=== PATIENT | female | born 1935 | race African-American/Black ===

== ENCOUNTER 2016-11-16 01:59 | Inpatient (IN) | payer OTHER, MEDICARE ==
[~2016-11-16] VITALS: Ht 157.5 cm; Wt 85.0 kg
[~2016-11-16 01:59] MED LIST: ACET500T98 PO; AMLO-147 PO; ASCO250T2 PO; CALC200T PO; CHOL100013 PO; CLOP75TA27 PO; CYAN1TAB43 PO; DOCU-144 PO; HYDR12.53 PO; POLY17PO6 PO
[2016-11-16] MEDS ORDERED: morphine 4 MG/ML VIAL IV STA (02:13)
[2016-11-16] MEDS ORDERED: SOD CHLORIDE 0.9% 1,000 ML IV STA (02:13)
[2016-11-16] MEDS ORDERED: ONDANSETRON 4 MG INJ IV STA (02:13)
[2016-11-16] MEDS ORDERED: HYDROmorphONE 1 MG/ML SYG IV STA ×2 (02:50→03:43)
[2016-11-16 02:54] LABS: ADD SCAN DIFF NO
[2016-11-16 02:59] LABS: BASOPHIL # 0.1 10^3/ul (0.0-0.1); BASOPHILS % 0.3 % (0.0-2.0); EOSINOPHILS # 0.1 10^3/ul (0.0-0.5); EOSINOPHILS % 0.4 % (0.0-7.0); HEMATOCRIT 42.2 % (37.0-47.0); HEMOGLOBIN 13.5 g/dl (12.0-16.0); LYMPHOCYTES # 2.5 10^3/ul (0.8-2.9); LYMPHOCYTES % 14.8 % (15.0-51.0); MEAN CORPUSCULAR VOLUME 87.6 fl (82.0-101.0); MEAN PLATELET VOLUME 10.7 fl (7.4-10.4); MONOCYTE # 0.6 10^3/ul (0.3-0.9); MONOCYTES % 3.7 % (0.0-11.0); NEUTROPHIL # 13.5 10^3/ul (1.6-7.5); PLATELET COUNT 322 10^3/UL (140-415); RED BLOOD COUNT 4.82 10^6/ul (4.20-5.40); RED CELL DISTRIBUTION WIDTH 14.6 % (11.5-14.5); WHITE BLOOD COUNT 16.9 10^3/ul (4.8-10.8)
[2016-11-16 02:59] LABS: ADD UMIC YES; URINE BILIRUBIN (Dip) NEGATIVE (NEGATIVE); URINE BLOOD (Dip) TRACE (NEGATIVE); URINE COLOR LT. YELLOW (YELLOW); URINE GLUCOSE (Dip) NEGATIVE (NEGATIVE); URINE KETONES (Dip) NEGATIVE (NEGATIVE); URINE LEUKOCYTE ESTERASE (Dip) 1+ (NEGATIVE); URINE NITRITE (Dip) NEGATIVE (NEGATIVE); URINE TOTAL PROTEIN (Dip) NEGATIVE (NEGATIVE); URINE UROBILINOGEN (Dip) 0.2 E.U./dL (0.1-1.0)
[2016-11-16 03:09] LABS: ALBUMIN 3.8 g/dl (3.3-4.9)
[2016-11-16 03:10] LABS: POTASSIUM 3.8 mmol/L (3.5-5.1)
[2016-11-16 03:12] LABS: ALBUMIN/GLOBULIN RATIO 0.92; BILIRUBIN,INDIRECT 0.3 mg/dl (0-1.1); BILIRUBIN,TOTAL 0.3 mg/dl (0.2-1.3); CREATININE 0.83 mg/dl (0.44-1.00); TOTAL PROTEIN 7.9 g/dl (6.1-8.1)
[2016-11-16 03:13] LABS: CALCIUM 10.2 mg/dl (8.4-10.2)
[2016-11-16 03:30] LABS: BACTERIA,URINE RARE; SQUAMOUS EPITHELIAL CELL,UR RARE; URINE RBCS 0-2 /HPF (0)
--- NOTE | 2016-11-16 04:26 | RADRPT ---
PROCEDURE: CT abdomen and pelvis without intravenous contrast. CLINICAL INDICATION: Pain. TECHNIQUE: CT of the abdomen/pelvis was performed utilizing axial images with reconstructions in s agittal and coronal planes. The administered radiation dose is CTDI 17 mGy, DLP 1013 mGy-cm. COMPARISON: No pertinent prior examinations were submitted for comparison. FINDINGS: Visualized Chest: There is moderate cardiomegaly. Coronary artery calcifications are noted. There is mild atelectasis within the right greater than left lung bases. A small hiatal hernia is noted. Abdomen: The liver, spleen, pancreas, gallbladder,and adrenal glands are unremarkable. There is moderate right hydronephrosis and hydroureter secondary to 7 x 10 mm calculus within the ri ght proximal ureter and a 7 x 12 mm calculus in the distal ureter. The left kidney is without hydro nephrosis. Small and punctate nonobstructive calculi are seen within both kidneys. The right kidne y is slightly atrophic with renal cortical thinning. No large cysts are noted at the lower pole of the right kidney and upper pole of the left kidney. There is no evidence of bowel obstruction. The appendix is normal. No intra-abdominal free air is seen. There is no evidence of intra-abdominal adenopathy or free fluid. Vascular calcifications are noted within the aorta and its branches. Pelvis: Prior hysterectomy is noted. The urinary bladder is unremarkable. There is no pelvic adenopathy of free fluid. Osseous structures: Unremarkable. IMPRESSION: Right-sided obstructive uropathy secondary to a 7 x 10 mm calculus of the proximal right ureter and a 7 x 12 ml calculus distal ureter. Bilateral nephrolithiasis and renal cysts. Right renal atrophy and cortical thinning. RPTAT: HIKT .Alber Castillo MD, Date Time Electronically viewed and signed by .Alber Castillo MD, on 11/16/2016 04:25 .T/
--- NOTE | 2016-11-16 05:36 | ERA ---
ER Documentation Chief Complaint Date/Time DATE: 11/16/16 TIME: 05:33 Chief Complaint right flank pain radiating to RUQabd after taking miralax, milk, ect. HPI This is an 81-year-old female comes with right flank pain radiating to right upper quadrant after taking MiraLAX. The pain is mild to moderate intensity. She cannot find comfort. Denies any other current complaints. Mild nausea. No vomiting. ROS All systems reviewed and are negative except as per history of present illness. Medications Home Meds Reported Medications Calcium Carbonate* (Tums*) 500 Mg Tab.chew, 500 MG PO BID 12/13/13 Acetaminophen (Tylenol) 500 Mg Tab, PO TID 11/01/13 Multivitamins (Folgard) 1 Tab Tab, PO DAILY 11/01/13 Polyethylene Glycol* (Miralax*) 17 Gm Powd.pack, PO DAILY 11/01/13 Cholecalciferol (Vitamin D3) 10,000 Unit Capsule, 69786 U PO Q WEEKLY ON SAT 11/01/13 Clopidogrel Bisulfate (Clopidogrel) 75 Mg Tablet, PO DAILY 11/01/13 Amlodipine Besylate* (Amlodipine Besylate*) 10 Mg Tablet, PO DAILY 11/01/13 Ascorbic Acid* (Vitamin C* Chew) 250 Mg Tab.chew, PO BID 11/01/13 Hydrochlorothiazide (Hydrochlorothiazide) 12.5 Mg Capsule, PO DAILY 11/01/13 Docusate Sodium* (Colace*) 100 Mg Capsule, PO BID 11/01/13 Allergies Allergies: Coded Allergies: Cyanocobalamin (Verified Allergy, Unknown, 12/13/13) Uncoded Allergies: SABRA INHIBITOR (Allergy, Unknown, 12/13/13) VITAMIN B12 (Allergy, Unknown, 12/13/13) PMhx/Soc History of Surgery: No Anesthesia Reaction: No Hx Neurological Disorder: Yes (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 Neck: Full range of motion..~ No meningismus. Resp: Clear to auscultation bilaterally Cardio: Regular rate and rhythm, no murmurs Abd: Soft, non tender, non distended. Normal bowel sounds Skin: No petechiae or rashes Back: No midline or flank tenderness Ext: No cyanosis, or edema Neur: Awake and alert Psych: Normal Mood and Affect Result Diagram: 11/16/1621911/16/16219 Results 24 hrs Laboratory Tests Test 11/16/16 02:20 11/16/16 02:28 Alanine Aminotransferase (ALT/SGPT) 19IU/L Albumin 3.8g/dl Albumin/Globulin Ratio 0.92 Alkaline Phosphatase 112IU/L Anion Gap 19 Aspartate Amino Transf (AST/SGOT) 17IU/L Basophils # 0.110^3/ul Basophils % 0.3% Blood Urea Nitrogen 17mg/dl Calcium Level 10.2mg/dl Carbon Dioxide Level 27mmol/L Chloride Level 105mmol/L Creatinine 0.83mg/dl Direct Bilirubin 0.00mg/dl Eosinophils # 0.110^3/ul Eosinophils % 0.4% Globulin 4.10g/dl Glucose Level 153mg/dl Hematocrit 42.2% Hemoglobin 13.5g/dl Indirect Bilirubin 0.3mg/dl Lipase 75U/L Lymphocytes # 2.510^3/ul Lymphocytes % 14.8% Mean Corpuscular Hemoglobin 28.0pg Mean Corpuscular Hemoglobin Concent 32.0g/dl Mean Corpuscular Volume 87.6fl Mean Platelet Volume 10.7fl Monocytes # 0.610^3/ul Monocytes % 3.7% Neutrophils # 13.510^3/ul Neutrophils % 80.0% Nucleated Red Blood Cells # 0.010^3/ul Nucleated Red Blood Cells % 0.0/100WBC Platelet Count 12596^3/UL Potassium Level 3.8mmol/L Red Blood Count 4.8210^6/ul Red Cell Distribution Width 14.6% Sodium Level 147mmol/L Total Bilirubin 0.3mg/dl Total Protein 7.9g/dl White Blood Count 16.910^3/ul Urine Bacteria RARE Urine Bilirubin NEGATIVE Urine Clarity CLEAR Urine Color LT. YELLOW Urine Glucose NEGATIVE% Urine Hemoglobin TRACE Urine Ketones NEGATIVE Urine Leukocyte Esterase 1+ Urine Microscopic RBC 0-2/HPF Urine Microscopic WBC 10-25/HPF Urine Nitrite NEGATIVE Urine Specific [place] 1.020 Urine Squamous Epithelial Cells RARE Urine Total Protein NEGATIVE Urine Urobilinogen 0.2 E.U./dL Urine pH 5.5 Current Medications Medications (Trade) Dose Ordered Sig/Maranda Route PRN Reason Start Time Stop Time Status Last Admin Dose Admin Sodium Chloride (NS) 1,000 ml @ 1,000 mls/hr Q1H STAT IV 11/16/16 02:13 11/16/16 03:12 DC 11/16/16 02:19 Morphine Sulfate (morphine) 4 mg ONCE STAT IV 11/16/16 02:13 11/16/16 02:16 DC 11/16/16 02:19 Ondansetron HCl (Zofran Inj) 4 mg ONCE STAT IV 11/16/16 02:13 11/16/16 02:16 DC 11/16/16 02:19 Hydromorphone HCl (Dilaudid) 1 mg ONCE STAT IV 11/16/16 02:50 11/16/16 02:51 DC 11/16/16 02:53 Hydromorphone HCl (Dilaudid) 1 mg ONCE STAT IV 11/16/16 03:43 11/16/16 03:44 DC 11/16/16 04:00 Procedures/MDM Medical decision: 7-year-old female with ureteral obstruction. At this point patient will need to be admitted with urology consult. Patient will be admitted to hospitalist. Pending urology consult call back. Departure Diagnosis: Primary Impression: Flank pain Condition: Stable PARVIN MIRELES Nov 16, 2016 05:36
[2016-11-16 06:08] VITALS: TEMP 97.6
[2016-11-16 06:35] VITALS: BP 153/70; RESP 22
[2016-11-16] MEDS ORDERED: ATOR40TA68 PO (07:30)
[2016-11-16] MEDS ORDERED: BENA10TA48 PO (07:30)
[2016-11-16] MEDS ORDERED: ONDANSETRON 4 MG INJ IV PRN ×2 (08:00→10:00)
[2016-11-16] MEDS ORDERED: TAMSULOSIN (SR) 0.4 MG CAP PO SCH (08:00)
[2016-11-16] MEDS ORDERED: NACL 0.9% 3 ML SYG IV SCH (08:00)
[2016-11-16 08:19] VITALS: BP 120/57; RESP 18
[2016-11-16 08:57] VITALS: Ht 157.5 cm; Wt 85.0 kg
[2016-11-16] MEDS: DEXTROSE 5%-0.45% NACL 1,000 ML IV SCH ×2 (09:26→19:01)
[2016-11-16] MEDS: TAMSULOSIN (SR) 0.4 MG CAP PO SCH (09:34)
--- NOTE | 2016-11-16 10:21 | HP ---
DATE OF ADMISSION: 11/16/2016 CHIEF COMPLAINT: Flank pain. REASON FOR ADMISSION: Acute obstructive uropathy with right proximal and distal ureteral strain cau sing intractable pain, and also causing obstructive uropathy with hematuria. HISTORY OF PRESENT ILLNESS: This is an 81-year-old female with a past medical history of constipati on, history of previous nephrolithiasis, who has been giving a history of kidney stone before, which had been spontaneously passed. She presented with a complaint of right flank pain, intractable exc ruciating pain, 06/27. She called the paramedics while she was driving in the car to The par amedics brought her to the [facility]. In the [facility] ER she had a CT abdomen and pelvis without contrast done which shows obstructive uropathy with a calculus about 10 mm in the right proximal ureter and 12 mm in the right distal ureter. She also has a bilateral neph rolithiasis with a renal cyst, so she has been complaining of hematuria, decreased urine output asso ciated with intractable pain. At the time of my evaluation, she denies any chest pain, palpitation, headache, dizziness, blurry vi parth, constipation, diarrhea, dysuria, increased urinary frequency. PAST MEDICAL HISTORY: Notable for hypertension, hyperlipidemia, history of previous coronary artery disease, has been stable on Plavix 75 mg daily. History of constipation intermittently. PAST SURGICAL HISTORY: No surgical history is available at this time, as per the patient. SOCIAL HISTORY: She lives with her daughters. Has been followed up by the [facility]. No alcohol or recreational drug use. FAMILY HISTORY: Noncontributory, but patient says that her mom might have a history of kidney stone s. PHYSICAL EXAMINATION: VITAL SIGNS: Temperature 97.5, heart rate 96, respiration 18, blood pressure 120/57, saturation 94% to 96% on room air. GENERAL: Awake, alert, in moderate distress due to the pain. HEENT: Normal. Oropharynx clear. NECK: Supple, no JVD, no lymphadenopathy. LUNGS: Clear to auscultation. No crackles, no wheezes. HEART: S1, S2, with regular rhythm, no murmur. ABDOMEN: Soft. Tender to palpation in the right upper quadrant and the right flank with minimal te nderness and guarding. Bowel sounds are present. EXTREMITIES: No clubbing, cyanosis, or edema. NEUROLOGICAL: Nonfocal, intact. PSYCHIATRIC: Appropriate affect and mood. LABORATORY DATA/DIAGNOSTIC IMAGIN. Sodium 147, potassium 3.8, chloride 105, bicarbonate 27, BUN 9, BUN 17, creatinine 0.8, glucose 153, calcium 10.2. LFTs are normal. Albumin is 3.8. 2. Urinalysis shows 1+ leukocyte esterase, trace hemoglobin, rare bacteria, rare squamous epithelia l cells, WBC 16.9, hemoglobin 13.5, platelet count is 322,000. A CT abdomen and pelvis shows bilateral nephrolithiasis with right obstructive uropathy and had a 10 mm stone in the right proximal ureter and 12 mm stone in the right distal ureter. IMPRESSION: This is an 81-year-old female with: 1. Acute urinary tract infection. 2. Acute obstructive uropathy causing blockage of her ureters. The patient had a 10 mm stone in th e right proximal ureter and a 12 mm stone in the right distal ureter causing intractable abdominal p ain. 3. Bilateral nephrolithiasis with a small renal cyst. 4. Right atrophic kidney with cortical thinning. 5. Intractable abdominal pain. 6. History of hypertension. 7. History of hyperlipidemia. 8. History of vitamin D deficiency. 9. History of previous coronary artery disease, has been on Plavix. PLAN: 1. Admission to the med/surg floor. IV fluids, D5 half NS to run at 125 mL per hour. 2. I will start the patient on IV ceftriaxone to cover her for urinary tract infection. 3. Flomax 0.4 mg p.o. daily. 4. Continue the other home medications. I will hold the patient's Plavix in anticipation of the ur ology procedures. The urologist, Dr. Pinedo, has been consulted to see patient. 5. The patient currently seen in the med/surg floor. Protonix for GI prophylaxis and SCDs for DVT prophylaxis. She will be followed up along with urology. Dictated By: LIZZ SALCEDO MD, KP/BOBBI Conf#: [id number] DID#: [id number]
--- NOTE | 2016-11-16 10:43 | HP ---
DATE OF ADMISSION: 11/16/2016 CHIEF COMPLAINT: Right flank pain. HISTORY OF PRESENT ILLNESS: The patient is a 81-year-old female with a history of CVA, with right- sided deficit and hypertension, who presented to the emergency department with the above stated do f complaint. Upon presentation to the ER, she was noted to have a white count of 17,000. CT abdome n and pelvis shows right-sided obstructing uropathy, 7 x 10 mm proximal right ureteral calculus, and a 7 x 12 in the distal. Also, the CAT scan shows bilateral nephrolithiasis and right renal atrophy and cortical thinning. The patient was provided pain medication and admitted for neurologic evalua tion. REVIEW OF SYSTEMS: Negative except as in HPI. PAST MEDICAL HISTORY: As per HPI. SOCIAL HISTORY: No reported history of drugs, alcohol, or illicit drug use. ALLERGIES: 1. SABRA INHIBITOR. 2. VITAMIN B12. HOME MEDICATIONS 1. Lipitor. 2. Benazepril. 3. Hydrochlorothiazide. 4. Norvasc. 5. Plavix. 6. Multivitamin. 7. Calcium. PHYSICAL EXAMINATION: GENERAL: The patient is lying in bed, looks somewhat uncomfortable due to pain. HEENT: No obvious head deformity. Pupils are reactive to light. CARDIOVASCULAR: Regular rate and rhythm. No extra sounds. LUNGS: Clear. ABDOMEN: Soft. There is tenderness in the lower abdominal region in the right flank area. EXTREMIT IES: No edema. NEUROLOGICAL: Showed decreased strength in the right upper and lower extremities. LABORATORY: WBC 17,000. Urinalysis consistent with UTI. CT abdomen and pelvis with results as mentioned in the HPI. IMPRESSION: 1. Right-sided obstructive uropathy. 2. Right flank pain, secondary to above. 3. Right-sided pyelonephritis. 4. History of cerebrovascular accident with right-sided deficit. 5. History of hypertension. 6. Sepsis secondary to right-sided pyelonephritis versus/urinary tract infection. PLAN: She will be kept n.p.o. She will be placed on IV fluids. We will provide pain medication as needed. She is currently awaiting urologic evaluation. We will hold her home medication while she is n.p.o. We will resume soon after is no longer n.p.o. We will start her on Flomax. Further workup and management will be per clinical course. Dictated By: PARVIN BLISS/BOBBI Conf#: [id number] DID#: [id number]
[2016-11-16] MEDS: POLYETHYLENE GLYCOL 17 GM PACKET PO SCH (11:00)
[2016-11-16] MEDS ORDERED: HYDROCHLOROTHIAZIDE 12.5 MG CAP PO SCH (11:00)
[2016-11-16] MEDS ORDERED: CLOPIDOGREL 75 MG TAB PO SCH (11:00)
[2016-11-16] MEDS: CALCIUM CARBONATE 500 MG CHEW TAB PO SCH ×2 (11:00→20:41)
[2016-11-16] MEDS: PANTOPRAZOLE 40 MG INJ IV SCH ×2 (11:38→18:00)
[2016-11-16] MEDS: AMLODIPINE 10 MG TAB PO SCH (11:43)
[2016-11-16] MEDS: BENAZEPRIL 10 MG TAB PO SCH (11:43)
--- NOTE | 2016-11-16 13:32 | CONS ---
DATE OF ADMISSION: 11/16/2016 DATE OF CONSULTATION: 11/16/2016 REQUESTING PHYSICIAN: Markel Cm MD and Kin Carmona MD. HISTORY OF PRESENT ILLNESS: This is an 81-year-old -[place] female who presented to [facility] because of right flank pain, 06/27, and underwent a CT scan of the abdomen and pelvis that showed 2 stones in the right ureter, 1 in the proximal ureter measuring about 10 mm and another stone in the distal ureter measuring 12 mm, and both of them are obstructing her. The CAT scan showed that there is some cortical atrophy of the right kidney and that indicated that these stones probably have been blocking her for quite a while. The patient stated that she has had kidney stones in the past and "that she has passed them," probably these are the stones that she did have. She does not have a stone in the kidney itself and therefore, that was probably they told her that she passed them because they did not see them in the ureter. 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 The patient does have multiple other problems that include a history of coronary artery disease and she has been on Plavix. She also has a history of constipation, hypertension and dyslipidemia. She is a 4 para1, one of HIV,one of infection..one miscarriage and one daughter alive PAST SURGICAL HISTORY: Hysterectomy, She stated that did look into her bladder once before and that they did not see any stone. SOCIAL HISTORY: She lives with her daughter here in [place]. She does not smoke, does not drink any alcohol, and there is no history of drug abuse. 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 She is 62 inches tall. Temperature is 97.5, pulse 96, respirations 18, blood pressure 120/57. ABDOMEN: Obese. scar of hysterectomy,There is some tenderness in the right flank area and the right upper quadrant. There is no abdominal mass palpable. LABORATORY DATA: Her CBC shows a white count of 16.9, hemoglobin 13.5, hematocrit is 42.2. BUN is 17, creatinine 0.83, sodium 147, potassium 3.8, chloride 105, CO2 of 27. Urinalysis showed 1+ leukocyte esterase, 10 to 25 WBCs. PT and PTT are not done, we will order one. IMAGING: The CT scan of the abdomen and pelvis is reported as right-sided obstructive uropathy secondary to 7 x 10 mm stone in the proximal right ureter and 7 x 12 mm stone in the distal right ureter. She does have bilateral kidney stones and renal cysts, and there is right renal atrophy and cortical thinning and this probably is secondary to obstructive uropathy. IMPRESSION: Right ureteral stones with obstruction. PLAN: To do a cystoscopy and insert a JJ stent.and possible ureteroscopy,laser lithotripsy. she needs a cardiology evaluation and see if we could stop the Plavix, so we could do ureteroscopy and laser lithotripsy on the stones. The patient will need at least 2 procedures, each one to remove 1 stone and put the JJ stent to try to drain the kidney. Also, will do a urine culture to make sure that she is not infected. I will follow her urological problem with you. I did schedule her tentatively for tomorrow at 5:30 p.m. for cystoscopy, insertion of right ureteral JJ stent. Since she is on Plavix, we probably have to wait until the effect of the Plavix has subsided and then we go back and try to break the stones and remove them, and we will have to do 1 stone at a time. Dictated By: DEVAUGHN ESCALANTE/BOBBI Conf#: [id number] DID#: [id number]
[2016-11-16 14:24] LABS: INR 0.96; PROTIME 12.8 Sec (12.2-14.2)
[2016-11-16 14:25] LABS: PARTIAL THROMBOPLASTIN TIME 25.9 Sec (25.0-35.0)
--- NOTE | 2016-11-16 14:52 | CONS ---
Date/Time of Note Date/Time of Note DATE: 11/16/16 TIME: 14:46 Assessment/Plan Assessment/Plan Additional Assessment/Plan Preoperative cardiac risk stratification Obstructive uropathy History of CVA, on Plavix Systolic murmur Preserved ejection fraction Hypertension Dyslipidemia -Patient has been on Plavix secondary to a CVA over 2 years ago. Could be held for patient's planned urologic procedure. She denies any history of any coronary intervention. She does have a systolic murmur on examination and echo showed hyperdynamic function and gradient. Would continue IV fluids to increase intravascular volume. D/C HCTZ. She is at an intermediate risk for any untoward cardiac events for her urologic procedure. The benefits likely outweigh the risks. Consultation Date/Type/Reason Admit Date/Time Nov 16, 2016 at 10:29 Type of Consultation: cv Reason for Consultation Preoperative cardiac risk stratification Hx of Present Illness This is an 81-year-old female with history of hypertension, dyslipidemia, CVA with right-sided hemiparesis who was found to have nephrolithiasis with obstruction. Patient plan to undergo cystoscopy and possible stent placement. Cardiology consultation was requested for preoperative risk stratification given patient on Plavix. In discussion with the patient and daughter, no history of heart disease, coronary intervention in the past. She did have a stroke a number of years ago and was put on Plavix because of that reason. She has been bedbound for the past 2 years. She denies any dizziness, lightheadedness. She does minimal activity but denies exertional chest pain, shortness of breath, palpitations or dizziness. 12 point review of systems was performed with all pertinent positives and negatives mentioned above and all else is negative Past Medical History CVA Medical History: high cholesterol, hypertension Past Surgical History Past Surgical Hx: other (Hysterectomy) Family History Significant Family History: no pertinent family hx Social History Alcohol Use: none Smoking Status: Never smoker Exam/Review of Systems Vital Signs Vitals Vital Signs Date Time Temp Pulse Resp B/P Pulse Ox O2 Delivery O2 Flow Rate FiO2 11/16/16 08:19 97.5 96 18 120/57 94 11/16/16 06:08 Room Air 2.0 Exam No apparent distress Constitutional: alert, obese, oriented Head: normocephalic Neck: supple Respiratory: other (Coarse breath sounds bilaterally, no wheezing) Cardiovascular: other (S1-S2 heard), regular rate and rhythm, systolic murmur Gastrointestinal: bowel sounds, non-tender, other (No guarding), soft Extremities: edema (Trace), other (No cyanosis) Results Result Diagram: 11/16/16 02211/16/16 0220 Results 24 hrs Laboratory Tests Test 11/16/16 02:20 11/16/16 02:28 11/16/16 14:00 Alanine Aminotransferase (ALT/SGPT) 19 Albumin 3.8 Albumin/Globulin Ratio 0.92 Alkaline Phosphatase 112 Anion Gap 19 H Aspartate Amino Transf (AST/SGOT) 17 Basophils # 0.1 Basophils % 0.3 Blood Urea Nitrogen 17 Calcium Level 10.2 Carbon Dioxide Level 27 Chloride Level 105 Creatinine 0.83 Direct Bilirubin 0.00 Eosinophils # 0.1 Eosinophils % 0.4 Globulin 4.10 H Glucose Level 153 Hematocrit 42.2 Hemoglobin 13.5 Indirect Bilirubin 0.3 Lipase 75 Lymphocytes # 2.5 Lymphocytes % 14.8 L Mean Corpuscular Hemoglobin 28.0 L Mean Corpuscular Hemoglobin Concent 32.0 Mean Corpuscular Volume 87.6 Mean Platelet Volume 10.7 H Monocytes # 0.6 Monocytes % 3.7 Neutrophils # 13.5 H Neutrophils % 80.0 H Nucleated Red Blood Cells # 0.0 Nucleated Red Blood Cells % 0.0 Platelet Count 322 Potassium Level 3.8 Red Blood Count 4.82 Red Cell Distribution Width 14.6 H Sodium Level 147 H Total Bilirubin 0.3 Total Protein 7.9 White Blood Count 16.9 H Urine Bacteria RARE Urine Bilirubin NEGATIVE Urine Clarity CLEAR Urine Color LT. YELLOW Urine Glucose NEGATIVE Urine Hemoglobin TRACE Urine Ketones NEGATIVE Urine Leukocyte Esterase 1+ H Urine Microscopic RBC 0-2 Urine Microscopic WBC 10-25 Urine Nitrite NEGATIVE Urine Specific [place] 1.020 Urine Squamous Epithelial Cells RARE Urine Total Protein NEGATIVE Urine Urobilinogen 0.2 E.U./dL Urine pH 5.5 Activated Partial Thromboplast Time 25.9 INR International Normalized Ratio 0.96 Prothrombin Time 12.8 Prothrombin Time Ratio 1.0 Medications Medications Current Medications Dextrose/Sodium Chloride (D5-1/2ns) 1,000 ml @ 75 mls/hr [id number] IV Last administered on 11/16/16t 09:26; Admin Dose 125 MLS/HR; Start 11/16/16 at 07:49 Morphine Sulfate (morphine) 4 mg Q4H PRN IV pain; Start 11/16/16 at 08:00 Tamsulosin HCl (Flomax) 0.4 mg DAILY PO Last administered on 11/16/16 09:34; Admin Dose 0.4 MG; Start 11/16/16 at 08:00 Pantoprazole (Protonix Iv) 40 mg BID@06,18 IV Last administered on 11/16/16 11: 38; Admin Dose 40 MG; Start 11/16/16 at 11:00 Ondansetron HCl (Zofran Inj) 4 mg Q4H PRN IV NAUSEA AND/OR VOMITING; Start 11/16 at 10:00 Amlodipine Besylate (Norvasc) 5 mg DAILY PO Last administered on 11/16/16 11:43 ; Admin Dose 5 MG; Start 11/16/16 at 11:00 Benazepril HCl (Lotensin) 10 mg DAILY PO Last administered on 11/16/16 11:43; Admin Dose 10 MG; Start 11/16/16 at 11:00 Calcium Carbonate (Tums) 500 mg BID PO ; Start 11/16/16 at 11:00 Clopidogrel Bisulfate (plaVIX) 75 mg DAILY PO Last administered on 11/16/16 11: 43; Admin Dose 75 MG; Start 11/16/16 at 11:00 Hydrochlorothiazide (Hydrochlorothiazide) 12.5 mg DAILY PO Last administered on 11/16/16 11:44; Admin Dose 12.5 MG; Start 11/16/16 at 11:00 Polyethylene Glycol (Miralax) 17 gm DAILY PO ; Start 11/16/16 at 11:00 Ascorbic Acid (Vitamin C) 500 mg BID PO ; Start 11/16/16 at 21:00 Atorvastatin Calcium (Lipitor) 20 mg DAILY@21 PO ; Start 11/16/16 at 21:00 Procedures Procedures ECG demonstrates sinus rhythm at 94 bpm, QRS 84 ms, nonspecific STT wave abnormalities Nishant Ruelas DO Nov 16, 2016 14:52
--- NOTE | 2016-11-16 15:12 | RADRPT ---
AMENDMENT: 11/16/2016 3:18:47 PM Elijah Rodriguez M.D Impression: Comparison was made to the recent CT scan of the abdomen pelvis performed on 11/16/2016 . Increased density in medial aspects of the right left lower lobe correspond to focal areas of con solidative infiltrate/atelectasis in these areas. PROCEDURE: XR Chest. CLINICAL INDICATION: Preop chest x-ray in a 81-year-old female with history of hypertension. TECHNIQUE: Single frontal view of the chest was obtained COMPARISON: Chest x-ray 12/13/2013. FINDINGS: The soft tissues are normal. There are degenerative osteophytes in the thoracic and upper lumbar sp ine. The left ventricle is mildly enlarged. The cardiomediastinal silhouette, pulmonary vasculatur e and hilar structures are normal. Vascular calcifications in the aortic arch with mild ectasia of t he thoracic aorta. There is slight thickening of the minor fissure which may be the result of a ple ural effusion not identified on the prior study of 12/13/2013. The right diaphragm is elevated. Th ere is compressive atelectasis in the bases of the lungs. No acute infiltrate or pleural effusion i s noted. IMPRESSION: 1. There is thickening in the minor fissure which could be the result of a small pleural effusion or pleural scarring. This is not identified on 12/13/2013. 2. 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 3. Spondylosis of the thoracic spine. 4. Suboptimal inspiration with elevation the right diaphragm and mild compressive atelectasis in th e bases of the lungs. 5. No convincing evidence of active cardiopulmonary disease. RPTAT:AAJJ Physician Kristian Date Time Electronically viewed and signed by Physician Kristian on 11/16/2016 15:18 JM/
--- NOTE | 2016-11-16 15:17 | RADRPT ---
PROCEDURE: XR Abdomen. CLINICAL INDICATION: 79 toe female with history of right ureteral stones. TECHNIQUE: AP abdomen x-ray. COMPARISON: CT scan abdomen pelvis 11/16/2016. FINDINGS: There is consolidative infiltrate or atelectasis in the medial aspect of the right lower lobe when c orrelated with the recent CT scan of 11/16/2016. There is peribronchial cuffing in the medial aspec ts of the right left lower lobes. The right diaphragm is elevated. There is slight thickening of t he major fissure. There are vascular calcifications in the descending thoracic aorta. There is a s everal millimeter ureterolith at the level of L4-5. There is a millimeters ureterolith at the level of the right sacral ala. IMPRESSION: 1. 7-8 mm ureterolith at the the level of L4-5. 8 mm ureterolith projecting over the right sacral a la. 2. Reflex ileus. 3. Osteoarthritis of the thoracic and lumbosacral spine. 4. Elevation of the right diaphragm with consolidative infiltrate and atelectasis the medial aspect s of the right left lower lobes. RPTAT:AAJJ Physician Kristian Date Time Electronically viewed and signed by Physician Kristian on 11/16/2016 15:17 /
--- NOTE | 2016-11-16 15:54 | RADRPT ---
Echocardiogram Report Patient Name: INES RESTREPO Gender: Female Date: 1935 Study Date: 16-Nov-2016 [place] [facility]: Patricia Bahena [facility] Location: 603 Ref. Physician: NISHANT RUELAS Quality: Technically Difficult Study Procedures: Transthoracic echocardiogram with complete 2D, M-Mode, and doppler examination. Indications: Murmur. 2D/M Mode Doppler Measurement Value Normal Ranges Measurement Value Normal Ranges LVIDd 2D 3.4 3.5 - 5.6 cm AV Mean Renny 2.9 m/sec LVIDs 2D 2.5 2.1 - 4.1 cm AV Mean PG 48.1 mmHg LVPWd 2D 0.8 0.6 - 1.1 cm AV Peak Renny 5.2 m/sec IVSd 2D 0.7 0.6 - 1.1 cm AV Peak PG 123.6 mmHg AoR Diam 2D 2.8 2.0 - 3.7 cm AV VTI 80.0 cm EDV 2D 47.8 cm3 MV E Peak Renny 0.6 m/sec ESV 2D 16.2 cm3 MV A Peak Renny 1.3 m/sec LA Dimen 2D 3.1 2.3 - 4.0 cm MV E/A 0.5 MV Decel Time 67 msec MV Decel Cecil 9 MV E/A 0.5 TR Peak Renny 2.9 m/sec TR Peak PG 34.4 mmHg RVSP 42.0 mmHg Findings Left Ventricle: Hyperdynamic left ventricular systolic function. Normal left ventricular cavity size. Normal left ventricular wall thickness. Ejection fraction is visually estimated at 70 %. Tissue Doppler/Mitral Doppler indices are consistent with impaired relaxation (Stage I diastolic dysfunction). Right Ventricle: Normal right ventricular size. Normal right ventricular systolic function. Left Atrium: The left atrium is normal in size. Right Atrium: The right atrium is normal in size. Mitral Valve: Mitral valve leaflets appear mildly thickened. Mild mitral annular calcification. Mild mitral valve regurgitation. Aortic Valve: No significant aortic stenosis or insufficiency. Aortic cusps appear mildly calcified. Tricuspid Valve: Normal appearance of the tricuspid valve. Estimated peak PA systolic pressure 42 mmHg. There is mild tricuspid regurgitation. Pulmonic Valve: Normal pulmonic valve appearance. Pericardium: Normal pericardium with no significant pericardial effusion. Aorta: Normal aortic root. IVC: Normal size and no respiratory collapse consistent with elevated right atrial pressure. Conclusions 1.Hyperdynamic left ventricular systolic function. Normal left ventricular cavity size. Normal left ventricular wall thickness. Ejection fraction is visually estimated at 70 %. Patient with left ventricular outflow gradient. Tissue Doppler/Mitral Doppler indices are consistent with impaired relaxation (Stage I diastolic dysfunction). 2.Normal right ventricular size. Normal right ventricular systolic function. 3.The left atrium is normal in size. 4.The right atrium is normal in size. 5.Mild mitral valve regurgitation. 6.No significant aortic stenosis or insufficiency. 7.Estimated peak PA systolic pressure 42 mmHg. There is mild tricuspid regurgitation. 8.Normal pericardium with no significant pericardial effusion. Electronically Signed By: Nishant Ruelas 16-Nov-2016 15:53:41 -0800 Patient Name: INES RESTREPO Study Date: 16-Nov-2016 [id number]
[2016-11-16] MEDS: ASCORBIC ACID 500 MG TAB PO SCH (20:42)
[2016-11-16] MEDS: ATORVASTATIN 20 MG TAB PO SCH (20:42)
[2016-11-16 20:50] VITALS: BP 129/66; RESP 16
[2016-11-16] MEDS ORDERED: ATORVASTATIN 40 MG TAB PO SCH (21:00)
[2016-11-16] MEDS ORDERED: ASCORBIC ACID 250 MG TAB PO SCH (21:00)
[2016-11-17] VITALS (8 sets, daily range): BP systolic 77–124; BP diastolic 41–59; PULSE 96–126; RESP 16–81
[2016-11-17] MEDS: PANTOPRAZOLE 40 MG INJ IV SCH (05:09)
[2016-11-17] MEDS: morphine 2 MG INJ IV PRN (05:10)
[2016-11-17 05:31] LABS: ADD SCAN DIFF NO
[2016-11-17 05:34] LABS: ABNORMAL IP MESSAGE 1; BASOPHIL # 0.1 10^3/ul (0.0-0.1); BASOPHILS % 0.2 % (0.0-2.0); HEMOGLOBIN 13.3 g/dl (12.0-16.0); LYMPHOCYTES % 3.7 % (15.0-51.0); MEAN CORPUSCULAR HEMOGLOBIN 28.9 pg (29.0-33.0); MEAN CORPUSCULAR HGB CONC 33.3 g/dl (32.0-37.0); MEAN PLATELET VOLUME 10.5 fl (7.4-10.4); MONOCYTE # 0.8 10^3/ul (0.3-0.9); NEUTROPHIL # 23.4 10^3/ul (1.6-7.5); NEUTROPHILS % 87.1 % (39.0-77.0); PLATELET COUNT 255 10^3/UL (140-415); RED CELL DISTRIBUTION WIDTH 14.6 % (11.5-14.5); WHITE BLOOD COUNT 26.9 10^3/ul (4.8-10.8)
[2016-11-17 05:49] LABS: ALBUMIN 3.3 g/dl (3.3-4.9)
[2016-11-17 05:50] LABS: POTASSIUM 3.5 mmol/L (3.5-5.1)
[2016-11-17 05:52] LABS: ALBUMIN/GLOBULIN RATIO 0.91; BILIRUBIN,INDIRECT 0.5 mg/dl (0-1.1); BILIRUBIN,TOTAL 0.5 mg/dl (0.2-1.3); CREATININE 0.91 mg/dl (0.44-1.00); TOTAL PROTEIN 6.9 g/dl (6.1-8.1)
[2016-11-17 05:53] LABS: CALCIUM 9.5 mg/dl (8.4-10.2)
[2016-11-17 06:02] LABS: INR 1.17; PT RATIO 1.2
[2016-11-17 06:03] LABS: PARTIAL THROMBOPLASTIN TIME 29.1 Sec (25.0-35.0)
[2016-11-17] MEDS: ASCORBIC ACID 500 MG TAB PO SCH ×2 (08:36→21:43)
[2016-11-17] MEDS: AMLODIPINE 10 MG TAB PO SCH (08:36)
[2016-11-17] MEDS: POLYETHYLENE GLYCOL 17 GM PACKET PO SCH (08:37)
[2016-11-17] MEDS: CALCIUM CARBONATE 500 MG CHEW TAB PO SCH ×2 (08:37→21:00)
[2016-11-17] MEDS: TAMSULOSIN (SR) 0.4 MG CAP PO SCH (08:37)
[2016-11-17] MEDS: BENAZEPRIL 10 MG TAB PO SCH (08:37)
[2016-11-17] MEDS: DEXTROSE 5%-0.45% NACL 1,000 ML IV SCH (08:45)
--- NOTE | 2016-11-17 12:21 | PN ---
Date/Time of Note Date/Time of Note DATE: 11/17/16 TIME: 12:13 Assessment/Plan VTE Prophylaxis VTE Prophylaxis Intervention: SCD's Lines/Catheters IV C[facility]ter Type (from [facility] Saline Lock Urinary Cath still in place: No Assessment/Plan Chief Complaint/Hosp Course IMPRESSION: 1. Right-sided obstructive uropathy. Urology has been consulted, plan for cystoscopy today Start Flomax when patient is able to tolerate oral intake 2. Right flank pain, secondary to above. 3. Right-sided pyelonephritis. Start patient on Rocephin and ciprofloxacin 4. History of cerebrovascular accident with right-sided deficit. 5. History of hypertension. Well-controlled on medical management 6. Sepsis secondary to right-sided pyelonephritis versus/urinary tract infection. We will continue monitor patient closely for recommendation management treatment as clinical course Problems: Subjective 24 Hr Interval Summary Free Text/Dictation Patient continues to complain of having flank pain and abdominal discomfort Complains of having nausea without any vomiting Denies any chest pain or shortness of breath Exam/Review of Systems Vital Signs Vitals Vital Signs Date Time Temp Pulse Resp B/P Pulse Ox O2 Delivery O2 Flow Rate FiO2 11/17/16 07:43 98.5 98 16 111/59 96 11/16/16 06:08 Room Air 2.0 Intake and Output 11/16/16 11/16/16 11/17/16 14:59 22:59 06:59 Intake Total 1480 ml 1125 ml Balance 1480 ml 1125 ml Exam General: The patient is moderately overweight, Not in acute distress. HEENT: Atraumatic, normocephalic. The pupils are equal and round . Neck: Supple with full range of motion. Chest: Normal expansion of the thorax during inspiration Lungs: Clear to auscultation bilaterally Heart: Normal S1-S2, Regular rhythm and rate. Abdomen: Soft , minimal right-sided tenderness and flank pain, nondistended , bowel sounds are present. Extremities: Normal to inspection, no edema no cyanosis Neurologic: Normal mental status,The patient is awake, alert and oriented . Results Result Diagram: 11/17/16 0500 11/17/16 0506 Results 24 hrs Laboratory Tests Test 11/16/16 14:00 11/17/16 05:00 11/17/16 05:06 Activated Partial Thromboplast Time 25.9 29.1 INR International Normalized Ratio 0.96 1.17 Prothrombin Time 12.8 15.0 H Prothrombin Time Ratio 1.0 1.2 Basophils # 0.1 Basophils % 0.2 Differential Comment AUTO w/SCAN Eosinophils # 0.0 Eosinophils % 0.0 Hematocrit 40.0 Hemoglobin 13.3 Lymphocytes # 1.0 Lymphocytes % 3.7 L Mean Corpuscular Hemoglobin 28.9 L Mean Corpuscular Hemoglobin Concent 33.3 Mean Corpuscular Volume 87.0 Mean Platelet Volume 10.5 H Monocytes # 0.8 Monocytes % 3.0 Neutrophils # 23.4 H Neutrophils % 87.1 H Nucleated Red Blood Cells # 0.0 Nucleated Red Blood Cells % 0.0 Platelet Count 255 # Red Blood Count 4.60 Red Cell Distribution Width 14.6 H White Blood Count 26.9 #H Alanine Aminotransferase (ALT/SGPT) 35 Albumin 3.3 Albumin/Globulin Ratio 0.91 Alkaline Phosphatase 96 Anion Gap 18 H Aspartate Amino Transf (AST/SGOT) 31 Blood Urea Nitrogen 20 Calcium Level 9.5 Carbon Dioxide Level 21 Chloride Level 104 Creatinine 0.91 Direct Bilirubin 0.00 Globulin 3.60 H Glucose Level 121 Indirect Bilirubin 0.5 Potassium Level 3.5 Sodium Level 139 Total Bilirubin 0.5 Total Protein 6.9 # Medications Medications Current Medications Dextrose/Sodium Chloride (D5-1/2ns) 1,000 ml @ 75 mls/hr [id number] IV Last administered on 11/17/16 08:45; Admin Dose 75 MLS/HR; Start 11/16/16 at 07:49 Morphine Sulfate (morphine) 4 mg Q4H PRN IV pain Last administered on 11/17/16 05:10; Admin Dose 4 MG; Start 11/16/16 at 08:00 Tamsulosin HCl (Flomax) 0.4 mg DAILY PO Last administered on 11/17/16 08:37; Admin Dose 0.4 MG; Start 11/16/16 at 08:00 Pantoprazole (Protonix Iv) 40 mg BID@06,18 IV Last administered on 11/17/16 05: 09; Admin Dose 40 MG; Start 11/16/16 at 11:00 Ondansetron HCl (Zofran Inj) 4 mg Q4H PRN IV NAUSEA AND/OR VOMITING; Start 11/16 at 10:00 Amlodipine Besylate (Norvasc) 5 mg DAILY PO Last administered on 11/17/16 08:36 ; Admin Dose 5 MG; Start 11/16/16 at 11:00 Benazepril HCl (Lotensin) 10 mg DAILY PO Last administered on 11/17/16 08:37; Admin Dose 10 MG; Start 11/16/16 at 11:00 Calcium Carbonate (Tums) 500 mg BID PO Last administered on 11/17/16 08:37; Admin Dose 500 MG; Start 11/16/16 at 11:00 Polyethylene Glycol (Miralax) 17 gm DAILY PO Last administered on 11/17/16 08: 37; Admin Dose 17 GM; Start 11/16/16 at 11:00 Ascorbic Acid (Vitamin C) 500 mg BID PO Last administered on 11/17/16 08:36; Admin Dose 500 MG; Start 11/16/16 at 21:00 Atorvastatin Calcium (Lipitor) 20 mg DAILY@21 PO Last administered on 11/16/16 20:42; Admin Dose 20 MG; Start 11/16/16 at 21:00 XUAN GREGG MD Nov 17, 2016 12:21
--- NOTE | 2016-11-17 13:10 | CONS ---
Date/Time of Note Date/Time of Note DATE: 11/17/16 TIME: 13:07 Assessment/Plan Assessment/Plan Additional Assessment/Plan 1. Acute urinary tract infection. 2. Acute obstructive uropathy causing blockage of her ureters. The patient had a 10 mm stone in the right proximal ureter and a 12 mm stone in the right distal ureter causing intractable abdominal pain. 3. Bilateral nephrolithiasis with a small renal cyst. 4. Right atrophic kidney with cortical thinning. 5. Intractable abdominal pain. 6. History of hypertension. 7. History of hyperlipidemia. 8. History of vitamin D deficiency. 9. History of previous coronary artery disease, has been on Plavix. PLAN: Plan for cystoscopy hematuria improving pt is cleared by cardiology Urology planning for cystoscopy and stone removal will continue to fllow up on patient Consultation Date/Type/Reason Admit Date/Time Nov 16, 2016 at 10:29 Initial Consult Date november Type of Consultation: NEPHROLOGY Reason for Consultation Obstructive Uropathy, hematuria, kidney stone Right pyelonephtisi, CKD Referring Provider: PARVIN KELLY MD 24 HR Interval Summary Free Text/Dictation Right sided Obstructive uropathy, with pyelonephritis, started on IV rocephin, urology following more confused after getting IV morphine today AM Exam/Review of Systems Vital Signs Vitals Vital Signs Date Time Temp Pulse Resp B/P Pulse Ox O2 Delivery O2 Flow Rate FiO2 11/17/16 07:43 98.5 98 16 111/59 96 11/16/16 06:08 Room Air 2.0 Intake and Output 11/16/16 11/16/16 11/17/16 15:00 23:00 07:00 Intake Total 1480 ml 1125 ml Balance 1480 ml 1125 ml Exam GENERAL: Awake, alert, in moderate distress due to the pain. HEENT: Normal. Oropharynx clear. NECK: Supple, no JVD, no lymphadenopathy. LUNGS: Clear to auscultation. No crackles, no wheezes. HEART: S1, S2, with regular rhythm, no murmur. ABDOMEN: Soft. Tender to palpation in the right upper quadrant and the right flank with minimal tenderness and guarding. Bowel sounds are present. EXTREMITIES: No clubbing, cyanosis, or edema. NEUROLOGICAL: Nonfocal, intact. PSYCHIATRIC: Appropriate affect and mood. Results Result Diagram: 11/17/16 0500 11/17/16 0506 Results 24 hrs Laboratory Tests Test 11/16/16 14:00 11/17/16 05:00 11/17/16 05:06 Activated Partial Thromboplast Time 25.9 29.1 INR International Normalized Ratio 0.96 1.17 Prothrombin Time 12.8 15.0 H Prothrombin Time Ratio 1.0 1.2 Basophils # 0.1 Basophils % 0.2 Differential Comment AUTO w/SCAN Eosinophils # 0.0 Eosinophils % 0.0 Hematocrit 40.0 Hemoglobin 13.3 Lymphocytes # 1.0 Lymphocytes % 3.7 L Mean Corpuscular Hemoglobin 28.9 L Mean Corpuscular Hemoglobin Concent 33.3 Mean Corpuscular Volume 87.0 Mean Platelet Volume 10.5 H Monocytes # 0.8 Monocytes % 3.0 Neutrophils # 23.4 H Neutrophils % 87.1 H Nucleated Red Blood Cells # 0.0 Nucleated Red Blood Cells % 0.0 Platelet Count 255 # Red Blood Count 4.60 Red Cell Distribution Width 14.6 H White Blood Count 26.9 #H Alanine Aminotransferase (ALT/SGPT) 35 Albumin 3.3 Albumin/Globulin Ratio 0.91 Alkaline Phosphatase 96 Anion Gap 18 H Aspartate Amino Transf (AST/SGOT) 31 Blood Urea Nitrogen 20 Calcium Level 9.5 Carbon Dioxide Level 21 Chloride Level 104 Creatinine 0.91 Direct Bilirubin 0.00 Globulin 3.60 H Glucose Level 121 Indirect Bilirubin 0.5 Potassium Level 3.5 Sodium Level 139 Total Bilirubin 0.5 Total Protein 6.9 # Medications Medications Current Medications Dextrose/Sodium Chloride (D5-1/2ns) 1,000 ml @ 75 mls/hr [id number] IV Last administered on 11/17/16 08:45; Admin Dose 75 MLS/HR; Start 11/16/16 at 07:49 Morphine Sulfate (morphine) 4 mg Q4H PRN IV pain Last administered on 11/17/16 05:10; Admin Dose 4 MG; Start 11/16/16 at 08:00 Tamsulosin HCl (Flomax) 0.4 mg DAILY PO Last administered on 11/17/16 08:37; Admin Dose 0.4 MG; Start 11/16/16 at 08:00 Pantoprazole (Protonix Iv) 40 mg BID@06,18 IV Last administered on 11/17/16 05: 09; Admin Dose 40 MG; Start 11/16/16 at 11:00 Ondansetron HCl (Zofran Inj) 4 mg Q4H PRN IV NAUSEA AND/OR VOMITING; Start 11/16 at 10:00 Amlodipine Besylate (Norvasc) 5 mg DAILY PO Last administered on 11/17/16 08:36 ; Admin Dose 5 MG; Start 11/16/16 at 11:00 Benazepril HCl (Lotensin) 10 mg DAILY PO Last administered on 11/17/16 08:37; Admin Dose 10 MG; Start 11/16/16 at 11:00 Calcium Carbonate (Tums) 500 mg BID PO Last administered on 11/17/16 08:37; Admin Dose 500 MG; Start 11/16/16 at 11:00 Polyethylene Glycol (Miralax) 17 gm DAILY PO Last administered on 11/17/16 08: 37; Admin Dose 17 GM; Start 11/16/16 at 11:00 Ascorbic Acid (Vitamin C) 500 mg BID PO Last administered on 11/17/16 08:36; Admin Dose 500 MG; Start 11/16/16 at 21:00 Atorvastatin Calcium 20 mg 20 mg DAILY@21 PO Last administered on 11/16/16 20: 42; Admin Dose 20 MG; Start 11/16/16 at 21:00 Ciprofloxacin/ Dextrose 200 ml @ 200 mls/hr Q12 IVPB ; Start 11/17/16 at 14:00 Ceftriaxone Sodium (Rocephin) 50 ml @ 100 mls/hr Q24H IVPB ; Start 11/17/16 at 12:30 LIZZ SALCEDO MD Nov 17, 2016 13:10
[2016-11-17] MEDS: CEFTRIAXONE 1 GM/50 ML (PMX) 50 ML IVPB SCH (13:11)
[2016-11-17] MEDS: KETOROLAC 15 MG INJ IV PRN (13:41)
[2016-11-17] MEDS: CIPROFLOXACIN 400MG/D5W 200 ML IVPB SCH ×2 (14:53→21:43)
--- NOTE | 2016-11-17 15:41 | CONS ---
Date/Time of Note Date/Time of Note DATE: 11/17/16 TIME: 15:37 Assessment/Plan Assessment/Plan Additional Assessment/Plan Preoperative cardiac risk stratification Obstructive uropathy History of CVA, on Plavix Systolic murmur Preserved ejection fraction Hypertension Dyslipidemia -Blood pressure trend overall stable, continue IV fluids. Holding parameters on antihypertensives. Consultation Date/Type/Reason Admit Date/Time Nov 16, 2016 at 10:29 Initial Consult Date Type of Consultation: cv Referring Provider: PARVIN KELLY MD 24 HR Interval Summary Free Text/Dictation Patient denies shortness of breath, or chest pain. Major complaint is back pain Exam/Review of Systems Vital Signs Vitals Vital Signs Date Time Temp Pulse Resp B/P Pulse Ox O2 Delivery O2 Flow Rate FiO2 11/17/16 07:43 98.5 98 16 111/59 96 11/16/16 06:08 Room Air 2.0 Intake and Output 11/16/16 11/16/16 11/17/16 15:00 23:00 07:00 Intake Total 1480 ml 1125 ml Balance 1480 ml 1125 ml Exam No apparent distress Constitutional: alert, obese, oriented Head: normocephalic Neck: supple Respiratory: other (Coarse breath sounds bilaterally, no wheezing) Cardiovascular: other (S1-S2 heard), regular rate and rhythm Gastrointestinal: bowel sounds, non-tender, soft Extremities: edema (Trace) Results Result Diagram: 11/17/16 0500 11/17/16 0506 Results 24 hrs Laboratory Tests Test 11/17/16 05:00 11/17/16 05:06 Basophils # 0.1 Basophils % 0.2 Differential Comment AUTO w/SCAN Eosinophils # 0.0 Eosinophils % 0.0 Hematocrit 40.0 Hemoglobin 13.3 Lymphocytes # 1.0 Lymphocytes % 3.7 L Mean Corpuscular Hemoglobin 28.9 L Mean Corpuscular Hemoglobin Concent 33.3 Mean Corpuscular Volume 87.0 Mean Platelet Volume 10.5 H Monocytes # 0.8 Monocytes % 3.0 Neutrophils # 23.4 H Neutrophils % 87.1 H Nucleated Red Blood Cells # 0.0 Nucleated Red Blood Cells % 0.0 Platelet Count 255 # Red Blood Count 4.60 Red Cell Distribution Width 14.6 H White Blood Count 26.9 #H Activated Partial Thromboplast Time 29.1 Alanine Aminotransferase (ALT/SGPT) 35 Albumin 3.3 Albumin/Globulin Ratio 0.91 Alkaline Phosphatase 96 Anion Gap 18 H Aspartate Amino Transf (AST/SGOT) 31 Blood Urea Nitrogen 20 Calcium Level 9.5 Carbon Dioxide Level 21 Chloride Level 104 Creatinine 0.91 Direct Bilirubin 0.00 Globulin 3.60 H Glucose Level 121 INR International Normalized Ratio 1.17 Indirect Bilirubin 0.5 Potassium Level 3.5 Prothrombin Time 15.0 H Prothrombin Time Ratio 1.2 Sodium Level 139 Total Bilirubin 0.5 Total Protein 6.9 # Medications Medications Current Medications Dextrose/Sodium Chloride (D5-1/2ns) 1,000 ml @ 75 mls/hr [id number] IV Last administered on 11/17/16 08:45; Admin Dose 75 MLS/HR; Start 11/16/16 at 07:49 Morphine Sulfate (morphine) 4 mg Q4H PRN IV pain Last administered on 11/17/16 05:10; Admin Dose 4 MG; Start 11/16/16 at 08:00 Tamsulosin HCl (Flomax) 0.4 mg DAILY PO Last administered on 11/17/16 08:37; Admin Dose 0.4 MG; Start 11/16/16 at 08:00 Ondansetron HCl (Zofran Inj) 4 mg Q4H PRN IV NAUSEA AND/OR VOMITING; Start 11/16 at 10:00 Amlodipine Besylate (Norvasc) 5 mg DAILY PO Last administered on 11/17/16 08:36 ; Admin Dose 5 MG; Start 11/16/16 at 11:00 Benazepril HCl (Lotensin) 10 mg DAILY PO Last administered on 11/17/16 08:37; Admin Dose 10 MG; Start 11/16/16 at 11:00 Calcium Carbonate (Tums) 500 mg BID PO Last administered on 11/17/16 08:37; Admin Dose 500 MG; Start 11/16/16 at 11:00 Polyethylene Glycol (Miralax) 17 gm DAILY PO Last administered on 11/17/16 08: 37; Admin Dose 17 GM; Start 11/16/16 at 11:00 Ascorbic Acid (Vitamin C) 500 mg BID PO Last administered on 11/17/16 08:36; Admin Dose 500 MG; Start 11/16/16 at 21:00 Atorvastatin Calcium 20 mg 20 mg DAILY@21 PO Last administered on 11/16/16 20: 42; Admin Dose 20 MG; Start 11/16/16 at 21:00 Ciprofloxacin/ Dextrose 200 ml @ 200 mls/hr Q12 IVPB Last administered on 14:53; Admin Dose 200 MLS/HR; Start 11/17/16 at 14:00 Ceftriaxone Sodium (Rocephin) 50 ml @ 100 mls/hr Q24H IVPB Last administered on 11/17/16 13:11; Admin Dose 100 MLS/HR; Start 11/17/16 at 12:30 Ketorolac Tromethamine (Toradol) 15 mg Q6H PRN IV PAIN Last administered on 11/17 13:41; Admin Dose 15 MG; Start 11/17/16 at 13:30; Stop 11/20/16 at 13:29 Pantoprazole (Protonix Tab) 40 mg BID@06,18 PO ; Start 11/17/16 at 18:00 Nishant Ruelas DO Nov 17, 2016 15:41
--- NOTE | 2016-11-17 17:34 | HPN ---
Date/Time of Note Date/Time of Note DATE: 11/17/16 TIME: 17:33 Interval H&P Admission Note Pt. seen H&P reviewed: No system changes DEVAUGHN MCNALLY MD Nov 17, 2016 17:33
[2016-11-17] MEDS ORDERED: MIDAZOLAM 1 MG/ML 2 ML INJ ONE (17:44)
[2016-11-17] MEDS ORDERED: NEOSTIGMINE 3 MG/3 ML SYRINGE ONE ×2 (17:48→19:50)
[2016-11-17] MEDS ORDERED: SUCCINYLCHOLINE CHLORIDE 100 MG/5 ML SYG IV ONE (17:48)
[2016-11-17] MEDS ORDERED: GLYCOPYRROLATE 0.4 MG INJ ONE ×2 (17:48→19:50)
[2016-11-17] MEDS ORDERED: LIDOCAINE 2% (SDV) 5 ML INJ ONE (17:48)
[2016-11-17] MEDS ORDERED: ROCURONIUM 50 MG INJ ONE (17:48)
[2016-11-17] MEDS ORDERED: PROPOFOL 20 ML ONE (17:48)
[2016-11-17] MEDS ORDERED: CEFAZOLIN 1 GM INJ ONE (17:55)
[2016-11-17] MEDS: PANTOPRAZOLE (EC) 40 MG TAB PO SCH (18:00)
[2016-11-17] MEDS ORDERED: LIDOCAINE 2% 20 ML UROJET SYRINGE ONE ×2 (18:30→18:32)
[2016-11-17] MEDS ORDERED: EPHEDrine SULFATE 50 MG/5 ML SYG ONE (19:12)
[2016-11-17] MEDS ORDERED: ONDANSETRON 4 MG INJ ONE (19:49)
[2016-11-17] MEDS ORDERED: METOCLOPRAMIDE 10 MG INJ ONE (19:49)
[2016-11-17] MEDS ORDERED: MEPERIDINE 25 MG INJ ONE (20:16)
[2016-11-17] MEDS ORDERED: MEPERIDINE 25 MG INJ IV PRN (20:30)
[2016-11-17] MEDS ORDERED: DIPHENHYDRAMINE 50 MG INJ IV PRN (20:30)
[2016-11-17] MEDS ORDERED: FENTAnyl 50 MCG/ML VIAL IV PRN ×2 (20:30)
[2016-11-17] MEDS ORDERED: ONDANSETRON 4 MG INJ IV PRN (20:30)
[2016-11-17] MEDS ORDERED: METOCLOPRAMIDE 10 MG INJ IV PRN (20:30)
[2016-11-17] MEDS ORDERED: morphine (1 MG/ML) 10ML SYRINGE IV PRN ×2 (20:30)
[2016-11-17] MEDS ORDERED: MIDAZOLAM 1 MG/ML 2 ML INJ IV PRN (20:30)
--- NOTE | 2016-11-17 20:47 | OPR ---
DATE OF OPERATION: 11/17/2016 PREOPERATIVE DIAGNOSIS: Distal right ureteral stone and proximal right ureteral stone with obstruct ion and hydronephrosis. POSTOPERATIVE DIAGNOSIS: Distal right ureteral stone and proximal right ureteral stone with obstruc tion and hydronephrosis. OPERATION PERFORMED: Cystoscopy, right ureteroscopy, laser lithotripsy to the distal right ureteral stone and then insertion of right ureteral JJ stent, 6-[place] x 24 cm long. TECHNIQUE IN DETAIL: The patient was brought to the operating room. General anesthesia was induced . Patient was positioned in the lithotomy position. A timeout was done. The patient was identifie d by her name, date, the procedure, the site of the procedure and the side of the procedure. She was given 2 g of Ancef IV at the start of the procedure. She has been Cipro and ceftriaxone. Then, the genital area was prepped and draped in the usual sterile manner. A #22 [place] cystoscope sheath was introduced into the bladder. Urine was collected for culture and sensitivity. Then the right ureteral orifice was identified and cannulated with a 5-[place] open ended and through the 5-Fr ench open-ended, I advanced a Glidewire and I tried to pass the Glidewire by the stone. It would no t go, the Glidewire kept on hitting the stone and bouncing coming back. In fact, I did ask for some lidocaine gel to lubricate that area and also anesthetize it, maybe it would help pass the Glidewir e. While they were getting it for me, I then tried and the wire did go up above the stone. Then as it reached the 2nd stone in the proximal upper ureter, the same thing happened, but then it was abl e to go by it and it did go up to the kidney. Therefore, once the wire it reached the kidney, the open-ended was advanced to the kidney and then I removed the Glidewire and put the sensor wire, which is a little stiffer and more secure. Therefor e, then I reintroduced the open-ended through the 2nd working channel, and again, there passed a Gli dewire. This time it did go a little easier; it did not take as much manipulation to get up to the kidney. Once in the kidney, the open-ended was removed and the cystoscope was removed. The sensor wire was used as a safety wire and the Glidewire was used to advance on it the rigid short ureterosc ope. That was advanced until the stone was visualized. At that moment the Glidewire was removed an d a 365 micron laser fiber was used and the stone was fragmented into multiple smaller pieces. Once the stone was fragmented, the basket was used to basket the stones out, and once we basketed the fr agments, there was additional fragments that needed to be broken into further smaller pieces. I use d the laser again multiple times to break the stone fragments into even smaller fragments. Once all the fragments were removed out of the ureter, I advanced the scope all the way up to the kidney. T he upper ureteral stone, when we were trying to push the Glidewire in early in the case, did move up to the kidney instead of staying in the ureter and one could see it next to the wire. Then, at th e end, there was only like sand debris in the ureter and that she should be able to pass on her own. I did collect urine from the right kidney at the start of the procedure once I passed the open-end ed to the kidney. At the end of the procedure, the ureteroscope was removed. I reintroduced the cystoscope and draine d all the stone fragments out of the bladder. Then I used the sensor safety wire and reintroduced t he cystoscope into the bladder. On the sensor wire, I advanced a 6-Rwandan x 24 cm long JJ stent, younger d its proximal end curling into the kidney and the distal end curling into the bladder. The patient tolerated the procedure well and was transferred to recovery room in stable and satisfactory condit ion. Dictated By: DEVAUGHN ESCALANTE/BOBBI Conf#: [id number] DID#: [id number]
[2016-11-17] MEDS: ATORVASTATIN 20 MG TAB PO SCH (21:43)
--- NOTE | 2016-11-17 22:23 | RADRPT ---
PROCEDURE: Fluoroscopic spot views of the abdomen and pelvis for surgical guidance CLINICAL INDICATION: Right flank pain TECHNIQUE: 15 fluoroscopic spot views of the abdomen and pelvis. Images were submitted to the radi ology department for interpretation. COMPARISON: None FINDINGS: A cystoscope is identified. A wire and right ureteral stent is identified. The images were reviewe d by the attending physician at the time of the procedure. Fluoroscopy time was 122.6 seconds. IMPRESSION: Intraoperative images were obtained of the abdomen and pelvis for a right ureteral stent placement f or surgical guidance. Please refer to the surgeon's operative notes for further details. RPTAT: HPNM Physician Mercedez Date Time Electronically viewed and signed by Physician Mercedez on 11/17/2016 22:22 /
[2016-11-18] MEDS: KETOROLAC 15 MG INJ IV PRN ×2 (04:31→09:57)
[2016-11-18 05:26] LABS: ADD SCAN DIFF NO
[2016-11-18 05:48] LABS: ABNORMAL IP MESSAGE 1; BASOPHILS % 0.2 % (0.0-2.0); HEMATOCRIT 35.7 % (37.0-47.0); HEMOGLOBIN 11.6 g/dl (12.0-16.0); LYMPHOCYTES # 0.4 10^3/ul (0.8-2.9); LYMPHOCYTES % 2.3 % (15.0-51.0); MEAN CORPUSCULAR HEMOGLOBIN 27.9 pg (29.0-33.0); MEAN CORPUSCULAR HGB CONC 32.5 g/dl (32.0-37.0); MEAN CORPUSCULAR VOLUME 85.8 fl (82.0-101.0); MONOCYTE # 0.4 10^3/ul (0.3-0.9); MONOCYTES % 2.2 % (0.0-11.0); NEUTROPHIL # 15.7 10^3/ul (1.6-7.5); NEUTROPHILS % 85.9 % (39.0-77.0); PLATELET COUNT 182 10^3/UL (140-415); RED BLOOD COUNT 4.16 10^6/ul (4.20-5.40); RED CELL DISTRIBUTION WIDTH 14.7 % (11.5-14.5); WHITE BLOOD COUNT 18.3 10^3/ul (4.8-10.8)
[2016-11-18] MEDS: DEXTROSE 5%-0.45% NACL 1,000 ML IV SCH ×3 (05:49→22:55)
[2016-11-18] MEDS: PANTOPRAZOLE (EC) 40 MG TAB PO SCH ×2 (05:49→17:49)
[2016-11-18 06:20] LABS: POTASSIUM 3.5 mmol/L (3.5-5.1)
[2016-11-18 06:22] LABS: CREATININE 1.33 mg/dl (0.44-1.00)
[2016-11-18 06:23] LABS: CALCIUM 8.9 mg/dl (8.4-10.2); MAGNESIUM 1.6 mg/dl (1.7-2.5)
[2016-11-18 07:52] VITALS: BP 102/48; RESP 22
[2016-11-18] MEDS: CIPROFLOXACIN 400MG/D5W 200 ML IVPB SCH (08:23)
[2016-11-18] MEDS: ASCORBIC ACID 500 MG TAB PO SCH ×2 (08:24→20:36)
[2016-11-18] MEDS: CALCIUM CARBONATE 500 MG CHEW TAB PO SCH ×2 (08:24→20:36)
[2016-11-18] MEDS: TAMSULOSIN (SR) 0.4 MG CAP PO SCH (08:25)
[2016-11-18] MEDS: POLYETHYLENE GLYCOL 17 GM PACKET PO SCH (09:00)
[2016-11-18] MEDS: BENAZEPRIL 10 MG TAB PO SCH (09:00)
[2016-11-18] MEDS: AMLODIPINE 5 MG TAB PO SCH (09:00)
[2016-11-18] MEDS ORDERED: HYDROCODONE/APAP (5/325) TAB PO PRN (10:30)
--- NOTE | 2016-11-18 10:35 | CONS ---
Date/Time of Note Date/Time of Note DATE: 11/18/16 TIME: 10:31 Assessment/Plan Assessment/Plan Additional Assessment/Plan 1. Acute kidney injury due to obstructive uropathy with Prerenal azotemia 2. Acute urinary tract infection. 2. Acute obstructive uropathy causing blockage of her ureters. The patient had a 10 mm stone in the right proximal ureter and a 12 mm stone in the right distal ureter causing intractable abdominal pain. 3. Bilateral nephrolithiasis with a small renal cyst. 4. Right atrophic kidney with cortical thinning. 5. Intractable abdominal pain. 6. History of hypertension. 7. History of hyperlipidemia. 8. History of vitamin D deficiency. 9. History of previous coronary artery disease, has been on Plavix. PLAN: s/p cystoscopy with laser lithotripsy and Stent placement Cr bumped to 1.3- continue current IVF Expecting creatinine to improve with Relieve of obstruction and improvement in retention will continue to fllow up on patient Consultation Date/Type/Reason Admit Date/Time Nov 16, 2016 at 10:29 Initial Consult Date november Type of Consultation: NEPHROLOGY Reason for Consultation Obstructive Uropathy, hematuria, Now CALI with bump in creatinine Referring Provider: PARVIN KELLY MD 24 HR Interval Summary Free Text/Dictation Cr worsened to 1.3,S/p cystoscopy with laser lithotripsy and JJ stent placement Exam/Review of Systems Vital Signs Vitals Vital Signs Date Time Temp Pulse Resp B/P Pulse Ox O2 Delivery O2 Flow Rate FiO2 11/18/16 07:52 98.3 115 22 102/48 97 11/17/16 20:37 Room Air 11/16/16 06:08 2.0 Intake and Output 11/17/16 11/17/16 11/18/16 15:00 23:00 07:00 Intake Total 175 ml 2240 ml 1000 ml Output Total 1 ml 340 ml Balance 175 ml 2239 ml 660 ml Exam No apparent distress Constitutional: alert, obese, oriented Head: normocephalic Neck: supple Respiratory: other (Coarse breath sounds bilaterally, no wheezing) Cardiovascular: other (S1-S2 heard), regular rate and rhythm Gastrointestinal: bowel sounds, non-tender, soft Extremities: edema (Trace) Results Result Diagram: 11/18/16 0508 11/18/16 0508 Results 24 hrs Laboratory Tests Test 11/18/16 05:08 Anion Gap 15 Basophils # 0.0 Basophils % 0.2 Blood Urea Nitrogen 24 H Calcium Level 8.9 Carbon Dioxide Level 20 L Chloride Level 102 Creatinine 1.33 H Eosinophils # 0.0 Eosinophils % 0.0 Glucose Level 128 Hematocrit 35.7 L Hemoglobin 11.6 L Lymphocytes # 0.4 L Lymphocytes % 2.3 L Magnesium Level 1.6 L Mean Corpuscular Hemoglobin 27.9 L Mean Corpuscular Hemoglobin Concent 32.5 Mean Corpuscular Volume 85.8 Mean Platelet Volume 11.0 H Monocytes # 0.4 Monocytes % 2.2 Neutrophils # 15.7 H Neutrophils % 85.9 H Nucleated Red Blood Cells # 0.0 Nucleated Red Blood Cells % 0.0 Platelet Count 182 # Potassium Level 3.5 Red Blood Count 4.16 L Red Cell Distribution Width 14.7 H Sodium Level 133 L White Blood Count 18.3 #H Medications Medications Current Medications Dextrose/Sodium Chloride (D5-1/2ns) 1,000 ml @ 75 mls/hr [id number] IV Last administered on 11/18/16 05:49; Admin Dose 75 MLS/HR; Start 11/16/16 at 07:49 Morphine Sulfate (morphine) 4 mg Q4H PRN IV pain Last administered on 11/17/16 05:10; Admin Dose 4 MG; Start 11/16/16 at 08:00 Tamsulosin HCl (Flomax) 0.4 mg DAILY PO Last administered on 11/18/16 08:25; Admin Dose 0.4 MG; Start 11/16/16 at 08:00 Ondansetron HCl (Zofran Inj) 4 mg Q4H PRN IV NAUSEA AND/OR VOMITING; Start 11/16 at 10:00 Benazepril HCl (Lotensin) 10 mg DAILY PO Last administered on 11/17/16 08:37; Admin Dose 10 MG; Start 11/16/16 at 11:00 Calcium Carbonate (Tums) 500 mg BID PO Last administered on 11/18/16 08:24; Admin Dose 500 MG; Start 11/16/16 at 11:00 Polyethylene Glycol (Miralax) 17 gm DAILY PO Last administered on 11/17/16 08: 37; Admin Dose 17 GM; Start 11/16/16 at 11:00 Ascorbic Acid (Vitamin C) 500 mg BID PO Last administered on 11/18/16 08:24; Admin Dose 500 MG; Start 11/16/16 at 21:00 Atorvastatin Calcium 20 mg 20 mg DAILY@21 PO Last administered on 11/17/16 21: 43; Admin Dose 20 MG; Start 11/16/16 at 21:00 Ciprofloxacin/ Dextrose 200 ml @ 200 mls/hr Q12 IVPB Last administered on 08:23; Admin Dose 200 MLS/HR; Start 11/17/16 at 14:00 Ceftriaxone Sodium (Rocephin) 50 ml @ 100 mls/hr Q24H IVPB Last administered on 11/17/16 13:11; Admin Dose 100 MLS/HR; Start 11/17/16 at 12:30 Ketorolac Tromethamine (Toradol) 15 mg Q6H PRN IV PAIN Last administered on 11/18 09:57; Admin Dose 15 MG; Start 11/17/16 at 13:30; Stop 11/20/16 at 13:29 Pantoprazole (Protonix Tab) 40 mg BID@06,18 PO Last administered on 11/18/16 05 :49; Admin Dose 40 MG; Start 11/17/16 at 18:00 Amlodipine Besylate (Norvasc) 5 mg DAILY PO ; Start 11/18/16 at 09:00 Acetaminophen/ Hydrocodone Bitart ([place] (5/325)) 1 tab Q4H PRN PO PAIN; Start 11/18/16 at 10:30 LIZZ SALCEDO MD Nov 18, 2016 10:35
--- NOTE | 2016-11-18 11:11 | CONS ---
Date/Time of Note Date/Time of Note DATE: 11/18/16 TIME: 11:08 Assessment/Plan Assessment/Plan Additional Assessment/Plan Preoperative cardiac risk stratification Obstructive uropathy status post surgery History of CVA, on Plavix Systolic murmur Preserved ejection fraction Hypertension Dyslipidemia -Patient status post surgery. Denies chest pain or shortness of breath. Creatinine increased, would DC SABRA inhibitor. Norvasc with holding parameters given low blood pressure. Continue IV fluids. Echocardiogram with hyperdynamic LV function with left ventricular outflow tract gradient. Maintain hydration to prevent worsening gradient. Consultation Date/Type/Reason Admit Date/Time Nov 16, 2016 at 10:29 Type of Consultation: cv Referring Provider: PARVIN KELLY MD 24 HR Interval Summary Free Text/Dictation Patient status post surgery yesterday. Denies chest pain or shortness of breath. Complains of intermittent sharp flank pain Exam/Review of Systems Vital Signs Vitals Vital Signs Date Time Temp Pulse Resp B/P Pulse Ox O2 Delivery O2 Flow Rate FiO2 11/18/16 07:52 98.3 115 22 102/48 97 11/17/16 20:37 Room Air 11/16/16 06:08 2.0 Intake and Output 11/17/16 11/17/16 11/18/16 15:00 23:00 07:00 Intake Total 175 ml 2240 ml 1000 ml Output Total 1 ml 340 ml Balance 175 ml 2239 ml 660 ml Exam No apparent distress Constitutional: alert, obese, oriented Head: normocephalic Neck: supple Respiratory: other (Coarse breath sounds bilaterally, no wheezing or rhonchi) Cardiovascular: other (S1s2 heard), regular rate and rhythm, systolic murmur Gastrointestinal: bowel sounds, non-tender, other (No guarding), soft Extremities: edema, other (No cyanosis) Results Result Diagram: 11/18/16 0508 11/18/16 0508 Results 24 hrs Laboratory Tests Test 11/18/16 05:08 Anion Gap 15 Basophils # 0.0 Basophils % 0.2 Blood Urea Nitrogen 24 H Calcium Level 8.9 Carbon Dioxide Level 20 L Chloride Level 102 Creatinine 1.33 H Eosinophils # 0.0 Eosinophils % 0.0 Glucose Level 128 Hematocrit 35.7 L Hemoglobin 11.6 L Lymphocytes # 0.4 L Lymphocytes % 2.3 L Magnesium Level 1.6 L Mean Corpuscular Hemoglobin 27.9 L Mean Corpuscular Hemoglobin Concent 32.5 Mean Corpuscular Volume 85.8 Mean Platelet Volume 11.0 H Monocytes # 0.4 Monocytes % 2.2 Neutrophils # 15.7 H Neutrophils % 85.9 H Nucleated Red Blood Cells # 0.0 Nucleated Red Blood Cells % 0.0 Platelet Count 182 # Potassium Level 3.5 Red Blood Count 4.16 L Red Cell Distribution Width 14.7 H Sodium Level 133 L White Blood Count 18.3 #H Medications Medications Current Medications Dextrose/Sodium Chloride (D5-1/2ns) 1,000 ml @ 75 mls/hr [id number] IV Last administered on 11/18/16 05:49; Admin Dose 75 MLS/HR; Start 11/16/16 at 07:49 Morphine Sulfate (morphine) 4 mg Q4H PRN IV pain Last administered on 11/17/16 05:10; Admin Dose 4 MG; Start 11/16/16 at 08:00 Tamsulosin HCl (Flomax) 0.4 mg DAILY PO Last administered on 11/18/16 08:25; Admin Dose 0.4 MG; Start 11/16/16 at 08:00 Ondansetron HCl (Zofran Inj) 4 mg Q4H PRN IV NAUSEA AND/OR VOMITING; Start 11/16 at 10:00 Benazepril HCl (Lotensin) 10 mg DAILY PO Last administered on 11/17/16 08:37; Admin Dose 10 MG; Start 11/16/16 at 11:00 Calcium Carbonate (Tums) 500 mg BID PO Last administered on 11/18/16 08:24; Admin Dose 500 MG; Start 11/16/16 at 11:00 Polyethylene Glycol (Miralax) 17 gm DAILY PO Last administered on 11/17/16 08: 37; Admin Dose 17 GM; Start 11/16/16 at 11:00 Ascorbic Acid (Vitamin C) 500 mg BID PO Last administered on 11/18/16 08:24; Admin Dose 500 MG; Start 11/16/16 at 21:00 Atorvastatin Calcium 20 mg 20 mg DAILY@21 PO Last administered on 11/17/16 21: 43; Admin Dose 20 MG; Start 11/16/16 at 21:00 Ciprofloxacin/ Dextrose 200 ml @ 200 mls/hr Q12 IVPB Last administered on 08:23; Admin Dose 200 MLS/HR; Start 11/17/16 at 14:00 Ceftriaxone Sodium (Rocephin) 50 ml @ 100 mls/hr Q24H IVPB Last administered on 11/17/16 13:11; Admin Dose 100 MLS/HR; Start 11/17/16 at 12:30 Ketorolac Tromethamine (Toradol) 15 mg Q6H PRN IV PAIN Last administered on 11/18 09:57; Admin Dose 15 MG; Start 11/17/16 at 13:30; Stop 11/20/16 at 13:29 Pantoprazole (Protonix Tab) 40 mg BID@06,18 PO Last administered on 11/18/16 05 :49; Admin Dose 40 MG; Start 11/17/16 at 18:00 Amlodipine Besylate (Norvasc) 5 mg DAILY PO ; Start 11/18/16 at 09:00 Acetaminophen/ Hydrocodone Bitart ([place] (5/325)) 1 tab Q4H PRN PO PAIN Last administered on 11/18/16 10:39; Admin Dose 1 TAB; Start 11/18/16 at 10:30 Nishant Ruelas DO Nov 18, 2016 11:11
[2016-11-18] MEDS: CEFTRIAXONE 1 GM/50 ML (PMX) 50 ML IVPB SCH (12:13)
--- NOTE | 2016-11-18 14:04 | PN ---
Date/Time of Note Date/Time of Note DATE: 11/18/16 TIME: 13:58 Assessment/Plan VTE Prophylaxis VTE Prophylaxis Intervention: SCD's Lines/Catheters IV [facility]ter [facility]from [facility]): Peripheral IV Urinary Cath still in place: No Assessment/Plan Chief Complaint/Hosp Course 1. Right-sided obstructive uropathy s/p Cystoscopy with laser lithotripsy to the distal right ureteral stone and then insertion of right ureteral JJ stent Start Flomax when patient is able to tolerate oral intake 2. Sepsis secondary to right-sided pyelonephritis cont Rocephin, DC Cipro 3. History of cerebrovascular accident with right-sided deficit 4. History of hypertension. Well-controlled on medical management Dispo-DC in 1-2 days when WBC trends down PPx- SCD's Problems: Subjective 24 Hr Interval Summary Gastrointestinal: pain Exam/Review of Systems Vital Signs Vitals Vital Signs Date Time Temp Pulse Resp B/P Pulse Ox O2 Delivery O2 Flow Rate FiO2 11/18/16 07:52 98.3 115 22 102/48 97 11/17/16 20:37 Room Air 11/16/16 06:08 2.0 Intake and Output 11/17/16 11/17/16 11/18/16 15:00 23:00 07:00 Intake Total 175 ml 2240 ml 1000 ml Output Total 1 ml 340 ml Balance 175 ml 2239 ml 660 ml Exam Constitutional: alert Respiratory: clear to auscultation Cardiovascular: regular rate and rhythm Gastrointestinal: soft, tender, No distended Musculoskeletal: nl extremities to inspection Results Result Diagram: 11/18/16 0508 11/18/16 0508 Results 24 hrs Laboratory Tests Test 11/18/16 05:08 Anion Gap 15 Basophils # 0.0 Basophils % 0.2 Blood Urea Nitrogen 24 H Calcium Level 8.9 Carbon Dioxide Level 20 L Chloride Level 102 Creatinine 1.33 H Eosinophils # 0.0 Eosinophils % 0.0 Glucose Level 128 Hematocrit 35.7 L Hemoglobin 11.6 L Lymphocytes # 0.4 L Lymphocytes % 2.3 L Magnesium Level 1.6 L Mean Corpuscular Hemoglobin 27.9 L Mean Corpuscular Hemoglobin Concent 32.5 Mean Corpuscular Volume 85.8 Mean Platelet Volume 11.0 H Monocytes # 0.4 Monocytes % 2.2 Neutrophils # 15.7 H Neutrophils % 85.9 H Nucleated Red Blood Cells # 0.0 Nucleated Red Blood Cells % 0.0 Platelet Count 182 # Potassium Level 3.5 Red Blood Count 4.16 L Red Cell Distribution Width 14.7 H Sodium Level 133 L White Blood Count 18.3 #H Medications Medications Current Medications Dextrose/Sodium Chloride (D5-1/2ns) 1,000 ml @ 75 mls/hr [id number] IV Last administered on 11/18/16 05:49; Admin Dose 75 MLS/HR; Start 11/16/16 at 07:49 Morphine Sulfate (morphine) 4 mg Q4H PRN IV pain Last administered on 11/17/16 05:10; Admin Dose 4 MG; Start 11/16/16 at 08:00 Tamsulosin HCl (Flomax) 0.4 mg DAILY PO Last administered on 11/18/16 08:25; Admin Dose 0.4 MG; Start 11/16/16 at 08:00 Ondansetron HCl (Zofran Inj) 4 mg Q4H PRN IV NAUSEA AND/OR VOMITING; Start 11/16 at 10:00 Calcium Carbonate (Tums) 500 mg BID PO Last administered on 11/18/16 08:24; Admin Dose 500 MG; Start 11/16/16 at 11:00 Polyethylene Glycol (Miralax) 17 gm DAILY PO Last administered on 11/17/16 08: 37; Admin Dose 17 GM; Start 11/16/16 at 11:00 Ascorbic Acid (Vitamin C) 500 mg BID PO Last administered on 11/18/16 08:24; Admin Dose 500 MG; Start 11/16/16 at 21:00 Atorvastatin Calcium 20 mg 20 mg DAILY@21 PO Last administered on 11/17/16 21: 43; Admin Dose 20 MG; Start 11/16/16 at 21:00 Ceftriaxone Sodium (Rocephin) 50 ml @ 100 mls/hr Q24H IVPB Last administered on 11/18/16 12:13; Admin Dose 100 MLS/HR; Start 11/17/16 at 12:30 Ketorolac Tromethamine (Toradol) 15 mg Q6H PRN IV PAIN Last administered on 11/18 09:57; Admin Dose 15 MG; Start 11/17/16 at 13:30; Stop 11/20/16 at 13:29 Pantoprazole (Protonix Tab) 40 mg BID@06,18 PO Last administered on 11/18/16 05 :49; Admin Dose 40 MG; Start 11/17/16 at 18:00 Amlodipine Besylate (Norvasc) 5 mg DAILY PO ; Start 11/18/16 at 09:00 Acetaminophen/ Hydrocodone Bitart ([place] (5/325)) 1 tab Q4H PRN PO PAIN Last administered on 11/18/16 10:39; Admin Dose 1 TAB; Start 11/18/16 at 10:30 LORY FLORES Nov 18, 2016 14:04
[2016-11-18] MEDS ORDERED: MAGNESIUM SULFATE 3 GM in SOD CHLORIDE 0.9% 100 ML IVPB ONE (15:30)
[2016-11-18 20:00] VITALS: BP 85/56; RESP 20
--- NOTE | 2016-11-18 20:18 | PN ---
DATE: 11/18/2016 SUBJECTIVE: The patient is complaining of dizziness and that is from the pain medication that she h as taken. Also, she has a sore throat and that is from the endotracheal tube that she had for her s urgical procedure yesterday. The patient is status post a cystoscopy, right ureteroscopy, laser lit hotripsy of a large distal right ureteral stone and then insertion of a right ureteral JJ stent. OBJECTIVE VITAL SIGNS: Her temperature is 98.3, pulse is 115, respiration 22, blood pressure 102/48. ABDOMEN: Soft and obese. GENITOURINARY: Was not able to urinate last night and she was straight catheterized for 350 mL. LABORATORY: Her CBC today shows a white count of 18.3, hemoglobin 11.6, hematocrit 35.7. Her white count was 26.9 yesterday. The BUN is 24; creatinine 1.33, that did go up yesterday, it was 0.91. MICROBIOLOGY: The urine culture from the kidney and the urine culture from the bladder that were co llected yesterday, at the time of the surgery, are no growth in 24 hours. IMPRESSION: Patient still has 1 stone in the kidney and she is status post removal of 1 larger ston e in the distal right ureter and then insertion of a JJ stent. She is doing well. Her dizziness, i s probably from the pain medications and the sore throat is from on the endotracheal tube. The luz marina ent is doing well. PLAN: To repeat her CBC, basic metabolic panel, get a KUB and continue her on antibiotic. Dictated By: DEVAUGHN ESCALANTE/BOBBI Conf#: [id number] DID#: [id number]
[2016-11-18] MEDS: ATORVASTATIN 20 MG TAB PO SCH (20:36)
[2016-11-18 20:58] VITALS: BP 106/50
[2016-11-19] MEDS: DEXTROSE 5%-0.45% NACL 1,000 ML IV SCH ×2 (00:55→13:44)
[2016-11-19] MEDS: PANTOPRAZOLE (EC) 40 MG TAB PO SCH ×2 (05:23→18:17)
[2016-11-19 05:33] LABS: ADD SCAN DIFF NO
[2016-11-19 05:50] LABS: ABNORMAL IP MESSAGE 1; HEMATOCRIT 34.3 % (37.0-47.0); HEMOGLOBIN 11.2 g/dl (12.0-16.0); MEAN CORPUSCULAR HEMOGLOBIN 28.1 pg (29.0-33.0); MEAN CORPUSCULAR HGB CONC 32.7 g/dl (32.0-37.0); MEAN CORPUSCULAR VOLUME 86.2 fl (82.0-101.0); MEAN PLATELET VOLUME 10.9 fl (7.4-10.4); PLATELET COUNT 133 10^3/UL (140-415); RED BLOOD COUNT 3.98 10^6/ul (4.20-5.40); RED CELL DISTRIBUTION WIDTH 14.7 % (11.5-14.5); WHITE BLOOD COUNT 9.4 10^3/ul (4.8-10.8)
[2016-11-19 07:23] VITALS: BP 119/55; RESP 18
[2016-11-19 08:11] LABS: POTASSIUM 3.8 mmol/L (3.5-5.1)
[2016-11-19 08:13] LABS: CREATININE 2.21 mg/dl (0.44-1.00)
[2016-11-19 08:14] LABS: CALCIUM 8.6 mg/dl (8.4-10.2); PHOSPHORUS 2.9 mg/dl (2.5-4.9)
[2016-11-19 08:15] LABS: MAGNESIUM 2.5 mg/dl (1.7-2.5)
[2016-11-19] MEDS: AMLODIPINE 5 MG TAB PO SCH (08:49)
[2016-11-19] MEDS: POLYETHYLENE GLYCOL 17 GM PACKET PO SCH (08:50)
[2016-11-19] MEDS: TAMSULOSIN (SR) 0.4 MG CAP PO SCH (08:50)
[2016-11-19] MEDS: CALCIUM CARBONATE 500 MG CHEW TAB PO SCH ×2 (08:50→20:54)
[2016-11-19] MEDS: ASCORBIC ACID 500 MG TAB PO SCH ×2 (08:50→20:54)
--- NOTE | 2016-11-19 09:32 | CONS ---
Date/Time of Note Date/Time of Note DATE: 11/19/16 TIME: 09:29 Assessment/Plan Assessment/Plan Chief Complaint/Hosp Course Obstructive uropathy status post surgery History of CVA, on Plavix Systolic murmur Preserved ejection fraction Hypertension Dyslipidemia Problems: Additional Assessment/Plan 1) monitor renal function and output 2) no change in cardiac regimen Consultation Date/Type/Reason Admit Date/Time Nov 16, 2016 at 10:29 Initial Consult Date Type of Consultation: cv Referring Provider: PARVIN KELLY MD 24 HR Interval Summary Free Text/Dictation recovering, no chest pain, no sob, fatigued Detailed Summary Respiratory: no complaints Cardiovascular: no complaints Gastrointestinal: no complaints Musculoskeletal: no complaints Neurologic: no complaints Exam/Review of Systems Vital Signs Vitals Vital Signs Date Time Temp Pulse Resp B/P Pulse Ox O2 Delivery O2 Flow Rate FiO2 11/19/16 07:23 98.2 106 18 119/55 97 11/17/16 20:37 Room Air 11/16/16 06:08 2.0 Intake and Output 11/18/16 11/18/16 11/19/16 15:00 23:00 07:00 Intake Total 250 ml 2221 ml 750 ml Balance 250 ml 2221 ml 750 ml Exam Constitutional: alert, oriented Head: atraumatic, normocephalic Neck: supple Respiratory: clear to auscultation Cardiovascular: regular rate and rhythm Gastrointestinal: soft Musculoskeletal: nl extremities to inspection Results Result Diagram: 11/19/16 0458 11/19/16 0458 Results 24 hrs Laboratory Tests Test 11/19/16 04:58 Anion Gap 16 Blood Urea Nitrogen 33 H Calcium Level 8.6 Carbon Dioxide Level 17 L Chloride Level 98 Creatinine 2.21 H Eosinophils # Eosinophils % Glucose Level 94 Hematocrit 34.3 L Hemoglobin 11.2 L Lymphocytes # Lymphocytes % Magnesium Level 2.5 Mean Corpuscular Hemoglobin 28.1 L Mean Corpuscular Hemoglobin Concent 32.7 Mean Corpuscular Volume 86.2 Mean Platelet Volume 10.9 H Monocytes # Monocytes % Neutrophils # Neutrophils % Phosphorus Level 2.9 Platelet Count 133 #L Potassium Level 3.8 Red Blood Count 3.98 L Red Cell Distribution Width 14.7 H Sodium Level 127 L White Blood Count 9.4 # Medications Medications Current Medications Dextrose/Sodium Chloride (D5-1/2ns) 1,000 ml @ 75 mls/hr [id number] IV Last administered on 11/18/16 22:55; Admin Dose 75 MLS/HR; Start 11/16/16 at 07:49 Morphine Sulfate (morphine) 4 mg Q4H PRN IV pain Last administered on 11/17/16 05:10; Admin Dose 4 MG; Start 11/16/16 at 08:00 Tamsulosin HCl (Flomax) 0.4 mg DAILY PO Last administered on 11/19/16 08:50; Admin Dose 0.4 MG; Start 11/16/16 at 08:00 Ondansetron HCl (Zofran Inj) 4 mg Q4H PRN IV NAUSEA AND/OR VOMITING; Start 11/16 at 10:00 Calcium Carbonate (Tums) 500 mg BID PO Last administered on 11/19/16 08:50; Admin Dose 500 MG; Start 11/16/16 at 11:00 Polyethylene Glycol (Miralax) 17 gm DAILY PO Last administered on 11/19/16 08: 50; Admin Dose 17 GM; Start 11/16/16 at 11:00 Ascorbic Acid (Vitamin C) 500 mg BID PO Last administered on 11/19/16 08:50; Admin Dose 500 MG; Start 11/16/16 at 21:00 Atorvastatin Calcium 20 mg 20 mg DAILY@21 PO Last administered on 11/18/16 20: 36; Admin Dose 20 MG; Start 11/16/16 at 21:00 Ceftriaxone Sodium (Rocephin) 50 ml @ 100 mls/hr Q24H IVPB Last administered on 11/18/16 12:13; Admin Dose 100 MLS/HR; Start 11/17/16 at 12:30 Ketorolac Tromethamine (Toradol) 15 mg Q6H PRN IV PAIN Last administered on 11/18 09:57; Admin Dose 15 MG; Start 11/17/16 at 13:30; Stop 11/20/16 at 13:29 Pantoprazole (Protonix Tab) 40 mg BID@06,18 PO Last administered on 11/19/16 05 :23; Admin Dose 40 MG; Start 11/17/16 at 18:00 Amlodipine Besylate (Norvasc) 5 mg DAILY PO ; Start 11/18/16 at 09:00 Acetaminophen/ Hydrocodone Bitart ([place] (5/325)) 1 tab Q4H PRN PO PAIN Last administered on 11/18/16t 10:39; Admin Dose 1 TAB; Start 11/18/16 at 10:30 JASPER FUENTES MD Nov 19, 2016 09:32
[2016-11-19 10:13] LABS: LYMPHOCYTES # 0.6 10^3/ul (0.8-2.9); MONOCYTE # 0.2 10^3/ul (0.3-0.9); NEUTROPHIL # 8.2 10^3/ul (1.6-7.5)
[2016-11-19] MEDS ORDERED: SOD CHLORIDE 0.9% 1,000 ML IV ONE (11:30)
[2016-11-19] MEDS: CEFTRIAXONE 1 GM/50 ML (PMX) 50 ML IVPB SCH (12:56)
[2016-11-19 13:47] VITALS: BP 124/58; PULSE 103
--- NOTE | 2016-11-19 14:51 | RADRPT ---
PROCEDURE: XR Abdomen. CLINICAL INDICATION: Abdomen pain. History of right renal calculus. TECHNIQUE: AP supine abdomen x-ray. COMPARISON: 11/16/2016. FINDINGS: There is a right ureteral stent in satisfactory position. The bowel gas pattern is normal with no evidence of obstruction. The calculus in the proximal right ureter is visualized measuring 0.8 cm. The calculus in the dista l right ureter seen previously is not visualized. There is a 0.5 cm calculus in the lower left kidn ey. There are degenerative changes of the spine. IMPRESSION: 1. Satisfactory position of right ureteral stent. 2. Previously noted calculus in the region of the proximal right ureter is once again noted. The c alculus in the region of the distal right ureter is not visualized. 3. Lower pole left renal calculi. 4. Degenerative changes of the spine. RPTAT: QQ .Rashad Dodge MD, Date Time Electronically viewed and signed by .Rashad Dodge MD, on 11/19/2016 14:51 .R/
--- NOTE | 2016-11-19 17:17 | PN ---
Date/Time of Note Date/Time of Note DATE: 11/19/16 TIME: 17:13 Assessment/Plan VTE Prophylaxis VTE Prophylaxis Intervention: SCD's Lines/Catheters IV C[facility]ter Type (from [facility] Peripheral IV Urinary Cath still in place: No Assessment/Plan Chief Complaint/Hosp Course 1. Right-sided obstructive uropathy s/p Cystoscopy with laser lithotripsy to the distal right ureteral stone and then insertion of right ureteral JJ stent Start Flomax when patient is able to tolerate oral intake, KUB shows R sided stone 2. Sepsis secondary to right-sided pyelonephritis-resolving cont Rocephin 3. Debility 2/2 Morbid Obesity and cerebrovascular accident with right-sided deficit pt has In home support 4. History of hypertension. Well-controlled on medical management Dispo-DC in 1-2 days when WBC trends down, CM to provide pt info regarding med transport for doctors visits PPx- SCD's Problems: Subjective 24 Hr Interval Summary Constitutional: no complaints Exam/Review of Systems Vital Signs Vitals Vital Signs Date Time Temp Pulse Resp B/P Pulse Ox O2 Delivery O2 Flow Rate FiO2 11/19/16 13:47 103 124/58 11/19/16 07:23 98.2 18 97 11/17/16 20:37 Room Air 11/16/16 06:08 2.0 Intake and Output 11/18/16 11/18/16 11/19/16 15:00 23:00 07:00 Intake Total 250 ml 2221 ml 750 ml Balance 250 ml 2221 ml 750 ml Exam Constitutional: alert, oriented Respiratory: clear to auscultation Cardiovascular: regular rate and rhythm Gastrointestinal: soft, No distended Musculoskeletal: nl extremities to inspection Results Result Diagram: 11/19/16 0458 11/19/16 0458 Results 24 hrs Laboratory Tests Test 11/19/16 04:58 Anion Gap 16 Band Neutrophils % 5.0 Blood Urea Nitrogen 33 H Calcium Level 8.6 Carbon Dioxide Level 17 L Chloride Level 98 Creatinine 2.21 H Eosinophils # Eosinophils % Glucose Level 94 Hematocrit 34.3 L Hemoglobin 11.2 L Lymphocytes # 0.6 L Lymphocytes % 6.0 L Magnesium Level 2.5 Mean Corpuscular Hemoglobin 28.1 L Mean Corpuscular Hemoglobin Concent 32.7 Mean Corpuscular Volume 86.2 Mean Platelet Volume 10.9 H Monocytes # 0.2 L Monocytes % 2.0 Neutrophils # 8.2 H Neutrophils % 87.0 H Phosphorus Level 2.9 Platelet Count 133 #L Potassium Level 3.8 Red Blood Count 3.98 L Red Cell Distribution Width 14.7 H Sodium Level 127 L White Blood Count 9.4 # Medications Medications Current Medications Dextrose/Sodium Chloride (D5-1/2ns) 1,000 ml @ 75 mls/hr [id number] IV Last administered on 11/19/16 13:44; Admin Dose 75 MLS/HR; Start 11/16/16 at 07:49 Morphine Sulfate (morphine) 4 mg Q4H PRN IV pain Last administered on 11/17/16 05:10; Admin Dose 4 MG; Start 11/16/16 at 08:00 Tamsulosin HCl (Flomax) 0.4 mg DAILY PO Last administered on 11/19/16 08:50; Admin Dose 0.4 MG; Start 11/16/16 at 08:00 Ondansetron HCl (Zofran Inj) 4 mg Q4H PRN IV NAUSEA AND/OR VOMITING; Start 11/16 at 10:00 Calcium Carbonate (Tums) 500 mg BID PO Last administered on 11/19/16 08:50; Admin Dose 500 MG; Start 11/16/16 at 11:00 Polyethylene Glycol (Miralax) 17 gm DAILY PO Last administered on 11/19/16 08: 50; Admin Dose 17 GM; Start 11/16/16 at 11:00 Ascorbic Acid (Vitamin C) 500 mg BID PO Last administered on 11/19/16 08:50; Admin Dose 500 MG; Start 11/16/16 at 21:00 Atorvastatin Calcium 20 mg 20 mg DAILY@21 PO Last administered on 11/18/16 20: 36; Admin Dose 20 MG; Start 11/16/16 at 21:00 Ceftriaxone Sodium (Rocephin) 50 ml @ 100 mls/hr Q24H IVPB Last administered on 11/19/16 12:56; Admin Dose 100 MLS/HR; Start 11/17/16 at 12:30 Ketorolac Tromethamine (Toradol) 15 mg Q6H PRN IV PAIN Last administered on 11/18 09:57; Admin Dose 15 MG; Start 11/17/16 at 13:30; Stop 11/20/16 at 13:29 Pantoprazole (Protonix Tab) 40 mg BID@06,18 PO Last administered on 11/19/16 05 :23; Admin Dose 40 MG; Start 11/17/16 at 18:00 Acetaminophen/ Hydrocodone Bitart ([place] (5/325)) 1 tab Q4H PRN PO PAIN Last administered on 11/18/16 10:39; Admin Dose 1 TAB; Start 11/18/16 at 10:30 LORY FLORES Nov 19, 2016 17:17
[2016-11-19 19:00] VITALS: BP 128/68; RESP 18
[2016-11-19] MEDS: ATORVASTATIN 20 MG TAB PO SCH (20:54)
--- NOTE | 2016-11-19 22:26 | CONS ---
Date/Time of Note Date/Time of Note DATE: 11/19/16 TIME: 22:24 Assessment/Plan Assessment/Plan Additional Assessment/Plan 1. Acute kidney injury due to obstructive uropathy with Prerenal azotemia 2. Acute urinary tract infection. 2. Acute obstructive uropathy causing blockage of her ureters. The patient had a 10 mm stone in the right proximal ureter and a 12 mm stone in the right distal ureter causing intractable abdominal pain. 3. Bilateral nephrolithiasis with a small renal cyst. 4. Right atrophic kidney with cortical thinning. 5. Intractable abdominal pain. 6. History of hypertension. 7. History of hyperlipidemia. 8. History of vitamin D deficiency. 9. History of previous coronary artery disease, has been on Plavix. PLAN: s/p cystoscopy with laser lithotripsy and Stent placement Cr bumped to 2.2- continue current IVF Expecting creatinine to improve with Relieve of obstruction and improvement in retention will continue to fllow up on patient Consultation Date/Type/Reason Admit Date/Time Nov 16, 2016 at 10:29 Initial Consult Date november Type of Consultation: NEPHROLOGY Reason for Consultation Acute kidney injury, hematuria, Obstructive Uropathy Referring Provider: PARVIN KELLY MD 24 HR Interval Summary Free Text/Dictation Cr bumped to 2.3, pt still having urinary retention Exam/Review of Systems Vital Signs Vitals Vital Signs Date Time Temp Pulse Resp B/P Pulse Ox O2 Delivery O2 Flow Rate FiO2 11/19/16 20:50 98.6 11/19/16 19:00 105 18 128/68 95 11/17/16 20:37 Room Air 11/16/16 06:08 2.0 Intake and Output 11/18/16 11/18/16 11/19/16 15:00 23:00 07:00 Intake Total 250 ml 2221 ml 750 ml Balance 250 ml 2221 ml 750 ml Results Result Diagram: 11/19/16 0458 11/19/16 0458 Results 24 hrs Laboratory Tests Test 11/19/16 04:58 11/19/16 17:39 Anion Gap 16 Band Neutrophils % 5.0 Blood Urea Nitrogen 33 H Calcium Level 8.6 Carbon Dioxide Level 17 L Chloride Level 98 Creatinine 2.21 H Eosinophils # Eosinophils % Glucose Level 94 Hematocrit 34.3 L Hemoglobin 11.2 L Lymphocytes # 0.6 L Lymphocytes % 6.0 L Magnesium Level 2.5 Mean Corpuscular Hemoglobin 28.1 L Mean Corpuscular Hemoglobin Concent 32.7 Mean Corpuscular Volume 86.2 Mean Platelet Volume 10.9 H Monocytes # 0.2 L Monocytes % 2.0 Neutrophils # 8.2 H Neutrophils % 87.0 H Phosphorus Level 2.9 Platelet Count 133 #L Potassium Level 3.8 Red Blood Count 3.98 L Red Cell Distribution Width 14.7 H Sodium Level 127 L White Blood Count 9.4 # Bedside Glucose 114 Medications Medications Current Medications Dextrose/Sodium Chloride (D5-1/2ns) 1,000 ml @ 75 mls/hr [id number] IV Last administered on 11/19/16 13:44; Admin Dose 75 MLS/HR; Start 11/16/16 at 07:49 Morphine Sulfate (morphine) 4 mg Q4H PRN IV pain Last administered on 11/17/16 05:10; Admin Dose 4 MG; Start 11/16/16 at 08:00 Tamsulosin HCl (Flomax) 0.4 mg DAILY PO Last administered on 11/19/16 08:50; Admin Dose 0.4 MG; Start 11/16/16 at 08:00 Ondansetron HCl (Zofran Inj) 4 mg Q4H PRN IV NAUSEA AND/OR VOMITING; Start 11/16 at 10:00 Calcium Carbonate (Tums) 500 mg BID PO Last administered on 11/19/16 20:54; Admin Dose 500 MG; Start 11/16/16 at 11:00 Polyethylene Glycol (Miralax) 17 gm DAILY PO Last administered on 11/19/16 08: 50; Admin Dose 17 GM; Start 11/16/16 at 11:00 Ascorbic Acid (Vitamin C) 500 mg BID PO Last administered on 11/19/16 20:54; Admin Dose 500 MG; Start 11/16/16 at 21:00 Atorvastatin Calcium 20 mg 20 mg DAILY@21 PO Last administered on 11/19/16 20: 54; Admin Dose 20 MG; Start 11/16/16 at 21:00 Ceftriaxone Sodium (Rocephin) 50 ml @ 100 mls/hr Q24H IVPB Last administered on 11/19/16 12:56; Admin Dose 100 MLS/HR; Start 11/17/16 at 12:30 Ketorolac Tromethamine (Toradol) 15 mg Q6H PRN IV PAIN Last administered on 11/18 09:57; Admin Dose 15 MG; Start 11/17/16 at 13:30; Stop 11/20/16 at 13:29 Pantoprazole (Protonix Tab) 40 mg BID@06,18 PO Last administered on 11/19/16 18 :17; Admin Dose 40 MG; Start 11/17/16 at 18:00 Acetaminophen/ Hydrocodone Bitart ([place] (5/325)) 1 tab Q4H PRN PO PAIN Last administered on 11/18/16 10:39; Admin Dose 1 TAB; Start 11/18/16 at 10:30 Acetaminophen (Tylenol Tab) 650 mg Q6H PRN PO PAIN AND OR ELEVATED TEMP; Start 11/19/16 at 21:00 LIZZ SALCEDO MD Nov 19, 2016 22:25
--- NOTE | 2016-11-20 02:07 | PN ---
DATE: 11/19/2016 SUBJECTIVE: The patient is status post right ureteroscopy, laser lithotripsy, removal of distal rig ht ureteral stone and patient still has 1 stone in the kidney and she has a JJ stent. She was havin g some difficulty urinating. She is urinating a small amount and when the nurse catheterized her, s he had about 100 to 200 mL. The patient has mild pressure on her right upper quadrant area, epigast ravi area. She denies any severe pain. OBJECTIVE FINDINGS: VITAL SIGNS: Her temperature is 98.2, pulse 106, respirations 18, blood pressure 119/55. LABORATORY DATA: Her CBC shows a white count 9.4, hemoglobin 11.2, hematocrit 34.3. BUN is 33, cre atinine has gone up to 2.21, sodium 127, potassium 3.8, chloride 98, CO2 is 17. The urine culture f rom the right kidney, no growth after 48 hours. However, the urine culture from the bladder did kiley w out less than 10,000 gram-negative rods. The patient is already on ceftriaxone. IMPRESSION: Patient is doing well as far as urology. She does have the JJ stent and her right kidn ey is not obstructed now; however, her creatinine has gone up and it could be that she has some acut e kidney injury and we shall monitor that and make sure that she is hydrated well and continue her a ntibiotic. As far as the other stone in the kidney, we will have to do a ureteroscopy and laser lit hotripsy to it. If she is still in the hospital and she is stable to do it, we will do it now or we will have to bring her back later on to do it. Dictated By: DEVAUGHN ESCALANTE/BOBBI Conf#: [id number] DID#: [id number]
[2016-11-20] MEDS: DEXTROSE 5%-0.45% NACL 1,000 ML IV SCH ×2 (03:23→18:41)
[2016-11-20 06:37] LABS: ADD SCAN DIFF NO
[2016-11-20] MEDS: PANTOPRAZOLE (EC) 40 MG TAB PO SCH ×2 (06:41→18:41)
[2016-11-20 06:56] LABS: ABNORMAL IP MESSAGE 1; HEMATOCRIT 32.3 % (37.0-47.0); HEMOGLOBIN 10.9 g/dl (12.0-16.0); MEAN CORPUSCULAR HEMOGLOBIN 28.2 pg (29.0-33.0); MEAN CORPUSCULAR HGB CONC 33.7 g/dl (32.0-37.0); MEAN CORPUSCULAR VOLUME 83.7 fl (82.0-101.0); MEAN PLATELET VOLUME 11.6 fl (7.4-10.4); PLATELET COUNT 123 10^3/UL (140-415); RED BLOOD COUNT 3.86 10^6/ul (4.20-5.40); RED CELL DISTRIBUTION WIDTH 14.6 % (11.5-14.5); WHITE BLOOD COUNT 7.9 10^3/ul (4.8-10.8)
[2016-11-20 07:18] VITALS: BP 129/60; RESP 20
[2016-11-20 07:58] LABS: POTASSIUM 3.5 mmol/L (3.5-5.1)
[2016-11-20 08:01] LABS: CREATININE 2.24 mg/dl (0.44-1.00)
[2016-11-20 08:02] LABS: CALCIUM 8.9 mg/dl (8.4-10.2)
[2016-11-20] MEDS: CALCIUM CARBONATE 500 MG CHEW TAB PO SCH ×2 (09:36→21:00)
[2016-11-20] MEDS: ASCORBIC ACID 500 MG TAB PO SCH ×2 (09:36→21:12)
[2016-11-20] MEDS: POLYETHYLENE GLYCOL 17 GM PACKET PO SCH (09:37)
[2016-11-20] MEDS: TAMSULOSIN (SR) 0.4 MG CAP PO SCH (09:37)
[2016-11-20 10:24] LABS: MONOCYTE # 0.1 10^3/ul (0.3-0.9); NEUTROPHIL # 6.6 10^3/ul (1.6-7.5)
--- NOTE | 2016-11-20 11:07 | CONS ---
Date/Time of Note Date/Time of Note DATE: 11/20/16 TIME: 11:05 Assessment/Plan Assessment/Plan Additional Assessment/Plan 1. Acute kidney injury due to obstructive uropathy with Prerenal azotemia 2. Acute urinary tract infection. 2. Acute obstructive uropathy causing blockage of her ureters. The patient had a 10 mm stone in the right proximal ureter and a 12 mm stone in the right distal ureter causing intractable abdominal pain. 3. Bilateral nephrolithiasis with a small renal cyst. 4. Right atrophic kidney with cortical thinning. 5. Intractable abdominal pain. 6. History of hypertension. 7. History of hyperlipidemia. 8. History of vitamin D deficiency. 9. History of previous coronary artery disease, has been on Plavix. PLAN: s/p cystoscopy with laser lithotripsy and Stent placement Cr bumped to 2.2- stable around 2.2 compared to yesterday but higher than baseline normal Cr, decreasd IVF to 50 cc/hr Expecting creatinine to improve with Relieve of obstruction and improvement in retention will continue to fllow up on patient Consultation Date/Type/Reason Admit Date/Time Nov 16, 2016 at 10:29 Initial Consult Date november Type of Consultation: NEPHROLOGY Reason for Consultation acute kidney injury,Hyponatremia, metabolic acidosis,obstructive uropathy due to nephrolithiasis Referring Provider: PARVIN KELLY MD 24 HR Interval Summary Free Text/Dictation Na improved to 130, Cr stable 2.24 compared to yesterday but higher than baseline, Exam/Review of Systems Vital Signs Vitals Vital Signs Date Time Temp Pulse Resp B/P Pulse Ox O2 Delivery O2 Flow Rate FiO2 11/20/16 07:18 98.3 103 20 129/60 98 11/17/16 20:37 Room Air Intake and Output 11/19/16 11/19/16 11/20/16 15:00 23:00 07:00 Intake Total 1600 ml 540 ml 1480 ml Output Total 0 ml Balance 1600 ml 540 ml 1480 ml Exam No apparent distress Constitutional: alert, obese, oriented Head: normocephalic Neck: supple Respiratory: other (Coarse breath sounds bilaterally, no wheezing) Cardiovascular: other (S1-S2 heard), regular rate and rhythm Gastrointestinal: bowel sounds, non-tender, soft Extremities: edema (Trace) Results Result Diagram: 11/20/1645411/20/16 0455 Results 24 hrs Laboratory Tests Test 11/19/16 17:39 11/20/16 04:55 Bedside Glucose 114 Anion Gap 14 Band Neutrophils % 3.0 Basophils # Basophils % Blood Urea Nitrogen 35 H Calcium Level 8.9 Carbon Dioxide Level 20 L Chloride Level 100 Creatinine 2.24 H Eosinophils # Eosinophils % Glucose Level 97 Hematocrit 32.3 L Hemoglobin 10.9 L Lymphocytes # 1.0 Lymphocytes % 13.0 L Mean Corpuscular Hemoglobin 28.2 L Mean Corpuscular Hemoglobin Concent 33.7 Mean Corpuscular Volume 83.7 Mean Platelet Volume 11.6 H Monocytes # 0.1 L Monocytes % 1.0 Neutrophils # 6.6 Neutrophils % 83.0 H Nucleated Red Blood Cells # Nucleated Red Blood Cells % Platelet Count 123 L Potassium Level 3.5 Red Blood Count 3.86 L Red Cell Distribution Width 14.6 H Sodium Level 130 L White Blood Count 7.9 Medications Medications Current Medications Dextrose/Sodium Chloride (D5-1/2ns) 1,000 ml @ 75 mls/hr [id number] IV Last administered on 11/20/16 03:23; Admin Dose 75 MLS/HR; Start 11/16/16 at 07:49 Morphine Sulfate (morphine) 4 mg Q4H PRN IV pain Last administered on 11/17/16 05:10; Admin Dose 4 MG; Start 11/16/16 at 08:00 Tamsulosin HCl (Flomax) 0.4 mg DAILY PO Last administered on 11/20/16 09:37; Admin Dose 0.4 MG; Start 11/16/16 at 08:00 Ondansetron HCl (Zofran Inj) 4 mg Q4H PRN IV NAUSEA AND/OR VOMITING; Start 11/16 at 10:00 Calcium Carbonate (Tums) 500 mg BID PO Last administered on 11/20/16 09:36; Admin Dose 500 MG; Start 11/16/16 at 11:00 Polyethylene Glycol (Miralax) 17 gm DAILY PO Last administered on 11/20/16 09: 37; Admin Dose 17 GM; Start 11/16/16 at 11:00 Ascorbic Acid (Vitamin C) 500 mg BID PO Last administered on 11/20/16 09:36; Admin Dose 500 MG; Start 11/16/16 at 21:00 Atorvastatin Calcium 20 mg 20 mg DAILY@21 PO Last administered on 11/19/16 20: 54; Admin Dose 20 MG; Start 11/16/16 at 21:00 Ceftriaxone Sodium (Rocephin) 50 ml @ 100 mls/hr Q24H IVPB Last administered on 11/19/16 12:56; Admin Dose 100 MLS/HR; Start 11/17/16 at 12:30 Ketorolac Tromethamine (Toradol) 15 mg Q6H PRN IV PAIN Last administered on 11/18 09:57; Admin Dose 15 MG; Start 11/17/16 at 13:30; Stop 11/20/16 at 13:29 Pantoprazole (Protonix Tab) 40 mg BID@06,18 PO Last administered on 11/20/16 06 :41; Admin Dose 40 MG; Start 11/17/16 at 18:00 Acetaminophen/ Hydrocodone Bitart ([place] (5/325)) 1 tab Q4H PRN PO PAIN Last administered on 11/18/16 10:39; Admin Dose 1 TAB; Start 11/18/16 at 10:30 Acetaminophen (Tylenol Tab) 650 mg Q6H PRN PO PAIN AND OR ELEVATED TEMP; Start 11/19/16 at 21:00 LIZZ SALCEDO MD Nov 20, 2016 11:07
[2016-11-20] MEDS: CEFTRIAXONE 1 GM/50 ML (PMX) 50 ML IVPB SCH (12:33)
--- NOTE | 2016-11-20 14:23 | PN ---
Date/Time of Note Date/Time of Note DATE: 11/20/16 TIME: 14:07 Assessment/Plan VTE Prophylaxis VTE Prophylaxis Intervention: SCD's Lines/Catheters IV [facility]ter Type (from [facility] Peripheral IV Urinary Cath still in place: No Assessment/Plan Chief Complaint/Hosp Course 1. Right-sided obstructive uropathy s/p Cystoscopy with laser lithotripsy to the distal right ureteral stone and then insertion of right ureteral JJ stent cont Flomax, KUB shows R sided stone, pt will need another Lithotripsy at some point, this may be done in house vs as an out-pt 2. Sepsis secondary to right-sided pyelonephritis-resolving cont Rocephin 3. Debility 2/2 Morbid Obesity and cerebrovascular accident with right-sided deficit pt has In home support, CM to provide pt info regarding med transport for doctors visits 4. History of hypertension. Well-controlled on medical management 5. CALI 2/2 Nephrolithiasis-Cr rising Renal following, Cr expected to improve with relief of obstruction and improvement in retention, cont IVF Dispo- DC when renal functional stabilizes and cleared by Urology PPx- SCD's Problems: Subjective 24 Hr Interval Summary Constitutional: no complaints Exam/Review of Systems Vital Signs Vitals Vital Signs Date Time Temp Pulse Resp B/P Pulse Ox O2 Delivery O2 Flow Rate FiO2 11/20/16 07:18 98.3 103 20 129/60 98 11/17/16 20:37 Room Air Intake and Output 11/19/16 11/19/16 11/20/16 15:00 23:00 07:00 Intake Total 1600 ml 540 ml 1480 ml Output Total 0 ml Balance 1600 ml 540 ml 1480 ml Exam Constitutional: alert Respiratory: clear to auscultation Cardiovascular: regular rate and rhythm Gastrointestinal: soft, No distended Musculoskeletal: nl extremities to inspection Results Result Diagram: 11/20/16 0455 11/20/16 0455 Results 24 hrs Laboratory Tests Test 11/19/16 17:39 11/20/16 04:55 Bedside Glucose 114 Anion Gap 14 Band Neutrophils % 3.0 Basophils # Basophils % Blood Urea Nitrogen 35 H Calcium Level 8.9 Carbon Dioxide Level 20 L Chloride Level 100 Creatinine 2.24 H Eosinophils # Eosinophils % Glucose Level 97 Hematocrit 32.3 L Hemoglobin 10.9 L Lymphocytes # 1.0 Lymphocytes % 13.0 L Mean Corpuscular Hemoglobin 28.2 L Mean Corpuscular Hemoglobin Concent 33.7 Mean Corpuscular Volume 83.7 Mean Platelet Volume 11.6 H Monocytes # 0.1 L Monocytes % 1.0 Neutrophils # 6.6 Neutrophils % 83.0 H Nucleated Red Blood Cells # Nucleated Red Blood Cells % Platelet Count 123 L Potassium Level 3.5 Red Blood Count 3.86 L Red Cell Distribution Width 14.6 H Sodium Level 130 L White Blood Count 7.9 Medications Medications Current Medications Dextrose/Sodium Chloride (D5-1/2ns) 1,000 ml @ 60 mls/hr [id number] IV Last administered on 11/20/16 03:23; Admin Dose 75 MLS/HR; Start 11/16/16 at 07:49 Morphine Sulfate (morphine) 4 mg Q4H PRN IV pain Last administered on 11/17/16 05:10; Admin Dose 4 MG; Start 11/16/16 at 08:00 Tamsulosin HCl (Flomax) 0.4 mg DAILY PO Last administered on 11/20/16 09:37; Admin Dose 0.4 MG; Start 11/16/16 at 08:00 Ondansetron HCl (Zofran Inj) 4 mg Q4H PRN IV NAUSEA AND/OR VOMITING; Start 11/16 at 10:00 Calcium Carbonate (Tums) 500 mg BID PO Last administered on 11/20/16 09:36; Admin Dose 500 MG; Start 11/16/16 at 11:00 Polyethylene Glycol (Miralax) 17 gm DAILY PO Last administered on 11/20/16 09: 37; Admin Dose 17 GM; Start 11/16/16 at 11:00 Ascorbic Acid (Vitamin C) 500 mg BID PO Last administered on 11/20/16 09:36; Admin Dose 500 MG; Start 11/16/16 at 21:00 Atorvastatin Calcium 20 mg 20 mg DAILY@21 PO Last administered on 11/19/16 20: 54; Admin Dose 20 MG; Start 11/16/16 at 21:00 Ceftriaxone Sodium (Rocephin) 50 ml @ 100 mls/hr Q24H IVPB Last administered on 11/20/16 12:33; Admin Dose 100 MLS/HR; Start 11/17/16 at 12:30 Pantoprazole (Protonix Tab) 40 mg BID@06,18 PO Last administered on 11/20/16 06 :41; Admin Dose 40 MG; Start 11/17/16 at 18:00 Acetaminophen/ Hydrocodone Bitart ([place] (5/325)) 1 tab Q4H PRN PO PAIN Last administered on 11/18/16 10:39; Admin Dose 1 TAB; Start 11/18/16 at 10:30 Acetaminophen (Tylenol Tab) 650 mg Q6H PRN PO PAIN AND OR ELEVATED TEMP; Start 11/19/16 at 21:00 LORY FLORES Nov 20, 2016 14:22
--- NOTE | 2016-11-20 16:08 | PN ---
DATE: 11/20/2016 SUBJECTIVE: Abdominal pain, right ureteral stones, status post cystoscopy, ureteroscopy, laser lith otripsy, and removal of the distal right ureteral stone. The patient states that she has no pain, a nd she is feeling better, and she is voiding frequently. OBJECTIVE: VITAL SIGNS: Temperature is 98.3, pulse is 103, respiration 20, blood pressure 129/60. ABDOMEN: Soft and obese. LABORATORY DATA: Her CBC shows a white count of 7.9, hemoglobin 10.9, hematocrit 32.3, platelet cou nt 123,000. The sodium 130, potassium 3.5, chloride 100, CO2 20, and the BUN is 35, creatinine 2.24 . The urine culture from the right kidney was negative, no growth after 48 hours. However, from the bladder showed E. coli, similar to the E. coli that she had by straight cath the day before. The patient is on ceftriaxone, and the E. coli is sensitive to it. As far as the remaining stone in the kidney, she will need to have that removed during second treatment with ureteroscopy and laser lithotripsy. Dictated By: DEVAUGHN ESCALANTE/BOBBI Conf#: [id number] DID#: [id number]
[2016-11-20 19:26] VITALS: BP 144/64; RESP 20
[2016-11-20] MEDS: ATORVASTATIN 20 MG TAB PO SCH (21:12)
[2016-11-21] MEDS: ALBUTEROL/IPRATROPIUM (NEB) 3 ML AMP HHN PRN (00:17)
[2016-11-21] MEDS: PANTOPRAZOLE (EC) 40 MG TAB PO SCH ×2 (05:30→17:32)
[2016-11-21 05:59] LABS: ADD SCAN DIFF NO
[2016-11-21 06:08] LABS: BASOPHILS % 0.4 % (0.0-2.0); EOSINOPHILS # 0.1 10^3/ul (0.0-0.5); EOSINOPHILS % 0.8 % (0.0-7.0); HEMATOCRIT 34.5 % (37.0-47.0); HEMOGLOBIN 11.7 g/dl (12.0-16.0); LYMPHOCYTES # 0.6 10^3/ul (0.8-2.9); MEAN CORPUSCULAR HEMOGLOBIN 28.1 pg (29.0-33.0); MEAN CORPUSCULAR HGB CONC 33.9 g/dl (32.0-37.0); MEAN CORPUSCULAR VOLUME 82.9 fl (82.0-101.0); MEAN PLATELET VOLUME 11.4 fl (7.4-10.4); MONOCYTE # 0.6 10^3/ul (0.3-0.9); MONOCYTES % 7.4 % (0.0-11.0); NEUTROPHIL # 6.5 10^3/ul (1.6-7.5); NEUTROPHILS % 81.4 % (39.0-77.0); PLATELET COUNT 123 10^3/UL (140-415); RED BLOOD COUNT 4.16 10^6/ul (4.20-5.40); RED CELL DISTRIBUTION WIDTH 14.9 % (11.5-14.5)
[2016-11-21 06:29] LABS: POTASSIUM 3.4 mmol/L (3.5-5.1)
[2016-11-21 06:32] LABS: CREATININE 1.76 mg/dl (0.44-1.00)
[2016-11-21 06:33] LABS: CALCIUM 9.1 mg/dl (8.4-10.2)
[2016-11-21 07:26] VITALS: BP 148/67; RESP 20
[2016-11-21] MEDS: CALCIUM CARBONATE 500 MG CHEW TAB PO SCH ×2 (08:42→20:55)
[2016-11-21] MEDS: ASCORBIC ACID 500 MG TAB PO SCH ×2 (08:42→20:55)
[2016-11-21] MEDS: POLYETHYLENE GLYCOL 17 GM PACKET PO SCH (08:42)
[2016-11-21] MEDS: TAMSULOSIN (SR) 0.4 MG CAP PO SCH (08:42)
--- NOTE | 2016-11-21 09:30 | CONS ---
Date/Time of Note Date/Time of Note DATE: 11/21/16 TIME: 09:28 Assessment/Plan Assessment/Plan Additional Assessment/Plan 1. Acute kidney injury due to obstructive uropathy with Prerenal azotemia 2. Acute urinary tract infection. 2. Acute obstructive uropathy causing blockage of her ureters. The patient had a 10 mm stone in the right proximal ureter and a 12 mm stone in the right distal ureter causing intractable abdominal pain. 3. Bilateral nephrolithiasis with a small renal cyst. 4. Right atrophic kidney with cortical thinning. 5. Intractable abdominal pain. 6. History of hypertension. 7. History of hyperlipidemia. 8. History of vitamin D deficiency. 9. History of previous coronary artery disease, has been on Plavix. PLAN: s/p cystoscopy with laser lithotripsy and Stent placement Cr bumped to 2.2- slightly improved, today, K still low, will add 20mEQ KCL to IVF and 20mEQ KCl Iv x 1 today Expecting creatinine to improve with Relieve of obstruction and improvement in retention will continue to fllow up on patient Consultation Date/Type/Reason Admit Date/Time Nov 16, 2016 at 10:29 Initial Consult Date november Type of Consultation: NEPHROLOGY Reason for Consultation acute kidney injury, Hypokalemia Referring Provider: PARVIN KELLY MD 24 HR Interval Summary Free Text/Dictation creatinine slighty improved, K still low, Exam/Review of Systems Vital Signs Vitals Vital Signs Date Time Temp Pulse Resp B/P Pulse Ox O2 Delivery O2 Flow Rate FiO2 11/21/16 07:26 98.9 104 20 148/67 100 11/21/16 00:18 2.0 11/21/16 00:18 Nasal Cannula Intake and Output 11/20/16 11/20/16 11/21/16 15:00 23:00 07:00 Intake Total 1540 ml 1140 ml Balance 1540 ml 1140 ml Exam No apparent distress Constitutional: alert, obese, oriented Head: normocephalic Neck: supple Respiratory: other (Coarse breath sounds bilaterally, no wheezing) Cardiovascular: other (S1-S2 heard), regular rate and rhythm Gastrointestinal: bowel sounds, non-tender, soft Extremities: edema (Trace) Results Result Diagram: 11/21/1618 11/21/1618 Results 24 hrs Laboratory Tests Test 11/21/16 05:18 Anion Gap 15 Basophils # 0.0 Basophils % 0.4 Blood Urea Nitrogen 30 H Calcium Level 9.1 Carbon Dioxide Level 17 L Chloride Level 103 Creatinine 1.76 H Eosinophils # 0.1 Eosinophils % 0.8 Glucose Level 102 Hematocrit 34.5 L Hemoglobin 11.7 L Lymphocytes # 0.6 L Lymphocytes % 8.0 L Mean Corpuscular Hemoglobin 28.1 L Mean Corpuscular Hemoglobin Concent 33.9 Mean Corpuscular Volume 82.9 Mean Platelet Volume 11.4 H Monocytes # 0.6 Monocytes % 7.4 Neutrophils # 6.5 Neutrophils % 81.4 H Nucleated Red Blood Cells # 0.0 Nucleated Red Blood Cells % 0.0 Platelet Count 123 L Potassium Level 3.4 L Red Blood Count 4.16 L Red Cell Distribution Width 14.9 H Sodium Level 132 L White Blood Count 8.0 Medications Medications Current Medications Dextrose/Sodium Chloride (D5-1/2ns) 1,000 ml @ 60 mls/hr [id number] IV Last administered on 11/20/16 18:41; Admin Dose 60 MLS/HR; Start 11/16/16 at 07:49 Morphine Sulfate (morphine) 4 mg Q4H PRN IV pain Last administered on 11/17/16 05:10; Admin Dose 4 MG; Start 11/16/16 at 08:00 Tamsulosin HCl (Flomax) 0.4 mg DAILY PO Last administered on 11/21/16 08:42; Admin Dose 0.4 MG; Start 11/16/16 at 08:00 Ondansetron HCl (Zofran Inj) 4 mg Q4H PRN IV NAUSEA AND/OR VOMITING; Start 11/16 at 10:00 Calcium Carbonate (Tums) 500 mg BID PO Last administered on 11/21/16 08:42; Admin Dose 500 MG; Start 11/16/16 at 11:00 Polyethylene Glycol (Miralax) 17 gm DAILY PO Last administered on 11/21/16 08: 42; Admin Dose 17 GM; Start 11/16/16 at 11:00 Ascorbic Acid (Vitamin C) 500 mg BID PO Last administered on 11/21/16 08:42; Admin Dose 500 MG; Start 11/16/16 at 21:00 Atorvastatin Calcium 20 mg 20 mg DAILY@21 PO Last administered on 11/20/16 21: 12; Admin Dose 20 MG; Start 11/16/16 at 21:00 Ceftriaxone Sodium (Rocephin) 50 ml @ 100 mls/hr Q24H IVPB Last administered on 11/20/16 12:33; Admin Dose 100 MLS/HR; Start 11/17/16 at 12:30 Pantoprazole (Protonix Tab) 40 mg BID@06,18 PO Last administered on 11/21/16 05 :30; Admin Dose 40 MG; Start 11/17/16 at 18:00 Acetaminophen/ Hydrocodone Bitart ([place] (5/325)) 1 tab Q4H PRN PO PAIN Last administered on 11/18/16 10:39; Admin Dose 1 TAB; Start 11/18/16 at 10:30 Acetaminophen (Tylenol Tab) 650 mg Q6H PRN PO PAIN AND OR ELEVATED TEMP; Start 11/19/16 at 21:00 LIZZ SALCEDO MD Nov 21, 2016 09:29
[2016-11-21] MEDS ORDERED: POTASSIUM CHLORIDE 20 MEQ in SOD CHLORIDE 0.9% 100 ML IVPB ONE (10:30)
[2016-11-21] MEDS: D5W-0.45 NACL + KCL 20 MEQ 1,000 ML IV SCH (11:05)
--- NOTE | 2016-11-21 12:08 | PN ---
Date/Time of Note Date/Time of Note DATE: 11/21/16 TIME: 12:06 Assessment/Plan VTE Prophylaxis VTE Prophylaxis Intervention: SCD's Lines/Catheters IV Catheter Type (from Nrs): Peripheral IV Urinary Cath still in place: No Assessment/Plan Assessment/Plan 1. Right-sided obstructive uropathy s/p Cystoscopy with laser lithotripsy to the distal right ureteral stone and then insertion of right ureteral JJ stent 11/17/16 cont Flomax, KUB shows R sided stone, pt will need another Lithotripsy at some point, this may be done in house vs as an out-pt 2. Sepsis secondary to right-sided pyelonephritis-resolving cont Rocephin 3. Debility 2/2 Morbid Obesity and cerebrovascular accident with right-sided deficit pt has In home support, CM to provide pt info regarding med transport for doctors visits 4. History of hypertension. Well-controlled on medical management 5. CALI 2/2 Nephrolithiasis-Cr rising Renal following, Cr expected to improve with relief of obstruction and improvement in retention, cont IVF Dispo- DC when renal functional stabilizes and cleared by Urology PPx- SCD's Subjective 24 Hr Interval Summary Constitutional: no complaints Exam/Review of Systems Vital Signs Vitals Vital Signs Date Time Temp Pulse Resp B/P Pulse Ox O2 Delivery O2 Flow Rate FiO2 11/21/16 07:26 98.9 104 20 148/67 100 11/21/16 00:18 2.0 11/21/16 00:18 Nasal Cannula Intake and Output 11/20/16 11/20/16 11/21/16 15:00 23:00 07:00 Intake Total 1540 ml 1140 ml Balance 1540 ml 1140 ml Exam Constitutional: alert Respiratory: clear to auscultation Cardiovascular: regular rate and rhythm Gastrointestinal: soft, No distended Musculoskeletal: nl extremities to inspection Results Result Diagram: 11/21/1618 11/21/1618 Results 24 hrs Laboratory Tests Test 11/21/16 05:18 Anion Gap 15 Basophils # 0.0 Basophils % 0.4 Blood Urea Nitrogen 30 H Calcium Level 9.1 Carbon Dioxide Level 17 L Chloride Level 103 Creatinine 1.76 H Eosinophils # 0.1 Eosinophils % 0.8 Glucose Level 102 Hematocrit 34.5 L Hemoglobin 11.7 L Lymphocytes # 0.6 L Lymphocytes % 8.0 L Mean Corpuscular Hemoglobin 28.1 L Mean Corpuscular Hemoglobin Concent 33.9 Mean Corpuscular Volume 82.9 Mean Platelet Volume 11.4 H Monocytes # 0.6 Monocytes % 7.4 Neutrophils # 6.5 Neutrophils % 81.4 H Nucleated Red Blood Cells # 0.0 Nucleated Red Blood Cells % 0.0 Platelet Count 123 L Potassium Level 3.4 L Red Blood Count 4.16 L Red Cell Distribution Width 14.9 H Sodium Level 132 L White Blood Count 8.0 Medications Medications Current Medications Morphine Sulfate (morphine) 4 mg Q4H PRN IV pain Last administered on 11/17/16 05:10; Admin Dose 4 MG; Start 11/16/16 at 08:00 Tamsulosin HCl (Flomax) 0.4 mg DAILY PO Last administered on 11/21/16 08:42; Admin Dose 0.4 MG; Start 11/16/16 at 08:00 Ondansetron HCl (Zofran Inj) 4 mg Q4H PRN IV NAUSEA AND/OR VOMITING; Start 11/16 at 10:00 Calcium Carbonate (Tums) 500 mg BID PO Last administered on 11/21/16 08:42; Admin Dose 500 MG; Start 11/16/16 at 11:00 Polyethylene Glycol (Miralax) 17 gm DAILY PO Last administered on 11/21/16 08: 42; Admin Dose 17 GM; Start 11/16/16 at 11:00 Ascorbic Acid (Vitamin C) 500 mg BID PO Last administered on 11/21/16 08:42; Admin Dose 500 MG; Start 11/16/16 at 21:00 Atorvastatin Calcium 20 mg 20 mg DAILY@21 PO Last administered on 11/20/16 21: 12; Admin Dose 20 MG; Start 11/16/16 at 21:00 Ceftriaxone Sodium (Rocephin) 50 ml @ 100 mls/hr Q24H IVPB Last administered on 11/20/16 12:33; Admin Dose 100 MLS/HR; Start 11/17/16 at 12:30 Pantoprazole (Protonix Tab) 40 mg BID@06,18 PO Last administered on 11/21/16 05 :30; Admin Dose 40 MG; Start 11/17/16 at 18:00 Acetaminophen/ Hydrocodone Bitart ([place] (5/325)) 1 tab Q4H PRN PO PAIN Last administered on 11/18/16 10:39; Admin Dose 1 TAB; Start 11/18/16 at 10:30 Acetaminophen 650 mg 650 mg Q6H PRN PO PAIN AND OR ELEVATED TEMP; Start at 21:00 Potassium Chloride 20 meq/ Sodium Chloride 110 ml @ 55 mls/hr ONCE ONCE IVPB Last administered on 11/21/16 11:34; Admin Dose 55 MLS/HR; Start 11/21/16 at 10: 30; Stop 11/21/16 at 12:29 Potassium Chloride/Dextrose/ Sod Cl (D5-1/2ns + KCl 20 Meq) 1,000 ml @ 60 mls/ hr [id number] IV Last administered on 11/21/16 11:05; Admin Dose 60 MLS/HR; Start 11/21/16 at 10:00 RONDA MOY Nov 21, 2016 12:08
[2016-11-21] MEDS: CEFTRIAXONE 1 GM/50 ML (PMX) 50 ML IVPB SCH (14:34)
[2016-11-21] MEDS: morphine 2 MG INJ IV PRN (15:01)
[2016-11-21 19:38] VITALS: RESP 20
[2016-11-21 20:47] VITALS: BP 185/74
[2016-11-21] MEDS: ATORVASTATIN 20 MG TAB PO SCH (20:55)
[2016-11-21 21:00] VITALS: BP 139/60; PULSE 100
[2016-11-21 21:30] VITALS: BP 149/84; PULSE 99
--- NOTE | 2016-11-21 23:04 | PN ---
DATE: 11/21/2016 SUBJECTIVE: Right renal stone. The patient is status post right ureteroscopy, laser lithotripsy, r emoval of distal right ureteral stone, and insertion of a JJ stent. The patient stated that she is feeling good. She has no pain; however, she states that she is urinating frequently, but there is n o dysuria and no hematuria. OBJECTIVE: VITAL SIGNS: The temperature is 98.9, pulse 104, respirations 20, blood pressure 148/67. ABDOMEN: Obese and no abdominal mass palpable and no tenderness. LABORATORY DATA: Her CBC shows a white count of 8.0, hemoglobin 11.7, hematocrit 34.5, platelet cou nt 123,000. The BUN is 30, creatinine 1.76 down from 2.24. The sodium 132, potassium 3.4, chloride 103, CO2 of 17. The urine culture from the right kidney is no growth after 48 hours. However, uri ne culture from the bladder was E. coli and the patient is on ceftriaxone. PLAN: To continue the same and recheck her BUN and creatinine tomorrow. I would have to bring her back in about a month to remove the stone from the right kidney. I did explain that to her and her family who were next to her bed at her bedside and they understood that. Dictated By: DEVAUGHN ESCALANTE/BOBBI Conf#: [id number] DID#: [id number] CC: PARVIN KELLY MD;*EndCC*
[2016-11-21 23:14] VITALS: BP 143/67; PULSE 99
[2016-11-22] MEDS: D5W-0.45 NACL + KCL 20 MEQ 1,000 ML IV SCH ×2 (02:40→07:30)
[2016-11-22] MEDS: hydrALAzine 20 MG INJ IV PRN (03:55)
[2016-11-22 04:30] VITALS: BP 139/57; PULSE 103
[2016-11-22] MEDS: ALBUTEROL/IPRATROPIUM (NEB) 3 ML AMP HHN PRN ×2 (04:48→21:19)
[2016-11-22] MEDS: PANTOPRAZOLE (EC) 40 MG TAB PO SCH ×2 (05:25→22:08)
[2016-11-22 06:06] LABS: INR 1.12; PARTIAL THROMBOPLASTIN TIME 33.2 Sec (25.0-35.0); PROTIME 14.4 Sec (12.2-14.2); PT RATIO 1.1
[2016-11-22 06:16] LABS: POTASSIUM 3.6 mmol/L (3.5-5.1)
[2016-11-22 06:19] LABS: CREATININE 1.3 mg/dl (0.44-1.00)
[2016-11-22 06:20] LABS: CALCIUM 9.3 mg/dl (8.4-10.2)
[2016-11-22 07:20] VITALS: BP 117/53; RESP 20
[2016-11-22] MEDS: ASCORBIC ACID 500 MG TAB PO SCH ×2 (08:56→22:08)
[2016-11-22] MEDS: CALCIUM CARBONATE 500 MG CHEW TAB PO SCH ×2 (08:56→22:08)
[2016-11-22] MEDS: TAMSULOSIN (SR) 0.4 MG CAP PO SCH (08:56)
[2016-11-22] MEDS ORDERED: ASPIRIN 81 MG TAB PO SCH (09:00)
[2016-11-22] MEDS: POLYETHYLENE GLYCOL 17 GM PACKET PO SCH (09:02)
--- NOTE | 2016-11-22 10:16 | RADRPT ---
PROCEDURE: XR Chest. CLINICAL INDICATION: 81 year-old female with shortness of breath. TECHNIQUE: Single frontal view of the chest was obtained COMPARISON: Chest x-ray 11/16/2016 02:08 p.m. FINDINGS: The soft tissues are generous. The left ventricle is enlarged. There are vascular calcifications i n the aortic arch. The pulmonary vasculature is increased. There are bilateral pleural effusions. There are perihilar infiltrates with silhouetting of the elevated right diaphragm. There is fluid in the minor fissure. IMPRESSION: 1. Cardiomegaly with mild CHF. 2. Subpulmonic right pleural effusion. Small left pleural effusion. 3. Obesity. 4. Spondylosis of the thoracic spine. RPTAT:AAJJ Physician Kristian Date Time Electronically viewed and signed by Too Kraus Physician on 11/22/2016 10:16 JM/
--- NOTE | 2016-11-22 11:29 | PN ---
Date/Time of Note Date/Time of Note DATE: 11/22/16 TIME: 11:00 Assessment/Plan VTE Prophylaxis VTE Prophylaxis Intervention: SCD's Lines/Catheters IV Catheter Type (from Nrs): Peripheral IV Urinary Cath still in place: No Assessment/Plan Assessment/Plan 1. Right-sided obstructive uropathy s/p Cystoscopy with laser lithotripsy to the distal right ureteral stone and then insertion of right ureteral JJ stent 11/17/16 cont Flomax, KUB shows R sided stone, pt will need another Lithotripsy at some point, planned for outpt in 1 month 2. Sepsis secondary to right-sided pyelonephritis-resolving cont Rocephin 3. Elevated trops: likely 2/2 HTN versus CHF trend values, 2D echo, tele transfer / cardio consult 4. Mild CHF acute / diastolic Commenced on gentle diuresis 2/2 poor renal function 5. Debility 2/2 Morbid Obesity and cerebrovascular accident with right-sided deficit pt has In home support, CM to provide pt info regarding med transport for doctors visits 6. Hypertension. Well-controlled on medical management 6. CALI 2/2 Nephrolithiasis- Improving now post lithotripsy, cont IVF PPx- SCD's Care time > 35mins Subjective 24 Hr Interval Summary Free Text/Dictation c/o SOB and difficulty breathing, improved after lasix but still present elevated trops noted denies CP Exam/Review of Systems Vital Signs Vitals Vital Signs Date Time Temp Pulse Resp B/P Pulse Ox O2 Delivery O2 Flow Rate FiO2 11/22/16 08:00 Nasal Cannula 2.0 11/22/16 07:20 98.4 99 20 117/53 99 Intake and Output 11/21/16 11/21/16 11/22/16 15:00 23:00 07:00 Intake Total 200 ml 1210 ml 1140 ml Balance 200 ml 1210 ml 1140 ml Exam Constitutional: alert, distress, frail, obese, oriented Psych: nl mood/affect Head: atraumatic, normocephalic Eyes: PERRL, No icteric Neck: No jvd Respiratory: crackles/rales, diminished breath sounds, No wheezing Cardiovascular: regular rate and rhythm, No murmurs/extra sounds Gastrointestinal: bowel sounds, non-tender, soft Extremities: No edema Neurological: nl mental status, nl speech, other (chronically bedbound for years) Results Result Diagram: 11/21/16 0518 11/22/16 0505 Results 24 hrs Laboratory Tests Test 11/22/16 05:05 11/22/16 05:25 Anion Gap 13 Blood Urea Nitrogen 21 H Calcium Level 9.3 Carbon Dioxide Level 22 Chloride Level 107 Creatinine 1.30 H Glucose Level 101 Potassium Level 3.6 Sodium Level 138 Activated Partial Thromboplast Time 33.2 INR International Normalized Ratio 1.12 Magnesium Level 2.3 Prothrombin Time 14.4 H Prothrombin Time Ratio 1.1 Troponin I 0.128 *H Medications Medications Current Medications Morphine Sulfate (morphine) 4 mg Q4H PRN IV pain Last administered on 11/21/16 15:01; Admin Dose 2 MG; Start 11/16/16 at 08:00 Tamsulosin HCl (Flomax) 0.4 mg DAILY PO Last administered on 11/22/16 08:56; Admin Dose 0.4 MG; Start 11/16/16 at 08:00 Ondansetron HCl (Zofran Inj) 4 mg Q4H PRN IV NAUSEA AND/OR VOMITING; Start 11/16 at 10:00 Calcium Carbonate (Tums) 500 mg BID PO Last administered on 11/22/16 08:56; Admin Dose 500 MG; Start 11/16/16 at 11:00 Polyethylene Glycol (Miralax) 17 gm DAILY PO Last administered on 11/22/16 09: 02; Admin Dose 17 GM; Start 11/16/16 at 11:00 Ascorbic Acid (Vitamin C) 500 mg BID PO Last administered on 11/22/16 08:56; Admin Dose 500 MG; Start 11/16/16 at 21:00 Atorvastatin Calcium 20 mg 20 mg DAILY@21 PO Last administered on 11/21/16 20: 55; Admin Dose 20 MG; Start 11/16/16 at 21:00 Ceftriaxone Sodium (Rocephin) 50 ml @ 100 mls/hr Q24H IVPB Last administered on 11/21/16 14:34; Admin Dose 100 MLS/HR; Start 11/17/16 at 12:30 Pantoprazole (Protonix Tab) 40 mg BID@06,18 PO Last administered on 11/22/16 05 :25; Admin Dose 40 MG; Start 11/17/16 at 18:00 Acetaminophen/ Hydrocodone Bitart ([place] (5/325)) 1 tab Q4H PRN PO PAIN Last administered on 11/18/16 10:39; Admin Dose 1 TAB; Start 11/18/16 at 10:30 Acetaminophen 650 mg 650 mg Q6H PRN PO PAIN AND OR ELEVATED TEMP; Start at 21:00 Potassium Chloride/Dextrose/ Sod Cl (D5-1/2ns + KCl 20 Meq) 1,000 ml @ 60 mls/ hr [id number] IV Last administered on 11/22/16 07:30; Admin Dose 60 MLS/HR; Start 11/21/16 at 10:00 Hydralazine HCl (Apresoline) 10 mg Q4H PRN IV ELEVATED BLOOD PRESSURE Last administered on 11/22/16 03:55; Admin Dose 10 MG; Start 11/21/16 at 21:00 Aspirin (Aspirin) 81 mg DAILY PO Last administered on 11/22/16 08:56; Admin Dose 81 MG; Start 11/22/16 at 09:00 Procedures Procedures PROCEDURE: XR Chest. CLINICAL INDICATION: 81 year-old female with shortness of breath. TECHNIQUE: Single frontal view of the chest was obtained COMPARISON: Chest x-ray 11/16/2016 02:08 p.m. FINDINGS: The soft tissues are generous. The left ventricle is enlarged. There are vascular calcifications in the aortic arch. The pulmonary vasculature is increased. There are bilateral pleural effusions. There are perihilar infiltrates with silhouetting of the elevated right diaphragm. There is fluid in the minor fissure. IMPRESSION: 1. Cardiomegaly with mild CHF. 2. Subpulmonic right pleural effusion. Small left pleural effusion. 3. Obesity. 4. Spondylosis of the thoracic spine. RPTAT:AAJJ Physician Kristian Date Time Electronically viewed and signed by Too Kraus Physician on 11/22/2016 10:16 RONDA MOY Nov 22, 2016 11:10
[2016-11-22] MEDS: CEFTRIAXONE 1 GM/50 ML (PMX) 50 ML IVPB SCH (12:39)
[2016-11-22 12:47] LABS: CREATINE KINASE < 20 IU/L (23-200)
[2016-11-22 12:49] LABS: CK-MB 0.42 ng/ml (0.0-2.4)
[2016-11-22 12:56] LABS: TROPONIN-I 0.133 ng/ml (0.00-0.12)
--- NOTE | 2016-11-22 14:02 | PN ---
DATE: 11/22/2016 SUBJECTIVE: Right renal stone and patient status post right ureteroscopy, laser lithotripsy and inse rtion of a JJ stent. PHYSICAL EXAMINATION: VITAL SIGNS: Her temperature today is 98.4, pulse 99, respirations 20, blood pressure 117/53. ABDOMEN: Soft but obese. The patient is voiding frequently, but she denies any dysuria or hematuri a. LABORATORY DATA: CBC shows a white count of 8.0, hemoglobin is 11.7. The BUN is 21, creatinine is 1.3, and continues to improve. Creatinine has come down from 2.24 to 1.3 and still a little higher than when she initially came in. The urine culture is E. coli from the urine from the bladder, but the urine from the right kidney was negative. The patient is on ceftriaxone. PLAN: To continue the ceftriaxone and I will need to do a cystoscopy, right ureteral pyeloscopy to remove the remaining stone in the kidney in about a month, and we will schedule that and we will bg e arrangements for her to undergo the procedure. Dictated By: DEVAUGHN ESCALANTE/BOBBI Conf#: [id number] DID#: [id number]
[2016-11-22] MEDS ORDERED: FUROSEMIDE 20 MG INJ IV ONE ×2 (14:33→22:00)
--- NOTE | 2016-11-22 14:36 | CONS ---
Date/Time of Note Date/Time of Note DATE: 11/22/16 TIME: 14:29 Assessment/Plan Assessment/Plan Additional Assessment/Plan Obstructive uropathy status post surgery History of CVA, on Plavix Acute decompensated diastolic congestive heart failure Preserved ejection fraction Hypertension Dyslipidemia Mildly elevated troponin Acute kidney injury, improving -Chest x-ray reviewed with evidence of pulmonary vascular congestion and patient with intermittent shortness of breath. Troponins are minimally elevated , ECG without any significant ischemic abnormalities. Blood pressure has been labile. Would restart antiplatelet therapy, gentle IV diuresis as blood pressure and renal function permits. Consultation Date/Type/Reason Admit Date/Time Nov 16, 2016 at 10:29 Type of Consultation: cv Referring Provider: PARVIN KELLY MD 24 HR Interval Summary Free Text/Dictation Patient with intermittent episodes of shortness of breath last night and this morning. Symptoms better with nebulizer. Denies chest pain, complains of fatigue and right flank pain Exam/Review of Systems Vital Signs Vitals Vital Signs Date Time Temp Pulse Resp B/P Pulse Ox O2 Delivery O2 Flow Rate FiO2 11/22/16 08:00 Nasal Cannula 2.0 11/22/16 07:20 98.4 99 20 117/53 99 Intake and Output 11/21/16 11/21/16 11/22/16 15:00 23:00 07:00 Intake Total 200 ml 1210 ml 1140 ml Balance 200 ml 1210 ml 1140 ml Exam Appears tired Constitutional: alert, obese, oriented Head: normocephalic Neck: supple Respiratory: other (Coarse breath sounds bilaterally, no wheezing) Cardiovascular: other (S1-S2 heard), regular rate and rhythm Gastrointestinal: bowel sounds, non-tender, other (No guarding), soft Extremities: edema Results Result Diagram: 11/21/16 0518 11/22/16 0505 Results 24 hrs Laboratory Tests Test 11/22/16 05:05 11/22/16 05:25 11/22/16 12:15 Anion Gap 13 Blood Urea Nitrogen 21 H Calcium Level 9.3 Carbon Dioxide Level 22 Chloride Level 107 Creatinine 1.30 H Glucose Level 101 Potassium Level 3.6 Sodium Level 138 Activated Partial Thromboplast Time 33.2 INR International Normalized Ratio 1.12 Magnesium Level 2.3 Prothrombin Time 14.4 H Prothrombin Time Ratio 1.1 Troponin I 0.128 *H 0.133 *H Creatine Kinase < 20 L Creatine Kinase Index Creatinine Kinase MB (Mass) 0.42 Medications Medications Current Medications Morphine Sulfate (morphine) 4 mg Q4H PRN IV pain Last administered on 11/21/16 15:01; Admin Dose 2 MG; Start 11/16/16 at 08:00 Tamsulosin HCl (Flomax) 0.4 mg DAILY PO Last administered on 11/22/16 08:56; Admin Dose 0.4 MG; Start 11/16/16 at 08:00 Ondansetron HCl (Zofran Inj) 4 mg Q4H PRN IV NAUSEA AND/OR VOMITING; Start 11/16 at 10:00 Calcium Carbonate (Tums) 500 mg BID PO Last administered on 11/22/16 08:56; Admin Dose 500 MG; Start 11/16/16 at 11:00 Polyethylene Glycol (Miralax) 17 gm DAILY PO Last administered on 11/22/16 09: 02; Admin Dose 17 GM; Start 11/16/16 at 11:00 Ascorbic Acid (Vitamin C) 500 mg BID PO Last administered on 11/22/16 08:56; Admin Dose 500 MG; Start 11/16/16 at 21:00 Atorvastatin Calcium 20 mg 20 mg DAILY@21 PO Last administered on 11/21/16 20: 55; Admin Dose 20 MG; Start 11/16/16 at 21:00 Ceftriaxone Sodium (Rocephin) 50 ml @ 100 mls/hr Q24H IVPB Last administered on 11/22/16 12:39; Admin Dose 100 MLS/HR; Start 11/17/16 at 12:30 Pantoprazole (Protonix Tab) 40 mg BID@06,18 PO Last administered on 11/22/16 05 :25; Admin Dose 40 MG; Start 11/17/16 at 18:00 Acetaminophen/ Hydrocodone Bitart ([place] (5/325)) 1 tab Q4H PRN PO PAIN Last administered on 11/18/16 10:39; Admin Dose 1 TAB; Start 11/18/16 at 10:30 Acetaminophen (Tylenol Tab) 650 mg Q6H PRN PO PAIN AND OR ELEVATED TEMP; Start 11/19/16 at 21:00 Hydralazine HCl (Apresoline) 10 mg Q4H PRN IV ELEVATED BLOOD PRESSURE Last administered on 11/22/16 03:55; Admin Dose 10 MG; Start 11/21/16 at 21:00 Aspirin (Aspirin) 81 mg DAILY PO Last administered on 11/22/16 08:56; Admin Dose 81 MG; Start 11/22/16 at 09:00 Nishant Ruelas DO Nov 22, 2016 14:36
[2016-11-22] MEDS ORDERED: POTASSIUM CHLORIDE 20 MEQ POWDER FOR ORAL SOLN PO ONE (15:00)
--- NOTE | 2016-11-22 15:23 | CONS ---
Date/Time of Note Date/Time of Note DATE: 11/22/16 TIME: 15:19 Assessment/Plan Assessment/Plan Additional Assessment/Plan 1. Acute kidney injury due to obstructive uropathy with Prerenal azotemia 2. Acute urinary tract infection. 2. Acute obstructive uropathy causing blockage of her ureters. The patient had a 10 mm stone in the right proximal ureter and a 12 mm stone in the right distal ureter causing intractable abdominal pain. 3. Bilateral nephrolithiasis with a small renal cyst. 4. Right atrophic kidney with cortical thinning. 5. Intractable abdominal pain. 6. History of hypertension. 7. History of hyperlipidemia. 8. History of vitamin D deficiency. 9. History of previous coronary artery disease, has been on Plavix. PLAN: s/p cystoscopy with laser lithotripsy and Stent placement Cr improved to 1.3, no hematuria, troponin positive, getting ECHO now, cardiology following Expecting creatinine to improve with Relieve of obstruction and improvement in retention will continue to fllow up on patient Consultation Date/Type/Reason Admit Date/Time Nov 16, 2016 at 10:29 Initial Consult Date november Type of Consultation: NEPHROLOGY Reason for Consultation Acute Kidney injury, Obstructive Uropathy, Hematuria Referring Provider: PARVIN KELLY MD 24 HR Interval Summary Free Text/Dictation Cr improving, c/o Chest with SOB yesterday, troponin positive Exam/Review of Systems Vital Signs Vitals Vital Signs Date Time Temp Pulse Resp B/P Pulse Ox O2 Delivery O2 Flow Rate FiO2 11/22/16 08:00 Nasal Cannula 2.0 11/22/16 07:20 98.4 99 20 117/53 99 Intake and Output 11/21/16 11/21/16 11/22/16 15:00 23:00 07:00 Intake Total 200 ml 1210 ml 1140 ml Balance 200 ml 1210 ml 1140 ml Exam No apparent distress Constitutional: alert, obese, oriented Head: normocephalic Neck: supple Respiratory: other (Coarse breath sounds bilaterally, no wheezing) Cardiovascular: other (S1-S2 heard), regular rate and rhythm Gastrointestinal: bowel sounds, non-tender, soft Extremities: edema (Trace) Results Result Diagram: 11/21/16 0518 11/22/16 0505 Results 24 hrs Laboratory Tests Test 11/22/16 05:05 11/22/16 05:25 11/22/16 12:15 Anion Gap 13 Blood Urea Nitrogen 21 H Calcium Level 9.3 Carbon Dioxide Level 22 Chloride Level 107 Creatinine 1.30 H Glucose Level 101 Potassium Level 3.6 Sodium Level 138 Activated Partial Thromboplast Time 33.2 INR International Normalized Ratio 1.12 Magnesium Level 2.3 Prothrombin Time 14.4 H Prothrombin Time Ratio 1.1 Troponin I 0.128 *H 0.133 *H Creatine Kinase < 20 L Creatine Kinase Index Creatinine Kinase MB (Mass) 0.42 Medications Medications Current Medications Morphine Sulfate (morphine) 4 mg Q4H PRN IV pain Last administered on 11/21/16 15:01; Admin Dose 2 MG; Start 11/16/16 at 08:00 Tamsulosin HCl (Flomax) 0.4 mg DAILY PO Last administered on 11/22/16 08:56; Admin Dose 0.4 MG; Start 11/16/16 at 08:00 Ondansetron HCl (Zofran Inj) 4 mg Q4H PRN IV NAUSEA AND/OR VOMITING; Start 11/16 at 10:00 Calcium Carbonate (Tums) 500 mg BID PO Last administered on 11/22/16 08:56; Admin Dose 500 MG; Start 11/16/16 at 11:00 Polyethylene Glycol (Miralax) 17 gm DAILY PO Last administered on 11/22/16 09: 02; Admin Dose 17 GM; Start 11/16/16 at 11:00 Ascorbic Acid (Vitamin C) 500 mg BID PO Last administered on 11/22/16 08:56; Admin Dose 500 MG; Start 11/16/16 at 21:00 Atorvastatin Calcium 20 mg 20 mg DAILY@21 PO Last administered on 11/21/16 20: 55; Admin Dose 20 MG; Start 11/16/16 at 21:00 Ceftriaxone Sodium (Rocephin) 50 ml @ 100 mls/hr Q24H IVPB Last administered on 11/22/16 12:39; Admin Dose 100 MLS/HR; Start 11/17/16 at 12:30 Pantoprazole (Protonix Tab) 40 mg BID@06,18 PO Last administered on 11/22/16 05 :25; Admin Dose 40 MG; Start 11/17/16 at 18:00 Acetaminophen/ Hydrocodone Bitart ([place] (5/325)) 1 tab Q4H PRN PO PAIN Last administered on 11/18/16 10:39; Admin Dose 1 TAB; Start 11/18/16 at 10:30 Acetaminophen (Tylenol Tab) 650 mg Q6H PRN PO PAIN AND OR ELEVATED TEMP; Start 11/19/16 at 21:00 Hydralazine HCl (Apresoline) 10 mg Q4H PRN IV ELEVATED BLOOD PRESSURE Last administered on 11/22/16 03:55; Admin Dose 10 MG; Start 11/21/16 at 21:00 Clopidogrel Bisulfate (plaVIX) 75 mg DAILY PO ; Start 11/23/16 at 09:00 Furosemide (Lasix) 20 mg ONCE ONCE IV ; Start 11/22/16 at 22:00; Stop 11/22/16 at 22:01 LIZZ SALCEDO MD Nov 22, 2016 15:23
--- NOTE | 2016-11-22 15:25 | RADRPT ---
Echocardiogram Report Patient Name: INES RESTREPO Gender: Female Date: 1935 Study Date: 22-Nov-2016 Lead Pressman: Patricia Bahena [facility] Location: 603 Ref. Physician: RONDA MOY Quality: Adequate Procedures: Transthoracic echocardiogram examination. Indications: elevated troponin. Findings Left Ventricle: Normal left ventricular cavity size, wall thickness and systolic function. The left ventricular ejection fraction is visually estimated at 65 %. Mitral Valve: Normal appearance of the mitral valve leaflets. Mild mitral annular calcification. Aortic Valve: Aortic cusps appear moderately calcified. IVC: Normal inferior vena cava appearance and without respiratory collapse. Conclusions 1.Normal left ventricular cavity size, wall thickness and systolic function. The left ventricular ejection fraction is visually estimated at 65 %. Electronically Signed By: Nishant Ruelas 22-Nov-2016 15:24:48 -0800 Patient Name: INES RESTREPO Study Date: 22-Nov-2016 [id number]
[2016-11-22] MEDS ORDERED: FUROSEMIDE 20 MG INJ IV SCH (18:00)
[2016-11-22 18:30] VITALS: BP 148/65; PULSE 101; RESP 18
[2016-11-22 18:34] VITALS: PULSE 99
[2016-11-22 19:35] LABS: CREATINE KINASE < 20 IU/L (23-200)
[2016-11-22 19:42] LABS: CK-MB 0.49 ng/ml (0.0-2.4)
[2016-11-22 19:45] LABS: TROPONIN-I 0.121 ng/ml (0.00-0.12)
[2016-11-22 20:18] VITALS: PULSE 98
--- NOTE | 2016-11-22 20:28 | RADRPT ---
Vent Rate: 102 bpm RR Interval: 0 msec VA Interval: 158 msec QRS Duration: 86 msec QT Interval: 286 msec QTC Interval: 372 msec P-R-T [place]: 38 - 8 - 70 degrees Sinus tachycardia Otherwise normal ECG Electronically Signed By: Rakesh Hodgson [id number]
[2016-11-22] MEDS: HEPARIN 5,000 UNIT/0.5 ML SYG SC SCH (22:07)
[2016-11-22] MEDS: ATORVASTATIN 20 MG TAB PO SCH (22:08)
[2016-11-23] VITALS (13 sets, daily range): BP systolic 125–177; BP diastolic 63–83; PULSE 84–109; RESP 18–19
[2016-11-23] MEDS: hydrALAzine 20 MG INJ IV PRN (00:41)
[2016-11-23] MEDS: FUROSEMIDE 20 MG INJ IV SCH ×2 (06:03→17:58)
[2016-11-23] MEDS: PANTOPRAZOLE (EC) 40 MG TAB PO SCH ×2 (06:03→17:58)
[2016-11-23] MEDS: HEPARIN 5,000 UNIT/0.5 ML SYG SC SCH ×3 (06:05→20:51)
[2016-11-23] MEDS: TAMSULOSIN (SR) 0.4 MG CAP PO SCH (08:49)
[2016-11-23] MEDS: ASCORBIC ACID 500 MG TAB PO SCH ×2 (08:49→20:50)
[2016-11-23] MEDS: CALCIUM CARBONATE 500 MG CHEW TAB PO SCH ×2 (08:49→20:50)
[2016-11-23] MEDS: POLYETHYLENE GLYCOL 17 GM PACKET PO SCH (08:49)
[2016-11-23] MEDS: CLOPIDOGREL 75 MG TAB PO SCH (08:49)
--- NOTE | 2016-11-23 10:52 | CONS ---
Date/Time of Note Date/Time of Note DATE: 11/23/16 TIME: 10:50 Assessment/Plan Assessment/Plan Additional Assessment/Plan 1. Acute kidney injury due to obstructive uropathy with Prerenal azotemia 2. Acute urinary tract infection. 2. Acute obstructive uropathy causing blockage of her ureters. The patient had a 10 mm stone in the right proximal ureter and a 12 mm stone in the right distal ureter causing intractable abdominal pain. 3. Bilateral nephrolithiasis with a small renal cyst. 4. Right atrophic kidney with cortical thinning. 5. Intractable abdominal pain. 6. History of hypertension. 7. History of hyperlipidemia. 8. History of vitamin D deficiency. 9. History of previous coronary artery disease, has been on Plavix. PLAN: s/p cystoscopy with laser lithotripsy and Stent placement Cr improved to 1.3, no hematuria, troponin positive, transferred to telemetry floor Expecting creatinine to improve with Relieve of obstruction and improvement in retention will continue to fllow up on patient Consultation Date/Type/Reason Admit Date/Time Nov 16, 2016 at 10:29 Initial Consult Date november Type of Consultation: NEPHROLOGY Reason for Consultation acute kidney injury, obstructive uropathy,Hyperkalemia Referring Provider: PARVIN KELLY MD 24 HR Interval Summary Free Text/Dictation Transferred to telemetry floor due to positive troponin, Cr 1.3, Exam/Review of Systems Vital Signs Vitals Vital Signs Date Time Temp Pulse Resp B/P Pulse Ox O2 Delivery O2 Flow Rate FiO2 11/23/16 08:16 86 11/23/16 08:00 Nasal Cannula 2.0 11/23/16 07:54 98.8 19 125/63 99 Intake and Output 11/22/16 11/22/16 11/23/16 15:00 23:00 07:00 Intake Total 70 ml 780 ml 450 ml Output Total 400 ml Balance 70 ml 780 ml 50 ml Exam No apparent distress Constitutional: alert, obese, oriented Head: normocephalic Neck: supple Respiratory: other (Coarse breath sounds bilaterally, no wheezing) Cardiovascular: other (S1-S2 heard), regular rate and rhythm Gastrointestinal: bowel sounds, non-tender, soft Extremities: edema (Trace) Results Result Diagram: 11/21/16 0518 11/22/16 0505 Results 24 hrs Laboratory Tests Test 11/22/16 12:15 11/22/16 18:45 Creatine Kinase < 20 L < 20 L Creatine Kinase Index Creatinine Kinase MB (Mass) 0.42 0.49 Troponin I 0.133 *H 0.121 *H Medications Medications Current Medications Morphine Sulfate (morphine) 4 mg Q4H PRN IV pain Last administered on 11/21/16 15:01; Admin Dose 2 MG; Start 11/16/16 at 08:00 Tamsulosin HCl (Flomax) 0.4 mg DAILY PO Last administered on 11/23/16 08:49; Admin Dose 0.4 MG; Start 11/16/16 at 08:00 Ondansetron HCl (Zofran Inj) 4 mg Q4H PRN IV NAUSEA AND/OR VOMITING; Start 11/16 at 10:00 Calcium Carbonate (Tums) 500 mg BID PO Last administered on 11/23/16 08:49; Admin Dose 500 MG; Start 11/16/16 at 11:00 Polyethylene Glycol (Miralax) 17 gm DAILY PO Last administered on 11/23/16 08: 49; Admin Dose 17 GM; Start 11/16/16 at 11:00 Ascorbic Acid (Vitamin C) 500 mg BID PO Last administered on 11/23/16 08:49; Admin Dose 500 MG; Start 11/16/16 at 21:00 Atorvastatin Calcium 20 mg 20 mg DAILY@21 PO Last administered on 11/22/16 22: 08; Admin Dose 20 MG; Start 11/16/16 at 21:00 Ceftriaxone Sodium (Rocephin) 50 ml @ 100 mls/hr Q24H IVPB Last administered on 11/22/16 12:39; Admin Dose 100 MLS/HR; Start 11/17/16 at 12:30 Pantoprazole (Protonix Tab) 40 mg BID@06,18 PO Last administered on 11/23/16 06 :03; Admin Dose 40 MG; Start 11/17/16 at 18:00 Acetaminophen/ Hydrocodone Bitart ([place] (5/325)) 1 tab Q4H PRN PO PAIN Last administered on 11/18/16 10:39; Admin Dose 1 TAB; Start 11/18/16 at 10:30 Acetaminophen (Tylenol Tab) 650 mg Q6H PRN PO PAIN AND OR ELEVATED TEMP; Start 11/19/16 at 21:00 Hydralazine HCl (Apresoline) 10 mg Q4H PRN IV ELEVATED BLOOD PRESSURE Last administered on 11/23/16 00:41; Admin Dose 10 MG; Start 11/21/16 at 21:00 Clopidogrel Bisulfate (plaVIX) 75 mg DAILY PO Last administered on 11/23/16 08: 49; Admin Dose 75 MG; Start 11/23/16 at 09:00 Heparin Sodium (Porcine) (Heparin (5000 Units/0.5 ml)) 5,000 unit Q8 SC Last administered on 11/23/16 06:05; Admin Dose 5,000 UNIT; Start 11/22/16 at 22:00 LIZZ SALCEDO MD Nov 23, 2016 10:52
--- NOTE | 2016-11-23 11:06 | PN ---
Date/Time of Note Date/Time of Note DATE: 11/23/16 TIME: 11:04 Assessment/Plan VTE Prophylaxis VTE Prophylaxis Intervention: SCD's Lines/Catheters IV Catheter Type (from Nrs): Peripheral IV Urinary Cath still in place: No Assessment/Plan Assessment/Plan 1. Right-sided obstructive uropathy s/p Cystoscopy with laser lithotripsy to the distal right ureteral stone and then insertion of right ureteral JJ stent 11/17/16 cont Flomax, KUB shows R sided stone, pt will need another Lithotripsy at some point, planned for outpt in 1 month 2. Sepsis secondary to right-sided pyelonephritis-resolving cont Rocephin 3. Elevated trops: likely 2/2 HTN versus CHF trend values, 2D echo, tele transfer / cardio consult 4. Mild CHF acute / diastolic Commenced on gentle diuresis 2/2 poor renal function 5. Debility 2/2 Morbid Obesity and cerebrovascular accident with right-sided deficit pt has In home support, CM to provide pt info regarding med transport for doctors visits 6. Hypertension. Well-controlled on medical management 6. CALI 2/2 Nephrolithiasis- Improving now post lithotripsy, cont IVF DISPO: continue gentle diuresis, renal function remains stable Continue supportive care Plan for d/c once cleared by Cardio. PPx- SCD's Subjective 24 Hr Interval Summary Free Text/Dictation feels slightly better Exam/Review of Systems Vital Signs Vitals Vital Signs Date Time Temp Pulse Resp B/P Pulse Ox O2 Delivery O2 Flow Rate FiO2 11/23/16 08:16 86 11/23/16 08:00 Nasal Cannula 2.0 11/23/16 07:54 98.8 19 125/63 99 Intake and Output 11/22/16 11/22/16 11/23/16 15:00 23:00 07:00 Intake Total 70 ml 780 ml 450 ml Output Total 400 ml Balance 70 ml 780 ml 50 ml Exam onstitutional: alert, no distress, frail, obese, oriented Psych: nl mood/affect Head: atraumatic, normocephalic Eyes: PERRL, No icteric Neck: No jvd Respiratory: crackles/rales, diminished breath sounds, No wheezing Cardiovascular: regular rate and rhythm, No murmurs/extra sounds Gastrointestinal: bowel sounds, non-tender, soft Extremities: No edema Neurological: nl mental status, nl speech, other (chronically bedbound for years) Results Result Diagram: 11/21/16 0518 11/22/16 0505 Results 24 hrs Laboratory Tests Test 11/22/16 12:15 11/22/16 18:45 Creatine Kinase < 20 L < 20 L Creatine Kinase Index Creatinine Kinase MB (Mass) 0.42 0.49 Troponin I 0.133 *H 0.121 *H Medications Medications Current Medications Morphine Sulfate (morphine) 4 mg Q4H PRN IV pain Last administered on 11/21/16 15:01; Admin Dose 2 MG; Start 11/16/16 at 08:00 Tamsulosin HCl (Flomax) 0.4 mg DAILY PO Last administered on 11/23/16 08:49; Admin Dose 0.4 MG; Start 11/16/16 at 08:00 Ondansetron HCl (Zofran Inj) 4 mg Q4H PRN IV NAUSEA AND/OR VOMITING; Start 11/16 at 10:00 Calcium Carbonate (Tums) 500 mg BID PO Last administered on 11/23/16 08:49; Admin Dose 500 MG; Start 11/16/16 at 11:00 Polyethylene Glycol (Miralax) 17 gm DAILY PO Last administered on 11/23/16 08: 49; Admin Dose 17 GM; Start 11/16/16 at 11:00 Ascorbic Acid (Vitamin C) 500 mg BID PO Last administered on 11/23/16 08:49; Admin Dose 500 MG; Start 11/16/16 at 21:00 Atorvastatin Calcium 20 mg 20 mg DAILY@21 PO Last administered on 11/22/16 22: 08; Admin Dose 20 MG; Start 11/16/16 at 21:00 Ceftriaxone Sodium (Rocephin) 50 ml @ 100 mls/hr Q24H IVPB Last administered on 11/22/16 12:39; Admin Dose 100 MLS/HR; Start 11/17/16 at 12:30 Pantoprazole (Protonix Tab) 40 mg BID@06,18 PO Last administered on 11/23/16 06 :03; Admin Dose 40 MG; Start 11/17/16 at 18:00 Acetaminophen/ Hydrocodone Bitart ([place] (5/325)) 1 tab Q4H PRN PO PAIN Last administered on 11/18/16 10:39; Admin Dose 1 TAB; Start 11/18/16 at 10:30 Acetaminophen (Tylenol Tab) 650 mg Q6H PRN PO PAIN AND OR ELEVATED TEMP; Start 11/19/16 at 21:00 Hydralazine HCl (Apresoline) 10 mg Q4H PRN IV ELEVATED BLOOD PRESSURE Last administered on 11/23/16 00:41; Admin Dose 10 MG; Start 11/21/16 at 21:00 Clopidogrel Bisulfate (plaVIX) 75 mg DAILY PO Last administered on 11/23/16 08: 49; Admin Dose 75 MG; Start 11/23/16 at 09:00 Heparin Sodium (Porcine) (Heparin (5000 Units/0.5 ml)) 5,000 unit Q8 SC Last administered on 11/23/16 06:05; Admin Dose 5,000 UNIT; Start 11/22/16 at 22:00 RONDA MOY Nov 23, 2016 11:06
--- NOTE | 2016-11-23 12:03 | CONS ---
Date/Time of Note Date/Time of Note DATE: 11/23/16 TIME: 12:01 Assessment/Plan Assessment/Plan Additional Assessment/Plan Obstructive uropathy status post surgery History of CVA, on Plavix Acute decompensated diastolic congestive heart failure Preserved ejection fraction Hypertension Dyslipidemia Mildly elevated troponin Acute kidney injury -Patient with improvement in shortness of breath with nebulizer treatments and initiation of Lasix. Chemistry panel still pending from today. Follow creatinine closely as well as maintain potassium above 4.0 and magnesium above 2.0. Troponins are trending down. Continue antiplatelet therapy and statin therapy. Chest x-ray in a.m. Consultation Date/Type/Reason Admit Date/Time Nov 16, 2016 at 10:29 Type of Consultation: cv Referring Provider: PARVIN KELLY MD 24 HR Interval Summary Free Text/Dictation Shortness of breath has improved since yesterday, symptoms are usually better after nebulizer treatments. Denies chest pain or palpitations Exam/Review of Systems Vital Signs Vitals Vital Signs Date Time Temp Pulse Resp B/P Pulse Ox O2 Delivery O2 Flow Rate FiO2 11/23/16 08:16 86 11/23/16 08:00 Nasal Cannula 2.0 11/23/16 07:54 98.8 19 125/63 99 Intake and Output 11/22/16 11/22/16 11/23/16 15:00 23:00 07:00 Intake Total 70 ml 780 ml 450 ml Output Total 400 ml Balance 70 ml 780 ml 50 ml Exam Family at bedside Constitutional: alert, obese, oriented Head: normocephalic Neck: supple Respiratory: other (Coarse breath sounds bilaterally, no wheezing) Cardiovascular: other (S1-S2 heard), regular rate and rhythm Gastrointestinal: bowel sounds, non-tender, other (No guarding), soft Extremities: edema, other (No cyanosis) Results Result Diagram: 11/21/16 0518 11/22/16 0505 Results 24 hrs Laboratory Tests Test 11/22/16 12:15 11/22/16 18:45 Creatine Kinase < 20 L < 20 L Creatine Kinase Index Creatinine Kinase MB (Mass) 0.42 0.49 Troponin I 0.133 *H 0.121 *H Medications Medications Current Medications Morphine Sulfate (morphine) 4 mg Q4H PRN IV pain Last administered on 11/21/16t 15:01; Admin Dose 2 MG; Start 11/16/16 at 08:00 Tamsulosin HCl (Flomax) 0.4 mg DAILY PO Last administered on 11/23/16 08:49; Admin Dose 0.4 MG; Start 11/16/16 at 08:00 Ondansetron HCl (Zofran Inj) 4 mg Q4H PRN IV NAUSEA AND/OR VOMITING; Start 11/16 at 10:00 Calcium Carbonate (Tums) 500 mg BID PO Last administered on 11/23/16 08:49; Admin Dose 500 MG; Start 11/16/16 at 11:00 Polyethylene Glycol (Miralax) 17 gm DAILY PO Last administered on 11/23/16 08: 49; Admin Dose 17 GM; Start 11/16/16 at 11:00 Ascorbic Acid (Vitamin C) 500 mg BID PO Last administered on 11/23/16 08:49; Admin Dose 500 MG; Start 11/16/16 at 21:00 Atorvastatin Calcium 20 mg 20 mg DAILY@21 PO Last administered on 11/22/16 22: 08; Admin Dose 20 MG; Start 11/16/16 at 21:00 Ceftriaxone Sodium (Rocephin) 50 ml @ 100 mls/hr Q24H IVPB Last administered on 11/22/16 12:39; Admin Dose 100 MLS/HR; Start 11/17/16 at 12:30 Pantoprazole (Protonix Tab) 40 mg BID@06,18 PO Last administered on 11/23/16 06 :03; Admin Dose 40 MG; Start 11/17/16 at 18:00 Acetaminophen/ Hydrocodone Bitart ([place] (5/325)) 1 tab Q4H PRN PO PAIN Last administered on 11/18/16 10:39; Admin Dose 1 TAB; Start 11/18/16 at 10:30 Acetaminophen (Tylenol Tab) 650 mg Q6H PRN PO PAIN AND OR ELEVATED TEMP; Start 11/19/16 at 21:00 Hydralazine HCl (Apresoline) 10 mg Q4H PRN IV ELEVATED BLOOD PRESSURE Last administered on 11/23/16 00:41; Admin Dose 10 MG; Start 11/21/16 at 21:00 Clopidogrel Bisulfate (plaVIX) 75 mg DAILY PO Last administered on 11/23/16 08: 49; Admin Dose 75 MG; Start 11/23/16 at 09:00 Heparin Sodium (Porcine) (Heparin (5000 Units/0.5 ml)) 5,000 unit Q8 SC Last administered on 11/23/16t 06:05; Admin Dose 5,000 UNIT; Start 11/22/16 at 22:00 Nishant Ruelas DO Nov 23, 2016 12:02
[2016-11-23] MEDS: CEFTRIAXONE 1 GM/50 ML (PMX) 50 ML IVPB SCH (12:54)
--- NOTE | 2016-11-23 19:10 | PN ---
DATE: 11/23/2016 SUBJECTIVE: Right renal stone and abdominal pain. The patient feeling much better. She has no vickie n. She had 1 stone in the right ureter that was removed. She still has another stone that will be removed later on. OBJECTIVE: VITAL SIGNS: Temperature is 98.5, pulse is 93, respiration 18, blood pressure 138/83. ABDOMEN: Very obese, but soft, and she is voiding. LABORATORY DATA: She did have elevated troponin. The impression that I saw on the progress note of the administrative fellow and the hospitalist indicated that probably because of hypertension. The patient' s creatinine was up and has come down and it is going to be repeated tomorrow morning. The last uri ne culture was no growth after 48 hours from the kidney; however, the urine from the bladder was E. coli and that is managed with ceftriaxone. ASSESSMENT AND PLAN: From a urological standpoint, at the present, she still has 1 stone up in the kidney. I did schedule her to undergo a cystoscopy on the right ureter, pyeloscopy, and laser litho tripsy, remove and replace the JJ stent that she has around 12/23/2016 at 12:30 at the [facility] here. If she is able to come in that morning 4 hours before, so we could do the preop lab work. If she is stable, then we could do it. If not, then we admit her and then, when she is basically is medically clear, then we will go to remove the second stone. Dictated By: DEVAUGHN MCNALLY MD BB/NTS Conf#: [id number] DID#: [id number] CC: PARVIN KELLY MD;*End*
[2016-11-23] MEDS: ATORVASTATIN 20 MG TAB PO SCH (20:50)
[2016-11-24] VITALS (12 sets, daily range): BP systolic 115–156; BP diastolic 56–67; PULSE 92–100; RESP 18
[2016-11-24] MEDS: PANTOPRAZOLE (EC) 40 MG TAB PO SCH ×2 (05:35→17:04)
[2016-11-24] MEDS: HEPARIN 5,000 UNIT/0.5 ML SYG SC SCH ×3 (05:41→21:50)
[2016-11-24] MEDS: hydrALAzine 20 MG INJ IV PRN (05:44)
[2016-11-24] MEDS: FUROSEMIDE 20 MG INJ IV SCH ×2 (05:45→17:04)
[2016-11-24 06:49] LABS: ADD SCAN DIFF NO
[2016-11-24 06:54] LABS: ABNORMAL IP MESSAGE 1; BASOPHIL # 0.1 10^3/ul (0.0-0.1); BASOPHILS % 0.5 % (0.0-2.0); EOSINOPHILS % 0.2 % (0.0-7.0); HEMATOCRIT 34.2 % (37.0-47.0); HEMOGLOBIN 11.4 g/dl (12.0-16.0); LYMPHOCYTES # 1.9 10^3/ul (0.8-2.9); LYMPHOCYTES % 8.4 % (15.0-51.0); MEAN CORPUSCULAR HEMOGLOBIN 27.9 pg (29.0-33.0); MEAN CORPUSCULAR HGB CONC 33.3 g/dl (32.0-37.0); MEAN CORPUSCULAR VOLUME 83.8 fl (82.0-101.0); MEAN PLATELET VOLUME 10.5 fl (7.4-10.4); MONOCYTE # 1.5 10^3/ul (0.3-0.9); MONOCYTES % 6.7 % (0.0-11.0); NEUTROPHIL # 18.4 10^3/ul (1.6-7.5); NEUTROPHILS % 80.1 % (39.0-77.0); PLATELET COUNT 275 10^3/UL (140-415); RED BLOOD COUNT 4.08 10^6/ul (4.20-5.40); RED CELL DISTRIBUTION WIDTH 15.3 % (11.5-14.5); WHITE BLOOD COUNT 22.9 10^3/ul (4.8-10.8)
[2016-11-24 07:06] LABS: POTASSIUM 3.6 mmol/L (3.5-5.1)
[2016-11-24 07:09] LABS: CREATININE 1.05 mg/dl (0.44-1.00)
[2016-11-24 07:10] LABS: CALCIUM 9.2 mg/dl (8.4-10.2)
[2016-11-24] MEDS: POLYETHYLENE GLYCOL 17 GM PACKET PO SCH (07:47)
[2016-11-24] MEDS: CLOPIDOGREL 75 MG TAB PO SCH (08:06)
[2016-11-24] MEDS: TAMSULOSIN (SR) 0.4 MG CAP PO SCH (08:06)
[2016-11-24] MEDS: ASCORBIC ACID 500 MG TAB PO SCH ×2 (08:06→20:16)
[2016-11-24] MEDS: CALCIUM CARBONATE 500 MG CHEW TAB PO SCH ×2 (08:06→20:15)
[2016-11-24] MEDS: ACETAMINOPHEN 325 MG TAB PO PRN ×3 (08:06→21:47)
--- NOTE | 2016-11-24 08:37 | RADRPT ---
PROCEDURE: XR Chest. CLINICAL INDICATION: Dyspnea TECHNIQUE: Single frontal chest x-ray. COMPARISON: 11/22/2016 FINDINGS: There is cardiomegaly with mild pulmonary vascular congestion. There are bilateral pleural effusion s with associated lower lobe atelectasis/edema. There is aortic atherosclerosis. There is no pneum othorax. The osseous structures are intact. IMPRESSION: 1. Cardiomegaly with mild pulmonary vascular congestion, not significantly changed. 2. Small bilateral pleural effusions with associated lower lobe atelectasis. RPTAT: BB .Ying Herring MD, Date Time Electronically viewed and signed by .Ying Herring MD, on 11/24/2016 08:36 .O/
--- NOTE | 2016-11-24 10:58 | PN ---
Date/Time of Note Date/Time of Note DATE: 11/24/16 TIME: 10:56 Assessment/Plan VTE Prophylaxis VTE Prophylaxis Intervention: heparin Lines/Catheters IV Catheter Type (from Nrs): Peripheral IV Urinary Cath still in place: No Assessment/Plan Assessment/Plan 1. Right-sided obstructive uropathy s/p Cystoscopy with laser lithotripsy to the distal right ureteral stone and then insertion of right ureteral JJ stent 11/17/16 cont Flomax, KUB shows R sided stone, pt will need another Lithotripsy at some point, planned for outpt in 1 month 2. Sepsis secondary to right-sided pyelonephritis-resolving cont Rocephin 3. Elevated trops: likely 2/2 HTN versus CHF trend values, 2D echo, tele transfer / cardio consult 4. Mild CHF acute / diastolic Commenced on gentle diuresis 2/2 poor renal function 5. Debility 2/2 Morbid Obesity and cerebrovascular accident with right-sided deficit pt has In home support, CM to provide pt info regarding med transport for doctors visits 6. Hypertension. Well-controlled on medical management 6. CALI 2/2 Nephrolithiasis- Improving now post lithotripsy, cont IVF DISPO: continue gentle diuresis, renal function remains stable Continue supportive care Plan for d/c once cleared by Cardio. PPx- SCD's Exam/Review of Systems Vital Signs Vitals Vital Signs Date Time Temp Pulse Resp B/P Pulse Ox O2 Delivery O2 Flow Rate FiO2 11/24/16 08:11 99 11/24/16 07:52 Nasal Cannula 3.0 11/24/16 07:17 97.7 18 115/56 93 Intake and Output 11/23/16 11/23/16 11/24/16 15:00 23:00 07:00 Intake Total 50 ml 450 ml 400 ml Balance 50 ml 450 ml 400 ml Exam Constitutional: alert, no distress, frail, obese, oriented Psych: nl mood/affect Head: atraumatic, normocephalic Eyes: PERRL, No icteric Neck: No jvd Respiratory: crackles/rales, diminished breath sounds, No wheezing Cardiovascular: regular rate and rhythm, No murmurs/extra sounds Gastrointestinal: bowel sounds, non-tender, soft Extremities: No edema Neurological: nl mental status, nl speech, other (chronically bedbound for years) Results Results Result Diagram: 11/24/16 0600 11/24/16 0600 Results 24 hrs Laboratory Tests Test 11/24/16 06:00 Anion Gap 13 Basophils # 0.1 Basophils % 0.5 Blood Urea Nitrogen 16 Calcium Level 9.2 Carbon Dioxide Level 29 Chloride Level 102 Creatinine 1.05 H Eosinophils # 0.0 Eosinophils % 0.2 Glucose Level 75 Hematocrit 34.2 L Hemoglobin 11.4 L Lymphocytes # 1.9 Lymphocytes % 8.4 L Magnesium Level 1.8 Mean Corpuscular Hemoglobin 27.9 L Mean Corpuscular Hemoglobin Concent 33.3 Mean Corpuscular Volume 83.8 Mean Platelet Volume 10.5 H Monocytes # 1.5 H Monocytes % 6.7 Neutrophils # 18.4 H Neutrophils % 80.1 H Nucleated Red Blood Cells # 0.0 Nucleated Red Blood Cells % 0.0 Platelet Count 275 # Potassium Level 3.6 Red Blood Count 4.08 L Red Cell Distribution Width 15.3 H Sodium Level 140 White Blood Count 22.9 #H Medications Medications Current Medications Morphine Sulfate (morphine) 4 mg Q4H PRN IV pain Last administered on 11/21/16 15:01; Admin Dose 2 MG; Start 11/16/16 at 08:00 Tamsulosin HCl (Flomax) 0.4 mg DAILY PO Last administered on 11/24/16 08:06; Admin Dose 0.4 MG; Start 11/16/16 at 08:00 Ondansetron HCl (Zofran Inj) 4 mg Q4H PRN IV NAUSEA AND/OR VOMITING; Start 11/16 at 10:00 Calcium Carbonate (Tums) 500 mg BID PO Last administered on 11/24/16 08:06; Admin Dose 500 MG; Start 11/16/16 at 11:00 Polyethylene Glycol (Miralax) 17 gm DAILY PO Last administered on 11/23/16 08: 49; Admin Dose 17 GM; Start 11/16/16 at 11:00 Ascorbic Acid (Vitamin C) 500 mg BID PO Last administered on 11/24/16 08:06; Admin Dose 500 MG; Start 11/16/16 at 21:00 Atorvastatin Calcium 20 mg 20 mg DAILY@21 PO Last administered on 11/23/16 20: 50; Admin Dose 20 MG; Start 11/16/16 at 21:00 Ceftriaxone Sodium (Rocephin) 50 ml @ 100 mls/hr Q24H IVPB Last administered on 11/23/16 12:54; Admin Dose 100 MLS/HR; Start 11/17/16 at 12:30 Pantoprazole (Protonix Tab) 40 mg BID@06,18 PO Last administered on 11/24/16 05 :35; Admin Dose 40 MG; Start 11/17/16 at 18:00 Acetaminophen/ Hydrocodone Bitart ([place] (5/325)) 1 tab Q4H PRN PO PAIN Last administered on 11/18/16 10:39; Admin Dose 1 TAB; Start 11/18/16 at 10:30 Acetaminophen (Tylenol Tab) 650 mg Q6H PRN PO PAIN AND OR ELEVATED TEMP Last administered on 11/24/16 08:06; Admin Dose 650 MG; Start 11/19/16 at 21:00 Hydralazine HCl (Apresoline) 10 mg Q4H PRN IV ELEVATED BLOOD PRESSURE Last administered on 11/24/16 05:44; Admin Dose 10 MG; Start 11/21/16 at 21:00 Clopidogrel Bisulfate (plaVIX) 75 mg DAILY PO Last administered on 11/24/16 08: 06; Admin Dose 75 MG; Start 11/23/16 at 09:00 Heparin Sodium (Porcine) (Heparin (5000 Units/0.5 ml)) 5,000 unit Q8 SC Last administered on 11/24/16 05:41; Admin Dose 5,000 UNIT; Start 11/22/16 at 22:00 Procedures Procedures PROCEDURE: XR Chest. CLINICAL INDICATION: Dyspnea TECHNIQUE: Single frontal chest x-ray. COMPARISON: 11/22/2016 FINDINGS: There is cardiomegaly with mild pulmonary vascular congestion. There are bilateral pleural effusions with associated lower lobe atelectasis/edema. There is aortic atherosclerosis. There is no pneumothorax. The osseous structures are intact. IMPRESSION: 1. Cardiomegaly with mild pulmonary vascular congestion, not significantly changed. 2. Small bilateral pleural effusions with associated lower lobe atelectasis. RPTAT: BB .Ying Herring MD, MD Date Time Electronically viewed and signed by .Ying Herring MD, MD on 11/24/2016 08:36 .O/ CC: Nishant Ruelas BOLATIT[place] M. Nov 24, 2016 10:58
[2016-11-24] MEDS ORDERED: MAGNESIUM SULFATE 1 GM/D5W 100 ML IVPB ONE (12:00)
[2016-11-24] MEDS: CEFTRIAXONE 1 GM/50 ML (PMX) 50 ML IVPB SCH (12:09)
[2016-11-24] MEDS ORDERED: POTASSIUM CHLORIDE (SR) 20 MEQ TAB PO STA (13:13)
--- NOTE | 2016-11-24 13:13 | CONS ---
Date/Time of Note Date/Time of Note DATE: 11/24/16 TIME: 13:11 Assessment/Plan Assessment/Plan Additional Assessment/Plan Obstructive uropathy status post surgery History of CVA, on Plavix Acute decompensated diastolic congestive heart failure Preserved ejection fraction Hypertension Dyslipidemia Mildly elevated troponin Acute kidney injury -Patient with improvement in shortness of breath with nebulizer treatments and initiation of Lasix. Chest x-ray minimally improved in regards to pulmonary vascular congestion. Renal function improving. Would continue diuretic regimen will plan of switching to p.o. in the next 1-2 days if continues to improve. Maintain potassium above 4.0 and magnesium above 2.0. Consultation Date/Type/Reason Admit Date/Time Nov 16, 2016 at 10:29 Type of Consultation: cv Referring Provider: PARVIN KELLY MD 24 HR Interval Summary Free Text/Dictation Shortness of breath continues to improve and less often. Denies chest pain or palpitations Exam/Review of Systems Vital Signs Vitals Vital Signs Date Time Temp Pulse Resp B/P Pulse Ox O2 Delivery O2 Flow Rate FiO2 11/24/16 12:08 95 11/24/16 11:02 95.0 18 137/64 100 11/24/16 07:52 Nasal Cannula 3.0 Intake and Output 11/23/16 11/23/16 11/24/16 15:00 23:00 07:00 Intake Total 50 ml 450 ml 400 ml Balance 50 ml 450 ml 400 ml Exam No apparent distress Constitutional: alert, obese, oriented Head: normocephalic Neck: supple Respiratory: other (Coarse breath sounds bilaterally, no wheezing) Cardiovascular: other (S1-S2 heard), regular rate and rhythm Gastrointestinal: bowel sounds, non-tender, other (No guarding), soft Extremities: edema, other (No cyanosis) Results Result Diagram: 11/24/16 0600 11/24/16 0600 Results 24 hrs Laboratory Tests Test 11/24/16 06:00 Anion Gap 13 Basophils # 0.1 Basophils % 0.5 Blood Urea Nitrogen 16 Calcium Level 9.2 Carbon Dioxide Level 29 Chloride Level 102 Creatinine 1.05 H Eosinophils # 0.0 Eosinophils % 0.2 Glucose Level 75 Hematocrit 34.2 L Hemoglobin 11.4 L Lymphocytes # 1.9 Lymphocytes % 8.4 L Magnesium Level 1.8 Mean Corpuscular Hemoglobin 27.9 L Mean Corpuscular Hemoglobin Concent 33.3 Mean Corpuscular Volume 83.8 Mean Platelet Volume 10.5 H Monocytes # 1.5 H Monocytes % 6.7 Neutrophils # 18.4 H Neutrophils % 80.1 H Nucleated Red Blood Cells # 0.0 Nucleated Red Blood Cells % 0.0 Platelet Count 275 # Potassium Level 3.6 Red Blood Count 4.08 L Red Cell Distribution Width 15.3 H Sodium Level 140 White Blood Count 22.9 #H Medications Medications Current Medications Morphine Sulfate (morphine) 4 mg Q4H PRN IV pain Last administered on 11/21/16 15:01; Admin Dose 2 MG; Start 11/16/16 at 08:00 Tamsulosin HCl (Flomax) 0.4 mg DAILY PO Last administered on 11/24/16 08:06; Admin Dose 0.4 MG; Start 11/16/16 at 08:00 Ondansetron HCl (Zofran Inj) 4 mg Q4H PRN IV NAUSEA AND/OR VOMITING; Start 11/16 at 10:00 Calcium Carbonate (Tums) 500 mg BID PO Last administered on 11/24/16 08:06; Admin Dose 500 MG; Start 11/16/16 at 11:00 Polyethylene Glycol (Miralax) 17 gm DAILY PO Last administered on 11/23/16 08: 49; Admin Dose 17 GM; Start 11/16/16 at 11:00 Ascorbic Acid (Vitamin C) 500 mg BID PO Last administered on 11/24/16 08:06; Admin Dose 500 MG; Start 11/16/16 at 21:00 Atorvastatin Calcium 20 mg 20 mg DAILY@21 PO Last administered on 11/23/16 20: 50; Admin Dose 20 MG; Start 11/16/16 at 21:00 Ceftriaxone Sodium (Rocephin) 50 ml @ 100 mls/hr Q24H IVPB Last administered on 11/24/16 12:09; Admin Dose 100 MLS/HR; Start 11/17/16 at 12:30 Pantoprazole (Protonix Tab) 40 mg BID@06,18 PO Last administered on 11/24/16 05 :35; Admin Dose 40 MG; Start 11/17/16 at 18:00 Acetaminophen/ Hydrocodone Bitart ([place] (5/325)) 1 tab Q4H PRN PO PAIN Last administered on 11/18/16 10:39; Admin Dose 1 TAB; Start 11/18/16 at 10:30 Acetaminophen (Tylenol Tab) 650 mg Q6H PRN PO PAIN AND OR ELEVATED TEMP Last administered on 11/24/16 08:06; Admin Dose 650 MG; Start 11/19/16 at 21:00 Hydralazine HCl (Apresoline) 10 mg Q4H PRN IV ELEVATED BLOOD PRESSURE Last administered on 11/24/16 05:44; Admin Dose 10 MG; Start 11/21/16 at 21:00 Clopidogrel Bisulfate (plaVIX) 75 mg DAILY PO Last administered on 11/24/16 08: 06; Admin Dose 75 MG; Start 11/23/16 at 09:00 Heparin Sodium (Porcine) (Heparin (5000 Units/0.5 ml)) 5,000 unit Q8 SC Last administered on 11/24/16 13:06; Admin Dose 5,000 UNIT; Start 11/22/16 at 22:00 Nishant Ruelas DO Nov 24, 2016 13:13
[2016-11-24] MEDS: ATORVASTATIN 20 MG TAB PO SCH (20:15)
--- NOTE | 2016-11-24 21:45 | CONS ---
Date/Time of Note Date/Time of Note DATE: 11/24/16 TIME: 21:44 Assessment/Plan Assessment/Plan Additional Assessment/Plan 1. Acute kidney injury due to obstructive uropathy with Prerenal azotemia 2. Acute urinary tract infection. 2. Acute obstructive uropathy causing blockage of her ureters. The patient had a 10 mm stone in the right proximal ureter and a 12 mm stone in the right distal ureter causing intractable abdominal pain. 3. Bilateral nephrolithiasis with a small renal cyst. 4. Right atrophic kidney with cortical thinning. 5. Intractable abdominal pain. 6. History of hypertension. 7. History of hyperlipidemia. 8. History of vitamin D deficiency. 9. History of previous coronary artery disease, has been on Plavix. PLAN: s/p cystoscopy with laser lithotripsy and Stent placement Cr improved to close to normal, Electrolyte stable Expecting creatinine to improve with Relieve of obstruction and improvement in retention will continue to fllow up on patient Consultation Date/Type/Reason Admit Date/Time Nov 16, 2016 at 10:29 Initial Consult Date november Type of Consultation: NEPHROLOGY Referring Provider: PARVIN KELLY MD 24 HR Interval Summary Free Text/Dictation Electrolytes stable, Na 140 Exam/Review of Systems Vital Signs Vitals Vital Signs Date Time Temp Pulse Resp B/P Pulse Ox O2 Delivery O2 Flow Rate FiO2 11/24/16 20:23 95 11/24/16 19:46 98.1 18 134/58 98 11/24/16 18:43 2.0 11/24/16 07:52 Nasal Cannula Intake and Output 11/23/16 11/23/16 11/24/16 15:00 23:00 07:00 Intake Total 50 ml 450 ml 400 ml Balance 50 ml 450 ml 400 ml Exam No apparent distress Constitutional: alert, obese, oriented Head: normocephalic Neck: supple Respiratory: other (Coarse breath sounds bilaterally, no wheezing) Cardiovascular: other (S1-S2 heard), regular rate and rhythm Gastrointestinal: bowel sounds, non-tender, soft Extremities: edema (Trace) Results Result Diagram: 11/24/16 0600 11/24/16 0600 Results 24 hrs Laboratory Tests Test 11/24/16 06:00 Anion Gap 13 Basophils # 0.1 Basophils % 0.5 Blood Urea Nitrogen 16 Calcium Level 9.2 Carbon Dioxide Level 29 Chloride Level 102 Creatinine 1.05 H Eosinophils # 0.0 Eosinophils % 0.2 Glucose Level 75 Hematocrit 34.2 L Hemoglobin 11.4 L Lymphocytes # 1.9 Lymphocytes % 8.4 L Magnesium Level 1.8 Mean Corpuscular Hemoglobin 27.9 L Mean Corpuscular Hemoglobin Concent 33.3 Mean Corpuscular Volume 83.8 Mean Platelet Volume 10.5 H Monocytes # 1.5 H Monocytes % 6.7 Neutrophils # 18.4 H Neutrophils % 80.1 H Nucleated Red Blood Cells # 0.0 Nucleated Red Blood Cells % 0.0 Platelet Count 275 # Potassium Level 3.6 Red Blood Count 4.08 L Red Cell Distribution Width 15.3 H Sodium Level 140 White Blood Count 22.9 #H Medications Medications Current Medications Morphine Sulfate (morphine) 4 mg Q4H PRN IV pain Last administered on 11/21/16 15:01; Admin Dose 2 MG; Start 11/16/16 at 08:00 Tamsulosin HCl (Flomax) 0.4 mg DAILY PO Last administered on 11/24/16 08:06; Admin Dose 0.4 MG; Start 11/16/16 at 08:00 Ondansetron HCl (Zofran Inj) 4 mg Q4H PRN IV NAUSEA AND/OR VOMITING; Start 11/16 at 10:00 Calcium Carbonate (Tums) 500 mg BID PO Last administered on 11/24/16 20:15; Admin Dose 500 MG; Start 11/16/16 at 11:00 Polyethylene Glycol (Miralax) 17 gm DAILY PO Last administered on 11/23/16 08: 49; Admin Dose 17 GM; Start 11/16/16 at 11:00 Ascorbic Acid (Vitamin C) 500 mg BID PO Last administered on 11/24/16 20:16; Admin Dose 500 MG; Start 11/16/16 at 21:00 Atorvastatin Calcium 20 mg 20 mg DAILY@21 PO Last administered on 11/24/16 20: 15; Admin Dose 20 MG; Start 11/16/16 at 21:00 Ceftriaxone Sodium (Rocephin) 50 ml @ 100 mls/hr Q24H IVPB Last administered on 11/24/16 12:09; Admin Dose 100 MLS/HR; Start 11/17/16 at 12:30 Pantoprazole (Protonix Tab) 40 mg BID@06,18 PO Last administered on 11/24/16 17 :04; Admin Dose 40 MG; Start 11/17/16 at 18:00 Acetaminophen/ Hydrocodone Bitart ([place] (5/325)) 1 tab Q4H PRN PO PAIN Last administered on 11/18/16 10:39; Admin Dose 1 TAB; Start 11/18/16 at 10:30 Acetaminophen (Tylenol Tab) 650 mg Q6H PRN PO PAIN AND OR ELEVATED TEMP Last administered on 11/24/16 14:18; Admin Dose 650 MG; Start 11/19/16 at 21:00 Hydralazine HCl (Apresoline) 10 mg Q4H PRN IV ELEVATED BLOOD PRESSURE Last administered on 11/24/16 05:44; Admin Dose 10 MG; Start 11/21/16 at 21:00 Clopidogrel Bisulfate (plaVIX) 75 mg DAILY PO Last administered on 11/24/16 08: 06; Admin Dose 75 MG; Start 11/23/16 at 09:00 Heparin Sodium (Porcine) (Heparin (5000 Units/0.5 ml)) 5,000 unit Q8 SC Last administered on 11/24/16 13:06; Admin Dose 5,000 UNIT; Start 11/22/16 at 22:00 LIZZ SALCEDO MD Nov 24, 2016 21:45
[2016-11-25] VITALS (12 sets, daily range): BP systolic 104–160; BP diastolic 51–68; PULSE 80–103; RESP 16–18
--- NOTE | 2016-11-25 04:42 | PN ---
DATE: 11/24/2016 SUBJECTIVE: The patient does have a history of a right distal ureteral stone that was removed and a nother proximal right ureteral stone and she had a JJ stent put in. She is feeling better. She den ies any abdominal pain at the present. She is voiding frequently and she has no hematuria. OBJECTIVE: VITAL SIGNS: Her temperature is 98.1, pulse 98, respiration 18, blood pressure 134/58. ABDOMEN: Obese and soft. No abdominal masses palpable. LABORATORY DATA: Her renal function continues to improve. Her creatinine has come down from 2.21 t o 1.05. Prior to her surgery, her creatinine was 0.83 and I am sure that will continue to improve. The CBC shows a white count of 22.9, hemoglobin 11.4, hematocrit is 34.2. Urine culture is no grow th after 48 hours. Chest x-ray showed small bilateral pleural effusions with associated lower lobe atelectasis. ASSESSMENT AND PLAN: From a urological standpoint, the patient is doing well. Her renal function i s improving and the stone that she has in the right upper ureter was pushed up into the kidney. For that, she will need to undergo another ureteropyeloscopy and laser lithotripsy. I already schedule d that for her and gave her instructions for it, but we shall wait until she is better and then she will be discharged and will bring her back for that other stone. Dictated By: DEVAUGHN MCNALLY MD BB/BOBBI Conf#: [id number] DID#: [id number] CC: PARVIN KELLY MD;*End*
[2016-11-25] MEDS: PANTOPRAZOLE (EC) 40 MG TAB PO SCH ×2 (05:28→17:36)
[2016-11-25] MEDS: FUROSEMIDE 20 MG INJ IV SCH (05:30)
[2016-11-25] MEDS: hydrALAzine 20 MG INJ IV PRN (05:30)
[2016-11-25] MEDS: HEPARIN 5,000 UNIT/0.5 ML SYG SC SCH ×3 (05:31→22:17)
[2016-11-25] MEDS: ALBUTEROL/IPRATROPIUM (NEB) 3 ML AMP HHN PRN (05:58)
[2016-11-25 06:04] LABS: ADD SCAN DIFF NO
[2016-11-25 06:27] LABS: POTASSIUM 3.7 mmol/L (3.5-5.1)
[2016-11-25 06:29] LABS: BASOPHIL # 0.1 10^3/ul (0.0-0.1); BASOPHILS % 0.3 % (0.0-2.0); EOSINOPHILS # 0.1 10^3/ul (0.0-0.5); EOSINOPHILS % 0.4 % (0.0-7.0); HEMATOCRIT 33.6 % (37.0-47.0); HEMOGLOBIN 11.2 g/dl (12.0-16.0); LYMPHOCYTES # 2.3 10^3/ul (0.8-2.9); LYMPHOCYTES % 11.9 % (15.0-51.0); MEAN CORPUSCULAR HEMOGLOBIN 28.4 pg (29.0-33.0); MEAN CORPUSCULAR HGB CONC 33.3 g/dl (32.0-37.0); MEAN CORPUSCULAR VOLUME 85.3 fl (82.0-101.0); MONOCYTE # 1.3 10^3/ul (0.3-0.9); MONOCYTES % 6.5 % (0.0-11.0); NEUTROPHIL # 14.8 10^3/ul (1.6-7.5); NEUTROPHILS % 76.2 % (39.0-77.0); PLATELET COUNT 346 10^3/UL (140-415); RED BLOOD COUNT 3.94 10^6/ul (4.20-5.40); RED CELL DISTRIBUTION WIDTH 15.1 % (11.5-14.5); WHITE BLOOD COUNT 19.5 10^3/ul (4.8-10.8)
[2016-11-25 06:29] LABS: CREATININE 1.12 mg/dl (0.44-1.00)
[2016-11-25 06:30] LABS: CALCIUM 9.3 mg/dl (8.4-10.2)
[2016-11-25] MEDS: POLYETHYLENE GLYCOL 17 GM PACKET PO SCH (09:00)
--- NOTE | 2016-11-25 09:13 | CONS ---
Date/Time of Note Date/Time of Note DATE: 11/25/16 TIME: 09:12 Consultation Date/Type/Reason Admit Date/Time Nov 16, 2016 at 10:29 Initial Consult Date november Type of Consultation: NEPHROLOGY Reason for Consultation acute kidney injury, obstructive uropathy, Cr slightly worse compared to yesterday 1.12 Referring Provider: PARVIN KELLY MD Exam/Review of Systems Vital Signs Vitals Vital Signs Date Time Temp Pulse Resp B/P Pulse Ox O2 Delivery O2 Flow Rate FiO2 11/25/16 09:05 Nasal Cannula 2.0 11/25/16 08:05 93 11/25/16 07:12 97.5 18 104/51 95 Intake and Output 11/24/16 11/24/16 11/25/16 15:00 23:00 07:00 Intake Total 800 ml 500 ml Balance 800 ml 500 ml Results Result Diagram: 11/25/16 0545 11/25/16 0510 Results 24 hrs Laboratory Tests Test 11/25/16 05:10 11/25/16 05:45 Anion Gap 12 Blood Urea Nitrogen 17 Calcium Level 9.3 Carbon Dioxide Level 30 Chloride Level 103 Creatinine 1.12 H Glucose Level 95 Potassium Level 3.7 Sodium Level 141 Basophils # 0.1 Basophils % 0.3 Eosinophils # 0.1 Eosinophils % 0.4 Hematocrit 33.6 L Hemoglobin 11.2 L Lymphocytes # 2.3 Lymphocytes % 11.9 L Magnesium Level 1.9 Mean Corpuscular Hemoglobin 28.4 L Mean Corpuscular Hemoglobin Concent 33.3 Mean Corpuscular Volume 85.3 Mean Platelet Volume 10.0 Monocytes # 1.3 H Monocytes % 6.5 Neutrophils # 14.8 H Neutrophils % 76.2 Nucleated Red Blood Cells # 0.0 Nucleated Red Blood Cells % 0.0 Platelet Count 346 # Red Blood Count 3.94 L Red Cell Distribution Width 15.1 H White Blood Count 19.5 H Medications Medications Current Medications Morphine Sulfate (morphine) 4 mg Q4H PRN IV pain Last administered on 11/21/16 15:01; Admin Dose 2 MG; Start 11/16/16 at 08:00 Tamsulosin HCl (Flomax) 0.4 mg DAILY PO Last administered on 11/24/16 08:06; Admin Dose 0.4 MG; Start 11/16/16 at 08:00 Ondansetron HCl (Zofran Inj) 4 mg Q4H PRN IV NAUSEA AND/OR VOMITING; Start 11/16 at 10:00 Calcium Carbonate (Tums) 500 mg BID PO Last administered on 11/24/16 20:15; Admin Dose 500 MG; Start 11/16/16 at 11:00 Polyethylene Glycol (Miralax) 17 gm DAILY PO Last administered on 11/23/16 08: 49; Admin Dose 17 GM; Start 11/16/16 at 11:00 Ascorbic Acid (Vitamin C) 500 mg BID PO Last administered on 11/24/16 20:16; Admin Dose 500 MG; Start 11/16/16 at 21:00 Atorvastatin Calcium 20 mg 20 mg DAILY@21 PO Last administered on 11/24/16 20: 15; Admin Dose 20 MG; Start 11/16/16 at 21:00 Ceftriaxone Sodium (Rocephin) 50 ml @ 100 mls/hr Q24H IVPB Last administered on 11/24/16 12:09; Admin Dose 100 MLS/HR; Start 11/17/16 at 12:30 Pantoprazole (Protonix Tab) 40 mg BID@06,18 PO Last administered on 11/25/16 05:28; Admin Dose 40 MG; Start 11/17/16 at 18:00 Acetaminophen/ Hydrocodone Bitart ([place] (5/325)) 1 tab Q4H PRN PO PAIN Last administered on 11/18/16 10:39; Admin Dose 1 TAB; Start 11/18/16 at 10:30 Acetaminophen (Tylenol Tab) 650 mg Q6H PRN PO PAIN AND OR ELEVATED TEMP Last administered on 11/24/16 21:47; Admin Dose 650 MG; Start 11/19/16 at 21:00 Hydralazine HCl (Apresoline) 10 mg Q4H PRN IV ELEVATED BLOOD PRESSURE Last administered on 11/25/16 05:30; Admin Dose 10 MG; Start 11/21/16 at 21:00 Clopidogrel Bisulfate (plaVIX) 75 mg DAILY PO Last administered on 11/24/16 08: 06; Admin Dose 75 MG; Start 11/23/16 at 09:00 Heparin Sodium (Porcine) (Heparin (5000 Units/0.5 ml)) 5,000 unit Q8 SC Last administered on 11/25/16 05:31; Admin Dose 5,000 UNIT; Start 11/22/16 at 22:00 LIZZ SALCEDO MD Nov 25, 2016 09:12
[2016-11-25] MEDS: TAMSULOSIN (SR) 0.4 MG CAP PO SCH (09:34)
[2016-11-25] MEDS: CALCIUM CARBONATE 500 MG CHEW TAB PO SCH ×2 (09:34→21:26)
[2016-11-25] MEDS: CLOPIDOGREL 75 MG TAB PO SCH (09:34)
[2016-11-25] MEDS: ASCORBIC ACID 500 MG TAB PO SCH ×2 (09:35→21:26)
--- NOTE | 2016-11-25 12:13 | CONS ---
Date/Time of Note Date/Time of Note DATE: 11/25/16 TIME: 12:12 Assessment/Plan Assessment/Plan Additional Assessment/Plan 1. Acute kidney injury due to obstructive uropathy with Prerenal azotemia 2. Acute urinary tract infection. 2. Acute obstructive uropathy causing blockage of her ureters. The patient had a 10 mm stone in the right proximal ureter and a 12 mm stone in the right distal ureter causing intractable abdominal pain. 3. Bilateral nephrolithiasis with a small renal cyst. 4. Right atrophic kidney with cortical thinning. 5. Intractable abdominal pain. 6. History of hypertension. 7. History of hyperlipidemia. 8. History of vitamin D deficiency. 9. History of previous coronary artery disease, has been on Plavix. PLAN: s/p cystoscopy with laser lithotripsy and Stent placement Cr improved to close to normal, Electrolyte stable Expecting creatinine to improve with Relieve of obstruction and improvement in retention will continue to fllow up on patient Consultation Date/Type/Reason Admit Date/Time Nov 16, 2016 at 10:29 Initial Consult Date november Type of Consultation: NEPHROLOGY Referring Provider: PARVIN KELLY MD 24 HR Interval Summary Free Text/Dictation Cr improved to 1.025, BP stable Exam/Review of Systems Vital Signs Vitals Vital Signs Date Time Temp Pulse Resp B/P Pulse Ox O2 Delivery O2 Flow Rate FiO2 11/25/16 11:18 97.7 86 18 105/56 99 11/25/16 09:05 Nasal Cannula 2.0 Intake and Output 11/24/16 11/24/16 11/25/16 15:00 23:00 07:00 Intake Total 800 ml 500 ml Balance 800 ml 500 ml Exam No apparent distress Constitutional: alert, obese, oriented Head: normocephalic Neck: supple Respiratory: other (Coarse breath sounds bilaterally, no wheezing) Cardiovascular: other (S1-S2 heard), regular rate and rhythm Gastrointestinal: bowel sounds, non-tender, soft Extremities: edema (Trace) Results Result Diagram: 11/25/16 0545 11/25/16 0510 Results 24 hrs Laboratory Tests Test 11/25/16 05:10 11/25/16 05:45 Anion Gap 12 Blood Urea Nitrogen 17 Calcium Level 9.3 Carbon Dioxide Level 30 Chloride Level 103 Creatinine 1.12 H Glucose Level 95 Potassium Level 3.7 Sodium Level 141 Basophils # 0.1 Basophils % 0.3 Eosinophils # 0.1 Eosinophils % 0.4 Hematocrit 33.6 L Hemoglobin 11.2 L Lymphocytes # 2.3 Lymphocytes % 11.9 L Magnesium Level 1.9 Mean Corpuscular Hemoglobin 28.4 L Mean Corpuscular Hemoglobin Concent 33.3 Mean Corpuscular Volume 85.3 Mean Platelet Volume 10.0 Monocytes # 1.3 H Monocytes % 6.5 Neutrophils # 14.8 H Neutrophils % 76.2 Nucleated Red Blood Cells # 0.0 Nucleated Red Blood Cells % 0.0 Platelet Count 346 # Red Blood Count 3.94 L Red Cell Distribution Width 15.1 H White Blood Count 19.5 H Medications Medications Current Medications Morphine Sulfate (morphine) 4 mg Q4H PRN IV pain Last administered on 11/21/16 15:01; Admin Dose 2 MG; Start 11/16/16 at 08:00 Tamsulosin HCl (Flomax) 0.4 mg DAILY PO Last administered on 11/25/16 09:34; Admin Dose 0.4 MG; Start 11/16/16 at 08:00 Ondansetron HCl (Zofran Inj) 4 mg Q4H PRN IV NAUSEA AND/OR VOMITING; Start 11/16 at 10:00 Calcium Carbonate (Tums) 500 mg BID PO Last administered on 11/25/16 09:34; Admin Dose 500 MG; Start 11/16/16 at 11:00 Polyethylene Glycol (Miralax) 17 gm DAILY PO Last administered on 11/23/16 08: 49; Admin Dose 17 GM; Start 11/16/16 at 11:00 Ascorbic Acid (Vitamin C) 500 mg BID PO Last administered on 11/25/16 09:35; Admin Dose 500 MG; Start 11/16/16 at 21:00 Atorvastatin Calcium 20 mg 20 mg DAILY@21 PO Last administered on 11/24/16 20: 15; Admin Dose 20 MG; Start 11/16/16 at 21:00 Ceftriaxone Sodium (Rocephin) 50 ml @ 100 mls/hr Q24H IVPB Last administered on 11/24/16 12:09; Admin Dose 100 MLS/HR; Start 11/17/16 at 12:30 Pantoprazole (Protonix Tab) 40 mg BID@06,18 PO Last administered on 11/25/16 05:28; Admin Dose 40 MG; Start 11/17/16 at 18:00 Acetaminophen/ Hydrocodone Bitart ([place] (5/325)) 1 tab Q4H PRN PO PAIN Last administered on 11/18/16 10:39; Admin Dose 1 TAB; Start 11/18/16 at 10:30 Acetaminophen (Tylenol Tab) 650 mg Q6H PRN PO PAIN AND OR ELEVATED TEMP Last administered on 11/24/16 21:47; Admin Dose 650 MG; Start 11/19/16 at 21:00 Hydralazine HCl (Apresoline) 10 mg Q4H PRN IV ELEVATED BLOOD PRESSURE Last administered on 11/25/16 05:30; Admin Dose 10 MG; Start 11/21/16 at 21:00 Clopidogrel Bisulfate (plaVIX) 75 mg DAILY PO Last administered on 11/25/16 09 :34; Admin Dose 75 MG; Start 11/23/16 at 09:00 Heparin Sodium (Porcine) (Heparin (5000 Units/0.5 ml)) 5,000 unit Q8 SC Last administered on 11/25/16 05:31; Admin Dose 5,000 UNIT; Start 11/22/16 at 22:00 LIZZ SALCEDO MD Nov 25, 2016 12:13
[2016-11-25] MEDS: CEFTRIAXONE 1 GM/50 ML (PMX) 50 ML IVPB SCH (12:32)
--- NOTE | 2016-11-25 13:09 | RADRPT ---
PROCEDURE: Chest Radiograph. CLINICAL INDICATION: CHF TECHNIQUE: Single frontal chest radiograph. COMPARISON: Chest radiograph 11/24/2016 FINDINGS: The heart is magnified. Atherosclerotic calcifications are present. There is stable central vascul ar congestion. There is mild improved aeration of the bilateral lung bases with persistent pleural effusions and adjacent atelectasis/infiltrate. There is no pneumothorax. The bones are intact. IMPRESSION: 1. Mild improved aeration of the lung bases. 2. Otherwise stable radiographic appearance of the chest compared to 11/24/2016. RPTAT: AA .Farshad Pearson MD, MD Date Time Electronically viewed and signed by .Farshad Pearson MD, on 11/25/2016 13:09 .B/
--- NOTE | 2016-11-25 13:50 | CONS ---
Date/Time of Note Date/Time of Note DATE: 11/25/16 TIME: 13:48 Assessment/Plan Assessment/Plan Additional Assessment/Plan Obstructive uropathy status post surgery History of CVA, on Plavix Acute decompensated diastolic congestive heart failure Preserved ejection fraction Hypertension Dyslipidemia Mildly elevated troponin Acute kidney injury -Patient with progressive improvement in symptoms, she states especially after nebulizer treatments. Chest x-ray with improved pulmonary vascular congestion. Would change Lasix to p.o. Maintain potassium above 4.0 and magnesium above 2.0. Consultation Date/Type/Reason Admit Date/Time Nov 16, 2016 at 10:29 Type of Consultation: cv Referring Provider: PARVIN KELLY MD 24 HR Interval Summary Free Text/Dictation Shortness of breath continues to improve. Symptoms usually better after nebulizer treatment. Denies chest pain Exam/Review of Systems Vital Signs Vitals Vital Signs Date Time Temp Pulse Resp B/P Pulse Ox O2 Delivery O2 Flow Rate FiO2 11/25/16 12:20 84 11/25/16 11:18 97.7 18 105/56 99 11/25/16 09:05 Nasal Cannula 2.0 Intake and Output 11/24/16 11/24/16 11/25/16 15:00 23:00 07:00 Intake Total 800 ml 500 ml Balance 800 ml 500 ml Exam No apparent distress Constitutional: alert, obese, oriented Head: normocephalic Neck: supple Respiratory: other (Coarse breath sounds bilaterally, no wheezing) Cardiovascular: other (S1-S2 heard), regular rate and rhythm Gastrointestinal: bowel sounds, non-tender, other (No guarding), soft Extremities: edema, other (No cyanosis) Results Result Diagram: 11/25/16 0545 11/25/16 0510 Results 24 hrs Laboratory Tests Test 11/25/16 05:10 11/25/16 05:45 Anion Gap 12 Blood Urea Nitrogen 17 Calcium Level 9.3 Carbon Dioxide Level 30 Chloride Level 103 Creatinine 1.12 H Glucose Level 95 Potassium Level 3.7 Sodium Level 141 Basophils # 0.1 Basophils % 0.3 Eosinophils # 0.1 Eosinophils % 0.4 Hematocrit 33.6 L Hemoglobin 11.2 L Lymphocytes # 2.3 Lymphocytes % 11.9 L Magnesium Level 1.9 Mean Corpuscular Hemoglobin 28.4 L Mean Corpuscular Hemoglobin Concent 33.3 Mean Corpuscular Volume 85.3 Mean Platelet Volume 10.0 Monocytes # 1.3 H Monocytes % 6.5 Neutrophils # 14.8 H Neutrophils % 76.2 Nucleated Red Blood Cells # 0.0 Nucleated Red Blood Cells % 0.0 Platelet Count 346 # Red Blood Count 3.94 L Red Cell Distribution Width 15.1 H White Blood Count 19.5 H Medications Medications Current Medications Morphine Sulfate (morphine) 4 mg Q4H PRN IV pain Last administered on 11/21/16 15:01; Admin Dose 2 MG; Start 11/16/16 at 08:00 Tamsulosin HCl (Flomax) 0.4 mg DAILY PO Last administered on 11/25/16 09:34; Admin Dose 0.4 MG; Start 11/16/16 at 08:00 Ondansetron HCl (Zofran Inj) 4 mg Q4H PRN IV NAUSEA AND/OR VOMITING; Start 11/16 at 10:00 Calcium Carbonate (Tums) 500 mg BID PO Last administered on 11/25/16 09:34; Admin Dose 500 MG; Start 11/16/16 at 11:00 Polyethylene Glycol (Miralax) 17 gm DAILY PO Last administered on 11/23/16 08: 49; Admin Dose 17 GM; Start 11/16/16 at 11:00 Ascorbic Acid (Vitamin C) 500 mg BID PO Last administered on 11/25/16 09:35; Admin Dose 500 MG; Start 11/16/16 at 21:00 Atorvastatin Calcium 20 mg 20 mg DAILY@21 PO Last administered on 11/24/16 20: 15; Admin Dose 20 MG; Start 11/16/16 at 21:00 Ceftriaxone Sodium (Rocephin) 50 ml @ 100 mls/hr Q24H IVPB Last administered on 11/25/16 12:32; Admin Dose 100 MLS/HR; Start 11/17/16 at 12:30 Pantoprazole (Protonix Tab) 40 mg BID@06,18 PO Last administered on 11/25/16 05:28; Admin Dose 40 MG; Start 11/17/16 at 18:00 Acetaminophen/ Hydrocodone Bitart ([place] (5/325)) 1 tab Q4H PRN PO PAIN Last administered on 11/18/16 10:39; Admin Dose 1 TAB; Start 11/18/16 at 10:30 Acetaminophen (Tylenol Tab) 650 mg Q6H PRN PO PAIN AND OR ELEVATED TEMP Last administered on 11/24/16 21:47; Admin Dose 650 MG; Start 11/19/16 at 21:00 Hydralazine HCl (Apresoline) 10 mg Q4H PRN IV ELEVATED BLOOD PRESSURE Last administered on 11/25/16 05:30; Admin Dose 10 MG; Start 11/21/16 at 21:00 Clopidogrel Bisulfate (plaVIX) 75 mg DAILY PO Last administered on 11/25/16 09 :34; Admin Dose 75 MG; Start 11/23/16 at 09:00 Heparin Sodium (Porcine) (Heparin (5000 Units/0.5 ml)) 5,000 unit Q8 SC Last administered on 11/25/16 13:46; Admin Dose 5,000 UNIT; Start 11/22/16 at 22:00 Nishant Ruelas DO Nov 25, 2016 13:50
[2016-11-25] MEDS ORDERED: MAGNESIUM SULFATE 2 GM/50 ML 50 ML IVPB ONE (14:00)
--- NOTE | 2016-11-25 14:42 | PN ---
Date/Time of Note Date/Time of Note DATE: 11/25/16 TIME: 14:32 Assessment/Plan VTE Prophylaxis VTE Prophylaxis Intervention: heparin Lines/Catheters IV [facility] [place] Urinary Cath still in place: No Assessment/Plan Assessment/Plan 1. Right-sided obstructive uropathy s/p Cystoscopy with laser lithotripsy to the distal right ureteral stone and then insertion of right ureteral JJ stent 11/17/16 cont Flomax, KUB shows R sided stone, pt will need another Lithotripsy at some point, planned for outpt in 1 month 2. Sepsis secondary to right-sided pyelonephritis-resolving cont Rocephin 3. Elevated trops: likely 2/2 HTN versus CHF 4. Mild CHF acute / diastolic Commenced on gentle diuresis 2/2 poor renal function 5. Debility 2/2 Morbid Obesity and cerebrovascular accident with right-sided deficit pt has In home support, CM to provide pt info regarding med transport for doctors visits 6. Hypertension. Well-controlled on medical management 6. CALI 2/2 Nephrolithiasis- Improving now post lithotripsy, cont IVF DISPO: continue gentle diuresis, renal function remains stable add scheduled bronchodilator therapy Continue supportive care Plan for d/c once cleared by Cardio. PPx- SCD's Exam/Review of Systems Vital Signs Vitals Vital Signs Date Time Temp Pulse Resp B/P Pulse Ox O2 Delivery O2 Flow Rate FiO2 11/25/16 12:20 84 11/25/16 11:18 97.7 18 105/56 99 11/25/16 09:05 Nasal Cannula 2.0 Intake and Output 11/24/16 11/24/16 11/25/16 15:00 23:00 07:00 Intake Total 800 ml 500 ml Balance 800 ml 500 ml Results Result Diagram: 11/25/16 0545 11/25/16 0510 Results 24 hrs Laboratory Tests Test 11/25/16 05:10 11/25/16 05:45 Anion Gap 12 Blood Urea Nitrogen 17 Calcium Level 9.3 Carbon Dioxide Level 30 Chloride Level 103 Creatinine 1.12 H Glucose Level 95 Potassium Level 3.7 Sodium Level 141 Basophils # 0.1 Basophils % 0.3 Eosinophils # 0.1 Eosinophils % 0.4 Hematocrit 33.6 L Hemoglobin 11.2 L Lymphocytes # 2.3 Lymphocytes % 11.9 L Magnesium Level 1.9 Mean Corpuscular Hemoglobin 28.4 L Mean Corpuscular Hemoglobin Concent 33.3 Mean Corpuscular Volume 85.3 Mean Platelet Volume 10.0 Monocytes # 1.3 H Monocytes % 6.5 Neutrophils # 14.8 H Neutrophils % 76.2 Nucleated Red Blood Cells # 0.0 Nucleated Red Blood Cells % 0.0 Platelet Count 346 # Red Blood Count 3.94 L Red Cell Distribution Width 15.1 H White Blood Count 19.5 H Medications Medications Current Medications Morphine Sulfate (morphine) 4 mg Q4H PRN IV pain Last administered on 11/21/16 15:01; Admin Dose 2 MG; Start 11/16/16 at 08:00 Tamsulosin HCl (Flomax) 0.4 mg DAILY PO Last administered on 11/25/16 09:34; Admin Dose 0.4 MG; Start 11/16/16 at 08:00 Ondansetron HCl (Zofran Inj) 4 mg Q4H PRN IV NAUSEA AND/OR VOMITING; Start 11/16 at 10:00 Calcium Carbonate (Tums) 500 mg BID PO Last administered on 11/25/16 09:34; Admin Dose 500 MG; Start 11/16/16 at 11:00 Polyethylene Glycol (Miralax) 17 gm DAILY PO Last administered on 11/23/16 08: 49; Admin Dose 17 GM; Start 11/16/16 at 11:00 Ascorbic Acid (Vitamin C) 500 mg BID PO Last administered on 11/25/16 09:35; Admin Dose 500 MG; Start 11/16/16 at 21:00 Atorvastatin Calcium 20 mg 20 mg DAILY@21 PO Last administered on 11/24/16 20: 15; Admin Dose 20 MG; Start 11/16/16 at 21:00 Ceftriaxone Sodium (Rocephin) 50 ml @ 100 mls/hr Q24H IVPB Last administered on 11/25/16 12:32; Admin Dose 100 MLS/HR; Start 11/17/16 at 12:30 Pantoprazole (Protonix Tab) 40 mg BID@06,18 PO Last administered on 11/25/16 05:28; Admin Dose 40 MG; Start 11/17/16 at 18:00 Acetaminophen/ Hydrocodone Bitart ([place] (5/325)) 1 tab Q4H PRN PO PAIN Last administered on 11/18/16 10:39; Admin Dose 1 TAB; Start 11/18/16 at 10:30 Acetaminophen (Tylenol Tab) 650 mg Q6H PRN PO PAIN AND OR ELEVATED TEMP Last administered on 11/24/16 21:47; Admin Dose 650 MG; Start 11/19/16 at 21:00 Hydralazine HCl (Apresoline) 10 mg Q4H PRN IV ELEVATED BLOOD PRESSURE Last administered on 11/25/16 05:30; Admin Dose 10 MG; Start 11/21/16 at 21:00 Clopidogrel Bisulfate (plaVIX) 75 mg DAILY PO Last administered on 11/25/16 09 :34; Admin Dose 75 MG; Start 11/23/16 at 09:00 Heparin Sodium (Porcine) 5000 unit 5,000 unit Q8 SC Last administered on 13:46; Admin Dose 5,000 UNIT; Start 11/22/16 at 22:00 Magnesium Sulfate 50 ml @ 25 mls/hr ONCE ONCE IVPB ; Start 11/25/16 at 14:00; Stop 11/25/16 at 15:59 Azithromycin (Zithromax 500mg/ NS (Pmx)) 250 ml @ 250 mls/hr Q24H IVPB ; Start 11/25/16 at 14:30; Status RONDA CONN Nov 25, 2016 14:42
[2016-11-25] MEDS: AZITHROMYCIN 500MG/NS (PMX) 250 ML IVPB SCH (15:54)
[2016-11-25] MEDS: ALBUTEROL 0.083% (NEB) 2.5 MG/3 ML AMP HHN SCH ×2 (16:55→21:34)
[2016-11-25] MEDS: FUROSEMIDE 20 MG TAB PO SCH (17:36)
[2016-11-25] MEDS: ATORVASTATIN 20 MG TAB PO SCH (21:26)
--- NOTE | 2016-11-25 21:30 | PN ---
DATE: 11/25/2016 SUBJECTIVE: This patient is status post ureteroscopy, laser lithotripsy and insertion of a JJ stent and removal of a distal right ureteral stone, and she still has one stone that is in the upper uret er in the kidney. REVIEW OF SYSTEMS: Patient is feeling uncomfortable. She denies any abdominal pain right now. OBJECTIVE: VITAL SIGNS: Her temperature is 98.1, the blood pressure 133/62, pulse 96, respiration 20. ABDOMEN: Very obese, but soft, and the patient is voiding well. LABORATORY DATA: Her CBC shows a white count of 19.5, hemoglobin is 11.2, hematocrit 33.6, BUN is 1 7, creatinine 1.12. IMPRESSION: Status post right ureteroscopy and laser lithotripsy. The patient still has some leuko cytosis and her renal function has not come back down to where it was. The patient has been on anti biotic and I would go ahead and have the straight catheterization on her to reculture her urine to m yuval sure that she does not have any recurrent infection and that she is emptying her bladder fairly good. Dictated By: DEVAUGHN ESCALANTE/BOBBI Conf#: [id number] DID#: [id number]
[2016-11-25] MEDS: ACETAMINOPHEN 325 MG TAB PO PRN (22:13)
[2016-11-26] VITALS (12 sets, daily range): BP systolic 126–169; BP diastolic 59–80; PULSE 88–112; RESP 15–18
[2016-11-26] MEDS: ALBUTEROL 0.083% (NEB) 2.5 MG/3 ML AMP HHN SCH ×4 (01:00→20:34)
[2016-11-26 06:10] LABS: ADD SCAN DIFF NO
[2016-11-26] MEDS: PANTOPRAZOLE (EC) 40 MG TAB PO SCH (06:13)
[2016-11-26] MEDS: FUROSEMIDE 20 MG TAB PO SCH ×2 (06:14→17:14)
[2016-11-26 06:15] LABS: BASOPHIL # 0.1 10^3/ul (0.0-0.1); BASOPHILS % 0.3 % (0.0-2.0); EOSINOPHILS # 0.1 10^3/ul (0.0-0.5); EOSINOPHILS % 0.2 % (0.0-7.0); HEMATOCRIT 31.2 % (37.0-47.0); HEMOGLOBIN 10.1 g/dl (12.0-16.0); LYMPHOCYTES # 2.3 10^3/ul (0.8-2.9); LYMPHOCYTES % 11.2 % (15.0-51.0); MEAN CORPUSCULAR HEMOGLOBIN 27.7 pg (29.0-33.0); MEAN CORPUSCULAR HGB CONC 32.4 g/dl (32.0-37.0); MEAN CORPUSCULAR VOLUME 85.7 fl (82.0-101.0); MEAN PLATELET VOLUME 9.7 fl (7.4-10.4); MONOCYTE # 1.2 10^3/ul (0.3-0.9); MONOCYTES % 5.8 % (0.0-11.0); NEUTROPHILS % 78.1 % (39.0-77.0); PLATELET COUNT 392 10^3/UL (140-415); RED BLOOD COUNT 3.64 10^6/ul (4.20-5.40); RED CELL DISTRIBUTION WIDTH 15.8 % (11.5-14.5); WHITE BLOOD COUNT 20.5 10^3/ul (4.8-10.8)
[2016-11-26] MEDS: HEPARIN 5,000 UNIT/0.5 ML SYG SC SCH ×3 (06:18→22:12)
[2016-11-26 06:57] LABS: ALBUMIN 2.7 g/dl (3.3-4.9); POTASSIUM 3.4 mmol/L (3.5-5.1)
[2016-11-26 06:59] LABS: CREATININE 1.14 mg/dl (0.44-1.00)
[2016-11-26 07:00] LABS: CALCIUM 8.9 mg/dl (8.4-10.2); PHOSPHORUS 2.7 mg/dl (2.5-4.9)
[2016-11-26] MEDS: POLYETHYLENE GLYCOL 17 GM PACKET PO SCH (09:00)
[2016-11-26] MEDS: CLOPIDOGREL 75 MG TAB PO SCH ×2 (09:16→14:22)
[2016-11-26] MEDS: ASCORBIC ACID 500 MG TAB PO SCH ×2 (09:16→21:08)
[2016-11-26] MEDS: CALCIUM CARBONATE 500 MG CHEW TAB PO SCH ×2 (09:16→21:09)
[2016-11-26] MEDS: TAMSULOSIN (SR) 0.4 MG CAP PO SCH (09:16)
[2016-11-26] MEDS ORDERED: POTASSIUM CHLORIDE 250 ML IVPB ONE (11:30)
[2016-11-26] MEDS: CEFTRIAXONE 1 GM/50 ML (PMX) 50 ML IVPB SCH (12:14)
--- NOTE | 2016-11-26 12:25 | CONS ---
Date/Time of Note Date/Time of Note DATE: 11/26/16 TIME: 12:24 Assessment/Plan Assessment/Plan Additional Assessment/Plan 1. Acute kidney injury due to obstructive uropathy with Prerenal azotemia 2. Acute urinary tract infection. 2. Acute obstructive uropathy causing blockage of her ureters. The patient had a 10 mm stone in the right proximal ureter and a 12 mm stone in the right distal ureter causing intractable abdominal pain. 3. Bilateral nephrolithiasis with a small renal cyst. 4. Right atrophic kidney with cortical thinning. 5. Intractable abdominal pain. 6. History of hypertension. 7. History of hyperlipidemia. 8. History of vitamin D deficiency. 9. History of previous coronary artery disease, has been on Plavix. PLAN: s/p cystoscopy with laser lithotripsy and Stent placement Cr 1.14- still has hematuria, Urology following Expecting creatinine to improve with Relieve of obstruction and improvement in retention will continue to fllow up on patient Consultation Date/Type/Reason Admit Date/Time Nov 16, 2016 at 10:29 Initial Consult Date november Type of Consultation: NEPHROLOGY Referring Provider: PARVIN KELLY MD 24 HR Interval Summary Free Text/Dictation pt still has hematuria, Cr 1.14 Exam/Review of Systems Vital Signs Vitals Vital Signs Date Time Temp Pulse Resp B/P Pulse Ox O2 Delivery O2 Flow Rate FiO2 11/26/16 11:19 98.4 96 18 166/69 94 11/26/16 09:01 Nasal Cannula 2.0 11/26/16 05:56 21 Intake and Output 11/25/16 11/25/16 11/26/16 15:00 23:00 07:00 Intake Total 950 ml 240 ml Output Total 100 ml Balance 950 ml 140 ml Exam No apparent distress Constitutional: alert, obese, oriented Head: normocephalic Neck: supple Respiratory: other (Coarse breath sounds bilaterally, no wheezing) Cardiovascular: other (S1-S2 heard), regular rate and rhythm Gastrointestinal: bowel sounds, non-tender, soft Extremities: edema (Trace) Results Result Diagram: 11/26/1631 11/26/1631 Results 24 hrs Laboratory Tests Test 11/26/16 05:31 Albumin 2.7 L Anion Gap 13 Basophils # 0.1 Basophils % 0.3 Blood Urea Nitrogen 15 Calcium Level 8.9 Carbon Dioxide Level 30 Chloride Level 103 Creatinine 1.14 H Eosinophils # 0.1 Eosinophils % 0.2 Glucose Level 78 Hematocrit 31.2 L Hemoglobin 10.1 L Lymphocytes # 2.3 Lymphocytes % 11.2 L Mean Corpuscular Hemoglobin 27.7 L Mean Corpuscular Hemoglobin Concent 32.4 Mean Corpuscular Volume 85.7 Mean Platelet Volume 9.7 Monocytes # 1.2 H Monocytes % 5.8 Neutrophils # 16.0 H Neutrophils % 78.1 H Nucleated Red Blood Cells # 0.0 Nucleated Red Blood Cells % 0.0 Phosphorus Level 2.7 Platelet Count 392 Potassium Level 3.4 L Red Blood Count 3.64 L Red Cell Distribution Width 15.8 H Sodium Level 143 White Blood Count 20.5 H Medications Medications Current Medications Morphine Sulfate (morphine) 4 mg Q4H PRN IV pain Last administered on 11/21/16 15:01; Admin Dose 2 MG; Start 11/16/16 at 08:00 Tamsulosin HCl (Flomax) 0.4 mg DAILY PO Last administered on 11/26/16 09:16; Admin Dose 0.4 MG; Start 11/16/16 at 08:00 Ondansetron HCl (Zofran Inj) 4 mg Q4H PRN IV NAUSEA AND/OR VOMITING; Start 11/16 at 10:00 Calcium Carbonate (Tums) 500 mg BID PO Last administered on 11/26/16 09:16; Admin Dose 500 MG; Start 11/16/16 at 11:00 Polyethylene Glycol (Miralax) 17 gm DAILY PO Last administered on 11/23/16 08: 49; Admin Dose 17 GM; Start 11/16/16 at 11:00 Ascorbic Acid (Vitamin C) 500 mg BID PO Last administered on 11/26/16 09:16; Admin Dose 500 MG; Start 11/16/16 at 21:00 Atorvastatin Calcium 20 mg 20 mg DAILY@21 PO Last administered on 11/25/16 21: 26; Admin Dose 20 MG; Start 11/16/16 at 21:00 Ceftriaxone Sodium (Rocephin) 50 ml @ 100 mls/hr Q24H IVPB Last administered on 11/26/16 12:14; Admin Dose 100 MLS/HR; Start 11/17/16 at 12:30 Acetaminophen/ Hydrocodone Bitart ([place] (5/325)) 1 tab Q4H PRN PO PAIN Last administered on 11/18/16 10:39; Admin Dose 1 TAB; Start 11/18/16 at 10:30 Acetaminophen (Tylenol Tab) 650 mg Q6H PRN PO PAIN AND OR ELEVATED TEMP Last administered on 11/25/16 22:13; Admin Dose 650 MG; Start 11/19/16 at 21:00 Hydralazine HCl (Apresoline) 10 mg Q4H PRN IV ELEVATED BLOOD PRESSURE Last administered on 11/25/16 05:30; Admin Dose 10 MG; Start 11/21/16 at 21:00 Clopidogrel Bisulfate (plaVIX) 75 mg DAILY PO Last administered on 11/26/16 09 :16; Admin Dose 75 MG; Start 11/23/16 at 09:00 Heparin Sodium (Porcine) 5000 unit 5,000 unit Q8 SC Last administered on 06:18; Admin Dose 5,000 UNIT; Start 11/22/16 at 22:00 Azithromycin (Zithromax 500mg/ NS (Pmx)) 250 ml @ 250 mls/hr Q24H IVPB Last administered on 11/25/16 15:54; Admin Dose 250 MLS/HR; Start 11/25/16 at 15:00 Pantoprazole 40 mg 40 mg DAILY PO ; Start 11/27/16 at 09:00 Potassium Chloride (KCl 40 MEQ/250 ML NS) 250 ml @ 62.5 mls/hr ONCE ONCE IVPB ; Start 11/26/16 at 11:30; Stop 11/26/16 at 15:29 LIZZ SALCEDO MD Nov 26, 2016 12:25
--- NOTE | 2016-11-26 14:07 | PN ---
DATE: 11/26/2016 SUBJECTIVE: Right renal stone. Patient status post right ureteroscopy and removal of distal right ureteral stone and insertion of right ureteral JJ stent. The patient herself states that she is fee ling better. She has no pain and she is urinating well. OBJECTIVE: VITAL SIGNS: Her temperature is 98.4, blood pressure 166/69. The pulse is 93 and respiration is 18 . HISTORY OF PRESENT ILLNESS: The patient was checked yesterday for a postvoid residual after she voi ded. The patient voided and straight catheterization was done by the nurse, 150 mL were drained and urine was sent for culture. The reason we did that because the patient still has leukocytosis, whi ch we do not have any explanation for it. Therefore, thought to make sure that she has no infection . LABORATORY DATA: In fact, today her CBC shows a white count that is even higher. It went up from 1 9.5 yesterday to 20.5 today. Her hemoglobin is 10.1, hematocrit 31.2. The BUN is 15, creatinine is 1.14, sodium 143, potassium 3.4, chloride 103, CO2 of 30. MEDICATIONS: 1. Pantoprazole. 2. Potassium chloride. 3. Lasix. 4. Albuterol. 5. Azithromycin. 6. Plavix. 7. Aspirin. 8. Subq heparin. I did discuss her leukocytosis with Dr. Hallman and the patient could still have a DVT and therefore we are going to order a lower extremity venous Doppler study to rule out any DVT. Dictated By: DEVAUGHN ESCALANTE/BOBBI Conf#: [id number] DID#: [id number]
[2016-11-26] MEDS: hydrALAzine 20 MG INJ IV PRN (17:14)
[2016-11-26] MEDS: ACETAMINOPHEN 325 MG TAB PO PRN (17:56)
[2016-11-26] MEDS: AZITHROMYCIN 500MG/NS (PMX) 250 ML IVPB SCH (17:56)
--- NOTE | 2016-11-26 17:57 | PN ---
Date/Time of Note Date/Time of Note DATE: 11/26/16 TIME: 17:47 Assessment/Plan VTE Prophylaxis VTE Prophylaxis Intervention: heparin Lines/Catheters IV [facility] Type [facility]from [facility] Saline Lock Urinary Cath still in place: No Assessment/Plan Assessment/Plan 1. Right-sided obstructive uropathy s/p Cystoscopy with laser lithotripsy to the distal right ureteral stone and then insertion of right ureteral JJ stent 11/17/16 cont Flomax, KUB shows R sided stone, pt will need another Lithotripsy at some point, planned for outpt in 1 month 2. Sepsis secondary to right-sided pyelonephritis- cont Rocephin 3. Elevated trops: likely 2/2 HTN versus CHF: resolved 4. Mild CHF acute / diastolic Commenced on gentle diuresis 2/2 poor renal function 5. Debility 2/2 Morbid Obesity and cerebrovascular accident with right-sided deficit pt has In home support, CM to provide pt info regarding med transport for doctors visits 6. Hypertension. Well-controlled on medical management 6. CALI 2/2 Nephrolithiasis- Improving now post lithotripsy, cont IVF DISPO: Elevated WBC count still concerning without obvious source / f/u repeat cultures / eval for occult DVT Abx coverage was broadened yesterday continue gentle diuresis, renal function remains stable Continue scheduled bronchodilator therapy Continue supportive care PPx- SCD's Subjective 24 Hr Interval Summary Free Text/Dictation Patient seen and examined. no new issues spoke with patient and daughter at bedside Spoke with urology Having some intermittent mild back pain Exam/Review of Systems Vital Signs Vitals Vital Signs Date Time Temp Pulse Resp B/P Pulse Ox O2 Delivery O2 Flow Rate FiO2 11/26/16 17:33 90 20 96 21 11/26/16 15:52 98.6 169/80 11/26/16 09:01 Nasal Cannula 2.0 Intake and Output 11/25/16 11/25/16 11/26/16 14:59 22:59 06:59 Intake Total 950 ml 240 ml Output Total 100 ml Balance 950 ml 140 ml Exam Constitutional: alert, no distress, frail, obese, oriented Psych: nl mood/affect Head: atraumatic, normocephalic Eyes: PERRL, No icteric Neck: No jvd Respiratory: crackles/rales, diminished breath sounds, No wheezing Cardiovascular: regular rate and rhythm, No murmurs/extra sounds Gastrointestinal: bowel sounds, non-tender, soft Extremities: No edema Neurological: nl mental status, nl speech, other (chronically bedbound for years) Results Result Diagram: 11/26/1631 11/26/16 0531 Results 24 hrs Laboratory Tests Test 11/26/16 05:31 Albumin 2.7 L Anion Gap 13 Basophils # 0.1 Basophils % 0.3 Blood Urea Nitrogen 15 Calcium Level 8.9 Carbon Dioxide Level 30 Chloride Level 103 Creatinine 1.14 H Eosinophils # 0.1 Eosinophils % 0.2 Glucose Level 78 Hematocrit 31.2 L Hemoglobin 10.1 L Lymphocytes # 2.3 Lymphocytes % 11.2 L Mean Corpuscular Hemoglobin 27.7 L Mean Corpuscular Hemoglobin Concent 32.4 Mean Corpuscular Volume 85.7 Mean Platelet Volume 9.7 Monocytes # 1.2 H Monocytes % 5.8 Neutrophils # 16.0 H Neutrophils % 78.1 H Nucleated Red Blood Cells # 0.0 Nucleated Red Blood Cells % 0.0 Phosphorus Level 2.7 Platelet Count 392 Potassium Level 3.4 L Red Blood Count 3.64 L Red Cell Distribution Width 15.8 H Sodium Level 143 White Blood Count 20.5 H Medications Medications Current Medications Morphine Sulfate (morphine) 4 mg Q4H PRN IV pain Last administered on 11/21/16 15:01; Admin Dose 2 MG; Start 11/16/16 at 08:00 Tamsulosin HCl (Flomax) 0.4 mg DAILY PO Last administered on 11/26/16 09:16; Admin Dose 0.4 MG; Start 11/16/16 at 08:00 Ondansetron HCl (Zofran Inj) 4 mg Q4H PRN IV NAUSEA AND/OR VOMITING; Start 11/16 at 10:00 Calcium Carbonate (Tums) 500 mg BID PO Last administered on 11/26/16 09:16; Admin Dose 500 MG; Start 11/16/16 at 11:00 Polyethylene Glycol (Miralax) 17 gm DAILY PO Last administered on 11/23/16 08: 49; Admin Dose 17 GM; Start 11/16/16 at 11:00 Ascorbic Acid (Vitamin C) 500 mg BID PO Last administered on 11/26/16 09:16; Admin Dose 500 MG; Start 11/16/16 at 21:00 Atorvastatin Calcium 20 mg 20 mg DAILY@21 PO Last administered on 11/25/16 21: 26; Admin Dose 20 MG; Start 11/16/16 at 21:00 Ceftriaxone Sodium (Rocephin) 50 ml @ 100 mls/hr Q24H IVPB Last administered on 11/26/16 12:14; Admin Dose 100 MLS/HR; Start 11/17/16 at 12:30 Acetaminophen/ Hydrocodone Bitart ([place] (5/325)) 1 tab Q4H PRN PO PAIN Last administered on 11/18/16 10:39; Admin Dose 1 TAB; Start 11/18/16 at 10:30 Acetaminophen (Tylenol Tab) 650 mg Q6H PRN PO PAIN AND OR ELEVATED TEMP Last administered on 11/25/16 22:13; Admin Dose 650 MG; Start 11/19/16 at 21:00 Hydralazine HCl (Apresoline) 10 mg Q4H PRN IV ELEVATED BLOOD PRESSURE Last administered on 11/26/16 17:14; Admin Dose 10 MG; Start 11/21/16 at 21:00 Clopidogrel Bisulfate (plaVIX) 75 mg DAILY PO Last administered on 11/26/16 14 :22; Admin Dose 75 MG; Start 11/23/16 at 09:00 Heparin Sodium (Porcine) 5000 unit 5,000 unit Q8 SC Last administered on 14:25; Admin Dose 5,000 UNIT; Start 11/22/16 at 22:00 Azithromycin (Zithromax 500mg/ NS (Pmx)) 250 ml @ 250 mls/hr Q24H IVPB Last administered on 11/25/16 15:54; Admin Dose 250 MLS/HR; Start 11/25/16 at 15:00 Pantoprazole (Protonix Tab) 40 mg DAILY PO ; Start 11/27/16 at 09:00 RONDA MOY Nov 26, 2016 17:57
[2016-11-26] MEDS: LEVOFLOXACIN 750MG/D5W (PMX) 150 ML IVPB SCH (18:44)
[2016-11-26] MEDS: ATORVASTATIN 20 MG TAB PO SCH (21:08)
[2016-11-27] VITALS (12 sets, daily range): BP systolic 135–144; BP diastolic 57–66; PULSE 94–103; RESP 17–20
[2016-11-27] MEDS: ALBUTEROL 0.083% (NEB) 2.5 MG/3 ML AMP HHN SCH ×6 (00:41→20:57)
[2016-11-27] MEDS: HEPARIN 5,000 UNIT/0.5 ML SYG SC SCH ×3 (05:54→21:45)
[2016-11-27] MEDS: FUROSEMIDE 20 MG TAB PO SCH ×2 (05:55→17:55)
[2016-11-27 05:58] LABS: ADD SCAN DIFF NO
[2016-11-27 06:11] LABS: BASOPHILS % 0.3 % (0.0-2.0); EOSINOPHILS % 0.1 % (0.0-7.0); HEMATOCRIT 31.6 % (37.0-47.0); HEMOGLOBIN 10.2 g/dl (12.0-16.0); LYMPHOCYTES # 2.2 10^3/ul (0.8-2.9); LYMPHOCYTES % 13.5 % (15.0-51.0); MEAN CORPUSCULAR HEMOGLOBIN 27.6 pg (29.0-33.0); MEAN CORPUSCULAR HGB CONC 32.3 g/dl (32.0-37.0); MEAN CORPUSCULAR VOLUME 85.6 fl (82.0-101.0); MEAN PLATELET VOLUME 9.7 fl (7.4-10.4); MONOCYTE # 0.9 10^3/ul (0.3-0.9); MONOCYTES % 5.6 % (0.0-11.0); NEUTROPHIL # 12.2 10^3/ul (1.6-7.5); NEUTROPHILS % 76.6 % (39.0-77.0); NUCLEATED RED BLOOD CELLS% 0.1 /100WBC (0.0-0.0); PLATELET COUNT 433 10^3/UL (140-415); RED BLOOD COUNT 3.69 10^6/ul (4.20-5.40); RED CELL DISTRIBUTION WIDTH 15.8 % (11.5-14.5)
[2016-11-27 06:50] LABS: ALBUMIN 2.7 g/dl (3.3-4.9); POTASSIUM 3.8 mmol/L (3.5-5.1)
[2016-11-27 06:52] LABS: CREATININE 1.04 mg/dl (0.44-1.00)
[2016-11-27 06:53] LABS: CALCIUM 8.8 mg/dl (8.4-10.2); PHOSPHORUS 2.4 mg/dl (2.5-4.9)
--- NOTE | 2016-11-27 09:39 | PN ---
Date/Time of Note Date/Time of Note DATE: 11/27/16 TIME: 09:38 Assessment/Plan VTE Prophylaxis VTE Prophylaxis Intervention: heparin Lines/Catheters IV Catheter Type (from Nrs): Saline Lock Urinary Cath still in place: No Assessment/Plan Assessment/Plan 81 yo F manaaged for 1. Right-sided obstructive uropathy s/p Cystoscopy with laser lithotripsy to the distal right ureteral stone and then insertion of right ureteral JJ stent 11/17/16 cont Flomax, KUB shows R sided stone, pt will need another Lithotripsy at some point, planned for outpt in 1 month 2. Sepsis secondary to right-sided pyelonephritis- improved cont Rocephin 3. Elevated trops: likely 2/2 HTN versus CHF: resolved 4. Mild CHF acute / diastolic Commenced on gentle diuresis 2/2 poor renal function 5. Debility 2/2 Morbid Obesity and cerebrovascular accident with right-sided deficit pt has In home support, CM to provide pt info regarding med transport for doctors visits 6. Hypertension. Well-controlled on medical management 6. CALI 2/2 Nephrolithiasis- Improving now post lithotripsy, cont IVF DISPO: WBC count is improving/ repeat cultures negative Continue current abx / patient is responding well continue gentle diuresis, renal function remains stable Continue scheduled bronchodilator therapy Continue supportive care Mobilization with PT PPx- SCD's / heparin Subjective 24 Hr Interval Summary Free Text/Dictation no new complaints Nursing reports no acute overnight events. remains stable Exam/Review of Systems Vital Signs Vitals Vital Signs Date Time Temp Pulse Resp B/P Pulse Ox O2 Delivery O2 Flow Rate FiO2 11/27/16 09:10 Nasal Cannula 2.0 11/27/16 08:22 88 20 11/27/16 08:22 21 11/27/16 07:47 98.0 140/64 98 Intake and Output 11/26/16 11/26/16 11/27/16 15:00 23:00 07:00 Intake Total 820 ml 200 ml Balance 820 ml 200 ml Exam Constitutional: alert, no distress, frail, obese, oriented Psych: nl mood/affect Head: atraumatic, normocephalic Eyes: PERRL, No icteric Neck: No jvd Respiratory: crackles/rales, diminished breath sounds, No wheezing Cardiovascular: regular rate and rhythm, No murmurs/extra sounds Gastrointestinal: bowel sounds, non-tender, soft Extremities: No edema Neurological: nl mental status, nl speech, other (chronically bedbound for years) Results Result Diagram: 11/27/1652411/27/1625 Results 24 hrs Laboratory Tests Test 11/27/16 05:25 Albumin 2.7 L Anion Gap 13 Basophils # 0.0 Basophils % 0.3 Blood Urea Nitrogen 14 Calcium Level 8.8 Carbon Dioxide Level 29 Chloride Level 103 Creatinine 1.04 H Eosinophils # 0.0 Eosinophils % 0.1 Glucose Level 71 Hematocrit 31.6 L Hemoglobin 10.2 L Lymphocytes # 2.2 Lymphocytes % 13.5 L Mean Corpuscular Hemoglobin 27.6 L Mean Corpuscular Hemoglobin Concent 32.3 Mean Corpuscular Volume 85.6 Mean Platelet Volume 9.7 Monocytes # 0.9 Monocytes % 5.6 Neutrophils # 12.2 H Neutrophils % 76.6 Nucleated Red Blood Cells # 0.0 Nucleated Red Blood Cells % 0.1 H Phosphorus Level 2.4 L Platelet Count 433 H Potassium Level 3.8 Red Blood Count 3.69 L Red Cell Distribution Width 15.8 H Sodium Level 141 White Blood Count 16.0 #H Medications Medications Current Medications Morphine Sulfate (morphine) 4 mg Q4H PRN IV pain Last administered on 11/21/16 15:01; Admin Dose 2 MG; Start 11/16/16 at 08:00 Tamsulosin HCl (Flomax) 0.4 mg DAILY PO Last administered on 11/26/16 09:16; Admin Dose 0.4 MG; Start 11/16/16 at 08:00 Ondansetron HCl (Zofran Inj) 4 mg Q4H PRN IV NAUSEA AND/OR VOMITING; Start 11/16 at 10:00 Calcium Carbonate (Tums) 500 mg BID PO Last administered on 11/26/16 21:09; Admin Dose 500 MG; Start 11/16/16 at 11:00 Polyethylene Glycol (Miralax) 17 gm DAILY PO Last administered on 11/23/16 08: 49; Admin Dose 17 GM; Start 11/16/16 at 11:00 Ascorbic Acid (Vitamin C) 500 mg BID PO Last administered on 11/26/16 21:08; Admin Dose 500 MG; Start 11/16/16 at 21:00 Atorvastatin Calcium (Lipitor) 20 mg DAILY@21 PO Last administered on 21:08; Admin Dose 20 MG; Start 11/16/16 at 21:00 Acetaminophen/ Hydrocodone Bitart ([place] (5/325)) 1 tab Q4H PRN PO PAIN Last administered on 11/18/16 10:39; Admin Dose 1 TAB; Start 11/18/16 at 10:30 Acetaminophen (Tylenol Tab) 650 mg Q6H PRN PO PAIN AND OR ELEVATED TEMP Last administered on 11/26/16 17:56; Admin Dose 650 MG; Start 11/19/16 at 21:00 Hydralazine HCl (Apresoline) 10 mg Q4H PRN IV ELEVATED BLOOD PRESSURE Last administered on 11/26/16 17:14; Admin Dose 10 MG; Start 11/21/16 at 21:00 Clopidogrel Bisulfate (plaVIX) 75 mg DAILY PO Last administered on 11/26/16 14 :22; Admin Dose 75 MG; Start 11/23/16 at 09:00 Heparin Sodium (Porcine) (Heparin (5000 Units/0.5 ml)) 5,000 unit Q8 SC Last administered on 11/27/16 05:54; Admin Dose 5,000 UNIT; Start 11/22/16 at 22:00 Pantoprazole 40 mg 40 mg DAILY PO ; Start 11/27/16 at 09:00 Levofloxacin/ Dextrose 150 ml @ 100 mls/hr Q24H IVPB Last administered on 11/26 18:44; Admin Dose 100 MLS/HR; Start 11/26/16 at 18:00 Potassium Phosphate/Sodium Chloride (K Phos (Mm)/NS) 255 ml @ 63.75 mls/ hr ONCE ONCE IVPB ; Start 11/27/16 at 10:30; Stop 11/27/16 at 14:29 Procedures Procedures No DVT in 4 extremities RONDA MOY Nov 27, 2016 09:39
[2016-11-27] MEDS: CLOPIDOGREL 75 MG TAB PO SCH (10:14)
[2016-11-27] MEDS: POLYETHYLENE GLYCOL 17 GM PACKET PO SCH (10:14)
[2016-11-27] MEDS: ASCORBIC ACID 500 MG TAB PO SCH ×2 (10:14→21:13)
[2016-11-27] MEDS: TAMSULOSIN (SR) 0.4 MG CAP PO SCH (10:14)
[2016-11-27] MEDS: PANTOPRAZOLE (EC) 40 MG TAB PO SCH (10:15)
[2016-11-27] MEDS: CALCIUM CARBONATE 500 MG CHEW TAB PO SCH ×2 (10:15→21:12)
[2016-11-27] MEDS ORDERED: POTASSIUM PHOSPHATE 15 MM in SOD CHLORIDE 0.9% 250 ML IVPB ONE (10:30)
--- NOTE | 2016-11-27 11:43 | RADRPT ---
PROCEDURE: US bilateral upper extremity veins. CLINICAL INDICATION: Bilateral upper extremity pain and swelling. TECHNIQUE: Multiple longitudinal and transverse images of the bilateral upper extremity venous dominga e was obtained with thrasher scale and color Doppler imaging. COMPARISON: None available FINDINGS: The internal jugular, subclavian, axillary, brachial, basilic, cephalic, radial, and ulnar veins are patent bilaterally. There is normal flow with augmentation and compressibility throughout. There i s no thrombus or occlusion. IMPRESSION: 1. Normal venous system of the upper extremities. No evidence of thrombus or occlusion. RPTAT: QQ .Rasahd Dodge MD, MD Date Time Electronically viewed and signed by .Rashad Dodge MD, MD on 11/27/2016 11:42 .R/
--- NOTE | 2016-11-27 11:57 | RADRPT ---
PROCEDURE: US Lower extremity Venous. CLINICAL INDICATION: Rule out DVT TECHNIQUE: Multiple sonographic images of the bilateral lower extremity deep venous system was obt ained utilizing grayscale, color-flow, compressive sonography and doppler imaging with augmentation. The images were reviewed on a PACS workstation. COMPARISON: None. FINDINGS: There is normal compressibility and flow within the bilateral common femoral, deep femoral, superfic ial femoral and popliteal veins. The deep veins the calf were incompletely visualized. IMPRESSION: No sonographic evidence for deep venous thrombosis in the bilateral lower extremities. Physician Mary Kay Date Time Electronically viewed and signed by Physician Mary Kay on 11/27/2016 11:57 ML/
[2016-11-27] MEDS: LEVOFLOXACIN 750MG/D5W (PMX) 150 ML IVPB SCH (17:55)
[2016-11-27] MEDS: ATORVASTATIN 20 MG TAB PO SCH (21:13)
[2016-11-27] MEDS: ACETAMINOPHEN 325 MG TAB PO PRN (21:41)
--- NOTE | 2016-11-27 21:41 | PN ---
DATE: 11/27/2016 SUBJECTIVE: The patient has no complaint of pain and no symptoms that she complains of, but she sta mercy that she does not move her bowels unless she takes bowel softener. She denies having any diarrh ea, but she says that she has to have loose bowel movement to be able to move them. OBJECTIVE: VITAL SIGNS: Temperature is 97.9, pulse 98, respirations 20, blood pressure 142/62. ABDOMEN: Obese. There is no abdominal mass palpable. The patient is voiding on her own. The postvoid residual has been checked before and was about 150 mL. LABORATORY DATA AND IMAGING: The urine culture, no growth after 48 hours. She did have venous stud ies of both upper and lower extremities to check for any DVT and the studies were negative. The sanjay son for her studies is that her white count is high at 16,000 and the hemoglobin is 10.2, hematocrit 31.6. BUN is 14, creatinine 1.04. IMPRESSION: Status post removal of distal right ureteral stone and the patient still has 1 right up per/renal stone. She does have the JJ stent in. The patient did have a urinary tract infection and pyelonephritis. PLAN: To continue the IV antibiotics. The plan is to remove her other kidney stone in early December. She will be readmitted for that later on. Dictated By: DEVAUGHN MCNALLY MD BB/BOBBI Conf#: [id number] DID#: [id number] CC: PARVIN KELLY MD;*EndCC*
--- NOTE | 2016-11-27 22:27 | CONS ---
Date/Time of Note Date/Time of Note DATE: 11/27/16 TIME: 22:26 Assessment/Plan Assessment/Plan Additional Assessment/Plan 1. Acute kidney injury due to obstructive uropathy with Prerenal azotemia 2. Acute urinary tract infection. 2. Acute obstructive uropathy causing blockage of her ureters. The patient had a 10 mm stone in the right proximal ureter and a 12 mm stone in the right distal ureter causing intractable abdominal pain. 3. Bilateral nephrolithiasis with a small renal cyst. 4. Right atrophic kidney with cortical thinning. 5. Intractable abdominal pain. 6. History of hypertension. 7. History of hyperlipidemia. 8. History of vitamin D deficiency. 9. History of previous coronary artery disease, has been on Plavix. PLAN: s/p cystoscopy with laser lithotripsy and Stent placement Cr 1.04- still has hematuria, Urology following Expecting creatinine to improve with Relieve of obstruction and improvement in retention will continue to fllow up on patient Consultation Date/Type/Reason Admit Date/Time Nov 16, 2016 at 10:29 Initial Consult Date november Type of Consultation: NEPHROLOGY Referring Provider: PARVIN KELLY MD 24 HR Interval Summary Free Text/Dictation Cr 1.04, albumin low Exam/Review of Systems Vital Signs Vitals Vital Signs Date Time Temp Pulse Resp B/P Pulse Ox O2 Delivery O2 Flow Rate FiO2 11/27/16 20:09 98 11/27/16 20:01 97.9 20 143/62 99 11/27/16 20:00 Nasal Cannula 2.0 11/27/16 17:52 21 Intake and Output 11/26/16 11/26/16 11/27/16 15:00 23:00 07:00 Intake Total 820 ml 200 ml Balance 820 ml 200 ml Results Result Diagram: 11/27/16 0525 11/27/16 0525 Results 24 hrs Laboratory Tests Test 11/27/16 05:25 Albumin 2.7 L Anion Gap 13 Basophils # 0.0 Basophils % 0.3 Blood Urea Nitrogen 14 Calcium Level 8.8 Carbon Dioxide Level 29 Chloride Level 103 Creatinine 1.04 H Eosinophils # 0.0 Eosinophils % 0.1 Glucose Level 71 Hematocrit 31.6 L Hemoglobin 10.2 L Lymphocytes # 2.2 Lymphocytes % 13.5 L Mean Corpuscular Hemoglobin 27.6 L Mean Corpuscular Hemoglobin Concent 32.3 Mean Corpuscular Volume 85.6 Mean Platelet Volume 9.7 Monocytes # 0.9 Monocytes % 5.6 Neutrophils # 12.2 H Neutrophils % 76.6 Nucleated Red Blood Cells # 0.0 Nucleated Red Blood Cells % 0.1 H Phosphorus Level 2.4 L Platelet Count 433 H Potassium Level 3.8 Red Blood Count 3.69 L Red Cell Distribution Width 15.8 H Sodium Level 141 White Blood Count 16.0 #H Medications Medications Current Medications Morphine Sulfate (morphine) 4 mg Q4H PRN IV pain Last administered on 11/21/16 15:01; Admin Dose 2 MG; Start 11/16/16 at 08:00 Tamsulosin HCl (Flomax) 0.4 mg DAILY PO Last administered on 11/27/16 10:14; Admin Dose 0.4 MG; Start 11/16/16 at 08:00 Ondansetron HCl (Zofran Inj) 4 mg Q4H PRN IV NAUSEA AND/OR VOMITING Last administered on 11/27/16 21:35; Admin Dose 4 MG; Start 11/16/16 at 10:00 Calcium Carbonate (Tums) 500 mg BID PO Last administered on 11/27/16 21:12; Admin Dose 500 MG; Start 11/16/16 at 11:00 Polyethylene Glycol (Miralax) 17 gm DAILY PO Last administered on 11/27/16 10: 14; Admin Dose 17 GM; Start 11/16/16 at 11:00 Ascorbic Acid (Vitamin C) 500 mg BID PO Last administered on 11/27/16 21:13; Admin Dose 500 MG; Start 11/16/16 at 21:00 Atorvastatin Calcium (Lipitor) 20 mg DAILY@21 PO Last administered on 21:13; Admin Dose 20 MG; Start 11/16/16 at 21:00 Acetaminophen/ Hydrocodone Bitart ([place] (5/325)) 1 tab Q4H PRN PO PAIN Last administered on 11/18/16 10:39; Admin Dose 1 TAB; Start 11/18/16 at 10:30 Acetaminophen (Tylenol Tab) 650 mg Q6H PRN PO PAIN AND OR ELEVATED TEMP Last administered on 11/27/16 21:41; Admin Dose 650 MG; Start 11/19/16 at 21:00 Hydralazine HCl (Apresoline) 10 mg Q4H PRN IV ELEVATED BLOOD PRESSURE Last administered on 11/26/16 17:14; Admin Dose 10 MG; Start 11/21/16 at 21:00 Clopidogrel Bisulfate (plaVIX) 75 mg DAILY PO Last administered on 11/27/16 10 :14; Admin Dose 75 MG; Start 11/23/16 at 09:00 Heparin Sodium (Porcine) (Heparin (5000 Units/0.5 ml)) 5,000 unit Q8 SC Last administered on 11/27/16 21:45; Admin Dose 5,000 UNIT; Start 11/22/16 at 22:00 Pantoprazole 40 mg 40 mg DAILY PO Last administered on 11/27/16 10:15; Admin Dose 40 MG; Start 11/27/16 at 09:00 Levofloxacin/ Dextrose (Levaquin 750 Mg/ D5W 150 ml (Pmx)) 150 ml @ 100 mls/hr Q24H IVPB Last administered on 11/27/16 17:55; Admin Dose 100 MLS/HR; Start at 18:00 LIZZ SALCEDO MD Nov 27, 2016 22:27
[2016-11-28] VITALS (13 sets, daily range): BP systolic 110–180; BP diastolic 48–81; PULSE 93–99; RESP 18–20
[2016-11-28] MEDS: ALBUTEROL 0.083% (NEB) 2.5 MG/3 ML AMP HHN SCH ×6 (01:00→20:17)
[2016-11-28] MEDS: ALBUTEROL/IPRATROPIUM (NEB) 3 ML AMP HHN PRN (04:53)
[2016-11-28] MEDS: FUROSEMIDE 20 MG TAB PO SCH (05:54)
[2016-11-28] MEDS: HEPARIN 5,000 UNIT/0.5 ML SYG SC SCH ×3 (06:00→21:11)
[2016-11-28 07:06] LABS: ADD SCAN DIFF NO
[2016-11-28 07:18] LABS: BASOPHIL # 0.1 10^3/ul (0.0-0.1); BASOPHILS % 0.3 % (0.0-2.0); EOSINOPHILS % 0.3 % (0.0-7.0); HEMATOCRIT 31.3 % (37.0-47.0); LYMPHOCYTES # 3.4 10^3/ul (0.8-2.9); LYMPHOCYTES % 23.2 % (15.0-51.0); MEAN CORPUSCULAR HEMOGLOBIN 27.2 pg (29.0-33.0); MEAN CORPUSCULAR HGB CONC 31.9 g/dl (32.0-37.0); MEAN CORPUSCULAR VOLUME 85.3 fl (82.0-101.0); MEAN PLATELET VOLUME 9.7 fl (7.4-10.4); MONOCYTES % 6.9 % (0.0-11.0); NEUTROPHIL # 9.8 10^3/ul (1.6-7.5); PLATELET COUNT 490 10^3/UL (140-415); RED BLOOD COUNT 3.67 10^6/ul (4.20-5.40); RED CELL DISTRIBUTION WIDTH 15.6 % (11.5-14.5); WHITE BLOOD COUNT 14.8 10^3/ul (4.8-10.8)
[2016-11-28 07:38] LABS: ALBUMIN 2.8 g/dl (3.3-4.9)
[2016-11-28 07:39] LABS: POTASSIUM 3.5 mmol/L (3.5-5.1)
[2016-11-28 07:41] LABS: CREATININE 1.1 mg/dl (0.44-1.00)
[2016-11-28 07:42] LABS: CALCIUM 9.1 mg/dl (8.4-10.2); PHOSPHORUS 2.6 mg/dl (2.5-4.9)
[2016-11-28] MEDS: CALCIUM CARBONATE 500 MG CHEW TAB PO SCH ×3 (08:17→20:59)
[2016-11-28] MEDS: ASCORBIC ACID 500 MG TAB PO SCH ×2 (08:17→20:59)
[2016-11-28] MEDS: PANTOPRAZOLE (EC) 40 MG TAB PO SCH (08:17)
[2016-11-28] MEDS: TAMSULOSIN (SR) 0.4 MG CAP PO SCH (08:17)
[2016-11-28] MEDS: CLOPIDOGREL 75 MG TAB PO SCH (08:17)
[2016-11-28] MEDS: hydrALAzine 20 MG INJ IV PRN (08:18)
[2016-11-28] MEDS: POLYETHYLENE GLYCOL 17 GM PACKET PO SCH (09:00)
--- NOTE | 2016-11-28 15:17 | CONS ---
Date/Time of Note Date/Time of Note DATE: 11/28/16 TIME: 15:13 Assessment/Plan Assessment/Plan Additional Assessment/Plan Obstructive uropathy status post surgery History of CVA, on Plavix Acute decompensated diastolic congestive heart failure Preserved ejection fraction Hypertension Dyslipidemia Mildly elevated troponin Acute kidney injury -Patient with symptoms of chest discomfort today while swallowing and eating breakfast and medications. Symptoms have since resolved. Would repeat ECG. Symptoms atypical for cardiac etiology but given risk factors, will check cardiac enzymes. Would start beta-jesus. Continue statin and antiplatelet therapy. Decrease Lasix to daily. Consultation Date/Type/Reason Admit Date/Time Nov 16, 2016 at 10:29 Type of Consultation: cv Referring Provider: PARVIN KELLY MD 24 HR Interval Summary Free Text/Dictation Patient with episode of chest discomfort today. This occurred after swallowing and eating her breakfast as well as medications. Possible associated palpitations. Symptoms resolved after a few minutes. Her shortness of breath is improving. Shortness of breath usually improves after nebulizer treatment. She currently denies any shortness of breath, chest pain. Exam/Review of Systems Vital Signs Vitals Vital Signs Date Time Temp Pulse Resp B/P Pulse Ox O2 Delivery O2 Flow Rate FiO2 11/28/16 12:31 99 11/28/16 11:59 98.4 18 134/48 96 11/28/16 09:01 21 11/28/16 08:00 Nasal Cannula 11/27/16 20:00 2.0 Intake and Output 11/27/16 11/27/16 11/28/16 15:00 23:00 07:00 Intake Total 600 ml 300 ml Balance 600 ml 300 ml Exam No apparent distress Constitutional: alert, obese, oriented Head: normocephalic Neck: supple Respiratory: other (Coarse breath sounds bilaterally, no wheezing) Cardiovascular: other (S1-S2 heard), regular rate and rhythm, systolic murmur Gastrointestinal: bowel sounds, non-tender, other (No guarding), soft Extremities: edema (Trace), other (No cyanosis) Results Result Diagram: 11/28/16 0533 11/28/16 0533 Results 24 hrs Laboratory Tests Test 11/28/16 05:33 Albumin 2.8 L Anion Gap 14 Basophils # 0.1 Basophils % 0.3 Blood Urea Nitrogen 12 Calcium Level 9.1 Carbon Dioxide Level 30 Chloride Level 101 Creatinine 1.10 H Eosinophils # 0.0 Eosinophils % 0.3 Glucose Level 74 Hematocrit 31.3 L Hemoglobin 10.0 L Lymphocytes # 3.4 H Lymphocytes % 23.2 Mean Corpuscular Hemoglobin 27.2 L Mean Corpuscular Hemoglobin Concent 31.9 L Mean Corpuscular Volume 85.3 Mean Platelet Volume 9.7 Monocytes # 1.0 H Monocytes % 6.9 Neutrophils # 9.8 H Neutrophils % 66.0 Nucleated Red Blood Cells # 0.0 Nucleated Red Blood Cells % 0.0 Phosphorus Level 2.6 Platelet Count 490 H Potassium Level 3.5 Red Blood Count 3.67 L Red Cell Distribution Width 15.6 H Sodium Level 141 White Blood Count 14.8 H Medications Medications Current Medications Morphine Sulfate (morphine) 4 mg Q4H PRN IV pain Last administered on 11/21/16 15:01; Admin Dose 2 MG; Start 11/16/16 at 08:00 Tamsulosin HCl (Flomax) 0.4 mg DAILY PO Last administered on 11/28/16 08:17; Admin Dose 0.4 MG; Start 11/16/16 at 08:00 Ondansetron HCl (Zofran Inj) 4 mg Q4H PRN IV NAUSEA AND/OR VOMITING Last administered on 11/27/16 21:35; Admin Dose 4 MG; Start 11/16/16 at 10:00 Calcium Carbonate (Tums) 500 mg BID PO Last administered on 11/27/16 21:12; Admin Dose 500 MG; Start 11/16/16 at 11:00 Polyethylene Glycol (Miralax) 17 gm DAILY PO Last administered on 11/28/16 09: 00; Admin Dose 17 GM; Start 11/16/16 at 11:00 Ascorbic Acid (Vitamin C) 500 mg BID PO Last administered on 11/28/16 08:17; Admin Dose 500 MG; Start 11/16/16 at 21:00 Atorvastatin Calcium (Lipitor) 20 mg DAILY@21 PO Last administered on 21:13; Admin Dose 20 MG; Start 11/16/16 at 21:00 Acetaminophen/ Hydrocodone Bitart ([place] (5/325)) 1 tab Q4H PRN PO PAIN Last administered on 11/18/16 10:39; Admin Dose 1 TAB; Start 11/18/16 at 10:30 Acetaminophen (Tylenol Tab) 650 mg Q6H PRN PO PAIN AND OR ELEVATED TEMP Last administered on 11/27/16 21:41; Admin Dose 650 MG; Start 11/19/16 at 21:00 Hydralazine HCl (Apresoline) 10 mg Q4H PRN IV ELEVATED BLOOD PRESSURE Last administered on 11/28/16 08:18; Admin Dose 10 MG; Start 11/21/16 at 21:00 Clopidogrel Bisulfate (plaVIX) 75 mg DAILY PO Last administered on 11/28/16 08 :17; Admin Dose 75 MG; Start 11/23/16 at 09:00 Heparin Sodium (Porcine) (Heparin (5000 Units/0.5 ml)) 5,000 unit Q8 SC Last administered on 11/28/16 14:07; Admin Dose 5,000 UNIT; Start 11/22/16 at 22:00 Pantoprazole 40 mg 40 mg DAILY PO Last administered on 11/28/16 08:17; Admin Dose 40 MG; Start 11/27/16 at 09:00 Levofloxacin/ Dextrose (Levaquin 750 Mg/ D5W 150 ml (Pmx)) 150 ml @ 100 mls/hr Q24H IVPB Last administered on 11/27/16 17:55; Admin Dose 100 MLS/HR; Start at 18:00 Nishant Ruelas DO Nov 28, 2016 15:17
[2016-11-28 15:36] LABS: CREATINE KINASE 20 IU/L (23-200)
[2016-11-28 15:49] LABS: TROPONIN-I 0.031 ng/ml (0.00-0.12)
[2016-11-28 15:50] LABS: CK-MB < 0.22 ng/ml (0.0-2.4)
[2016-11-28 16:34] LABS: CK-MB 0.3 ng/ml (0.0-2.4)
[2016-11-28 16:37] LABS: TROPONIN-I 0.062 ng/ml (0.00-0.12)
--- NOTE | 2016-11-28 16:55 | CONS ---
Date/Time of Note Date/Time of Note DATE: 11/28/16 TIME: 16:53 Assessment/Plan Assessment/Plan Additional Assessment/Plan 1. Acute kidney injury due to obstructive uropathy with Prerenal azotemia 2. Acute urinary tract infection. 2. Acute obstructive uropathy causing blockage of her ureters. The patient had a 10 mm stone in the right proximal ureter and a 12 mm stone in the right distal ureter causing intractable abdominal pain. 3. Bilateral nephrolithiasis with a small renal cyst. 4. Right atrophic kidney with cortical thinning. 5. Intractable abdominal pain. 6. History of hypertension. 7. History of hyperlipidemia. 8. History of vitamin D deficiency. 9. History of previous coronary artery disease, has been on Plavix. PLAN: s/p cystoscopy with laser lithotripsy and Stent placement Cr 1.1- still has hematuria, Urology following Expecting creatinine to improve with Relieve of obstruction and improvement in retention will continue to fllow up on patient Consultation Date/Type/Reason Admit Date/Time Nov 16, 2016 at 10:29 Initial Consult Date november Type of Consultation: NEPHROLOGY Referring Provider: PARVIN KELLY MD 24 HR Interval Summary Free Text/Dictation Cr 1.1, pt still SOB Exam/Review of Systems Vital Signs Vitals Vital Signs Date Time Temp Pulse Resp B/P Pulse Ox O2 Delivery O2 Flow Rate FiO2 11/28/16 16:40 95 18 95 21 11/28/16 15:48 98.6 135/51 11/28/16 08:00 Nasal Cannula 11/27/16 20:00 2.0 Intake and Output 11/27/16 11/27/16 11/28/16 15:00 23:00 07:00 Intake Total 600 ml 300 ml Balance 600 ml 300 ml Exam Constitutional: alert Head: normocephalic Neck: supple Respiratory: clear to auscultation Cardiovascular: regular rate and rhythm Gastrointestinal: non-tender, soft Musculoskeletal: nl extremities to inspection Results Result Diagram: 11/28/16 0533 11/28/16 0533 Results 24 hrs Laboratory Tests Test 11/28/16 05:33 11/28/16 15:45 Albumin 2.8 L Anion Gap 14 Basophils # 0.1 Basophils % 0.3 Blood Urea Nitrogen 12 Calcium Level 9.1 Carbon Dioxide Level 30 Chloride Level 101 Creatine Kinase 20 L 27 Creatine Kinase Index 1.1 1.1 Creatinine 1.10 H Creatinine Kinase MB (Mass) < 0.22 0.30 Eosinophils # 0.0 Eosinophils % 0.3 Glucose Level 74 Hematocrit 31.3 L Hemoglobin 10.0 L Lymphocytes # 3.4 H Lymphocytes % 23.2 Mean Corpuscular Hemoglobin 27.2 L Mean Corpuscular Hemoglobin Concent 31.9 L Mean Corpuscular Volume 85.3 Mean Platelet Volume 9.7 Monocytes # 1.0 H Monocytes % 6.9 Neutrophils # 9.8 H Neutrophils % 66.0 Nucleated Red Blood Cells # 0.0 Nucleated Red Blood Cells % 0.0 Phosphorus Level 2.6 Platelet Count 490 H Potassium Level 3.5 Red Blood Count 3.67 L Red Cell Distribution Width 15.6 H Sodium Level 141 Troponin I 0.031 0.062 White Blood Count 14.8 H Medications Medications Current Medications Morphine Sulfate (morphine) 4 mg Q4H PRN IV pain Last administered on 11/21/16 15:01; Admin Dose 2 MG; Start 11/16/16 at 08:00 Tamsulosin HCl (Flomax) 0.4 mg DAILY PO Last administered on 11/28/16 08:17; Admin Dose 0.4 MG; Start 11/16/16 at 08:00 Ondansetron HCl (Zofran Inj) 4 mg Q4H PRN IV NAUSEA AND/OR VOMITING Last administered on 11/27/16 21:35; Admin Dose 4 MG; Start 11/16/16 at 10:00 Calcium Carbonate (Tums) 500 mg BID PO Last administered on 11/27/16 21:12; Admin Dose 500 MG; Start 11/16/16 at 11:00 Polyethylene Glycol (Miralax) 17 gm DAILY PO Last administered on 11/28/16 09: 00; Admin Dose 17 GM; Start 11/16/16 at 11:00 Ascorbic Acid (Vitamin C) 500 mg BID PO Last administered on 11/28/16 08:17; Admin Dose 500 MG; Start 11/16/16 at 21:00 Atorvastatin Calcium (Lipitor) 20 mg DAILY@21 PO Last administered on 21:13; Admin Dose 20 MG; Start 11/16/16 at 21:00 Acetaminophen/ Hydrocodone Bitart ([place] (5/325)) 1 tab Q4H PRN PO PAIN Last administered on 11/18/16 10:39; Admin Dose 1 TAB; Start 11/18/16 at 10:30 Acetaminophen (Tylenol Tab) 650 mg Q6H PRN PO PAIN AND OR ELEVATED TEMP Last administered on 11/27/16 21:41; Admin Dose 650 MG; Start 11/19/16 at 21:00 Hydralazine HCl (Apresoline) 10 mg Q4H PRN IV ELEVATED BLOOD PRESSURE Last administered on 11/28/16 08:18; Admin Dose 10 MG; Start 11/21/16 at 21:00 Clopidogrel Bisulfate (plaVIX) 75 mg DAILY PO Last administered on 11/28/16 08 :17; Admin Dose 75 MG; Start 11/23/16 at 09:00 Heparin Sodium (Porcine) (Heparin (5000 Units/0.5 ml)) 5,000 unit Q8 SC Last administered on 11/28/16 14:07; Admin Dose 5,000 UNIT; Start 11/22/16 at 22:00 Pantoprazole 40 mg 40 mg DAILY PO Last administered on 11/28/16 08:17; Admin Dose 40 MG; Start 11/27/16 at 09:00 Levofloxacin/ Dextrose (Levaquin 750 Mg/ D5W 150 ml (Pmx)) 150 ml @ 100 mls/hr Q24H IVPB Last administered on 11/27/16 17:55; Admin Dose 100 MLS/HR; Start at 18:00 Metoprolol Tartrate (Lopressor) 12.5 mg BID PO ; Start 11/28/16 at 21:00 Furosemide (Lasix) 20 mg DAILY PO ; Start 11/29/16 at 09:00 LIZZ SALCEDO MD Nov 28, 2016 16:55
[2016-11-28] MEDS: LEVOFLOXACIN 750MG/D5W (PMX) 150 ML IVPB SCH (17:10)
--- NOTE | 2016-11-28 18:40 | PN ---
DATE: 11/28/2016 SUBJECTIVE: Right upper ureteral stone. The patient status removal of distal right ureteral stone and insertion of JJ stent. The patient did have leukocytosis, and that is improving. The patient h erself does not complain of any pain. She is comfortable and her abdominal pain is gone. OBJECTIVE: VITAL SIGNS: Her temperature is 98.6, pulse 95, respiration 18, blood pressure 135/51. ABDOMEN: Very obese. No abdominal mass palpable. LABORATORY DATA: CBC shows a white count of 14.8, hemoglobin 10.0, hematocrit is 31.3. The BUN is 12, creatinine 1.10, sodium 141, potassium 3.5, chloride 101, CO2 30. Urine culture from 11/25/2016 : No growth after 48 hours. IMPRESSION: Right renal stone and status post ureteroscopy and insertion of right ureteral JJ stent . PLAN: Continue her antibiotic and then she is already scheduled to come back around 12/23 to remove the right renal stone. Dictated By: DEVAUGHN ESCALANTE/BOBBI Conf#: [id number] DID#: [id number]
[2016-11-28] MEDS: ACETAMINOPHEN 325 MG TAB PO PRN (18:43)
--- NOTE | 2016-11-28 19:02 | PN ---
Date/Time of Note Date/Time of Note DATE: 11/28/16 TIME: 18:57 Assessment/Plan VTE Prophylaxis VTE Prophylaxis Intervention: heparin Lines/Catheters IV Catheter Type (from [facility], [place]): [facility] Urinary Cath still in place: No Assessment/Plan Chief Complaint/Hosp Course 1. Right-sided obstructive uropathy s/p Cystoscopy with laser lithotripsy to the distal right ureteral stone and then insertion of right ureteral JJ stent 11/17/16 cont Flomax, KUB shows R sided stone, pt will need another Lithotripsy at some point, planned for outpt in 1 month 2. Sepsis secondary to right-sided pyelonephritis- improved, white count is trending down, repeat cultures are negative cont Levaquin 3. Elevated trops: likely 2/2 HTN versus CHF: resolved 4. Mild CHF acute / diastolic Commenced on gentle diuresis 2/2 poor renal function 5. Debility 2/2 Morbid Obesity and cerebrovascular accident with right-sided deficit pt has In home support, CM to provide pt info regarding med transport for doctors visits, Mobilization with PT 6. Hypertension. Well-controlled on medical management 6. CALI 2/2 Nephrolithiasis continue gentle diuresis, renal function remains stable PPx- heparin Problems: Subjective 24 Hr Interval Summary Constitutional: no complaints Exam/Review of Systems Vital Signs Vitals Vital Signs Date Time Temp Pulse Resp B/P Pulse Ox O2 Delivery O2 Flow Rate FiO2 11/28/16 16:40 95 18 95 21 11/28/16 15:48 98.6 135/51 11/28/16 08:00 Nasal Cannula 11/27/16 20:00 2.0 Intake and Output 11/27/16 11/27/16 11/28/16 15:00 23:00 07:00 Intake Total 600 ml 300 ml Balance 600 ml 300 ml Exam Constitutional: alert Respiratory: clear to auscultation Cardiovascular: regular rate and rhythm Gastrointestinal: soft, No distended Musculoskeletal: nl extremities to inspection Results Result Diagram: 11/28/16 0533 11/28/16 0533 Results 24 hrs Laboratory Tests Test 11/28/16 05:33 11/28/16 15:45 Albumin 2.8 L Anion Gap 14 Basophils # 0.1 Basophils % 0.3 Blood Urea Nitrogen 12 Calcium Level 9.1 Carbon Dioxide Level 30 Chloride Level 101 Creatine Kinase 20 L 27 Creatine Kinase Index 1.1 1.1 Creatinine 1.10 H Creatinine Kinase MB (Mass) < 0.22 0.30 Eosinophils # 0.0 Eosinophils % 0.3 Glucose Level 74 Hematocrit 31.3 L Hemoglobin 10.0 L Lymphocytes # 3.4 H Lymphocytes % 23.2 Mean Corpuscular Hemoglobin 27.2 L Mean Corpuscular Hemoglobin Concent 31.9 L Mean Corpuscular Volume 85.3 Mean Platelet Volume 9.7 Monocytes # 1.0 H Monocytes % 6.9 Neutrophils # 9.8 H Neutrophils % 66.0 Nucleated Red Blood Cells # 0.0 Nucleated Red Blood Cells % 0.0 Phosphorus Level 2.6 Platelet Count 490 H Potassium Level 3.5 Red Blood Count 3.67 L Red Cell Distribution Width 15.6 H Sodium Level 141 Troponin I 0.031 0.062 White Blood Count 14.8 H Medications Medications Current Medications Morphine Sulfate (morphine) 4 mg Q4H PRN IV pain Last administered on 11/21/16 15:01; Admin Dose 2 MG; Start 11/16/16 at 08:00 Tamsulosin HCl (Flomax) 0.4 mg DAILY PO Last administered on 11/28/16 08:17; Admin Dose 0.4 MG; Start 11/16/16 at 08:00 Ondansetron HCl (Zofran Inj) 4 mg Q4H PRN IV NAUSEA AND/OR VOMITING Last administered on 11/27/16 21:35; Admin Dose 4 MG; Start 11/16/16 at 10:00 Calcium Carbonate (Tums) 500 mg BID PO Last administered on 11/27/16 21:12; Admin Dose 500 MG; Start 11/16/16 at 11:00 Polyethylene Glycol (Miralax) 17 gm DAILY PO Last administered on 11/28/16 09: 00; Admin Dose 17 GM; Start 11/16/16 at 11:00 Ascorbic Acid (Vitamin C) 500 mg BID PO Last administered on 11/28/16 08:17; Admin Dose 500 MG; Start 11/16/16 at 21:00 Atorvastatin Calcium (Lipitor) 20 mg DAILY@21 PO Last administered on 21:13; Admin Dose 20 MG; Start 11/16/16 at 21:00 Acetaminophen/ Hydrocodone Bitart ([place] (5/325)) 1 tab Q4H PRN PO PAIN Last administered on 11/18/16 10:39; Admin Dose 1 TAB; Start 11/18/16 at 10:30 Acetaminophen (Tylenol Tab) 650 mg Q6H PRN PO PAIN AND OR ELEVATED TEMP Last administered on 11/28/16 18:43; Admin Dose 650 MG; Start 11/19/16 at 21:00 Hydralazine HCl (Apresoline) 10 mg Q4H PRN IV ELEVATED BLOOD PRESSURE Last administered on 11/28/16 08:18; Admin Dose 10 MG; Start 11/21/16 at 21:00 Clopidogrel Bisulfate (plaVIX) 75 mg DAILY PO Last administered on 11/28/16 08 :17; Admin Dose 75 MG; Start 11/23/16 at 09:00 Heparin Sodium (Porcine) (Heparin (5000 Units/0.5 ml)) 5,000 unit Q8 SC Last administered on 11/28/16 14:07; Admin Dose 5,000 UNIT; Start 11/22/16 at 22:00 Pantoprazole 40 mg 40 mg DAILY PO Last administered on 11/28/16 08:17; Admin Dose 40 MG; Start 11/27/16 at 09:00 Levofloxacin/ Dextrose (Levaquin 750 Mg/ D5W 150 ml (Pmx)) 150 ml @ 100 mls/hr Q24H IVPB Last administered on 11/28/16 17:10; Admin Dose 100 MLS/HR; Start at 18:00 Metoprolol Tartrate (Lopressor) 12.5 mg BID PO ; Start 11/28/16 at 21:00 Furosemide (Lasix) 20 mg DAILY PO ; Start 11/29/16 at 09:00 LORY FLORES Nov 28, 2016 19:02
[2016-11-28] MEDS: ATORVASTATIN 20 MG TAB PO SCH (20:59)
[2016-11-28] MEDS: METOPROLOL 25 MG TAB PO SCH (20:59)
[2016-11-29] VITALS (14 sets, daily range): BP systolic 133–188; BP diastolic 60–81; PULSE 78–90; RESP 16–19
[2016-11-29] MEDS: ALBUTEROL 0.083% (NEB) 2.5 MG/3 ML AMP HHN SCH ×6 (02:04→21:00)
[2016-11-29] MEDS: HEPARIN 5,000 UNIT/0.5 ML SYG SC SCH ×3 (06:01→21:35)
[2016-11-29 06:56] LABS: ADD SCAN DIFF NO
[2016-11-29 07:05] LABS: BASOPHIL # 0.1 10^3/ul (0.0-0.1); BASOPHILS % 0.5 % (0.0-2.0); EOSINOPHILS # 0.1 10^3/ul (0.0-0.5); EOSINOPHILS % 0.5 % (0.0-7.0); HEMATOCRIT 29.7 % (37.0-47.0); HEMOGLOBIN 9.8 g/dl (12.0-16.0); LYMPHOCYTES # 2.7 10^3/ul (0.8-2.9); LYMPHOCYTES % 20.7 % (15.0-51.0); MEAN CORPUSCULAR HEMOGLOBIN 28.5 pg (29.0-33.0); MEAN CORPUSCULAR VOLUME 86.3 fl (82.0-101.0); MEAN PLATELET VOLUME 9.6 fl (7.4-10.4); MONOCYTE # 0.9 10^3/ul (0.3-0.9); MONOCYTES % 6.7 % (0.0-11.0); NEUTROPHIL # 8.8 10^3/ul (1.6-7.5); NEUTROPHILS % 67.8 % (39.0-77.0); PLATELET COUNT 516 10^3/UL (140-415); RED BLOOD COUNT 3.44 10^6/ul (4.20-5.40); RED CELL DISTRIBUTION WIDTH 15.6 % (11.5-14.5)
[2016-11-29 07:19] LABS: POTASSIUM 3.5 mmol/L (3.5-5.1)
[2016-11-29 07:21] LABS: CREATININE 1.13 mg/dl (0.44-1.00)
[2016-11-29 07:22] LABS: CALCIUM 8.9 mg/dl (8.4-10.2)
[2016-11-29] MEDS: CALCIUM CARBONATE 500 MG CHEW TAB PO SCH ×2 (09:00→21:00)
[2016-11-29] MEDS: ASCORBIC ACID 500 MG TAB PO SCH ×2 (09:48→21:25)
[2016-11-29] MEDS: PANTOPRAZOLE (EC) 40 MG TAB PO SCH (09:48)
[2016-11-29] MEDS: TAMSULOSIN (SR) 0.4 MG CAP PO SCH (09:49)
[2016-11-29] MEDS: METOPROLOL 25 MG TAB PO SCH ×2 (09:53→21:26)
[2016-11-29] MEDS: FUROSEMIDE 20 MG TAB PO SCH (09:54)
[2016-11-29] MEDS: CLOPIDOGREL 75 MG TAB PO SCH (09:54)
[2016-11-29] MEDS: POLYETHYLENE GLYCOL 17 GM PACKET PO SCH (10:09)
--- NOTE | 2016-11-29 14:29 | CONS ---
Date/Time of Note Date/Time of Note DATE: 11/29/16 TIME: 14:27 Assessment/Plan Assessment/Plan Additional Assessment/Plan Obstructive uropathy status post surgery History of CVA, on Plavix Acute decompensated diastolic congestive heart failure Preserved ejection fraction Hypertension Dyslipidemia Mildly elevated troponin Acute kidney injury -Cardiac enzymes yesterday were unremarkable. ECG without any significant ischemic abnormalities. Blood pressure trend overall remained stable. No new cardiac orders at the current time Consultation Date/Type/Reason Admit Date/Time Nov 16, 2016 at 10:29 Type of Consultation: cv Referring Provider: PARVIN KELLY MD 24 HR Interval Summary Free Text/Dictation Patient complaining of intermittent episodes of fatigue and shortness of breath. Denies chest pain or palpitations Exam/Review of Systems Vital Signs Vitals Vital Signs Date Time Temp Pulse Resp B/P Pulse Ox O2 Delivery O2 Flow Rate FiO2 11/29/16 12:00 80 11/29/16 11:30 97.6 19 133/67 98 11/29/16 05:33 2.0 11/29/16 05:25 21 11/29/16 04:00 Room Air Intake and Output 11/28/16 11/28/16 11/29/16 15:00 23:00 07:00 Intake Total 1050 ml 400 ml Balance 1050 ml 400 ml Exam No apparent distress Constitutional: alert, obese, oriented Head: normocephalic Neck: supple Respiratory: other (Coarse breath sounds bilaterally, no wheezing) Cardiovascular: other (S1-S2 heard), regular rate and rhythm, systolic murmur Gastrointestinal: bowel sounds, non-tender, other (No guarding), soft Extremities: edema, other (No cyanosis) Results Result Diagram: 11/29/16 0614 11/29/16 0614 Results 24 hrs Laboratory Tests Test 11/28/16 15:45 11/29/16 06:14 Creatine Kinase 27 Creatine Kinase Index 1.1 Creatinine Kinase MB (Mass) 0.30 Troponin I 0.062 Anion Gap 13 Basophils # 0.1 Basophils % 0.5 Blood Urea Nitrogen 13 Calcium Level 8.9 Carbon Dioxide Level 32 H Chloride Level 99 Creatinine 1.13 H Eosinophils # 0.1 Eosinophils % 0.5 Glucose Level 75 Hematocrit 29.7 L Hemoglobin 9.8 L Lymphocytes # 2.7 Lymphocytes % 20.7 Mean Corpuscular Hemoglobin 28.5 L Mean Corpuscular Hemoglobin Concent 33.0 Mean Corpuscular Volume 86.3 Mean Platelet Volume 9.6 Monocytes # 0.9 Monocytes % 6.7 Neutrophils # 8.8 H Neutrophils % 67.8 Nucleated Red Blood Cells # 0.0 Nucleated Red Blood Cells % 0.0 Platelet Count 516 H Potassium Level 3.5 Red Blood Count 3.44 L Red Cell Distribution Width 15.6 H Sodium Level 140 White Blood Count 13.0 H Medications Medications Current Medications Morphine Sulfate (morphine) 4 mg Q4H PRN IV pain Last administered on 11/21/16 15:01; Admin Dose 2 MG; Start 11/16/16 at 08:00 Tamsulosin HCl (Flomax) 0.4 mg DAILY PO Last administered on 11/29/16 09:49; Admin Dose 0.4 MG; Start 11/16/16 at 08:00 Ondansetron HCl (Zofran Inj) 4 mg Q4H PRN IV NAUSEA AND/OR VOMITING Last administered on 11/27/16 21:35; Admin Dose 4 MG; Start 11/16/16 at 10:00 Calcium Carbonate (Tums) 500 mg BID PO Last administered on 11/27/16 21:12; Admin Dose 500 MG; Start 11/16/16 at 11:00 Polyethylene Glycol (Miralax) 17 gm DAILY PO Last administered on 11/29/16 10: 09; Admin Dose 17 GM; Start 11/16/16 at 11:00 Ascorbic Acid (Vitamin C) 500 mg BID PO Last administered on 11/29/16 09:48; Admin Dose 500 MG; Start 11/16/16 at 21:00 Atorvastatin Calcium (Lipitor) 20 mg DAILY@21 PO Last administered on 20:59; Admin Dose 20 MG; Start 11/16/16 at 21:00 Acetaminophen/ Hydrocodone Bitart ([place] (5/325)) 1 tab Q4H PRN PO PAIN Last administered on 11/18/16 10:39; Admin Dose 1 TAB; Start 11/18/16 at 10:30 Acetaminophen (Tylenol Tab) 650 mg Q6H PRN PO PAIN AND OR ELEVATED TEMP Last administered on 11/28/16 18:43; Admin Dose 650 MG; Start 11/19/16 at 21:00 Hydralazine HCl (Apresoline) 10 mg Q4H PRN IV ELEVATED BLOOD PRESSURE Last administered on 11/28/16 08:18; Admin Dose 10 MG; Start 11/21/16 at 21:00 Clopidogrel Bisulfate (plaVIX) 75 mg DAILY PO Last administered on 11/29/16 09 :54; Admin Dose 75 MG; Start 11/23/16 at 09:00 Heparin Sodium (Porcine) (Heparin (5000 Units/0.5 ml)) 5,000 unit Q8 SC Last administered on 11/29/16 06:01; Admin Dose 5,000 UNIT; Start 11/22/16 at 22:00 Pantoprazole 40 mg 40 mg DAILY PO Last administered on 11/29/16 09:48; Admin Dose 40 MG; Start 11/27/16 at 09:00 Levofloxacin/ Dextrose (Levaquin 750 Mg/ D5W 150 ml (Pmx)) 150 ml @ 100 mls/hr Q24H IVPB Last administered on 11/28/16 17:10; Admin Dose 100 MLS/HR; Start at 18:00 Metoprolol Tartrate (Lopressor) 12.5 mg BID PO Last administered on 11/29/16 09:53; Admin Dose 12.5 MG; Start 11/28/16 at 21:00 Furosemide (Lasix) 20 mg DAILY PO Last administered on 11/29/16 09:54; Admin Dose 20 MG; Start 11/29/16 at 09:00 Nishant Ruelas DO Nov 29, 2016 14:29
--- NOTE | 2016-11-29 15:44 | CONS ---
Date/Time of Note Date/Time of Note DATE: 11/29/16 TIME: 15:43 Assessment/Plan Assessment/Plan Additional Assessment/Plan 1. Acute kidney injury due to obstructive uropathy with Prerenal azotemia 2. Acute urinary tract infection. 2. Acute obstructive uropathy causing blockage of her ureters. The patient had a 10 mm stone in the right proximal ureter and a 12 mm stone in the right distal ureter causing intractable abdominal pain. 3. Bilateral nephrolithiasis with a small renal cyst. 4. Right atrophic kidney with cortical thinning. 5. Intractable abdominal pain. 6. History of hypertension. 7. History of hyperlipidemia. 8. History of vitamin D deficiency. 9. History of previous coronary artery disease, has been on Plavix. PLAN: s/p cystoscopy with laser lithotripsy and Stent placement Cr 1.1- still has hematuria, Urology following Expecting creatinine to improve with Relieve of obstruction and improvement in retention will continue to fllow up on patient Consultation Date/Type/Reason Admit Date/Time Nov 16, 2016 at 10:29 Initial Consult Date november Type of Consultation: NEPHROLOGY Referring Provider: PARVIN KELLY MD 24 HR Interval Summary Free Text/Dictation Cr 1.13, BP stable Exam/Review of Systems Vital Signs Vitals Vital Signs Date Time Temp Pulse Resp B/P Pulse Ox O2 Delivery O2 Flow Rate FiO2 11/29/16 12:00 80 11/29/16 11:30 97.6 19 133/67 98 11/29/16 05:33 2.0 11/29/16 05:25 21 11/29/16 04:00 Room Air Intake and Output 11/28/16 11/28/16 11/29/16 15:00 23:00 07:00 Intake Total 1050 ml 400 ml Balance 1050 ml 400 ml Exam Constitutional: alert Head: normocephalic Neck: supple Respiratory: clear to auscultation Cardiovascular: regular rate and rhythm Gastrointestinal: non-tender, soft Musculoskeletal: nl extremities to inspection Results Result Diagram: 11/29/1614 11/29/1614 Results 24 hrs Laboratory Tests Test 11/28/16 15:45 11/29/16 06:14 Creatine Kinase 27 Creatine Kinase Index 1.1 Creatinine Kinase MB (Mass) 0.30 Troponin I 0.062 Anion Gap 13 Basophils # 0.1 Basophils % 0.5 Blood Urea Nitrogen 13 Calcium Level 8.9 Carbon Dioxide Level 32 H Chloride Level 99 Creatinine 1.13 H Eosinophils # 0.1 Eosinophils % 0.5 Glucose Level 75 Hematocrit 29.7 L Hemoglobin 9.8 L Lymphocytes # 2.7 Lymphocytes % 20.7 Mean Corpuscular Hemoglobin 28.5 L Mean Corpuscular Hemoglobin Concent 33.0 Mean Corpuscular Volume 86.3 Mean Platelet Volume 9.6 Monocytes # 0.9 Monocytes % 6.7 Neutrophils # 8.8 H Neutrophils % 67.8 Nucleated Red Blood Cells # 0.0 Nucleated Red Blood Cells % 0.0 Platelet Count 516 H Potassium Level 3.5 Red Blood Count 3.44 L Red Cell Distribution Width 15.6 H Sodium Level 140 White Blood Count 13.0 H Medications Medications Current Medications Morphine Sulfate (morphine) 4 mg Q4H PRN IV pain Last administered on 11/21/16 15:01; Admin Dose 2 MG; Start 11/16/16 at 08:00 Tamsulosin HCl (Flomax) 0.4 mg DAILY PO Last administered on 11/29/16 09:49; Admin Dose 0.4 MG; Start 11/16/16 at 08:00 Ondansetron HCl (Zofran Inj) 4 mg Q4H PRN IV NAUSEA AND/OR VOMITING Last administered on 11/27/16 21:35; Admin Dose 4 MG; Start 11/16/16 at 10:00 Calcium Carbonate (Tums) 500 mg BID PO Last administered on 11/27/16 21:12; Admin Dose 500 MG; Start 11/16/16 at 11:00 Polyethylene Glycol (Miralax) 17 gm DAILY PO Last administered on 11/29/16 10: 09; Admin Dose 17 GM; Start 11/16/16 at 11:00 Ascorbic Acid (Vitamin C) 500 mg BID PO Last administered on 11/29/16 09:48; Admin Dose 500 MG; Start 11/16/16 at 21:00 Atorvastatin Calcium (Lipitor) 20 mg DAILY@21 PO Last administered on 20:59; Admin Dose 20 MG; Start 11/16/16 at 21:00 Acetaminophen/ Hydrocodone Bitart ([place] (5/325)) 1 tab Q4H PRN PO PAIN Last administered on 11/18/16 10:39; Admin Dose 1 TAB; Start 11/18/16 at 10:30 Acetaminophen (Tylenol Tab) 650 mg Q6H PRN PO PAIN AND OR ELEVATED TEMP Last administered on 11/28/16 18:43; Admin Dose 650 MG; Start 11/19/16 at 21:00 Hydralazine HCl (Apresoline) 10 mg Q4H PRN IV ELEVATED BLOOD PRESSURE Last administered on 11/28/16 08:18; Admin Dose 10 MG; Start 11/21/16 at 21:00 Clopidogrel Bisulfate (plaVIX) 75 mg DAILY PO Last administered on 11/29/16 09 :54; Admin Dose 75 MG; Start 11/23/16 at 09:00 Heparin Sodium (Porcine) (Heparin (5000 Units/0.5 ml)) 5,000 unit Q8 SC Last administered on 11/29/16 06:01; Admin Dose 5,000 UNIT; Start 11/22/16 at 22:00 Pantoprazole 40 mg 40 mg DAILY PO Last administered on 11/29/16 09:48; Admin Dose 40 MG; Start 11/27/16 at 09:00 Levofloxacin/ Dextrose (Levaquin 750 Mg/ D5W 150 ml (Pmx)) 150 ml @ 100 mls/hr Q24H IVPB Last administered on 11/28/16 17:10; Admin Dose 100 MLS/HR; Start at 18:00 Metoprolol Tartrate (Lopressor) 12.5 mg BID PO Last administered on 11/29/16 09:53; Admin Dose 12.5 MG; Start 11/28/16 at 21:00 Furosemide (Lasix) 20 mg DAILY PO Last administered on 11/29/16 09:54; Admin Dose 20 MG; Start 11/29/16 at 09:00 LIZZ SALCEDO MD Nov 29, 2016 15:44
--- NOTE | 2016-11-29 17:09 | PN ---
Date/Time of Note Date/Time of Note DATE: 11/29/16 TIME: 17:08 Assessment/Plan VTE Prophylaxis VTE Prophylaxis Intervention: heparin Lines/Catheters IV Catheter Type (from [facility]): [place] Urinary Cath still in place: No Assessment/Plan Chief Complaint/Hosp Course 1. Right-sided obstructive uropathy s/p Cystoscopy with laser lithotripsy to the distal right ureteral stone and then insertion of right ureteral JJ stent 11/17/16 cont Flomax, KUB shows R sided stone, pt will need another Lithotripsy at some point, planned for outpt in 1 month 2. Sepsis secondary to right-sided pyelonephritis- improved, white count is trending down, repeat cultures are negative cont Levaquin 3. Elevated trops: likely 2/2 HTN versus CHF: resolved 4. Mild CHF acute / diastolic Commenced on gentle diuresis 2/2 poor renal function 5. Debility 2/2 Morbid Obesity and cerebrovascular accident with right-sided deficit pt has In home support, CM to provide pt info regarding med transport for doctors visits, Mobilization with PT 6. Hypertension. Well-controlled on medical management 7. CALI 2/2 Nephrolithiasis continue gentle diuresis, renal function remains stable PPx- heparin Problems: Subjective 24 Hr Interval Summary Neurologic: other (Tremors ) Exam/Review of Systems Vital Signs Vitals Vital Signs Date Time Temp Pulse Resp B/P Pulse Ox O2 Delivery O2 Flow Rate FiO2 11/29/16 16:03 98.2 81 19 178/78 98 11/29/16 05:33 2.0 11/29/16 05:25 21 11/29/16 04:00 Room Air Intake and Output 11/28/16 11/28/16 11/29/16 15:00 23:00 07:00 Intake Total 1050 ml 400 ml Balance 1050 ml 400 ml Exam Constitutional: alert Respiratory: clear to auscultation Cardiovascular: regular rate and rhythm Gastrointestinal: soft, No distended Musculoskeletal: nl extremities to inspection Results Result Diagram: 11/29/1614 11/29/1614 Results 24 hrs Laboratory Tests Test 11/29/16 06:14 Anion Gap 13 Basophils # 0.1 Basophils % 0.5 Blood Urea Nitrogen 13 Calcium Level 8.9 Carbon Dioxide Level 32 H Chloride Level 99 Creatinine 1.13 H Eosinophils # 0.1 Eosinophils % 0.5 Glucose Level 75 Hematocrit 29.7 L Hemoglobin 9.8 L Lymphocytes # 2.7 Lymphocytes % 20.7 Mean Corpuscular Hemoglobin 28.5 L Mean Corpuscular Hemoglobin Concent 33.0 Mean Corpuscular Volume 86.3 Mean Platelet Volume 9.6 Monocytes # 0.9 Monocytes % 6.7 Neutrophils # 8.8 H Neutrophils % 67.8 Nucleated Red Blood Cells # 0.0 Nucleated Red Blood Cells % 0.0 Platelet Count 516 H Potassium Level 3.5 Red Blood Count 3.44 L Red Cell Distribution Width 15.6 H Sodium Level 140 White Blood Count 13.0 H Medications Medications Current Medications Morphine Sulfate (morphine) 4 mg Q4H PRN IV pain Last administered on 11/21/16 15:01; Admin Dose 2 MG; Start 11/16/16 at 08:00 Tamsulosin HCl (Flomax) 0.4 mg DAILY PO Last administered on 11/29/16 09:49; Admin Dose 0.4 MG; Start 11/16/16 at 08:00 Ondansetron HCl (Zofran Inj) 4 mg Q4H PRN IV NAUSEA AND/OR VOMITING Last administered on 11/27/16 21:35; Admin Dose 4 MG; Start 11/16/16 at 10:00 Calcium Carbonate (Tums) 500 mg BID PO Last administered on 11/27/16 21:12; Admin Dose 500 MG; Start 11/16/16 at 11:00 Polyethylene Glycol (Miralax) 17 gm DAILY PO Last administered on 11/29/16 10: 09; Admin Dose 17 GM; Start 11/16/16 at 11:00 Ascorbic Acid (Vitamin C) 500 mg BID PO Last administered on 11/29/16 09:48; Admin Dose 500 MG; Start 11/16/16 at 21:00 Atorvastatin Calcium (Lipitor) 20 mg DAILY@21 PO Last administered on 20:59; Admin Dose 20 MG; Start 11/16/16 at 21:00 Acetaminophen/ Hydrocodone Bitart ([place] (5/325)) 1 tab Q4H PRN PO PAIN Last administered on 11/18/16 10:39; Admin Dose 1 TAB; Start 11/18/16 at 10:30 Acetaminophen (Tylenol Tab) 650 mg Q6H PRN PO PAIN AND OR ELEVATED TEMP Last administered on 11/28/16 18:43; Admin Dose 650 MG; Start 11/19/16 at 21:00 Hydralazine HCl (Apresoline) 10 mg Q4H PRN IV ELEVATED BLOOD PRESSURE Last administered on 11/28/16 08:18; Admin Dose 10 MG; Start 11/21/16 at 21:00 Clopidogrel Bisulfate (plaVIX) 75 mg DAILY PO Last administered on 11/29/16 09 :54; Admin Dose 75 MG; Start 11/23/16 at 09:00 Heparin Sodium (Porcine) (Heparin (5000 Units/0.5 ml)) 5,000 unit Q8 SC Last administered on 11/29/16 06:01; Admin Dose 5,000 UNIT; Start 11/22/16 at 22:00 Pantoprazole 40 mg 40 mg DAILY PO Last administered on 11/29/16 09:48; Admin Dose 40 MG; Start 11/27/16 at 09:00 Levofloxacin/ Dextrose (Levaquin 750 Mg/ D5W 150 ml (Pmx)) 150 ml @ 100 mls/hr Q24H IVPB Last administered on 11/28/16 17:10; Admin Dose 100 MLS/HR; Start at 18:00 Metoprolol Tartrate (Lopressor) 12.5 mg BID PO Last administered on 11/29/16 09:53; Admin Dose 12.5 MG; Start 11/28/16 at 21:00 Furosemide (Lasix) 20 mg DAILY PO Last administered on 11/29/16 09:54; Admin Dose 20 MG; Start 11/29/16 at 09:00 LORY FLORES Nov 29, 2016 17:09
[2016-11-29] MEDS: LEVOFLOXACIN 750MG/D5W (PMX) 150 ML IVPB SCH (17:44)
[2016-11-29] MEDS: ATORVASTATIN 20 MG TAB PO SCH (21:25)
[2016-11-30] VITALS (11 sets, daily range): BP systolic 132–190; BP diastolic 62–83; PULSE 75–86; RESP 16–20
[2016-11-30] MEDS: ALBUTEROL 0.083% (NEB) 2.5 MG/3 ML AMP HHN SCH ×5 (01:00→17:00)
[2016-11-30] MEDS: HEPARIN 5,000 UNIT/0.5 ML SYG SC SCH ×2 (06:00→14:00)
--- NOTE | 2016-11-30 06:41 | PN ---
DATE: 11/29/2016 SUBJECTIVE: The patient had tremors last night and she was not able to talk, and then later on she returned back to her normal condition. The patient denies having any abdominal pain, and she is fee ling comfortable at the present. OBJECTIVE: VITAL SIGNS: Her temperature is 98.2, pulse is 81, respirations 19, blood pressure 178/78. ABDOMEN: Very obese. There is no mass palpable. LABORATORY DATA: Her CBC shows a white count of 13.0, is slowly coming down. The hemoglobin is 9.8 , hematocrit 29.7. Her creatinine, however, is holding around 1.13, and the BUN is 13. Sodium 140, potassium 3.5, chloride 99, CO2 32. The patient is still on Levaquin, and she is improving slowly. PLAN: Continue the same. She still has the JJ stent in the right ureter and the stone in the upper ureter or renal pelvis area. That is scheduled to be removed in about 3 weeks from now. Dictated By: DEVAUGHN ESCALANTE/BOBBI Conf#: [id number] DID#: [id number]
[2016-11-30] MEDS: POLYETHYLENE GLYCOL 17 GM PACKET PO SCH (08:33)
[2016-11-30] MEDS: hydrALAzine 20 MG INJ IV PRN (08:33)
[2016-11-30] MEDS: PANTOPRAZOLE (EC) 40 MG TAB PO SCH (08:33)
[2016-11-30] MEDS: FUROSEMIDE 20 MG TAB PO SCH (08:34)
[2016-11-30] MEDS: TAMSULOSIN (SR) 0.4 MG CAP PO SCH (08:35)
[2016-11-30] MEDS: CALCIUM CARBONATE 500 MG CHEW TAB PO SCH (08:35)
[2016-11-30] MEDS: METOPROLOL 25 MG TAB PO SCH (08:35)
[2016-11-30] MEDS: ASCORBIC ACID 500 MG TAB PO SCH (08:35)
[2016-11-30] MEDS: CLOPIDOGREL 75 MG TAB PO SCH (08:35)
[2016-11-30 09:52] LABS: ADD SCAN DIFF NO
[2016-11-30 09:59] LABS: BASOPHIL # 0.1 10^3/ul (0.0-0.1); BASOPHILS % 0.5 % (0.0-2.0); EOSINOPHILS # 0.1 10^3/ul (0.0-0.5); EOSINOPHILS % 0.7 % (0.0-7.0); HEMATOCRIT 31.2 % (37.0-47.0); HEMOGLOBIN 10.2 g/dl (12.0-16.0); LYMPHOCYTES % 15.4 % (15.0-51.0); MEAN CORPUSCULAR HEMOGLOBIN 28.2 pg (29.0-33.0); MEAN CORPUSCULAR HGB CONC 32.7 g/dl (32.0-37.0); MEAN CORPUSCULAR VOLUME 86.2 fl (82.0-101.0); MEAN PLATELET VOLUME 9.3 fl (7.4-10.4); MONOCYTE # 0.7 10^3/ul (0.3-0.9); MONOCYTES % 5.1 % (0.0-11.0); NEUTROPHILS % 75.7 % (39.0-77.0); PLATELET COUNT 532 10^3/UL (140-415); RED BLOOD COUNT 3.62 10^6/ul (4.20-5.40); RED CELL DISTRIBUTION WIDTH 15.4 % (11.5-14.5); WHITE BLOOD COUNT 13.2 10^3/ul (4.8-10.8)
[2016-11-30 10:09] LABS: POTASSIUM 3.3 mmol/L (3.5-5.1)
[2016-11-30 10:11] LABS: CREATININE 0.98 mg/dl (0.44-1.00)
[2016-11-30 10:12] LABS: CALCIUM 9.2 mg/dl (8.4-10.2)
[2016-11-30] MEDS ORDERED: POTASSIUM CHLORIDE (SR) 20 MEQ TAB PO STA (10:40)
--- NOTE | 2016-11-30 11:13 | CONS ---
Date/Time of Note Date/Time of Note DATE: 11/30/16 TIME: 11:11 Assessment/Plan Assessment/Plan Additional Assessment/Plan Obstructive uropathy status post surgery History of CVA, on Plavix Acute decompensated diastolic congestive heart failure Preserved ejection fraction Hypertension Dyslipidemia Mildly elevated troponin Acute kidney injury -Blood pressure elevated this morning, responded to hydralazine. Would restart Norvasc at lower dose. Consultation Date/Type/Reason Admit Date/Time Nov 16, 2016 at 10:29 Type of Consultation: cv Referring Provider: PARVIN KELLY MD 24 HR Interval Summary Free Text/Dictation Patient denies shortness of breath today, chest pain or palpitations or headache Exam/Review of Systems Vital Signs Vitals Vital Signs Date Time Temp Pulse Resp B/P Pulse Ox O2 Delivery O2 Flow Rate FiO2 11/30/16 09:07 90 22 94 21 11/30/16 07:32 98.2 190/83 11/29/16 18:01 2.0 11/29/16 04:00 Room Air Intake and Output 11/29/16 11/29/16 11/30/16 15:00 23:00 07:00 Intake Total 500 ml 400 ml Balance 500 ml 400 ml Exam No apparent distress Constitutional: alert, obese, oriented Head: normocephalic Neck: supple Respiratory: other (Coarse breath sounds bilaterally, no wheezing) Cardiovascular: other (S1-S2 heard), regular rate and rhythm, systolic murmur Gastrointestinal: bowel sounds, non-tender, other (No guarding), soft Extremities: edema (Trace), other (No cyanosis) Results Result Diagram: 11/30/16 0939 11/30/16 0937 Results 24 hrs Laboratory Tests Test 11/30/16 09:37 11/30/16 09:39 Anion Gap 10 Blood Urea Nitrogen 11 Calcium Level 9.2 Carbon Dioxide Level 32 H Chloride Level 100 Creatinine 0.98 Glucose Level 98 Potassium Level 3.3 L Sodium Level 139 Basophils # 0.1 Basophils % 0.5 Eosinophils # 0.1 Eosinophils % 0.7 Hematocrit 31.2 L Hemoglobin 10.2 L Lymphocytes # 2.0 Lymphocytes % 15.4 Mean Corpuscular Hemoglobin 28.2 L Mean Corpuscular Hemoglobin Concent 32.7 Mean Corpuscular Volume 86.2 Mean Platelet Volume 9.3 Monocytes # 0.7 Monocytes % 5.1 Neutrophils # 10.0 H Neutrophils % 75.7 Nucleated Red Blood Cells # 0.0 Nucleated Red Blood Cells % 0.0 Platelet Count 532 H Red Blood Count 3.62 L Red Cell Distribution Width 15.4 H White Blood Count 13.2 H Medications Medications Current Medications Morphine Sulfate (morphine) 4 mg Q4H PRN IV pain Last administered on 11/21/16 15:01; Admin Dose 2 MG; Start 11/16/16 at 08:00 Tamsulosin HCl (Flomax) 0.4 mg DAILY PO Last administered on 11/30/16 08:35; Admin Dose 0.4 MG; Start 11/16/16 at 08:00 Ondansetron HCl (Zofran Inj) 4 mg Q4H PRN IV NAUSEA AND/OR VOMITING Last administered on 11/27/16 21:35; Admin Dose 4 MG; Start 11/16/16 at 10:00 Calcium Carbonate (Tums) 500 mg BID PO Last administered on 11/27/16 21:12; Admin Dose 500 MG; Start 11/16/16 at 11:00 Polyethylene Glycol (Miralax) 17 gm DAILY PO Last administered on 11/30/16 08: 33; Admin Dose 17 GM; Start 11/16/16 at 11:00 Ascorbic Acid (Vitamin C) 500 mg BID PO Last administered on 11/30/16 08:35; Admin Dose 500 MG; Start 11/16/16 at 21:00 Atorvastatin Calcium (Lipitor) 20 mg DAILY@21 PO Last administered on 21:25; Admin Dose 20 MG; Start 11/16/16 at 21:00 Acetaminophen/ Hydrocodone Bitart ([place] (5/325)) 1 tab Q4H PRN PO PAIN Last administered on 11/18/16 10:39; Admin Dose 1 TAB; Start 11/18/16 at 10:30 Acetaminophen (Tylenol Tab) 650 mg Q6H PRN PO PAIN AND OR ELEVATED TEMP Last administered on 11/28/16 18:43; Admin Dose 650 MG; Start 11/19/16 at 21:00 Hydralazine HCl (Apresoline) 10 mg Q4H PRN IV ELEVATED BLOOD PRESSURE Last administered on 11/30/16 08:33; Admin Dose 10 MG; Start 11/21/16 at 21:00 Clopidogrel Bisulfate (plaVIX) 75 mg DAILY PO Last administered on 11/30/16 08 :35; Admin Dose 75 MG; Start 11/23/16 at 09:00 Heparin Sodium (Porcine) (Heparin (5000 Units/0.5 ml)) 5,000 unit Q8 SC Last administered on 11/29/16 21:35; Admin Dose 5,000 UNIT; Start 11/22/16 at 22:00 Pantoprazole 40 mg 40 mg DAILY PO Last administered on 11/30/16 08:33; Admin Dose 40 MG; Start 11/27/16 at 09:00 Levofloxacin/ Dextrose (Levaquin 750 Mg/ D5W 150 ml (Pmx)) 150 ml @ 100 mls/hr Q24H IVPB Last administered on 11/29/16 17:44; Admin Dose 100 MLS/HR; Start at 18:00 Metoprolol Tartrate (Lopressor) 12.5 mg BID PO Last administered on 11/30/16 08:35; Admin Dose 12.5 MG; Start 11/28/16 at 21:00 Furosemide (Lasix) 20 mg DAILY PO Last administered on 11/30/16 08:34; Admin Dose 20 MG; Start 11/29/16 at 09:00 Nishant Ruelas DO Nov 30, 2016 11:12
[2016-11-30] MEDS ORDERED: AMLODIPINE 2.5 MG TAB PO SCH (11:16)
--- NOTE | 2016-11-30 11:34 | CONS ---
Date/Time of Note Date/Time of Note DATE: 11/30/16 TIME: 11:33 Assessment/Plan Assessment/Plan Additional Assessment/Plan 1. Acute kidney injury due to obstructive uropathy with Prerenal azotemia 2. Acute urinary tract infection. 2. Acute obstructive uropathy causing blockage of her ureters. The patient had a 10 mm stone in the right proximal ureter and a 12 mm stone in the right distal ureter causing intractable abdominal pain. 3. Bilateral nephrolithiasis with a small renal cyst. 4. Right atrophic kidney with cortical thinning. 5. Intractable abdominal pain. 6. History of hypertension. 7. History of hyperlipidemia. 8. History of vitamin D deficiency. 9. History of previous coronary artery disease, has been on Plavix. PLAN: s/p cystoscopy with laser lithotripsy and Stent placement Cr improving Expecting creatinine to improve with Relieve of obstruction and improvement in retention will give lactulose and Fleet enema for constipation will continue to fllow up on patient Consultation Date/Type/Reason Admit Date/Time Nov 16, 2016 at 10:29 Initial Consult Date november Type of Consultation: NEPHROLOGY Referring Provider: PARVIN KELLY MD 24 HR Interval Summary Free Text/Dictation K 3.3, Cr normal, c/o constipation Exam/Review of Systems Vital Signs Vitals Vital Signs Date Time Temp Pulse Resp B/P Pulse Ox O2 Delivery O2 Flow Rate FiO2 11/30/16 09:07 90 22 94 21 11/30/16 07:32 98.2 190/83 11/29/16 18:01 2.0 11/29/16 04:00 Room Air Intake and Output 11/29/16 11/29/16 11/30/16 15:00 23:00 07:00 Intake Total 500 ml 400 ml Balance 500 ml 400 ml Results Result Diagram: 11/30/16 0939 11/30/16 0937 Results 24 hrs Laboratory Tests Test 11/30/16 09:37 11/30/16 09:39 Anion Gap 10 Blood Urea Nitrogen 11 Calcium Level 9.2 Carbon Dioxide Level 32 H Chloride Level 100 Creatinine 0.98 Glucose Level 98 Potassium Level 3.3 L Sodium Level 139 Basophils # 0.1 Basophils % 0.5 Eosinophils # 0.1 Eosinophils % 0.7 Hematocrit 31.2 L Hemoglobin 10.2 L Lymphocytes # 2.0 Lymphocytes % 15.4 Mean Corpuscular Hemoglobin 28.2 L Mean Corpuscular Hemoglobin Concent 32.7 Mean Corpuscular Volume 86.2 Mean Platelet Volume 9.3 Monocytes # 0.7 Monocytes % 5.1 Neutrophils # 10.0 H Neutrophils % 75.7 Nucleated Red Blood Cells # 0.0 Nucleated Red Blood Cells % 0.0 Platelet Count 532 H Red Blood Count 3.62 L Red Cell Distribution Width 15.4 H White Blood Count 13.2 H Medications Medications Current Medications Morphine Sulfate (morphine) 4 mg Q4H PRN IV pain Last administered on 11/21/16 15:01; Admin Dose 2 MG; Start 11/16/16 at 08:00 Tamsulosin HCl (Flomax) 0.4 mg DAILY PO Last administered on 11/30/16 08:35; Admin Dose 0.4 MG; Start 11/16/16 at 08:00 Ondansetron HCl (Zofran Inj) 4 mg Q4H PRN IV NAUSEA AND/OR VOMITING Last administered on 11/27/16 21:35; Admin Dose 4 MG; Start 11/16/16 at 10:00 Calcium Carbonate (Tums) 500 mg BID PO Last administered on 11/27/16 21:12; Admin Dose 500 MG; Start 11/16/16 at 11:00 Polyethylene Glycol (Miralax) 17 gm DAILY PO Last administered on 11/30/16 08: 33; Admin Dose 17 GM; Start 11/16/16 at 11:00 Ascorbic Acid (Vitamin C) 500 mg BID PO Last administered on 11/30/16 08:35; Admin Dose 500 MG; Start 11/16/16 at 21:00 Atorvastatin Calcium (Lipitor) 20 mg DAILY@21 PO Last administered on 21:25; Admin Dose 20 MG; Start 11/16/16 at 21:00 Acetaminophen/ Hydrocodone Bitart ([place] (5/325)) 1 tab Q4H PRN PO PAIN Last administered on 11/18/16 10:39; Admin Dose 1 TAB; Start 11/18/16 at 10:30 Acetaminophen (Tylenol Tab) 650 mg Q6H PRN PO PAIN AND OR ELEVATED TEMP Last administered on 11/28/16 18:43; Admin Dose 650 MG; Start 11/19/16 at 21:00 Hydralazine HCl (Apresoline) 10 mg Q4H PRN IV ELEVATED BLOOD PRESSURE Last administered on 11/30/16 08:33; Admin Dose 10 MG; Start 11/21/16 at 21:00 Clopidogrel Bisulfate (plaVIX) 75 mg DAILY PO Last administered on 11/30/16 08 :35; Admin Dose 75 MG; Start 11/23/16 at 09:00 Heparin Sodium (Porcine) (Heparin (5000 Units/0.5 ml)) 5,000 unit Q8 SC Last administered on 11/29/16 21:35; Admin Dose 5,000 UNIT; Start 11/22/16 at 22:00 Pantoprazole 40 mg 40 mg DAILY PO Last administered on 11/30/16 08:33; Admin Dose 40 MG; Start 11/27/16 at 09:00 Levofloxacin/ Dextrose (Levaquin 750 Mg/ D5W 150 ml (Pmx)) 150 ml @ 100 mls/hr Q24H IVPB Last administered on 11/29/16 17:44; Admin Dose 100 MLS/HR; Start at 18:00 Metoprolol Tartrate (Lopressor) 12.5 mg BID PO Last administered on 11/30/16 08:35; Admin Dose 12.5 MG; Start 11/28/16 at 21:00 Furosemide (Lasix) 20 mg DAILY PO Last administered on 11/30/16 08:34; Admin Dose 20 MG; Start 11/29/16 at 09:00 Amlodipine Besylate (Norvasc) 2.5 mg BID PO ; Start 11/30/16 at 11:16 LIZZ SALCEDO MD Nov 30, 2016 11:34
[2016-11-30] MEDS ORDERED: LACTULOSE 30ML CUP PO ONE (12:00)
[2016-11-30] MEDS ORDERED: NA PHOSPHATE/BIPHOS 133 ML ENEMA PR ONE (12:00)
[2016-11-30] MEDS ORDERED: LACTULOSE 30ML CUP PO PRN (12:00)
[2016-11-30] MEDS ORDERED: TAMS-14 PO (15:54)
[2016-11-30] MEDS ORDERED: LEVO500T72 PO (15:54)
--- NOTE | 2016-11-30 15:57 | PDOCDIS ---
Discharge Instructions CONDITION Patient Condition: Good HOME CARE INSTRUCTIONS: Diet Instructions: Reduced Calorie ACTIVITY: Activity Restrictions: No Restrictions FOLLOW UP/APPOINTMENTS Appointments F/U WITH YOUR PCP IN 1-[address] MCNALLY IN 3 WEEKS INSTRUCTED LORY FLORES Nov 30, 2016 15:57
[2016-11-30] MEDS: LEVOFLOXACIN 750MG/D5W (PMX) 150 ML IVPB SCH (18:19)
--- NOTE | 2016-11-30 19:14 | RADRPT ---
Vent Rate: 93 bpm RR Interval: 0 msec [place] Interval: 180 msec QRS Duration: 74 msec QT Interval: 354 msec QTC Interval: 440 msec P-R-T [place]: 53 - 25 - 59 degrees Normal sinus rhythm Normal ECG Electronically Signed By: Johnathan Diaz [id number]
--- NOTE | 2016-11-30 19:31 | PN ---
DATE: 11/30/2016 SUBJECTIVE: History of 2 stones in the right ureter, one in the distal ureter and one in the proxim al ureter and the stone in the distal ureter was removed and the patient had a JJ stent put in. Sin ce then, her white count did go up initially, but then it came down as well as her creatinine. The patient was treated with antibiotic and her abdominal pain has subsided and she is comfortable. OBJECTIVE: VITAL SIGNS: Her temperature is 98.3, pulse 74, respiration 20, blood pressure 177/75. ABDOMEN: Obese and there is no abdominal mass palpable or tenderness. LABORATORY DATA: Her last CBC shows a white count of 13.2, hemoglobin 10.2, hematocrit 31.2. The B UN is 11, creatinine 0.98, sodium 139, potassium 3.3, chloride 100, CO2 32. The patient is basically doing well and she could go home, and she is already scheduled for December to come back to where we go do ureteroscopy and remove the stone from the right kidney. The patient a nd her daughter, they do have the instructions, and that I told the patient not to forget and she sa id, are you kidding, I will not forget it, I will do it, and I informed her that having the JJ stent could also get calcified if you do not remove it and replace it and itself could become a problem. She understood all of that and she promised that she will follow up. Dictated By: DEVAUGHN ESCALANTE/BOBBI Conf#: [id number] DID#: [id number]
--- NOTE | 2016-11-30 20:35 | DS ---
DATE OF ADMISSION: 11/16/2016 DATE OF DISCHARGE: 11/30/2016 DISCHARGE DIAGNOSES: 1. Right obstructive uropathy status post cystoscopy with laser lithotripsy to the distal right ure teral stone, with insertion of stent, discharged with Flomax and antibiotics. The patient has a per sistent right-sided stone and will follow up with Dr. Pinedo of Urology in 3 weeks for removal of t he stone. 2. Sepsis secondary to pyelonephritis from underlying nephrolithiasis, now stable, discharged with Levaquin for 10 more days. 3. Demand ischemia, troponins are stabilized. 4. Mild diastolic congestive heart failure exacerbation, now stable. 5. Debility secondary to morbid obesity and cerebrovascular accident with right-sided deficit. Con tinue in-home support. 6. Hypertension, stable. Continue home meds. 7. Acute kidney injury secondary to nephrolithiasis, improved status post removal of stone. HOSPITAL COURSE: The patient is an 81-year-old female with a history of CVA with right-sided defici t, with hypertension. The patient presented with right flank pain. She was found to have right-filomena ed obstructive uropathy, with right-sided pyelonephritis and sepsis secondary to pyelonephritis. Th e patient was started on IV antibiotics. She was seen by Dr. Pinedo of Urology. The patient ended up undergoing a cystoscopy with laser lithotripsy to the distal right ureteral stone with insertion of a stent. The patient's microbiology did show E. coli in the urine. The patient was seen by Dr. Cm of Nephrology, as she did have elevation of creatinine. It did improve with removal the kidn ey stone. The patient did have elevation of troponin at one point and was seen by a principal programmer, theresa gutierrez felt that this was demand ischemia. Troponins did resolve. She did have acute decompensated gisella stolic heart failure, which did stabilize. The patient's BP did become elevated one point, but impr susana with resumption of BP medications. Her medications were being held initially secondary to her sepsis. Her BP was on the lower side, but her blood pressure did stabilize on her home BP meds; hen ce, were resumed. The patient was felt to be stable for discharge. She did have persistent leukocy tosis, but the white count did improve. It was felt that patient was stable for discharge, with beth ns to follow up with Dr. Pinedo in 3 weeks, as she still has a JJ stent in the right ureter and a s tone in the upper ureter and renal pelvis area. This is scheduled to be removed in approximately 3 weeks. The patient is felt to be stable for discharge. On the day of discharge, her vitals, labs, physical exam were stable, and she had no further acute complaints. Questions were answered. CONDITION ON DISCHARGE: Stable. DISPOSITION: To home. MEDICATIONS: The patient was given prescriptions for: 1. Levaquin 500 daily for 10 days. 2. Flomax 0.4 mg daily. 3. The patient is to continue her other home medications. FOLLOWUP: The patient is to follow up with his PCP in 1-2 weeks and is to follow with Dr. Khris shannon approximately 3 weeks. Greater than 30 minutes was spent coordinating discharge of this patient. Dictated By: LORY GUEVARA/BOBBI Conf#: [id number] DID#: [id number]
== END 2016-11-30 21:15 | disposition home or self-care (01) | DRG 853 ==
LOC: E/R 01:59 → MS2 05:46 → OBSVTOIN 10:29 → MS4 11-22 18:10 → UNDODISIN 11-22 19:57 → MS4 11-22 20:53 → TEL 11-23 21:00
PROVIDERS: ADMIT Internal Medicine; ATTEND Internal Medicine
PROC: 0T768DZ Dilation of Right Ureter with Intraluminal Device, Via Natural or Artificial Opening Endoscopic (ICD-10-PCS; 2016-11-17)
PROC: 0TC68ZZ Extirpation of Matter from Right Ureter, Via Natural or Artificial Opening Endoscopic (ICD-10-PCS; principal; 2016-11-17 17:30)
DX: A41.9 Sepsis, unspecified organism (principal); I50.31 Acute diastolic (congestive) heart failure; N17.9 Acute kidney failure, unspecified; I50.33 Acute on chronic diastolic (congestive) heart failure; N13.2 Hydronephrosis with renal and ureteral calculous obstruction; I69.951 Hemiplegia and hemiparesis following unspecified cerebrovascular disease affecting right dominant side; N39.0 Urinary tract infection, site not specified; I10 Essential (primary) hypertension; R31.9 Hematuria, unspecified; Z79.02 Long term (current) use of antithrombotics/antiplatelets; Z74.01 Bed confinement status; B96.20 Unspecified Escherichia coli [E. coli] as the cause of diseases classified elsewhere; N26.1 Atrophy of kidney (terminal); N20.0 Calculus of kidney; I25.10 Atherosclerotic heart disease of native coronary artery without angina pectoris; E66.9 Obesity, unspecified; Z68.34 Body mass index [BMI] 34.0-34.9, adult; I11.0 Hypertensive heart disease with heart failure
CPT/HCPCS: 36415; 71010; 74000; 74176; 74430; 80048; 80053; 80069; 81001; 81003; 82550; 82553; 82962; 83690; 83735; 84100; 84484; 85025; 85610; 85730; 87040; 87086; 93005; 93306; 93308; 93970; 94640; 94664; 96374; 96375; 96376; 97110; 97162; 97530; J1940; A4310; C2617; C9113; G0378; J0330; J0360; J0456; J0690; J0696; J0744; J1170; J1885; J1956; J2175; J2250; J2270; J2405; J2710; J2765; J3475; J3480; J7030; J7042; J7050

== ENCOUNTER 2016-12-23 08:37 | Inpatient (IN) | payer MEDICARE, OTHER ==
[2016-12-23] VITALS (25 sets, daily range): BP systolic 128–171; BP diastolic 63–90; PULSE 72–89; RESP 17–26; Ht 157.5 cm; Wt 97.7 kg
[~2016-12-23] VITALS: Ht 157.5 cm; Wt 97.7 kg
[~2016-12-23 08:37] MED LIST changes: +ATOR40TA68 PO; +BENA10TA48 PO; +LEVO500T72 PO; +TAMS-14 PO
[2016-12-23 11:06] LABS: ADD SCAN DIFF NO
[2016-12-23 11:14] LABS: BASOPHIL # 0.1 10^3/ul (0.0-0.1); BASOPHILS % 0.4 % (0.0-2.0); EOSINOPHILS # 0.2 10^3/ul (0.0-0.5); EOSINOPHILS % 1.8 % (0.0-7.0); HEMATOCRIT 38.2 % (37.0-47.0); HEMOGLOBIN 12.2 g/dl (12.0-16.0); LYMPHOCYTES # 2.6 10^3/ul (0.8-2.9); LYMPHOCYTES % 21.1 % (15.0-51.0); MEAN CORPUSCULAR HGB CONC 31.9 g/dl (32.0-37.0); MEAN CORPUSCULAR VOLUME 87.6 fl (82.0-101.0); MEAN PLATELET VOLUME 10.4 fl (7.4-10.4); MONOCYTE # 1.1 10^3/ul (0.3-0.9); MONOCYTES % 8.5 % (0.0-11.0); NEUTROPHIL # 8.4 10^3/ul (1.6-7.5); NEUTROPHILS % 67.7 % (39.0-77.0); PLATELET COUNT 336 10^3/UL (140-415); RED BLOOD COUNT 4.36 10^6/ul (4.20-5.40); RED CELL DISTRIBUTION WIDTH 15.2 % (11.5-14.5); WHITE BLOOD COUNT 12.3 10^3/ul (4.8-10.8)
[2016-12-23 11:33] LABS: ALBUMIN 3.5 g/dl (3.3-4.9)
[2016-12-23 11:35] LABS: INR 0.98
[2016-12-23 11:36] LABS: BILIRUBIN,INDIRECT 0.7 mg/dl (0-1.1); BILIRUBIN,TOTAL 0.7 mg/dl (0.2-1.3)
[2016-12-23 11:37] LABS: ALBUMIN/GLOBULIN RATIO 1.02; TOTAL PROTEIN 6.9 g/dl (6.1-8.1)
[2016-12-23 11:38] LABS: CALCIUM 9.7 mg/dl (8.4-10.2); CREATININE 0.56 mg/dl (0.44-1.00); POTASSIUM 3.6 mmol/L (3.5-5.1)
[2016-12-23 11:41] LABS: PARTIAL THROMBOPLASTIN TIME 25.8 Sec (25.0-35.0)
--- NOTE | 2016-12-23 12:20 | HPN ---
Date/Time of Note Date/Time of Note DATE: 12/23/16 TIME: 12:20 Interval H&P Admission Note Pt. seen H&P reviewed: No system changes DEVAUGHN MCNALLY MD Dec 23, 2016 12:20
[2016-12-23] MEDS ORDERED: LEVOFLOXACIN 500MG/D5W (PMX) 100 ML IVPB ONE (12:30)
[2016-12-23] MEDS ORDERED: ROCURONIUM 50 MG INJ ONE (12:33)
[2016-12-23] MEDS ORDERED: SUCCINYLCHOLINE CHLORIDE 100 MG/5 ML SYG IV ONE (12:33)
[2016-12-23] MEDS ORDERED: FENTAnyl 50 MCG/ML VIAL ONE (12:33)
[2016-12-23] MEDS ORDERED: NEOSTIGMINE 3 MG/3 ML SYRINGE ONE (12:33)
[2016-12-23] MEDS ORDERED: GLYCOPYRROLATE 0.4 MG INJ ONE (12:33)
[2016-12-23] MEDS ORDERED: LIDOCAINE 2% (SDV) 5 ML INJ ONE (12:33)
[2016-12-23] MEDS ORDERED: PROPOFOL 200 MG INJ ONE (12:33)
[2016-12-23] MEDS ORDERED: PHENYLephrine (100 MCG/ML) 5ML SYG ONE (12:49)
[2016-12-23] MEDS ORDERED: MEPERIDINE 25 MG INJ IV PRN (14:30)
[2016-12-23] MEDS ORDERED: FENTAnyl 50 MCG/ML VIAL IV PRN (14:30)
[2016-12-23] MEDS ORDERED: ONDANSETRON 4 MG INJ IV PRN (14:30)
[2016-12-23] MEDS ORDERED: LABETALOL HCL 20MG INJ IV PRN (14:30)
[2016-12-23] MEDS ORDERED: DIPHENHYDRAMINE 50 MG INJ IV PRN (14:30)
[2016-12-23] MEDS ORDERED: HYDROmorphONE (0.2 MG/ML) 10ML SYG IV PRN ×2 (14:30)
[2016-12-23] MEDS ORDERED: hydrALAzine 20 MG INJ IV PRN (14:30)
[2016-12-23] MEDS ORDERED: METOCLOPRAMIDE 10 MG INJ IV PRN (14:30)
[2016-12-23] MEDS ORDERED: POLYETHYLENE GLYCOL 17 GM PACKET PO PRN (15:00)
[2016-12-23] MEDS ORDERED: ACETAMINOPHEN 325 MG TAB PO PRN (15:00)
[2016-12-23] MEDS ORDERED: HYDROCODONE/APAP (5/325) TAB PO PRN (15:00)
[2016-12-23] MEDS ORDERED: LEVOFLOXACIN 500MG/D5W (PMX) 100 ML IVPB SCH (15:30)
--- NOTE | 2016-12-23 15:42 | RADRPT ---
Vent Rate: 82 bpm RR Interval: 0 msec [place] Interval: 160 msec QRS Duration: 90 msec QT Interval: 374 msec QTC Interval: 436 msec P-R-T [place]: 55 - 15 - 61 degrees Normal sinus rhythm Nonspecific T wave abnormality Abnormal ECG Electronically Signed By: Man Cross [id number]
--- NOTE | 2016-12-23 15:43 | OPR ---
DATE OF OPERATION: 12/23/2016 PREOPERATIVE DIAGNOSIS: Right upper ureteral and renal stone. POSTOPERATIVE DIAGNOSIS: Right upper ureteral and renal stone. OPERATION PERFORMED: Cystoscopy, removal of old JJ stent, right ureteral pyeloscopy, laser lithotri psy to the stone and insertion of a new JJ stent, 6-[place] x 26 cm long. TECHNIQUE: The patient was brought to the operating room. Time out was done. The patient was iden tified by her name, date, and the procedure. The site of the procedure the patient was given 500 mg of Levaquin IV. The patient was then positioned in the lithotomy position. The genital area was prepped and draped in the usual sterile manner. A #21 [place] cystoscope sheath was introduced into the bladder. Urine was collected for culture and sensitivity. Then, the distal end of the old JJ stent that she had was identified and grasped with a grasper and pulled out through the urethral meatus. The distal curl was cut off and then a 0.035 Glidewire was passed through the lumen all th e way up to the kidney under fluoroscopy. One could see the stone in the kidney itself. Last time when she had the procedure for the lower distal ureteral stone at that time, we pushed the stone timothy k up, the proximal ureteral stone was pushed up into the kidney, and it appears that it stays in the kidney. So, the patient then once I passed the Glidewire up, I removed the old JJ stent. Then, I used a dual lumen and passed it all the way up to the level of the stone and passed a second Glidewi re. Then, the dual lumen was removed and one of the Glidewire was used as a safety wire and either wire was used to insert the access sheath. The access sheath was 13 x 15 mm in diameter and 28 cm l joel. That did go up and as there was no problem. Then, using the digital ureteroscope the ureteros copy and pyeloscopy was done. The stone was visualized and then using the 200 micron holmium laser fiber, the stone was broken into multiple pieces. Then, these pieces were all basketed out one at a time and once we cleared the kidney from the stone fragments then the kidney was inspected and ther e were no additional stones. If there is anything they are very tiny sand-like pieces and little bl ood clots that the patient will be able to pass on her own. At that moment, the ureteroscope was re moved. The access sheath was removed and then reintroduced the cystoscope on the safety wire. Once we had that the bladder then, on the safety wire, I advanced a 6-[place] x 26 cm long JJ stent and t he distal end of it is attached to a string and I brought the string out of the urethra. I then ins erted, 16-[place] Echevarria catheter, and the string of the stent was taped onto the Echevarria catheter so la ter on we will take the Echevar[place] catheter and the stent both at the same time. The patient tolerated t he procedure well and was transferred to recovery room in stable and satisfactory condition. Dictated By: DEVAUGHN ESCALANTE/BOBBI Conf#: [id number] DID#: [id number]
--- NOTE | 2016-12-23 15:49 | CONS ---
DATE OF ADMISSION: 12/23/2016 DATE OF CONSULTATION: 12/23/2016 REQUESTING [employer] T[employer]ER [employer]: Dr. Joseph Pinedo. REASON FOR CONSULTATION: Medical management: Status post cystoscopy. Right ureteroscopy and laser lithotripsy. HISTORY OF PRESENT ILLNESS: This is an 81-year-old female with past medical history of right obstru ctive uropathy status post cystoscopy and laser lithotripsy and distal right ureteral stone with ins ertion of stent on 11/30/2016. Anemia, diastolic congestive heart failure, debility, hypertension, renal insufficiency, dyslipidemia and coronary artery disease who as stated above had an cystoscopy, right ureteroscopy and laser lithotripsy to the distal right ureteral stone and insertion of the [facility] ureteral JJ stent on 11/17/2016. [facility]/2016 wi th antibiotics. Today, the patient was brought back by Dr. Pinedo, urology for cystoscopy and righ t ureteroscopy, laser lithotripsy and replacement of right ureteral JJ stent. At this time, the pat ient is postop status post her cystoscopy. She denies any fever, chills, weight gain, weight loss, anorexia. No chest pain, palpitations, edema, orthopnea. No change in visual acuity, diplopia, eula tophobia. She has a Echevarria in place which has serosanguineous output. Denies having any abdominal p ain at this time. The patient's vitals are stable with pulse 78, blood pressure 158/69, oxygen 98% in room air. During the surgery, the patient was treated with Levaquin. She denies having any othe r discomfort at this time as stated above. PAST MEDICAL AND SURGICAL HISTORY: As above per HPI. MEDICATIONS: 1. Tylenol. 2. Amlodipine. 3. Lipitor. 4. Benazepril. 5. Plavix. 6. Colace. 7. MiraLax. 8. Flomax. ALLERGIES: VITAMIN B12. SOCIAL HISTORY: Negative x3 with smoking, alcohol, illicit drug. At this time, she resides at [facility]. REVIEW OF SYSTEMS: As above per HPI, otherwise 12 review of systems be negative. PHYSICAL EXAMINATION: VITAL SIGNS: Temperature 97.8, pulse 76, respiration 20, blood pressure 140/81, oxygen 98% in room air. GENERAL APPEARANCE: Patient is lying in bed comfortably without any distress. She is awake, alert, oriented. She is able to answer my questions properly. EYES AND ENT: Conjunctivae and lids are normal. Pupils are normal. Extraocular normal. Hearing g rossly normal. Lips, teeth and gums are normal. Oral mucosa is dry. NECK: Supple. Trachea is midline. No lymphadenopathy. RESPIRATORY: Effort is normal. Clear to auscultate bilaterally. CARDIOVASCULAR: Normal S1, S2. Regular rhythm and rate. No murmur, no bruits, no edema. Peripher al pulses, radial pulses palpable. Cap refill is normal. CHEST: Normal expansion of thorax during inspiration. GASTROINTESTINAL: Abdomen is soft, nontender, not distended. Bowel sounds present. No guarding, n o rebound. GENITOURINARY: Deferred. MUSCULOSKELETAL: Upper and lower extremities within normal limits. PSYCHIATRIC: She is awake, alert, and oriented. LABORATORY WORK AND IMAGING: Sodium 144, potassium 3.6, chloride 106, bicarbonate 26, BUN 11, creat inine 0.56, glucose 89. LFTs all within normal limits. WBC 12.3, hemoglobin 12.2, hematocrit 38.2, platelets 336. ASSESSMENT AND PLAN: 1. History of nephrolithiasis with ureteral JJ stent. The patient is status post cystoscopy and r ight ureteral pyeloscopy, laser lithotripsy and removal and replacement of right ureteral JJ stent. Continue post-surgical care by urologist. The patient has been placed on prophylactic Rocephin and Levaquin. At this time, we will hold Plavix. We will follow up his recommendation to restart Plav ix. 2. Essential hypertension, better controlled on medical management. Continue home medication of am lodipine and lisinopril. 3. Dyslipidemia. Continue statin. 4. Constipation. Continue Colace and MiraLax. 5. We will continue to monitor patient closely. Further recommendations, management and treatment as per clinical course. For deep venous thrombosis prophylaxis, we will place patient on sequential compression devices. Dictated By: XUAN GREGG MD PN/NTS Conf#: [id number] DID#: [id number]
[2016-12-23] MEDS: CEFTRIAXONE 1 GM/50 ML (PMX) 50 ML IVPB SCH (16:29)
--- NOTE | 2016-12-23 17:16 | RADRPT ---
PROCEDURE: Intraoperative imaging of the abdomen and pelvis with fluoroscopy. CLINICAL INDICATION: Abdominal pain. Intraoperative. TECHNIQUE: 40 images of the abdomen and pelvis were obtained in the operating room with an image i ntensifier. No radiologist was in attendance. 2.2 minutes of fluoroscopy time was used. COMPARISON: 11/17/2016. FINDINGS: Images demonstrate instrumentation of the right ureter for removal of the proximal right ureteral ca lculus. Final images demonstrate a right ureteral double pigtail stent in satisfactory position. IMPRESSION: 1. Satisfactory intraoperative imaging of the abdomen and pelvis. RPTAT: QQ .Rashad Dodge MD, MD Date Time Electronically viewed and signed by .Rashad Dodge MD, on 12/23/2016 17:16 .R/
--- NOTE | 2016-12-23 17:17 | RADRPT ---
PROCEDURE: XR Chest. CLINICAL INDICATION: Shortness of breath. Renal calculi. Preoperative. TECHNIQUE: Single frontal view. COMPARISON: 11/25/2016. FINDINGS: There is elevation of the right hemidiaphragm. The lungs are clear. The heart size is normal. There is calcification in the aorta consistent with atherosclerosis. There is no pleural effusion. There is no pneumothorax. IMPRESSION: 1. Elevation of the right hemidiaphragm. 2. Clear lungs. 3. Atherosclerosis. RPTAT: QQ .Rashad Dodge MD, MD Date Time Electronically viewed and signed by .Rashad Dodge MD, MD on 12/23/2016 17:17 .R/
[2016-12-23] MEDS: DEXTROSE 5%-0.45% NACL 1,000 ML IV SCH (18:48)
[2016-12-23] MEDS: ATORVASTATIN 20 MG TAB PO SCH (20:53)
[2016-12-24] VITALS: BP 139/60; RESP 18
[2016-12-24 05:29] LABS: ADD SCAN DIFF NO; BASOPHILS % 0.2 % (0.0-2.0); EOSINOPHILS # 0.1 10^3/ul (0.0-0.5); EOSINOPHILS % 0.7 % (0.0-7.0); HEMATOCRIT 35.3 % (37.0-47.0); LYMPHOCYTES # 1.8 10^3/ul (0.8-2.9); LYMPHOCYTES % 14.8 % (15.0-51.0); MEAN CORPUSCULAR HEMOGLOBIN 27.4 pg (29.0-33.0); MEAN CORPUSCULAR HGB CONC 31.2 g/dl (32.0-37.0); MEAN PLATELET VOLUME 10.5 fl (7.4-10.4); MONOCYTE # 1.2 10^3/ul (0.3-0.9); MONOCYTES % 9.4 % (0.0-11.0); NEUTROPHIL # 9.2 10^3/ul (1.6-7.5); NEUTROPHILS % 74.5 % (39.0-77.0); PLATELET COUNT 275 10^3/UL (140-415); RED BLOOD COUNT 4.01 10^6/ul (4.20-5.40); RED CELL DISTRIBUTION WIDTH 15.3 % (11.5-14.5); WHITE BLOOD COUNT 12.4 10^3/ul (4.8-10.8)
[2016-12-24 05:59] LABS: CALCIUM 9.1 mg/dl (8.4-10.2); CREATININE 0.59 mg/dl (0.44-1.00); POTASSIUM 3.3 mmol/L (3.5-5.1)
[2016-12-24] MEDS: LEVOFLOXACIN 250 MG TAB PO SCH (06:29)
[2016-12-24 06:30] VITALS: BP 159/81; PULSE 88; RESP 18
[2016-12-24 07:39] VITALS: BP 148/73; RESP 15
[2016-12-24] MEDS: DOCUSATE SODIUM 100 MG CAP PO SCH (08:50)
[2016-12-24] MEDS: TAMSULOSIN (SR) 0.4 MG CAP PO SCH (08:51)
[2016-12-24] MEDS: BENAZEPRIL 10 MG TAB PO SCH (08:52)
[2016-12-24] MEDS: AMLODIPINE 5 MG TAB PO SCH (08:52)
[2016-12-24] MEDS: DEXTROSE 5%-0.45% NACL 1,000 ML IV SCH (13:06)
--- NOTE | 2016-12-24 13:27 | PN ---
Date/Time of Note Date/Time of Note DATE: 12/24/16 TIME: 13:26 Assessment/Plan VTE Prophylaxis VTE Prophylaxis Intervention: SCD's Lines/Catheters IV [facility]ter Type (from [facility]): Peripheral IV Urinary Cath still in place: Yes Reason Cath still needed: other (indicate) Assessment/Plan Chief Complaint/Hosp Course ASSESSMENT AND PLAN: 1. History of nephrolithiasis with ureteral JJ stent. The patient is status post cystoscopy and right ureteral pyeloscopy, laser lithotripsy and removal and replacement of right ureteral JJ stent. Continue post-surgical care by urologist. The patient has been placed on prophylactic Rocephin and Levaquin. At this time, we will hold Plavix. We will follow up urology recommendation to restart Plavix. 2. Essential hypertension, better controlled on medical management. Continue home medication of amlodipine and lisinopril. 3. Dyslipidemia. Continue statin. 4. Constipation. Continue Colace and MiraLax. We will continue to monitor patient closely. Further recommendations, management and treatment as per clinical course. For deep venous thrombosis prophylaxis, we will place patient on sequential compression devices. Disposition back to [facility] facility as per urologist Problems: Subjective 24 Hr Interval Summary Free Text/Dictation Patient denies of any chest pain or shortness of breath Tolerating oral intake No abdominal discomfort Exam/Review of Systems Vital Signs Vitals Vital Signs Date Time Temp Pulse Resp B/P Pulse Ox O2 Delivery O2 Flow Rate FiO2 12/24/16 07:39 98.0 89 15 148/73 96 12/23/16 18:30 Nasal Cannula 12/23/16 14:31 8.0 Intake and Output 12/23/16 12/23/16 12/24/16 15:00 23:00 07:00 Intake Total 1200 ml 925 ml Output Total 170 ml 750 ml Balance 1030 ml 175 ml Exam General: The patient is well-developed, Not in acute distress. HEENT: Atraumatic, normocephalic. The pupils are equal and round . Neck: Supple with full range of motion. Chest: Normal expansion of the thorax during inspiration Lungs: Clear to auscultation bilaterally Heart: Normal S1-S2, Regular rhythm and rate. Abdomen: Soft , nontender, nondistended , bowel sounds are present. Extremities: Bilateral lower extremity weakness, no edema no cyanosis Neurologic: Normal mental status,The patient is awake, alert and oriented . Genitourinary: Echevarria in place with serosanguineous fluid Results Result Diagram: 12/24/16 0423 12/24/16 0423 Results 24 hrs Laboratory Tests Test 12/24/16 04:23 White Blood Count 12.4 H Red Blood Count 4.01 L Hemoglobin 11.0 L Hematocrit 35.3 L Mean Corpuscular Volume 88.0 Mean Corpuscular Hemoglobin 27.4 L Mean Corpuscular Hemoglobin Concent 31.2 L Red Cell Distribution Width 15.3 H Platelet Count 275 Mean Platelet Volume 10.5 H Neutrophils % 74.5 Lymphocytes % 14.8 L Monocytes % 9.4 Eosinophils % 0.7 Basophils % 0.2 Nucleated Red Blood Cells % 0.0 Neutrophils # 9.2 H Lymphocytes # 1.8 Monocytes # 1.2 H Eosinophils # 0.1 Basophils # 0.0 Nucleated Red Blood Cells # 0.0 Sodium Level 139 Potassium Level 3.3 L Chloride Level 108 Carbon Dioxide Level 26 Anion Gap 8 # Blood Urea Nitrogen 7 Creatinine 0.59 Glucose Level 99 Calcium Level 9.1 Medications Medications Current Medications Acetaminophen/ Hydrocodone Bitart 1 tab 1 tab Q4H PRN PO PAIN; Start 12/23/16 at 15:00 Dextrose/Sodium Chloride (D5-1/2ns) 1,000 ml @ 50 mls/hr Q20H IV Last administered on 12/24/16 13:06; Admin Dose 50 MLS/HR; Start 12/23/16 at 15:00 Levofloxacin (Levaquin) 250 mg DAILY@06 PO Last administered on 12/24/16 06:29 ; Admin Dose 250 MG; Start 12/24/16 at 06:00 Acetaminophen (Tylenol Tab) 650 mg TID PRN PO FEVER; Start 12/23/16 at 15:00 Amlodipine Besylate (Norvasc) 5 mg DAILY PO Last administered on 12/24/16 08:52 ; Admin Dose 5 MG; Start 12/24/16 at 09:00 Atorvastatin Calcium (Lipitor) 20 mg QHS PO Last administered on 12/23/16 20:53 ; Admin Dose 20 MG; Start 12/23/16 at 21:00 Benazepril HCl (Lotensin) 10 mg DAILY PO Last administered on 12/24/16 08:52; Admin Dose 10 MG; Start 12/24/16 at 09:00 Docusate Sodium (Colace) 100 mg DAILY PO Last administered on 12/24/16 08:50; Admin Dose 100 MG; Start 12/24/16 at 09:00 Polyethylene Glycol (Miralax) 17 gm DAILY PRN PO CONSTIPATION; Start 12/23/16 at 15:00 Tamsulosin HCl 0.4 mg 0.4 mg DAILY PO Last administered on 12/24/16 08:51; Admin Dose 0.4 MG; Start 12/24/16 at 09:00 Ceftriaxone Sodium (Rocephin) 50 ml @ 100 mls/hr Q24H IVPB Last administered on 12/23/16 16:29; Admin Dose 100 MLS/HR; Start 12/23/16 at 16:30 XUAN GREGG MD Dec 24, 2016 13:27
--- NOTE | 2016-12-24 15:57 | PN ---
DATE: 12/24/2016 SUBJECTIVE: The patient had a kidney stone. She is status post right ureteral pyeloscopy, laser li thotripsy and insertion of a JJ stent. GENERAL: The patient is much more comfortable now. She denies any abdominal pain. OBJECTIVE: PHYSICAL EXAMINATION: VITAL SIGNS: Temperature 98.0, blood pressure 148/73, pulse is 89, respirations 15. ABDOMEN: Very obese. There is no abdominal mass that could be palpated. The patient does have an indwelling Echevarria catheter that is draining blood-tinged urine and also the stent is attached to a st ring that was taped to the Echevarria catheter. LABORATORY DATA: Her CBC today shows a white count of 12.4, hemoglobin 11.0, hematocrit 35.3. The BUN is 7, creatinine 0.59. The electrolytes, sodium 139, potassium 3.3, chloride 108, CO2 26. Urin e culture collected yesterday at the time of surgery showed no growth after 24 hours. The patient h ad a KUB which showed the JJ stent to be in good position. IMPRESSION: Status post right ureteroscopy, pyeloscopy, laser lithotripsy to right renal stone and removal of the stone fragments, insertion of a JJ stent and the patient is bedridden. She has had a history of stroke in the past and she cannot walk. She has morbid obesity and she does have a uret eral stent and Echevarria, so she needs to stay in the hospital. So maybe in a couple of days, I will be able to take out the stent for her and then if she is stable, then she could go home. Dictated By: DEVAUGHN ESCALANTE/BOBBI Conf#: [id number] DID#: [id number]
[2016-12-24] MEDS: CEFTRIAXONE 1 GM/50 ML (PMX) 50 ML IVPB SCH (17:41)
[2016-12-24 20:22] VITALS: BP 133/89; RESP 20
[2016-12-24] MEDS: ATORVASTATIN 20 MG TAB PO SCH (20:46)
[2016-12-25 05:23] LABS: ADD SCAN DIFF NO
[2016-12-25 05:27] LABS: BASOPHILS % 0.3 % (0.0-2.0); EOSINOPHILS # 0.2 10^3/ul (0.0-0.5); EOSINOPHILS % 2.1 % (0.0-7.0); HEMATOCRIT 36.3 % (37.0-47.0); HEMOGLOBIN 11.3 g/dl (12.0-16.0); LYMPHOCYTES # 1.9 10^3/ul (0.8-2.9); LYMPHOCYTES % 20.4 % (15.0-51.0); MEAN CORPUSCULAR HEMOGLOBIN 27.7 pg (29.0-33.0); MEAN CORPUSCULAR HGB CONC 31.1 g/dl (32.0-37.0); MEAN PLATELET VOLUME 11.1 fl (7.4-10.4); MONOCYTES % 10.1 % (0.0-11.0); NEUTROPHIL # 6.2 10^3/ul (1.6-7.5); NEUTROPHILS % 66.7 % (39.0-77.0); RED BLOOD COUNT 4.08 10^6/ul (4.20-5.40); RED CELL DISTRIBUTION WIDTH 15.2 % (11.5-14.5); WHITE BLOOD COUNT 9.4 10^3/ul (4.8-10.8)
[2016-12-25] MEDS: LEVOFLOXACIN 250 MG TAB PO SCH (05:35)
[2016-12-25 05:53] LABS: CREATININE 0.62 mg/dl (0.44-1.00)
[2016-12-25 05:54] LABS: CALCIUM 9.3 mg/dl (8.4-10.2); PLATELET COUNT 198 10^3/UL (140-415)
[2016-12-25] MEDS: DEXTROSE 5%-0.45% NACL 1,000 ML IV SCH (07:00)
[2016-12-25 08:12] VITALS: BP 144/64; RESP 20
[2016-12-25] MEDS: TAMSULOSIN (SR) 0.4 MG CAP PO SCH (08:40)
[2016-12-25] MEDS: DOCUSATE SODIUM 100 MG CAP PO SCH (08:40)
[2016-12-25] MEDS: BENAZEPRIL 10 MG TAB PO SCH (08:41)
[2016-12-25] MEDS: AMLODIPINE 5 MG TAB PO SCH (08:41)
--- NOTE | 2016-12-25 13:54 | PN ---
Date/Time of Note Date/Time of Note DATE: 12/25/16 TIME: 13:51 Assessment/Plan VTE Prophylaxis VTE Prophylaxis Intervention: other Lines/Catheters [facility] Type ([facility]): Peripheral IV Urinary Cath still in place: Yes Reason Cath still needed: other (indicate) Assessment/Plan Chief Complaint/Hosp Course ASSESSMENT AND PLAN: 1. History of nephrolithiasis with ureteral JJ stent. The patient is status post cystoscopy and right ureteral pyeloscopy, laser lithotripsy and removal and replacement of right ureteral JJ stent. Continue post-surgical care by urologist. The patient has been placed on prophylactic Rocephin and Levaquin. At this time, we will hold Plavix. We will follow up urology recommendation to restart Plavix. 2. Essential hypertension, better controlled on medical management. Continue home medication of amlodipine and lisinopril. 3. Dyslipidemia. Continue statin. 4. Constipation. Continue Colace and MiraLax. We will continue to monitor patient closely. Further recommendations, management and treatment as per clinical course. For deep venous thrombosis prophylaxis, we will place patient on sequential compression devices. Disposition back to nursing home facility as per urologist Plan to removal of JJ stent tomorrow 12/26/2016 Problems: Subjective 24 Hr Interval Summary Free Text/Dictation Patient denies any chest pain or shortness of breath Tolerating oral intake Urine output has been clearing up with no evidence of hematuria Exam/Review of Systems Vital Signs Vitals Vital Signs Date Time Temp Pulse Resp B/P Pulse Ox O2 Delivery O2 Flow Rate FiO2 12/25/16 08:12 97.9 91 20 144/64 98 12/23/16 18:30 Nasal Cannula 12/23/16 14:31 8.0 Intake and Output 12/24/16 12/24/16 12/25/16 14:59 22:59 06:59 Intake Total 1050 ml 1100 ml Output Total 750 ml Balance 1050 ml 350 ml Exam General: The patient is well-developed, Not in acute distress. HEENT: Atraumatic, normocephalic. The pupils are equal and round . Neck: Supple with full range of motion. Chest: Normal expansion of the thorax during inspiration Lungs: Clear to auscultation bilaterally Heart: Normal S1-S2, Regular rhythm and rate. Abdomen: Soft , nontender, nondistended , bowel sounds are present. Extremities: Bilateral lower extremity weakness, no edema no cyanosis Neurologic: Normal mental status,The patient is awake, alert and oriented . Results Result Diagram: 12/25/16 0450 12/25/16 0450 Results 24 hrs Laboratory Tests Test 12/25/16 04:50 White Blood Count 9.4 # Red Blood Count 4.08 L Hemoglobin 11.3 L Hematocrit 36.3 L Mean Corpuscular Volume 89.0 Mean Corpuscular Hemoglobin 27.7 L Mean Corpuscular Hemoglobin Concent 31.1 L Red Cell Distribution Width 15.2 H Platelet Count 198 # Mean Platelet Volume 11.1 H Neutrophils % 66.7 Lymphocytes % 20.4 Monocytes % 10.1 Eosinophils % 2.1 Basophils % 0.3 Nucleated Red Blood Cells % 0.0 Neutrophils # 6.2 Lymphocytes # 1.9 Monocytes # 1.0 H Eosinophils # 0.2 Basophils # 0.0 Nucleated Red Blood Cells # 0.0 Sodium Level 140 Potassium Level 3.0 L Chloride Level 107 Carbon Dioxide Level 23 Anion Gap 13 Blood Urea Nitrogen 6 L Creatinine 0.62 Glucose Level 114 Calcium Level 9.3 Medications Medications Current Medications Acetaminophen/ Hydrocodone Bitart 1 tab 1 tab Q4H PRN PO PAIN; Start 12/23/16 at 15:00 Dextrose/Sodium Chloride (D5-1/2ns) 1,000 ml @ 50 mls/hr Q20H IV Last administered on 12/24/16 13:06; Admin Dose 50 MLS/HR; Start 12/23/16 at 15:00 Levofloxacin (Levaquin) 250 mg DAILY@06 PO Last administered on 12/25/16 05:35 ; Admin Dose 250 MG; Start 12/24/16 at 06:00 Acetaminophen (Tylenol Tab) 650 mg TID PRN PO FEVER; Start 12/23/16 at 15:00 Amlodipine Besylate (Norvasc) 5 mg DAILY PO Last administered on 12/25/16 08:41 ; Admin Dose 5 MG; Start 12/24/16 at 09:00 Atorvastatin Calcium (Lipitor) 20 mg QHS PO Last administered on 12/24/16 20:46 ; Admin Dose 20 MG; Start 12/23/16 at 21:00 Benazepril HCl (Lotensin) 10 mg DAILY PO Last administered on 12/25/16 08:41; Admin Dose 10 MG; Start 12/24/16 at 09:00 Docusate Sodium (Colace) 100 mg DAILY PO Last administered on 12/25/16 08:40; Admin Dose 100 MG; Start 12/24/16 at 09:00 Polyethylene Glycol (Miralax) 17 gm DAILY PRN PO CONSTIPATION Last administered on 12/24/16 22:44; Admin Dose 17 GM; Start 12/23/16 at 15:00 Tamsulosin HCl 0.4 mg 0.4 mg DAILY PO Last administered on 12/25/16 08:40; Admin Dose 0.4 MG; Start 12/24/16 at 09:00 Ceftriaxone Sodium (Rocephin) 50 ml @ 100 mls/hr Q24H IVPB Last administered on 12/24/16 17:41; Admin Dose 100 MLS/HR; Start 12/23/16 at 16:30 Potassium Chloride (Klor-Con 20) 40 meq Q4H PO ; Start 12/25/16 at 14:00; Stop at 18:01 XUAN GREGG MD Dec 25, 2016 13:54
[2016-12-25] MEDS: POTASSIUM CHLORIDE (SR) 20 MEQ TAB PO SCH ×2 (14:30→17:52)
[2016-12-25] MEDS: CEFTRIAXONE 1 GM/50 ML (PMX) 50 ML IVPB SCH (17:52)
[2016-12-25 19:10] VITALS: BP 131/87; RESP 18
[2016-12-25] MEDS: ATORVASTATIN 20 MG TAB PO SCH (20:44)
[2016-12-26] MEDS: DEXTROSE 5%-0.45% NACL 1,000 ML IV SCH ×2 (02:25→04:30)
[2016-12-26 04:54] LABS: ADD SCAN DIFF NO
[2016-12-26 04:58] LABS: BASOPHILS % 0.3 % (0.0-2.0); EOSINOPHILS # 0.3 10^3/ul (0.0-0.5); EOSINOPHILS % 3.3 % (0.0-7.0); HEMATOCRIT 33.6 % (37.0-47.0); HEMOGLOBIN 10.6 g/dl (12.0-16.0); LYMPHOCYTES # 2.1 10^3/ul (0.8-2.9); LYMPHOCYTES % 22.6 % (15.0-51.0); MEAN CORPUSCULAR HGB CONC 31.5 g/dl (32.0-37.0); MEAN CORPUSCULAR VOLUME 88.7 fl (82.0-101.0); MEAN PLATELET VOLUME 10.2 fl (7.4-10.4); MONOCYTE # 0.8 10^3/ul (0.3-0.9); MONOCYTES % 9.2 % (0.0-11.0); NEUTROPHIL # 5.9 10^3/ul (1.6-7.5); NEUTROPHILS % 63.9 % (39.0-77.0); PLATELET COUNT 271 10^3/UL (140-415); RED BLOOD COUNT 3.79 10^6/ul (4.20-5.40); RED CELL DISTRIBUTION WIDTH 15.1 % (11.5-14.5); WHITE BLOOD COUNT 9.2 10^3/ul (4.8-10.8)
[2016-12-26 05:13] LABS: POTASSIUM 3.7 mmol/L (3.5-5.1)
[2016-12-26 05:15] LABS: CREATININE 0.59 mg/dl (0.44-1.00)
[2016-12-26 05:16] LABS: CALCIUM 9.2 mg/dl (8.4-10.2); MAGNESIUM 1.7 mg/dl (1.7-2.5)
[2016-12-26] MEDS: LEVOFLOXACIN 250 MG TAB PO SCH (05:40)
[2016-12-26 08:15] VITALS: BP 169/94; RESP 18
[2016-12-26] MEDS: AMLODIPINE 5 MG TAB PO SCH (08:32)
[2016-12-26] MEDS: BENAZEPRIL 10 MG TAB PO SCH (08:32)
[2016-12-26] MEDS: TAMSULOSIN (SR) 0.4 MG CAP PO SCH (08:33)
[2016-12-26] MEDS: DOCUSATE SODIUM 100 MG CAP PO SCH (08:33)
--- NOTE | 2016-12-26 09:03 | PN ---
DATE: 12/26/2016 SUBJECTIVE: The patient is status post right ureteroscopy, pyeloscopy, removal laser lithotripsy to her right renal stone and insertion of right ureteral JJ stent. Patient is feeling quite good. She denies any pain. There is no nausea or vomiting and she is comfortable. OBJECTIVE: GENERAL: She is afebrile. VITAL SIGNS: Temperature is 98.1, the pulse 92, respiration 18, blood pressure 131/87. ABDOMEN: Abdomen is soft. The Echevarria catheter is draining clear urine. LABORATORY DATA: Her CBC shows a white count of 9.2, hemoglobin 10.6, hematocrit 33.6, BUN is 3, cr eatinine 0.59. Electrolytes are normal. The urine culture that was done at the time of the admissi on and surgery showed no growth after 48 hours. IMPRESSION: Good progress postop cystoureteral pyeloscopy and laser lithotripsy and insertion of a JJ stent. The patient is doing very well, therefore I went ahead and removed the Echevarria catheter and the JJ stent. The patient should be able to go home today. Dictated By: DEVAUGHN ESCALANTE/BOBBI Conf#: [id number] DID#: [id number]
--- NOTE | 2016-12-26 14:06 | PDOCDIS ---
Discharge Instructions CONDITION Patient Condition: Stable HOME CARE INSTRUCTIONS: Diet Instructions: RegularSpecial Diet: Drink plenty of liquids ACTIVITY: Activity Restrictions: Slowly Increase Activity Rest between Activity Avoid heavy lifting Bathing Restrictions: Shower FOLLOW UP/APPOINTMENTS Appointments Take your medications, and see your doctor in the clinic in 1 week. CHIDI CERDA Dec 26, 2016 14:05
[2016-12-26] MEDS ORDERED: HYDR-3498 PO (14:07)
[2016-12-26] MEDS ORDERED: LEVO250T35 PO (14:07)
--- NOTE | 2016-12-26 14:38 | DS ---
DATE OF ADMISSION: 12/24/2016 DATE OF DISCHARGE: 12/26/2016 An 81-year-old female originally admitted on 12/23/2016 and being discharged home on 12/26/2016. HOSPITAL COURSE: The patient came in with a history of nephrolithiasis and with a ureteral JJ stent that was placed by urology team. She had a cystoscopy and right ureteral pyeloscopy performed with laser lithotripsy and removal and placement of the right ureteral JJ stent. She was followed by ur ology team and treated for pain management. Over the course of her hospital stay, again ureteral JJ stent was replaced. The Plavix was held as well. She was back at her baseline status on the day of discharge, her blood pressure was stable. Her high cholesterol was managed as well with statins an d after getting clearance from the urology team, she will be discharged home with home health today in improved condition. DISCHARGE MEDICATIONS: She will be sent with the following medications: 1. [place] 5/325 p.o. q.4h. p.r.n. pain. 2. Levaquin 250 mg p.o. daily for 7 days. 3. Tylenol 500 mg t.i.d. 4. Amlodipine 10 mg daily. 5. Atorvastatin 20 mg at bedtime. 6. Benazepril 10 mg daily. 7. Colace 100 mg b.i.d. 8. MiraLax 17 grams daily. 9. Flomax 0.4 mg daily. She will need to resume Plavix in the next 5 to 7 days. She will be off of it until then. FINAL DIAGNOSES: 1. History of nephrolithiasis with ureteral JJ stent, status post removal and replacement of the [facility] ureteral JJ stent after undergoing cystoscopy and right ureteral pyeloscopy, laser lithotripsy a s well. 2. High cholesterol. 3. Essential hypertension. 4. Constipation. 5. History of prior stroke on Plavix for the last 2 years. 6. Coronary artery disease. 7. Diastolic congestive heart failure. 8. History of kidney stones. Time spent discharging patient 45 minutes. Dictated By: CHIDI CRUZ/BOBBI Conf#: [id number] DID#: [id number]
[2016-12-26] MEDS: CEFTRIAXONE 1 GM/50 ML (PMX) 50 ML IVPB SCH (15:42)
== END 2016-12-26 18:25 | disposition home or self-care (01) | DRG 661 ==
LOC: SDS 08:37 → REC 14:41 → SDS 14:41 → MS1 17:10 → OBSVTOIN 12-24 13:33
PROVIDERS: ADMIT Family Medicine; ATTEND Family Medicine
PROC: 0TC08ZZ Extirpation of Matter from Right Kidney, Via Natural or Artificial Opening Endoscopic (ICD-10-PCS; 2016-12-23)
PROC: 0TP98DZ Removal of Intraluminal Device from Ureter, Via Natural or Artificial Opening Endoscopic (ICD-10-PCS; 2016-12-23)
PROC: 0T768DZ Dilation of Right Ureter with Intraluminal Device, Via Natural or Artificial Opening Endoscopic (ICD-10-PCS; principal; 2016-12-23 12:30)
DX: N20.2 Calculus of kidney with calculus of ureter (principal); E66.9 Obesity, unspecified; I10 Essential (primary) hypertension; Z68.39 Body mass index [BMI] 39.0-39.9, adult; E78.5 Hyperlipidemia, unspecified; K59.00 Constipation, unspecified; Z86.73 Personal history of transient ischemic attack (TIA), and cerebral infarction without residual deficits; Z74.01 Bed confinement status; Z79.02 Long term (current) use of antithrombotics/antiplatelets
CPT/HCPCS: 71010; 74430; 80048; 80053; 83735; 85025; 85610; 85730; 87086; 88300; 93005; C2617; G0378; J0330; J0696; J1956; J2370; J2710; J3010; J7042

== ENCOUNTER 2018-06-03 13:37 | Observation (INO) | END 2018-06-05 16:36 | disposition home or self-care (01) ==

== ENCOUNTER 2018-10-08 10:49 | Inpatient (IN) | payer MEDICARE, OTHER ==
[~2018-10-08] VITALS: Ht 170.2 cm; Wt 73.8 kg
[~2018-10-08 10:49] MED LIST changes: -ACET500T98 PO; -ASCO250T2 PO; +BENA10TA4 PO; -BENA10TA48 PO; -CALC200T PO; -CHOL100013 PO; -CYAN1TAB43 PO; +HYDR-3601 PO; -HYDR12.53 PO; +LACT10SO5 PO; -LEVO500T72 PO
--- NOTE | 2018-10-08 10:59 | ERD ---
ER Documentation Chief Complaint Chief Complaint Lower back pain started yesterday HPI 83-year-old female history of hypertension, hyperlipidemia, CVA, nephrolithiasis and cholelithiasis presents the ED complaining of 2-day history worsening, severe, sharp, right flank pain which radiates to the right upper quadrant. Denies nausea, vomiting, or diarrhea but does have intermittent constipation. No hematochezia or melena. Patient reports the pain originates from one spot on her upper back. Denies dysuria, polyuria hematuria. Denies fall or injury. No chest pain, palpitations, shortness of breath or cough. No relieving or exacerbating factors. No fevers or chills. ROS All systems reviewed and are negative except as per history of present illness. Medications Home Meds Reported Medications Polyethylene Glycol* (Miralax*) 17 Gm Powd.pack, 17 GM PO DAILY, #30 PACKET 10/08/18 Docusate Sodium* (Colace*) 100 Mg Capsule, 100 MG PO BID, #60 CAP 10/08/18 Clopidogrel Bisulfate (Clopidogrel) 75 Mg Tablet, 75 MG PO DAILY, #30 TAB 10/08/18 Benazepril Hcl* (Benazepril Hcl*) 10 Mg Tablet, 10 MG PO DAILY, #30 TAB 10/08/18 Atorvastatin Calcium* (Atorvastatin Calcium*) 20 Mg Tablet, 20 MG PO QHS, #30 TAB 10/08/18 Amlodipine Besylate* (Amlodipine Besylate*) 10 Mg Tablet, 10 MG PO DAILY, #30 TAB 10/08/18 Discontinued Reported Medications Clopidogrel Bisulfate (Clopidogrel) 75 Mg Tablet, 75 MG PO DAILY, #30 TAB 06/03/18 Benazepril Hcl* (Benazepril Hcl*) 10 Mg Tablet, 10 MG PO DAILY, #30 TAB 11/16/16 Atorvastatin* (Atorvastatin*) 40 Mg Tablet, 20 MG PO QHS, #30 TAB 11/16/16 Polyethylene Glycol* (Miralax*) 17 Gm Powd.pack, PO DAILY 11/01/13 Amlodipine Besylate* (Amlodipine Besylate*) 10 Mg Tablet, PO DAILY 11/01/13 Docusate Sodium* (Colace*) 100 Mg Capsule, PO BID 11/01/13 Discontinued Scripts Lactulose* (Lactulose*) 10 Gm/15 Ml Solution, 10 GM PO Q8 PRN for constipation, #300 ML Prov:LIZZ CM MD 06/05/18 Hydrocodone Bit-Acetaminophen (Hydrocodone Bit-APAP) 5-325MG Tablet, 1 TAB PO Q4H PRN for PAIN for 10 Days, TAB Prov:CHIDI CERDA 12/26/16 Tamsulosin Hcl* (Flomax*) 0.4 Mg Cap.er.24h, 0.4 MG PO DAILY, #60 CAP Prov:LORY FLORES 11/30/16 Allergies Allergies: Coded Allergies: Cyanocobalamin (Verified Allergy, Unknown, 10/08/18) levofloxacin (Verified Allergy, Unknown, 10/13/18) PMhx/Soc Reviewed in chart. As per HPI. 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 Pulse: 97. Respirations: 18. Blood pressure 168/91. O2 saturation 98% on room air. Physical Exam Const: Moderate distress. Head: Atraumatic Eyes: Normal Conjunctiva ENT: Normal External Ears, Nose and Mouth. Neck: Full range of motion. No meningismus. Resp: Breath sounds decreased at the bases right greater than left. No rales or wheezes. Clear to auscultation bilaterally Chest wall: Right posterior lower chest wall: 6 cm in diameter area of tenderness and bruising but no ecchymosis, fluctuance, crepitus, induration or deformity. Cardio: Regular rate and rhythm, no murmurs Abd: Soft, obese, nondistended. Mild right upper quadrant tenderness but no rebound or guarding. Negative Seo sign. Skin: No petechiae or rashes Back: Right CVA tenderness. Ext: No cyanosis, or edema. Neur: Awake and alert. Cranial nerves are grossly intact. Bilateral lower extremity weakness. Patient is nonambulatory. Psych: Normal Mood and Affect Result Diagram: 10/15/18 5982 10/15/18 0507 Results 24 hrs Laboratory Tests Test 10/08/18 11:44 10/08/18 12:41 10/08/18 13:55 10/08/18 13:58 White Blood Count 13.2 10^3/ul Red Blood Count 4.88 10^6/ul Hemoglobin 13.5 g/dl Hematocrit 41.2 % Mean Corpuscular 84.4 fl Volume Mean Corpuscular 27.7 pg Hemoglobin Mean Corpuscular 32.8 g/dl Hemoglobin Concen t Red Cell 15.4 % Distribution Width Platelet Count 362 10^3/UL Mean Platelet 10.1 fl Volume Immature 0.500 % Granulocytes % Neutrophils % 79.1 % Lymphocytes % 15.4 % Monocytes % 4.1 % Eosinophils % 0.4 % Basophils % 0.5 % Nucleated Red 0.0 /100WBC Blood Cells % Immature 0.060 10^3/ul Granulocytes # Neutrophils # 10.5 10^3/ul Lymphocytes # 2.0 10^3/ul Monocytes # 0.5 10^3/ul Eosinophils # 0.1 10^3/ul Basophils # 0.1 10^3/ul Nucleated Red 0.0 10^3/ul Blood Cells # Sodium Level 142 mmol/L Potassium Level 3.5 mmol/L Chloride Level 104 mmol/L Carbon Dioxide 30 mmol/L Level Anion Gap 8 Blood Urea 15 mg/dl Nitrogen Creatinine 0.84 mg/dl Est Glomerular mL/min Filtrat Rate mL/min Glucose Level 123 mg/dl Calcium Level 10.5 mg/dl Total Bilirubin 0.1 mg/dl Direct Bilirubin 0.00 mg/dl Indirect 0.1 mg/dl Bilirubin Aspartate Amino 17 IU/L Transf (AST/SGOT) Alanine 7 IU/L Aminotransferase (ALT/SGPT) Alkaline 113 IU/L Phosphatase Total Protein 7.0 g/dl Albumin 3.8 g/dl Globulin 3.20 g/dl Albumin/Globulin 1.18 Ratio Lipase 52 U/L Urine Color YELLOW Urine Clarity TURBID Urine pH 6.0 Urine Specific 1.012 [place] Urine Ketones NEGATIVE mg/dL Urine Nitrite POSITIVE mg/dL Urine Bilirubin NEGATIVE mg/dL Urine NEGATIVE mg/dL Urobilinogen Urine Leukocyte 3+ Master/ul Esterase Urine Microscopic 14 /HPF RBC Urine Microscopic > 182 /HPF WBC Urine Squamous FEW /HPF Epithelial Cells Urine Bacteria FEW /HPF Urine Mucus FEW /HPF Urine Hemoglobin 2+ mg/dL Urine Glucose NEGATIVE mg/dL Urine Total 1+ mg/dl Protein Bedside Urine pH 6.0 (LAB) Bedside Urine Trace Protein (LAB) Bedside Urine Negative Glucose (UA) Bedside Urine Negative Ketones (LAB) Bedside Urine 2+ Blood Bedside Urine Positive Nitrite (LAB) Bedside Urine 2+ Leukocyte Esteras e (L Test 10/08/18 14:35 POC Venous 1.0 mmol/L Lactate Current Medications Medications Dose Sig/Maranda Start Time Status Last (Trade) Ordered Route PRN Stop Time Admin Dose Reason Admin Ketorolac 10 mg ONCE STAT 10/08/18 DC 10/08/18 Tromethamine IV 11:12 11:43 (Toradol) 10/08/18 11:17 Cefepime HCl 50 ml @ ONCE STAT 10/08/18 DC 10/08/18 100 mls/hr IVPB 14:18 14:44 10/08/18 14:47 Sodium 2,400 ml BOLUS OVER 2 10/08/18 DC 10/08/18 Chloride HOURS STAT 14:21 14:44 (NS) IV* 10/08/18 14:22 Procedures/MDM DOCUMENTS REVIEWED: ED nurse, prior ED, prior records IMAGING: PROCEDURE: CT ABDOMEN AND PELVIS WITHOUT CONTRAST. CLINICAL INDICATION: Lower back and abdominal pain TECHNIQUE: CT scan of the abdomen and pelvis without contrast was performed on a multidetector high-resolution CT scanner. The patient was scanned without intravenous contrast. Coronal and sagittal reformatted images were obtained from the axial source images. Images were reviewed on a high-resolution PACS workstation. The total exam CTDI equals 17.2 mGy and the total exam DLP equals 1027.6 mGy-cm. One or more of the following dose reduction techniques were used: Automated exposure control. Adjustment of the mA and/or kV according to patient size. Use of iterative reconstruction technique. DICOM images are available COMPARISON: None FINDINGS: CT abdomen: Hepatic morphology is within normal limits. No gross contour deforming masses. Gallbladder is identified with gallstones. No gross evidence of intrahepatic or extrahepatic dilatation. Minimal adjacent fatty stranding is noted. The spleen is identified with calcification. The pancreas appears to be within normal limits. Both adrenal glands are within normal limits. Both kidneys are in anatomic position. Bilateral renal cysts are noted. There is a nonobstructing 5 mm stone within the mid pole right kidney. There is left- sided hydro ureter nephrosis secondary to a 9.2 mm stone within the left distal ureter, located approximately 4-5 cm from the left UVJ. There also appears to be an additional 2.8 mm stone just above the larger stone. The visualized GI tract demonstrate normal caliber loops of small large bowel. There is a small hiatal hernia. No obstruction. Stool filled loops of large bowel suggestive of constipation. Atherosclerotic calcification aorta is identified. There is no same retroperitoneal lymphadenopathy. CT pelvis: The bladder is within normal limits. The uterus is not visualized. The rectosigmoid colon demonstrates stool. No significant free fluid. No pelvic lymphadenopathy. The visualized osseous structures demonstrate multilevel degenerative disease of the spine. Grade 1 anterolisthesis of L4-L5. Grade 1 anterolisthesis of L2-L3. Generalized osteopenia. IMPRESSION: 1. MODERATE LEFT-SIDED HYDROURETERONEPHROSIS SECONDARY TO A 9.2 MM STONE WITHIN THE LEFT DISTAL URETER, LOCATED APPROXIMATELY 4-5 CM FROM THE LEFT UVJ. THERE ALSO APPEARS TO BE A 2.8 MM URETERIC STONE JUST ABOVE THE LARGER STONE. 2. Multiple bilateral renal cysts and right-sided nonobstructing nephrolithiasis. No evidence of right-side obstructive uropathy. 3. No evidence of obstruction. Small hiatal hernia. Stool filled loops of large bowel suggestive of constipation. 4. No evidence of free fluid or free air. No gross focal fluid collections. 5. Status post hysterectomy. RPTAT: AAPP Physician Cm Date Time Electronically viewed and signed by Physician Cm on 10/08/2018 13:09 JL/ MEDICAL DECISION MAKIN-year-old female history of hypertension, hyperlipidemia, CVA, nephrolithiasis and cholelithiasis presents the ED complaining of 2-day history worsening, severe, sharp, right flank pain which radiates to the right upper quadrant. CBC to evaluate for leukocytosis anemia and thrombocytopenia reveals mild leukocytosis of 13.2. Chemistry to evaluate for electrolyte abnormalities and renal insufficiency is unremarkable. Lactate is 1.0 and repeat is 1.7 mmol/L. Urinalysis to evaluate for urinary tract infection reveals pyuria with positive nitrite and esterase. CT of the chest to evaluate the right posterior chest lesion for neoplasm, infection and trauma is unremarkable. CT of the abdomen pelvis to evaluate for intra-abdominal pathology including but not limited to cholecystitis, diverticulitis, appendicitis, obstructive uropathy, bowel obstruction, neoplasm and mesenteric ischemia reveals cholelithiasis without evidence of cholecystitis and obstructing left distal ureteral calculus with moderate hydronephrosis. Patient presents with right flank pain likely secondary to biliary colic although there is also right CVA tenderness and pyuria consistent with pyelonephritis. Criteria for systemic inflammatory response syndrome include tachycardia and leukocytosis. No criteria for sepsis, severe sepsis or septic shock. Broad- spectrum antibiotics initiated after cultures. Abdominal exam is benign without significant tenderness, rebound, guarding, Seo sign or signs of cholec ystitis. Liver function tests are normal. Lipase to evaluate for pancreatitis is negative. Incidentally identified is left distal ureteral calculus with moderate hydronephrosis and patient does not have pain on the left. Admit to [facility] [place] for pain management, intravenous antibiotics, urology consult, for further evaluation and management. CALLS/CONSULTS: Time: 1426, Dr. Venecia Cm. Request patient admission to Dr. Hull PATIENT CARE TRANSITIONED: Time: 14:53, Dr. Hull. Counseled patient and family regarding diagnosis, diagnostic results and plan for admission. Departure Diagnosis: Primary Impression: Acute right flank pain Additional Impressions: Pyelonephritis Cholelithiasis Cholelithiasis location: gallbladder Cholecystitis presence: without cholecystitis Biliary obstruction: without biliary obstruction Qualified Codes: K80.20 - Calculus of gallbladder without cholecystitis without obstruction Nephrolithiasis Hydronephrosis concurrent with and due to calculi of kidney and ureter History of CVA with residual deficit Condition: Serious GIORGIO TAYLOR MD Oct 08, 2018 10:59
[2018-10-08] MEDS ORDERED: KETOROLAC 15 MG INJ IV STA (11:12)
[2018-10-08] MEDS ORDERED: AMLO-147 PO (12:29)
[2018-10-08] MEDS ORDERED: ATOR20TA38 PO (12:30)
[2018-10-08] MEDS ORDERED: CLOP75TA27 PO (12:31)
[2018-10-08] MEDS ORDERED: DOCU-144 PO (12:31)
[2018-10-08] MEDS ORDERED: BENA10TA4 PO (12:31)
[2018-10-08] MEDS ORDERED: POLY17PO6 PO (12:32)
[2018-10-08] MEDS ORDERED: CEFEPIME 2GM/50 ML (PMX) 50 ML IVPB STA (14:18)
[2018-10-08] MEDS ORDERED: SODIUM CHLORIDE 0.9% 1L BAG IV* STA (14:21)
[2018-10-08] MEDS ORDERED: ACETAMINOPHEN 325 MG TAB PO PRN ×2 (15:30→18:00)
[2018-10-08] MEDS ORDERED: ONDANSETRON 4 MG INJ IV PRN ×2 (15:30→18:00)
--- NOTE | 2018-10-08 15:46 | CONS ---
Date/Time of Note Date/Time of Note DATE: 10/08/18 TIME: 15:45 Assessment/Plan Assessment/Plan Assessment/Plan 1. Hypercalcemia, mild 2. Left sided Hydronephrosis due to left ureteral stone 3. right sided pyelonephritis, acute 4. H/o HTN 5. H/o HL Plan: IVF NS at 70 cc/hr for IVF hydration until 8 am tomorrow S/P Urology consult by Continue amlodipine and benazepril for HTN ID has been consulted on the case too Thanks for consultation, I will continue to follow up Result Diagram: 10/08/18 1144 10/08/18 1241 Results 24hrs Laboratory Tests Test 10/08/18 11:44 10/08/18 12:41 10/08/18 13:55 10/08/18 13:58 White Blood Count 13.2 H Red Blood Count 4.88 Hemoglobin 13.5 Hematocrit 41.2 Mean Corpuscular 84.4 Volume Mean Corpuscular 27.7 L Hemoglobin Mean Corpuscular 32.8 Hemoglobin Concent Red Cell 15.4 H Distribution Width Platelet Count 362 Mean Platelet Volume 10.1 Immature 0.500 H Granulocytes % Neutrophils % 79.1 H Lymphocytes % 15.4 Monocytes % 4.1 Eosinophils % 0.4 Basophils % 0.5 Nucleated Red Blood 0.0 Cells % Immature 0.060 H Granulocytes # Neutrophils # 10.5 H Lymphocytes # 2.0 Monocytes # 0.5 Eosinophils # 0.1 Basophils # 0.1 Nucleated Red Blood 0.0 Cells # Sodium Level 142 Potassium Level 3.5 Chloride Level 104 Carbon Dioxide Level 30 Anion Gap 8 Blood Urea Nitrogen 15 Creatinine 0.84 Est Glomerular Filtrat Rate mL/min Glucose Level 123 Calcium Level 10.5 H Total Bilirubin 0.1 L Direct Bilirubin 0.00 Indirect Bilirubin 0.1 Aspartate Amino 17 Transf (AST/SGOT) Alanine 7 L Aminotransferase (AL T/SGPT) Alkaline Phosphatase 113 Total Protein 7.0 Albumin 3.8 Globulin 3.20 Albumin/Globulin 1.18 Ratio Lipase 52 Urine Color YELLOW Urine Clarity TURBID A Urine pH 6.0 Urine Specific 1.012 [place] Urine Ketones NEGATIVE Urine Nitrite POSITIVE A Urine Bilirubin NEGATIVE Urine Urobilinogen NEGATIVE Urine Leukocyte 3+ H Esterase Urine Microscopic 14 H RBC Urine Microscopic > 182 H WBC Urine Squamous FEW Epithelial Cells Urine Bacteria FEW A Urine Mucus FEW A Urine Hemoglobin 2+ H Urine Glucose NEGATIVE Urine Total Protein 1+ H Bedside Urine pH 6.0 (LAB) Bedside Urine Trace H Protein (LAB) Bedside Urine Negative Glucose (UA) Bedside Urine Negative Ketones (LAB) Bedside Urine Blood 2+ H Bedside Urine Positive H Nitrite (LAB) Bedside Urine 2+ H Leukocyte Esterase (L Consultation Date/Type/Reason Admit Date/Time 10/08/2018 Date of Consultation: Oct 08, 2018 Type of Consult NEPHROLOGY Reason for Consultation Hypercalcemia, Left kidney stone with left hydronephrosis Requesting Provider: GIORGIO TAYLOR MD Hx of Present Illness 83-year-old -[place] female with history of hypertension, hyperlipidemia history of stroke with bilateral lower extremities weakness patient is bed bound, patient with history of nephrolithiasis presented to the emergency room with complaints of 2 days worsening severe sharp right flank pain with radiation to the right upper quadrant. Patient denies any nausea vomiting diarrhea. Patient complains of constipation patient denies any hematochezia denies melena. Patient denies any shortness of breath denies any chest pain denies fever and chills. Patient was noted to have leukocytosis and a urinalysis was positive for urinary tract infection. Patient underwent CT of the abdomen and pelvis which revealed moderate left-sided hydroureteronephrosis secondary to a 9 mm stone within the left distal ureter. Patient was started on broad-spectrum antibiotic and was giving Toradol for pain with some relief. she is getting admitted to med/surge floor , urolgoy and Id consult has been done. pt is noted to have hypecalcemia with Ca 12.6-Renal has been consulted for hypercalcemia and obstructive uropathy Constitutional: no complaints Eyes: no complaints ENT: no complaints Respiratory: no complaints Cardiovascular: no complaints Gastrointestinal: no complaints Genitourinary: flank pain Musculoskeletal: no complaints Skin: no complaints Neurologic: no complaints Endocrine: no complaints Lymphatic: no complaints Psychological: no complaints, nl mood/affect Immunologic: no complaints Past Medical History Medical History: high cholesterol, hypertension Medications Current Medications Ondansetron HCl (Zofran Inj) 4 mg BRIDGE ORDER PRN IV NAUSEA AND/OR VOMITING; Start 10/08/18 at 15:30; Stop 10/09/18 at 15:29 Acetaminophen (Tylenol Tab) 650 mg ER BRIDGE PRN PO MILD PAIN(1-3)OR ELEVATED TEMP; Start 10/08/18 at 15:30; Stop 10/09/18 at 15:29 Allergies: Coded Allergies: Cyanocobalamin (Verified Allergy, Unknown, 10/08/18) Past Surgical History Past Surgical Hx: other (hysterectomy, h/o lithotripsy for kidney stone ) Family History Significant Family History: no pertinent family hx Social History Alcohol Use: none Smoking Status: Never smoker Drug Use: none Exam/Review of Systems Vital Signs Vitals Vital Signs Date Temp Pulse Resp B/P (MAP) Pulse Ox O2 O2 Flow FiO2 Time Delivery Rate 10/08/18 98.1 76 20 113/53 99 Room Air 14:50 (73) Exam Constitutional: alert Psych: no complaints Head: normocephalic Eyes: nl conjunctiva ENMT: nl external ears & nose Neck: supple, non-tender Respiratory: clear to auscultation, normal air movement, diminished breath sounds Cardiovascular: regular rate and rhythm Gastrointestinal: soft, non-tender Genitourinary - Female: CVA tenderness (Right side, left back pain ) Musculoskeletal: nl extremities to inspection Extremities: normal pulses Neurological: ELECTRICIAN MANAGER II-XII intact, nl mental status, nl speech, nl strength Skin: nl turgor Lymph: nl lymph nodes Medications Medications Current Medications Ondansetron HCl (Zofran Inj) 4 mg BRIDGE ORDER PRN IV NAUSEA AND/OR VOMITING; Start 10/08/18 at 15:30; Stop 10/09/18 at 15:29 Acetaminophen (Tylenol Tab) 650 mg ER BRIDGE PRN PO MILD PAIN(1-3)OR ELEVATED TEMP; Start 10/08/18 at 15:30; Stop 10/09/18 at 15:29 LIZZ SALCEDO MD Oct 08, 2018 15:46
--- NOTE | 2018-10-08 16:40 | NUR ---
NURSE NOTES: patient alert and oriented x 4, able to answer admission questions with niece at the bedside, Taylor. Safety precautions initiated. Instructed pt and family on how to use call light, telephone and informed of the hourly rounding. Patient was seen and examined by quyen William NP. Per quyen soliman will be doing her admission orders. Skin was assessed with another RN, picture taken, filed in the chart. Will continue to monitor
--- NOTE | 2018-10-08 16:46 | HP ---
Date/Time of Note Date/Time of Note DATE: 10/08/18 TIME: 16:46 Assessment/Plan VTE Prophylaxis SCD applied (from Nsg): Yes Pharmacological prophylaxis: LMWH Lines/Catheters IV Catheter Type (from Nrsg): Saline Lock Assessment/Plan Assessment/Plan -Acute right flank pain secondary to pyelonephritis, continue pain management. -Left hydronephrosis concurrent with and due to calculi of kidney and ureter. Dr. Pinedo is asked to see patient in urology consultation. -Obstructive uropathy secondary to left ureteral stone -Pyelonephritis, will obtain urine culture, continue Zosyn. Dr. Whatley is asked to see patient in infection disease consultation. -Systemic inflammatory response syndrome secondary to pyelonephritis -Nephrolithiasis -Constipation, will start patient on bowel regimen -History of stroke with bilateral lower extremities paralysis -Hypertension, continue benazepril and Norvasc -Hyperlipidemia, continue statin Further recommendations based on clinical course. Plan of care discussed with Dr. Hull. Result Diagram: 10/08/18 1144 10/08/18 1241 Results 24hrs Laboratory Tests Test 10/08/18 11:44 10/08/18 12:41 10/08/18 13:55 10/08/18 13:58 White Blood Count 13.2 H Red Blood Count 4.88 Hemoglobin 13.5 Hematocrit 41.2 Mean Corpuscular 84.4 Volume Mean Corpuscular 27.7 L Hemoglobin Mean Corpuscular 32.8 Hemoglobin Concent Red Cell 15.4 H Distribution Width Platelet Count 362 Mean Platelet Volume 10.1 Immature 0.500 H Granulocytes % Neutrophils % 79.1 H Lymphocytes % 15.4 Monocytes % 4.1 Eosinophils % 0.4 Basophils % 0.5 Nucleated Red Blood 0.0 Cells % Immature 0.060 H Granulocytes # Neutrophils # 10.5 H Lymphocytes # 2.0 Monocytes # 0.5 Eosinophils # 0.1 Basophils # 0.1 Nucleated Red Blood 0.0 Cells # Sodium Level 142 Potassium Level 3.5 Chloride Level 104 Carbon Dioxide Level 30 Anion Gap 8 Blood Urea Nitrogen 15 Creatinine 0.84 Est Glomerular Filtrat Rate mL/min Glucose Level 123 Calcium Level 10.5 H Total Bilirubin 0.1 L Direct Bilirubin 0.00 Indirect Bilirubin 0.1 Aspartate Amino 17 Transf (AST/SGOT) Alanine 7 L Aminotransferase (AL T/SGPT) Alkaline Phosphatase 113 Total Protein 7.0 Albumin 3.8 Globulin 3.20 Albumin/Globulin 1.18 Ratio Lipase 52 Urine Color YELLOW Urine Clarity TURBID A Urine pH 6.0 Urine Specific 1.012 [place] Urine Ketones NEGATIVE Urine Nitrite POSITIVE A Urine Bilirubin NEGATIVE Urine Urobilinogen NEGATIVE Urine Leukocyte 3+ H Esterase Urine Microscopic 14 H RBC Urine Microscopic > 182 H WBC Urine Squamous FEW Epithelial Cells Urine Bacteria FEW A Urine Mucus FEW A Urine Hemoglobin 2+ H Urine Glucose NEGATIVE Urine Total Protein 1+ H Bedside Urine pH 6.0 (LAB) Bedside Urine Trace H Protein (LAB) Bedside Urine Negative Glucose (UA) Bedside Urine Negative Ketones (LAB) Bedside Urine Blood 2+ H Bedside Urine Positive H Nitrite (LAB) Bedside Urine 2+ H Leukocyte Esterase (L HPI/ROS Admit Date/Time Admit Date/Time 10/08/2018 Hx of Present Illness The patient is a 83-year-old -[place] female with history of hypertension, hyperlipidemia history of stroke with bilateral lower extremities weakness patient is bed bound, patient with history of nephrolithiasis presented to the emergency room with complaints of 2 days worsening severe sharp right flank pain with radiation to the right upper quadrant. Patient denies any nausea vomiting diarrhea. Patient complains of constipation patient denies any hematochezia denies melena. Patient denies any shortness of breath denies any chest pain denies fever and chills. Patient was noted to have leukocytosis and a urinalysis was positive for urinary tract infection. Patient underwent CT of the abdomen and pelvis which revealed moderate left-sided hydroureteronephrosis secondary to a 9 mm stone within the left distal ureter. Patient was started on broad-spectrum antibiotic and was giving Toradol for pain with some relief. Patient is admitted for further evaluation and management to medical surgical floor. ROS 12 point review of system is negative except for what mentioned in HPI PMH/Family/Social Past Medical History Medical History: high cholesterol, hypertension, other (CVA in 1991, history of kidney stone was JJ stent placement and subsequent removal) Medications Current Medications Ondansetron HCl (Zofran Inj) 4 mg BRIDGE ORDER PRN IV NAUSEA AND/OR VOMITING; Start 10/08/18 at 15:30; Stop 10/09/18 at 15:29 Acetaminophen (Tylenol Tab) 650 mg ER BRIDGE PRN PO MILD PAIN(1-3)OR ELEVATED TEMP; Start 10/08/18 at 15:30; Stop 10/09/18 at 15:29 Coded Allergies: Cyanocobalamin (Verified Allergy, Unknown, 10/08/18) Past Surgical History Past Surgical Hx: other (Hysterectomy (1968), Lithotripsy (2017)) Family History Significant Family History: no pertinent family hx Social History Alcohol Use: none Smoking Status: Never smoker Drug Use: none Exam/Review of Systems Vital Signs Vitals Vital Signs Date Temp Pulse Resp B/P (MAP) Pulse Ox O2 O2 Flow FiO2 Time Delivery Rate 10/08/18 83 20 132/65 99 Room Air 15:46 (87) 10/08/18 98.1 14:50 Exam Constitutional: alert, oriented Head: normocephalic Neck: supple Respiratory: clear to auscultation Cardiovascular: nl pulses Gastrointestinal: soft, non-tender Genitourinary - Female: CVA tenderness Extremities: normal pulses Neurological: nl mental status, other (Bilateral lower extremity paralysis) Skin: nl ERIN Kohli Oct 08, 2018 16:46
[2018-10-08 16:47] VITALS: Ht 170.2 cm; Wt 73.8 kg
[2018-10-08 17:00] VITALS: BP 132/61; PULSE 80; RESP 18
--- NOTE | 2018-10-08 17:57 | NUR ---
NURSE NOTES; patient alert and oriented x 4, no changes in LOC or mentation. No SOB Addendum: 10/08/18 at 1800 by LIBRADO NGUYEN RN NURSE NOTES; patient alert and oriented x 4, no changes in LOC or mentation. No SOB or distress. Safety precautions observed, hourly rounding done, bed alarm and bed brakes on for safety. will continue to monitor. Will endorse accordingly to next shift for continuity of care
[2018-10-08] MEDS ORDERED: BISACODYL (EC) 5 MG TAB PO PRN (18:00)
[2018-10-08] MEDS ORDERED: morphine 4 MG/ML VIAL IV PRN (18:00)
[2018-10-08] MEDS ORDERED: DOCUSATE SODIUM 100 MG CAP PO PRN (18:00)
[2018-10-08] MEDS: ENOXAPARIN 30 MG/0.3 ML SYG SC SCH (18:12)
--- NOTE | 2018-10-08 18:51 | CONS ---
Date/Time of Note Date/Time of Note DATE: 10/08/18 TIME: 18:31 Assessment/Plan Assessment/Plan Hospital Course 83-year-old -[place] female presented to the hospital with a 2-day history of worsening, severe, sharp, right flank pain which radiates to the right upper quadrant. There is no associated nausea or vomiting and no dysuria or hematuria. The patient underwent a CT scan of the abdomen and pelvis and that showed: 1. MODERATE LEFT-SIDED HYDROURETERONEPHROSIS SECONDARY TO A 9.2 MM STONE WITHIN THE LEFT DISTAL URETER, LOCATED APPROXIMATELY 4-5 CM FROM THE LEFT UVJ. THERE ALSO APPEARS TO BE A 2.8 MM URETERIC STONE JUST ABOVE THE LARGER STONE. 2. Multiple bilateral renal cysts and right-sided nonobstructing nephrolithiasis. No evidence of right-side obstructive uropathy. 3. No evidence of obstruction. Small hiatal hernia. Stool filled loops of large bowel suggestive of constipation. 4. No evidence of free fluid or free air. No gross focal fluid collections. 5. Status post hysterectomy. Therefore a urological consultation was requested. The patient is known to me from before and previously she did have right ureteral stones for which she underwent cystoscopy placement of a JJ stent and ureteroscopy and laser lithotripsy and removal of the JJ stent. That was back in 2017. The patient is bedridden because of a history of a stroke and weakness in both lower extremities. There is a CT scan showing large stone that she is unlikely to pass on her own. She will need to have ureteroscopy and laser lithotripsy and insertion of a JJ stent. She will need medical and cardiology clearance prior to the surgery. We will strain her urine for stones put her on tamsulosin and get a KUB. Also do a urine culture and sensitivity. CT of the chest did not show any rib fractures. Result Diagram: 10/08/18 1144 10/08/18 1241 Results 24hrs Laboratory Tests Test 10/08/18 11:44 10/08/18 12:41 10/08/18 13:55 10/08/18 13:58 White Blood Count 13.2 H Red Blood Count 4.88 Hemoglobin 13.5 Hematocrit 41.2 Mean Corpuscular 84.4 Volume Mean Corpuscular 27.7 L Hemoglobin Mean Corpuscular 32.8 Hemoglobin Concent Red Cell 15.4 H Distribution Width Platelet Count 362 Mean Platelet Volume 10.1 Immature 0.500 H Granulocytes % Neutrophils % 79.1 H Lymphocytes % 15.4 Monocytes % 4.1 Eosinophils % 0.4 Basophils % 0.5 Nucleated Red Blood 0.0 Cells % Immature 0.060 H Granulocytes # Neutrophils # 10.5 H Lymphocytes # 2.0 Monocytes # 0.5 Eosinophils # 0.1 Basophils # 0.1 Nucleated Red Blood 0.0 Cells # Sodium Level 142 Potassium Level 3.5 Chloride Level 104 Carbon Dioxide Level 30 Anion Gap 8 Blood Urea Nitrogen 15 Creatinine 0.84 Est Glomerular Filtrat Rate mL/min Glucose Level 123 Calcium Level 10.5 H Total Bilirubin 0.1 L Direct Bilirubin 0.00 Indirect Bilirubin 0.1 Aspartate Amino 17 Transf (AST/SGOT) Alanine 7 L Aminotransferase (AL T/SGPT) Alkaline Phosphatase 113 Total Protein 7.0 Albumin 3.8 Globulin 3.20 Albumin/Globulin 1.18 Ratio Lipase 52 Urine Color YELLOW Urine Clarity TURBID A Urine pH 6.0 Urine Specific 1.012 [place] Urine Ketones NEGATIVE Urine Nitrite POSITIVE A Urine Bilirubin NEGATIVE Urine Urobilinogen NEGATIVE Urine Leukocyte 3+ H Esterase Urine Microscopic 14 H RBC Urine Microscopic > 182 H WBC Urine Squamous FEW Epithelial Cells Urine Bacteria FEW A Urine Mucus FEW A Urine Hemoglobin 2+ H Urine Glucose NEGATIVE Urine Total Protein 1+ H Bedside Urine pH 6.0 (LAB) Bedside Urine Trace H Protein (LAB) Bedside Urine Negative Glucose (UA) Bedside Urine Negative Ketones (LAB) Bedside Urine Blood 2+ H Bedside Urine Positive H Nitrite (LAB) Bedside Urine 2+ H Leukocyte Esterase (L Test 10/08/18 14:35 POC Venous Lactate 1.0 Consultation Date/Type/Reason Admit Date/Time 10/08/2018 Date of Consultation: Oct 08, 2018 Type of Consult Urology Reason for Consultation Hydronephrosis and left ureteral stone Requesting Provider: OBED TADEO MD Hx of Present Illness 83-year-old -[place] female presented to the hospital with a 2-day history of worsening, severe, sharp, right flank pain which radiates to the right upper quadrant. There is no associated nausea or vomiting and no dysuria or hematuria. The patient underwent a CT scan of the abdomen and pelvis and that showed: 1. MODERATE LEFT-SIDED HYDROURETERONEPHROSIS SECONDARY TO A 9.2 MM STONE WITHIN THE LEFT DISTAL URETER, LOCATED APPROXIMATELY 4-5 CM FROM THE LEFT UVJ. THERE ALSO APPEARS TO BE A 2.8 MM URETERIC STONE JUST ABOVE THE LARGER STONE. 2. Multiple bilateral renal cysts and right-sided nonobstructing nephrolithiasis. No evidence of right-side obstructive uropathy. 3. No evidence of obstruction. Small hiatal hernia. Stool filled loops of large bowel suggestive of constipation. 4. No evidence of free fluid or free air. No gross focal fluid collections. 5. Status post hysterectomy. Therefore a urological consultation was requested. The patient is known to me from before and previously she did have right ureteral stones for which she underwent cystoscopy placement of a JJ stent and ureteroscopy and laser lithotripsy and removal of the JJ stent. That was back in 2017. The patient is bedridden because of a history of a stroke and weakness in both lower extrem ities. Constitutional: no complaints Eyes: no complaints ENT: no complaints Respiratory: No shortness of breath Cardiovascular: No chest pain Gastrointestinal: pain (Right upper quadrant and toward the back) Genitourinary: No dysuria, No hematuria Musculoskeletal: back pain Skin: No rash Neurologic: no complaints Endocrine: no complaints Lymphatic: no complaints Psychological: no complaints Immunologic: no complaints Past Medical History Medical History: coronary artery disease, high cholesterol, hypertension, renal disease, other (History of stroke) Medications Current Medications Amlodipine Besylate (Norvasc) 10 mg DAILY PO ; Start 10/09/18 at 09:00 Atorvastatin Calcium (Lipitor) 20 mg QHS PO ; Start 10/08/18 at 21:00 Benazepril HCl (Lotensin) 10 mg DAILY PO ; Start 10/09/18 at 09:00 Docusate Sodium (Colace) 100 mg BID PO ; Start 10/08/18 at 21:00 Polyethylene Glycol (Miralax) 17 gm DAILY PO ; Start 10/09/18 at 09:00 Ondansetron HCl (Zofran Inj) 4 mg Q6H PRN IV NAUSEA AND/OR VOMITING; Start 10/08/18 at 18:00 Acetaminophen (Tylenol Tab) 650 mg Q6H PRN PO PAIN LEVEL 1-3 OR FEVER; Start 10/08/18 at 18:00 Morphine Sulfate (morphine) 2 mg Q4H PRN IV SEVERE PAIN LEVEL 7-10; Start 10/08/18 at 18:00 Docusate Sodium (Colace) 100 mg Q12H PRN PO CONSTIPATION; Start 10/08/18 at 18:00 Bisacodyl (Dulcolax) 5 mg DAILY PRN PO CONSTIPATION; Start 10/08/18 at 18:00 Famotidine (Pepcid) 20 mg Q12 PO ; Start 10/08/18 at 21:00 Enoxaparin Sodium (Lovenox) 30 mg DAILY SC Last administered on 10/08/18at 18:1 2; Admin Dose 30 MG; Start 10/08/18 at 18:00 Allergies: Coded Allergies: Cyanocobalamin (Verified Allergy, Unknown, 10/08/18) Past Surgical History Past Surgical Hx: other (Hysterectomy, right ureteroscopy and laser lithotripsy.) Social History Alcohol Use: none Smoking Status: Never smoker Drug Use: none Other Social History She is a 4 para 1 1 miscarriage 1 of infection and one of HIV and 1 normal delivery Exam/Review of Systems Vital Signs Vitals Vital Signs Date Temp Pulse Resp B/P (MAP) Pulse Ox O2 O2 Flow FiO2 Time Delivery Rate 10/08/18 98.4 80 18 132/61 97 Room Air 17:00 (84) Exam Constitutional: alert Psych: no complaints Head: normocephalic Eyes: nl conjunctiva ENMT: nl external ears & nose Neck: supple Respiratory: normal air movement; No wheezing Cardiovascular: No jugular venous distention (JVD) Gastrointestinal: soft, other (Very obese) Genitourinary - Female: CVA tenderness (Left flank and left side of abdomen) Musculoskeletal: muscle weakness (Of both lower extremities) Extremities: other (Unable to move her lower extremities well); No calf tenderness Neurological: focal weakness (Lower extremities) Medications Medications Current Medications Amlodipine Besylate (Norvasc) 10 mg DAILY PO ; Start 10/09/18 at 09:00 Atorvastatin Calcium (Lipitor) 20 mg QHS PO ; Start 10/08/18 at 21:00 Benazepril HCl (Lotensin) 10 mg DAILY PO ; Start 10/09/18 at 09:00 Docusate Sodium (Colace) 100 mg BID PO ; Start 10/08/18 at 21:00 Polyethylene Glycol (Miralax) 17 gm DAILY PO ; Start 10/09/18 at 09:00 Ondansetron HCl (Zofran Inj) 4 mg Q6H PRN IV NAUSEA AND/OR VOMITING; Start 10/08/18 at 18:00 Acetaminophen (Tylenol Tab) 650 mg Q6H PRN PO PAIN LEVEL 1-3 OR FEVER; Start 10/08/18 at 18:00 Morphine Sulfate (morphine) 2 mg Q4H PRN IV SEVERE PAIN LEVEL 7-10; Start 10/08/18 at 18:00 Docusate Sodium (Colace) 100 mg Q12H PRN PO CONSTIPATION; Start 10/08/18 at 18 :00 Bisacodyl (Dulcolax) 5 mg DAILY PRN PO CONSTIPATION; Start 10/08/18 at 18:00 Famotidine (Pepcid) 20 mg Q12 PO ; Start 10/08/18 at 21:00 Enoxaparin Sodium (Lovenox) 30 mg DAILY SC Last administered on 10/08/18at 18:12; Admin Dose 30 MG; Start 10/08/18 at 18:[address] scan of the abdomen and pelvis: 1. MODERATE LEFT-SIDED HYDROURETERONEPHROSIS SECONDARY TO A 9.2 MM STONE WITHIN THE LEFT DISTAL URETER, LOCATED APPROXIMATELY 4-5 CM FROM THE LEFT UVJ. THERE ALSO APPEARS TO BE A 2.8 MM URETERIC STONE JUST ABOVE THE LARGER STONE. 2. Multiple bilateral renal cysts and right-sided nonobstructing nephrolithiasis. No evidence of right-side obstructive uropathy. 3. No evidence of obstruction. Small hiatal hernia. Stool filled loops of large bowel suggestive of constipation. 4. No evidence of free fluid or free air. No gross focal fluid collections. 5. Status post hysterectomy. DEVAUGHN MCNALLY MD Oct 08, 2018 18:42
--- NOTE | 2018-10-08 19:41 | NUR ---
spoke w/ Dr Pinedo informed him there is already urine culture pending result in lab. per MD ok not collect another one for urine culture
[2018-10-08 20:00] VITALS: BP 126/76; PULSE 79; RESP 18
[2018-10-08] MEDS: DOCUSATE SODIUM 100 MG CAP PO SCH (20:28)
[2018-10-08] MEDS: ATORVASTATIN 20 MG TAB PO SCH (20:28)
[2018-10-08] MEDS: FAMOTIDINE 20 MG TAB PO SCH (20:33)
--- NOTE | 2018-10-08 22:00 | NUR ---
pt alert,oriented x4, no sob, denies pain. repositioning done. pt refused offloading of heels w/ pillows despite health teaching regarding purpose of it to prevent pressure injury. pt still refused stating she never had wound in the heels before. charge nurse made aware
[2018-10-08] MEDS: PIPER-TAZO 3.375 GM IV (PMX) 100 ML IVPB SCH (23:49)
[2018-10-08] MEDS: SOD CHLORIDE 0.9% 1,000 ML IV SCH (23:49)
[2018-10-09 02:00] VITALS: BP 137/62; PULSE 86; RESP 19
--- NOTE | 2018-10-09 02:00 | NUR ---
KERVIN mattress brought by transport. asked pt if ok to change the bed at this time. per pt to do it in the morning after breakfast she wants to have a bed bath then they can change the bed. charge nurse made aware. will endorse to dayshift nurse. pt is incontinent , unable to strain urine
[2018-10-09] MEDS: PIPER-TAZO 3.375 GM IV (PMX) 100 ML IVPB SCH ×4 (05:52→23:31)
--- NOTE | 2018-10-09 06:32 | NUR ---
pt alert,oriented x4, no sob, denies abdominal pain or back pain. no nausea and vomiting noted. pt is incontinent, unable to strain urine. repositioning done every 2 hours. unable to do offloading of heels w/ pillows as pt refused despite health teaching. Pt to use KERVIN mattress. will endorse as pt wants it done after breakfast and bed bath.
[2018-10-09 08:47] VITALS: BP 138/71; PULSE 78; RESP 18
[2018-10-09] MEDS: POLYETHYLENE GLYCOL 17 GM PACKET PO SCH (08:59)
[2018-10-09] MEDS: ENOXAPARIN 30 MG/0.3 ML SYG SC SCH (08:59)
[2018-10-09] MEDS: BENAZEPRIL 10 MG TAB PO SCH (09:00)
[2018-10-09] MEDS: DOCUSATE SODIUM 100 MG CAP PO SCH ×2 (09:00→20:55)
[2018-10-09] MEDS: AMLODIPINE 10 MG TAB PO SCH (09:00)
[2018-10-09] MEDS: FAMOTIDINE 20 MG TAB PO SCH ×2 (09:00→20:55)
[2018-10-09] MEDS ORDERED: POTASSIUM CHLORIDE 20 MEQ POWDER FOR ORAL SOLN PO ONE (12:00)
--- NOTE | 2018-10-09 12:15 | CONS ---
Assessment/Plan Assessment/Plan Assessment/Plan 1. Hypercalcemia, mild 2. Left sided Hydronephrosis due to left ureteral stone 3. right sided pyelonephritis, acute 4. H/o HTN 5. H/o HL 6. Hypokalemia Plan: IVF NS at 70 cc/hr, KCl 40mEQ PO x 1 dose now , Ca normal today S/P Urology consult by Continue amlodipine and benazepril for HTN IV abx zosyn, Renally dose all abx and monitor electrolytes, ID following will follow up Result Diagram: 10/09/1861910/09/18619 Results 24hrs Laboratory Tests Test 10/08/18 12:41 10/08/18 13:55 10/08/18 13:58 10/08/18 14:35 Sodium Level 142 Potassium Level 3.5 Chloride Level 104 Carbon Dioxide Level 30 Anion Gap 8 Blood Urea Nitrogen 15 Creatinine 0.84 Est Glomerular Filtrat Rate mL/min Glucose Level 123 Calcium Level 10.5 H Total Bilirubin 0.1 L Direct Bilirubin 0.00 Indirect Bilirubin 0.1 Aspartate Amino 17 Transf (AST/SGOT) Alanine 7 L Aminotransferase (AL T/SGPT) Alkaline Phosphatase 113 Total Protein 7.0 Albumin 3.8 Globulin 3.20 Albumin/Globulin 1.18 Ratio Lipase 52 Urine Color YELLOW Urine Clarity TURBID A Urine pH 6.0 Urine Specific 1.012 [place] Urine Ketones NEGATIVE Urine Nitrite POSITIVE A Urine Bilirubin NEGATIVE Urine Urobilinogen NEGATIVE Urine Leukocyte 3+ H Esterase Urine Microscopic 14 H RBC Urine Microscopic > 182 H WBC Urine Squamous FEW Epithelial Cells Urine Bacteria FEW A Urine Mucus FEW A Urine Hemoglobin 2+ H Urine Glucose NEGATIVE Urine Total Protein 1+ H Bedside Urine pH 6.0 (LAB) Bedside Urine Trace H Protein (LAB) Bedside Urine Negative Glucose (UA) Bedside Urine Negative Ketones (LAB) Bedside Urine Blood 2+ H Bedside Urine Positive H Nitrite (LAB) Bedside Urine 2+ H Leukocyte Esterase (L POC Venous Lactate 1.0 Test 10/08/18 18:18 10/09/18 06:20 Lactic Acid Level 1.7 White Blood Count 15.3 H Red Blood Count 4.39 Hemoglobin 11.9 L Hematocrit 37.5 Mean Corpuscular 85.4 Volume Mean Corpuscular 27.1 L Hemoglobin Mean Corpuscular 31.7 L Hemoglobin Concent Red Cell 15.0 H Distribution Width Platelet Count 337 Mean Platelet Volume 10.3 Immature 0.600 H Granulocytes % Neutrophils % 81.3 H Lymphocytes % 9.0 L Monocytes % 8.1 Eosinophils % 0.7 Basophils % 0.3 Nucleated Red Blood 0.0 Cells % Immature 0.090 H Granulocytes # Neutrophils # 12.4 H Lymphocytes # 1.4 Monocytes # 1.2 H Eosinophils # 0.1 Basophils # 0.0 Nucleated Red Blood 0.0 Cells # Sodium Level 142 Potassium Level 3.1 L Chloride Level 107 Carbon Dioxide Level 28 Anion Gap 7 Blood Urea Nitrogen 12 Creatinine 0.72 Est Glomerular Filtrat Rate mL/min Glucose Level 109 Calcium Level 9.9 Total Bilirubin 0.4 Direct Bilirubin 0.00 Indirect Bilirubin 0.4 Aspartate Amino 20 Transf (AST/SGOT) Alanine 8 L Aminotransferase (AL T/SGPT) Alkaline Phosphatase 105 Total Protein 6.3 Albumin 3.3 Globulin 3.00 Albumin/Globulin 1.10 Ratio Consultation Date/Type/Reason Admit Date/Time Oct 08, 2018 at 15:26 Initial Consult Date 10/08/18 Type of Consult NEPHROLOGY Requesting Provider: OBED TADEO MD Exam/Review of Systems Vital Signs Vitals Vital Signs Date Temp Pulse Resp B/P (MAP) Pulse Ox O2 O2 Flow FiO2 Time Delivery Rate 10/09/18 98.6 78 18 138/71 96 08:47 (93) 10/08/18 Room Air 17:00 Intake and Output 10/08/18 10/08/18 10/09/18 1515:00 23:00 07:00 IntakeIntake Total 550 ml BalanceBalance 550 ml Exam Constitutional: alert Respiratory: clear to auscultation, normal air movement, diminished breath sounds Cardiovascular: regular rate and rhythm Gastrointestinal: soft, non-tender Genitourinary - Female: CVA tenderness (Right side, left back pain ) Musculoskeletal: nl extremities to inspection Extremities: normal pulses Neurological: INSTALLMENT AGENT II-XII intact, nl mental status, nl speech, nl strength Medications Medications Current Medications Amlodipine Besylate (Norvasc) 10 mg DAILY PO Last administered on 10/09/18at 09:00; Admin Dose 10 MG; Start 10/09/18 at 09:00 Atorvastatin Calcium (Lipitor) 20 mg QHS PO Last administered on 10/08/18at 20:28; Admin Dose 20 MG; Start 10/08/18 at 21:00 Benazepril HCl (Lotensin) 10 mg DAILY PO Last administered on 10/09/18at 09:00; Admin Dose 10 MG; Start 10/09/18 at 09:00 Docusate Sodium (Colace) 100 mg BID PO Last administered on 10/08/18at 20:28; Admin Dose 100 MG; Start 10/08/18 at 21:00 Polyethylene Glycol (Miralax) 17 gm DAILY PO ; Start 10/09/18 at 09:00 Ondansetron HCl (Zofran Inj) 4 mg Q6H PRN IV NAUSEA AND/OR VOMITING; Start 10/08/18 at 18:00 Acetaminophen (Tylenol Tab) 650 mg Q6H PRN PO PAIN LEVEL 1-3 OR FEVER; Start 10/08/18 at 18:00 Morphine Sulfate (morphine) 2 mg Q4H PRN IV SEVERE PAIN LEVEL 7-10; Start 10/08/18 at 18:00 Docusate Sodium (Colace) 100 mg Q12H PRN PO CONSTIPATION; Start 10/08/18 at 18:00 Bisacodyl (Dulcolax) 5 mg DAILY PRN PO CONSTIPATION; Start 10/08/18 at 18:00 Famotidine (Pepcid) 20 mg Q12 PO Last administered on 10/08/18at 20:33; Admin Dose 20 MG; Start 10/08/18 at 21:00 Enoxaparin Sodium (Lovenox) 30 mg DAILY SC Last administered on 10/09/18at 08:59; Admin Dose 30 MG; Start 10/08/18 at 18:00 Piperacillin Sod/ Tazobactam Sod 100 ml @ 200 mls/hr Q6 IVPB Last administered on 10/09/18at 11:50; Admin Dose 200 MLS/HR; Start 10/09/18 at 00:00 Sodium Chloride 1,000 ml @ 70 mls/hr [id number] IV Last administered on 10/08/18at 23:49; Admin Dose 70 MLS/HR; Start 10/08/18 at 22:30 Date/Time of Note Date/Time of Note DATE: 10/09/18 TIME: 12:14 LIZZ SALCEDO MD Oct 09, 2018 12:14
[2018-10-09] MEDS: SOD CHLORIDE 0.9% 1,000 ML IV SCH ×2 (12:48→16:21)
--- NOTE | 2018-10-09 13:37 | NUR ---
WOUND CARE CONSULTATION: This is a wound care consult for Ms. Gonzalez, 83-year-old female who presents to the hospital for nephrolithiasis with associated obstructive uropathy. Patient w/ PMHx of CVA, HLD, HTN, constipation and bedbound as well as wheelchair bound state. Patient currently is incontinent of bladder on exam, requires mod to maximum amount of assistance for turning and repositioning, currently on room air with low air loss mattress. H&H 13.5/41.2, White count 13.2 ASSESSMENT: 1. Sacrococcyx extending to left buttock Stage 2 Pressure Injury with surrounding Healed Stage 3 Pressure Injury in the periwound. Condition present on admission and likely a manifestation of moisture-associated skin damage. Patient complains of tenderness to the site. Approx 1.2x1.8x0.05cm with surrounding hyperkeratotic intact tissue. RECOMMENDATION: -Recommend to cleanse skin gently with mild soap and water and pat dry carefully not to further damage detached skin edges. Apply Venelex cream twice daily and cover with foam border dressing for protection. -Turning and repositioning Q2 Hours and PRN per nursing protocol -Apply Skin barrier cream after every incontinent episode after cleansing -Float heels on pillows while in bed at all times -Keep HOB >30 degrees, unless medically contraindicated -Continue low air loss surface mattress Patient was seen and examined and recommendations were discussed with primary RN Caleb. RN to obtain recommended treatments from Primary MD/Hospitalist. Thank you Magalis Mensah, MSN, RN, CCRN, WCC
--- NOTE | 2018-10-09 13:54 | CONS ---
Date/Time of Note Date/Time of Note DATE: 10/09/18 TIME: 13:49 Consult Date/Type/Reason Admit Date/Time Oct 08, 2018 at 15:26 Initial Consult Date 10/08/18 Type of Consultation: Urology Reason for Consultation Distal left ureteral stone with left hydronephrosis Requesting Provider: OBED TADEO MD Subjective Patient complains of pain in her left flank today and she blames that on keeping moving her. The pain is most likely because of the stone obstructing her ureter Objective Vital Signs Date Temp Pulse Resp B/P (MAP) Pulse Ox O2 O2 Flow FiO2 Time Delivery Rate 10/09/18 98.6 78 18 138/71 96 08:47 (93) 10/08/18 Room Air 17:00 Intake and Output 10/08/18 10/08/18 10/09/18 1515:00 23:00 07:00 IntakeIntake Total 550 ml BalanceBalance 550 ml Exam Very obese abdomen. There is some tenderness in the left lower quadrant. Results/Medications Result Diagram: 10/09/18 0620 10/09/18 0620 Results 24 hrs Laboratory Tests Test 10/08/18 13:55 10/08/18 13:58 10/08/18 14:35 10/08/18 18:18 Urine Color YELLOW Urine Clarity TURBID A Urine pH 6.0 Urine Specific 1.012 [place] Urine Ketones NEGATIVE Urine Nitrite POSITIVE A Urine Bilirubin NEGATIVE Urine Urobilinogen NEGATIVE Urine Leukocyte 3+ H Esterase Urine Microscopic 14 H RBC Urine Microscopic > 182 H WBC Urine Squamous FEW Epithelial Cells Urine Bacteria FEW A Urine Mucus FEW A Urine Hemoglobin 2+ H Urine Glucose NEGATIVE Urine Total Protein 1+ H Bedside Urine pH 6.0 (LAB) Bedside Urine Trace H Protein (LAB) Bedside Urine Negative Glucose (UA) Bedside Urine Negative Ketones (LAB) Bedside Urine Blood 2+ H Bedside Urine Positive H Nitrite (LAB) Bedside Urine 2+ H Leukocyte Esterase (L POC Venous Lactate 1.0 Lactic Acid Level 1.7 Test 10/09/18 06:20 White Blood Count 15.3 H Red Blood Count 4.39 Hemoglobin 11.9 L Hematocrit 37.5 Mean Corpuscular 85.4 Volume Mean Corpuscular 27.1 L Hemoglobin Mean Corpuscular 31.7 L Hemoglobin Concent Red Cell 15.0 H Distribution Width Platelet Count 337 Mean Platelet Volume 10.3 Immature 0.600 H Granulocytes % Neutrophils % 81.3 H Lymphocytes % 9.0 L Monocytes % 8.1 Eosinophils % 0.7 Basophils % 0.3 Nucleated Red Blood 0.0 Cells % Immature 0.090 H Granulocytes # Neutrophils # 12.4 H Lymphocytes # 1.4 Monocytes # 1.2 H Eosinophils # 0.1 Basophils # 0.0 Nucleated Red Blood 0.0 Cells # Sodium Level 142 Potassium Level 3.1 L Chloride Level 107 Carbon Dioxide Level 28 Anion Gap 7 Blood Urea Nitrogen 12 Creatinine 0.72 Est Glomerular Filtrat Rate mL/min Glucose Level 109 Calcium Level 9.9 Total Bilirubin 0.4 Direct Bilirubin 0.00 Indirect Bilirubin 0.4 Aspartate Amino 20 Transf (AST/SGOT) Alanine 8 L Aminotransferase (AL T/SGPT) Alkaline Phosphatase 105 Total Protein 6.3 Albumin 3.3 Globulin 3.00 Albumin/Globulin 1.10 Ratio Medications Current Medications Amlodipine Besylate (Norvasc) 10 mg DAILY PO Last administered on 10/09/18at 09:00; Admin Dose 10 MG; Start 10/09/18 at 09:00 Atorvastatin Calcium (Lipitor) 20 mg QHS PO Last administered on 10/08/18at 20:28; Admin Dose 20 MG; Start 10/08/18 at 21:00 Benazepril HCl (Lotensin) 10 mg DAILY PO Last administered on 10/09/18at 09:00; Admin Dose 10 MG; Start 10/09/18 at 09:00 Docusate Sodium (Colace) 100 mg BID PO Last administered on 10/08/18at 20:28; Admin Dose 100 MG; Start 10/08/18 at 21:00 Polyethylene Glycol (Miralax) 17 gm DAILY PO ; Start 10/09/18 at 09:00 Ondansetron HCl (Zofran Inj) 4 mg Q6H PRN IV NAUSEA AND/OR VOMITING; Start 10/08/18 at 18:00 Acetaminophen (Tylenol Tab) 650 mg Q6H PRN PO PAIN LEVEL 1-3 OR FEVER; Start 10/08/18 at 18:00 Morphine Sulfate (morphine) 2 mg Q4H PRN IV SEVERE PAIN LEVEL 7-10; Start 10/08/18 at 18:00 Docusate Sodium (Colace) 100 mg Q12H PRN PO CONSTIPATION; Start 1/21/19 at 18:00 Bisacodyl (Dulcolax) 5 mg DAILY PRN PO CONSTIPATION; Start 10/08/18 at 18:00 Famotidine (Pepcid) 20 mg Q12 PO Last administered on 10/08/18at 20:33; Admin Dose 20 MG; Start 10/08/18 at 21:00 Enoxaparin Sodium (Lovenox) 30 mg DAILY SC Last administered on 10/09/18at 08:59; Admin Dose 30 MG; Start 10/08/18 at 18:00 Piperacillin Sod/ Tazobactam Sod 100 ml @ 200 mls/hr Q6 IVPB Last administered on 10/09/18at 11:50; Admin Dose 200 MLS/HR; Start 10/09/18 at 00:00 Sodium Chloride 1,000 ml @ 70 mls/hr [id number] IV Last administered on 10/08/18at 23:49; Admin Dose 70 MLS/HR; Start 10/08/18 at 22:30 Assessment/Plan Chief Complaint/Hosp Course 83-year-old -[place] female presented to the hospital with a 2-day history of worsening, severe, sharp, right flank pain which radiates to the right upper quadrant. There is no associated nausea or vomiting and no dysuria or hematuria. The patient underwent a CT scan of the abdomen and pelvis and that showed: 1. MODERATE LEFT-SIDED HYDROURETERONEPHROSIS SECONDARY TO A 9.2 MM STONE WITHIN THE LEFT DISTAL URETER, LOCATED APPROXIMATELY 4-5 CM FROM THE LEFT UVJ. THERE ALSO APPEARS TO BE A 2.8 MM URETERIC STONE JUST ABOVE THE LARGER STONE. 2. Multiple bilateral renal cysts and right-sided nonobstructing neph rolithiasis. No evidence of right-side obstructive uropathy. 3. No evidence of obstruction. Small hiatal hernia. Stool filled loops of large bowel suggestive of constipation. 4. No evidence of free fluid or free air. No gross focal fluid collections. 5. Status post hysterectomy. Therefore a urological consultation was requested. The patient is known to me from before and previously she did have right ureteral stones for which she underwent cystoscopy placement of a JJ stent and ureteroscopy and laser lithotripsy and removal of the JJ stent. That was back in 2017. The patient is bedridden because of a history of a stroke and weakness in both lower extremities. There is a CT scan showing large stone that she is unlikely to pass on her own. She will need to have ureteroscopy and laser lithotripsy and insertion of a JJ stent. She needs medical and cardiology clearance prior to the surgery. We will strain her urine for stones put her on tamsulosin KUB: Did show the stone on the left below the sacroiliac joint area. Urine culture shows 100,000 colony per mL of gram-negative rods CT of the chest did not show any rib fractures. DEVAUGHN MCNALLY MD Oct 09, 2018 13:54
[2018-10-09 14:00] VITALS: BP 148/72; PULSE 68; RESP 20
--- NOTE | 2018-10-09 14:51 | CONS ---
DATE OF ADMISSION: 10/08/2018 DATE OF CONSULTATION: 10/09/2018 TYPE OF CONSULTATION: Infectious disease. REASON FOR CONSULTATION: Antibiotic management. HISTORY OF PRESENT ILLNESS: Elizabeth Gonzalez is an 83-year-old female who came into the [facility] with low back pain which started 1 day prior to admission. Her past problems include: 1. Hypertension. 2. Hyperlipidemia. 3. Cerebrovascular accident. 4. Left nephrolithiasis. 5. Cholelithiasis. She presents complaining of a 2-day history of worsening severe sharp right flan k pain radiating to the right upper quadrant. She denies nausea, vomiting or diarrhea. She has inte rmittent constipation. The pain originates from one spot in her upper back. She denies any trauma o r falls or injuries. PAST SURGICAL HISTORY: Includes status post hysterectomy, status post lithotripsy. PAST MEDICAL HISTORY: Also includes right hand tremor, sinusitis, pneumonia, history of cerebrovascu lar accident in 1991. FAMILY HISTORY: Noncontributory. SOCIAL HISTORY: She does not smoke, drink or abuse drugs. ALLERGIES: None to penicillin, sulfa or foods. MEDICATIONS: Per chart. REVIEW OF SYSTEMS: As per HPI. PHYSICAL EXAMINATION: GENERAL: The patient is a well-developed, well-nourished female, awake, responsive, in no acute dist ress. VITAL SIGNS: Stable. She is afebrile. SKIN: Without generalized rash. HEENT: Within normal limits. NECK: Supple. LYMPH NODES: None palpable. CHEST: Decreased breath sounds at the bases. HEART: Without murmur or gallop. IMAGING STUDIES: Chest wall right posterior lower chest wall 6 cm in diameter area of tenderness and bruising, but no ecchymosis or deformity. ABDOMEN: Soft, obese, nontender, without organosplenomegaly or masses. EXTREMITIES: Without cyanosis, clubbing, or edema. BACK: She has right CVA tenderness. RECTAL AND GENITAL: Deferred. NEUROLOGIC: The patient is extremely weak. She is nonambulatory. No focal neurological abnormaliti es. ANCILLARY LABORATORY DATA: White count 13.2, H and H 13.5 and 41.2, platelet count 362,000. BUN and creatinine 15/0.84, glucose of 123. The patient was started on cefepime. She was given some [place] l or ketorolac. A CT scan of the abdomen and pelvis showed moderate left-sided hydroureteronephrosis secondary to 9.2 mm stone within the left distal ureter located approximately 4 to 5 cm from the lef t UV junction. IMPRESSION AND PLAN: There also appears to be a 2.8 mm ureteral stone just above the largest stone. Multiple bilateral renal cysts and right-sided nonobstructing nephrolithiasis, no evidence of right- sided obstructive uropathy, no evidence of obstruction, small hiatal hernia, stool-filled loops of la rge bowel suggestive of constipation. No free air, no gross fluid collections. She is status post h ysterectomy. Urinalysis was turbid, positive for nitrites, 3+ leukocyte esterase, greater than 182 w tiffany cells per high powered field, and her urine culture is growing gram negative rods. The patient is currently on Zosyn. Cefepime was discontinued. Patient was seen also by Dr. Markel Cm for re nal evaluation; also seen by Dr. Pinedo in urology consult. [facility] She had a right ureteral stone for which she underwent cystoscopy and placement of a JJ stent and ureteroscopy, laser lithotripsy and removal of the JJ stent in 2017. She is bedridden because of a history of stroke and weakness in both lower extremities. She will need to have a urete roscopy and laser lithotripsy and insertion of a JJ stent in the left side. She will need medical an d cardiac clearance prior to surgery. A CT scan of the chest did not show any rib fractures. The pa lauryn has pyelonephritis. We are awaiting the culture results. Dr. Pinedo is to do ureteroscopy an d place a JJ stent after lithotripsy. In conclusion, the patient is an 83-year-old female who comes in with pyelonephritis secondary to renal stones. She has a history of this in 2017 in the right filomena e. Now it is on the left side. I want to thank Dr. Tadeo and nurse practitioner Nataliia. Dictated By: JEAN CLAUDE GIL MD, JD/NTS Conf#: [id number] DID#: [id number] CC: OBED TADEO MD; ERIN FERREIRA PAPER CAP MACHINE OPERATOR;*EndCC*
--- NOTE | 2018-10-09 15:52 | PN ---
Date/Time of Note Date/Time of Note DATE: 10/09/18 TIME: 15:48 Assessment/Plan VTE Prophylaxis Risk score (from Ns)>0 risk: 7 SCD applied (from Ns): Yes Pharmacological prophylaxis: LMWH Lines/Catheters IV [facility] [place] Assessment/Plan Hospital Course Urine culture came back with gram-negative rods, continue Zosyn, follow-up on final culture, patient remains hemodynamically stable, afebrile, tolerates diet without nausea. Will undergo for ureteroscopy and laser lithotripsy. Dr. Ruelas is asked to see patient in cardiology consultation in order to obtain cardiology clearance prior to procedure. Potassium replacement order for K of 3.1, BMP tomorrow. Assessment/Plan -Acute right flank pain secondary to pyelonephritis, continue pain management. -Left hydronephrosis concurrent with and due to calculi of kidney and ureter. Dr. Pinedo is following in urology consultation. Plan for ureteroscopy and laser lithotripsy and insertion of a JJ stent. -Obstructive uropathy secondary to left ureteral stone. -Pyelonephritis, will obtain urine culture, continue Zosyn. Dr. Whatley is following in infection disease consultation. -Systemic inflammatory response syndrome secondary to pyelonephritis -Nephrolithiasis -Constipation, will start patient on bowel regimen -History of stroke with bilateral lower extremities paralysis -Hypertension, continue benazepril and Norvasc -Hyperlipidemia, continue statin -Right buttock stage II decubitus ulcer present on admission. Continue current wound care per wound care team recommendations, offloading. Further recommendations based on clinical course. Plan of care discussed with Dr. Hull. Result Diagram: 10/09/18 0620 10/09/18 0620 Results 24hrs Laboratory Tests Test 10/08/18 18:18 10/09/18 06:20 Lactic Acid Level 1.7 White Blood Count 15.3 H Red Blood Count 4.39 Hemoglobin 11.9 L Hematocrit 37.5 Mean Corpuscular Volume 85.4 Mean Corpuscular Hemoglobin 27.1 L Mean Corpuscular Hemoglobin Concent 31.7 L Red Cell Distribution Width 15.0 H Platelet Count 337 Mean Platelet Volume 10.3 Immature Granulocytes % 0.600 H Neutrophils % 81.3 H Lymphocytes % 9.0 L Monocytes % 8.1 Eosinophils % 0.7 Basophils % 0.3 Nucleated Red Blood Cells % 0.0 Immature Granulocytes # 0.090 H Neutrophils # 12.4 H Lymphocytes # 1.4 Monocytes # 1.2 H Eosinophils # 0.1 Basophils # 0.0 Nucleated Red Blood Cells # 0.0 Sodium Level 142 Potassium Level 3.1 L Chloride Level 107 Carbon Dioxide Level 28 Anion Gap 7 Blood Urea Nitrogen 12 Creatinine 0.72 Est Glomerular Filtrat Rate mL/min Glucose Level 109 Calcium Level 9.9 Total Bilirubin 0.4 Direct Bilirubin 0.00 Indirect Bilirubin 0.4 Aspartate Amino Transf (AST/SGOT) 20 Alanine Aminotransferase (ALT/SGPT) 8 L Alkaline Phosphatase 105 Total Protein 6.3 Albumin 3.3 Globulin 3.00 Albumin/Globulin Ratio 1.10 Exam/Review of Systems Vital Signs Vitals Vital Signs Date Temp Pulse Resp B/P (MAP) Pulse Ox O2 O2 Flow FiO2 Time Delivery Rate 10/09/18 98.8 68 20 148/72 96 14:00 (97) 10/08/18 Room Air 17:00 Intake and Output 10/08/18 10/08/18 10/09/18 1515:00 23:00 07:00 IntakeIntake Total 550 ml BalanceBalance 550 ml Exam Constitutional: alert, oriented Respiratory: clear to auscultation Cardiovascular: nl pulses Gastrointestinal: soft, non-tender Genitourinary - Female: CVA tenderness Extremities: normal pulses Neurological: nl mental status, other (Bilateral lower extremity paralysis) Skin: nl turgor Medications Medications Current Medications Amlodipine Besylate (Norvasc) 10 mg DAILY PO Last administered on 10/09/18at 09:00; Admin Dose 10 MG; Start 10/09/18 at 09:00 Atorvastatin Calcium (Lipitor) 20 mg QHS PO Last administered on 10/08/18at 20:28; Admin Dose 20 MG; Start 10/08/18 at 21:00 Benazepril HCl (Lotensin) 10 mg DAILY PO Last administered on 10/09/18at 09:00; Admin Dose 10 MG; Start 10/09/18 at 09:00 Docusate Sodium (Colace) 100 mg BID PO Last administered on 10/08/18at 20:28; Admin Dose 100 MG; Start 10/08/18 at 21:00 Polyethylene Glycol (Miralax) 17 gm DAILY PO ; Start 10/09/18 at 09:00 Ondansetron HCl (Zofran Inj) 4 mg Q6H PRN IV NAUSEA AND/OR VOMITING; Start 10/08/18 at 18:00 Acetaminophen (Tylenol Tab) 650 mg Q6H PRN PO PAIN LEVEL 1-3 OR FEVER; Start 10/08/18 at 18:00 Morphine Sulfate (morphine) 2 mg Q4H PRN IV SEVERE PAIN LEVEL 7-10; Start 10/08/18 at 18:00 Docusate Sodium (Colace) 100 mg Q12H PRN PO CONSTIPATION; Start 10/08/18 at 18:00 Bisacodyl (Dulcolax) 5 mg DAILY PRN PO CONSTIPATION; Start 10/08/18 at 18:00 Famotidine (Pepcid) 20 mg Q12 PO Last administered on 10/08/18at 20:33; Admin Dose 20 MG; Start 10/08/18 at 21:00 Enoxaparin Sodium (Lovenox) 30 mg DAILY SC Last administered on 10/09/18at 08:59; Admin Dose 30 MG; Start 10/08/18 at 18:00 Piperacillin Sod/ Tazobactam Sod 100 ml @ 200 mls/hr Q6 IVPB Last administered on 10/09/18at 11:50; Admin Dose 200 MLS/HR; Start 10/09/18 at 00:00 Sodium Chloride 1,000 ml @ 70 mls/hr [id number] IV Last administered on 10/08/18at 23:49; Admin Dose 70 MLS/HR; Start 10/08/18 at 22:30 ERIN FERREIRA Oct 09, 2018 15:52
--- NOTE | 2018-10-09 17:59 | NUR ---
rn notes patient is alert and oriented X4, verbally responsive and able to make needs known, denies pain and discomfort. breathing is even and unlabored. patient refused KERVIN mattress, charge nurse made aware. wound care dressing changed. wound care consultation done and recommending venelex ointment BID. verified with Ita, AD WRITER, orders in. low potassium replaced. call light placed within reach and fall precautions observed well. 2D echo ordered as per Dr. cruz. will continue to monitor.
--- NOTE | 2018-10-09 18:02 | NUR ---
Educated patient on importance of air mattress due to right sided weakness, current bed rest, and risk for skin breakdown. Patient alert and oriented, states she does not want to have low air loss mattress because its too soft. She agrees to be repositioned every 2 hours.
--- NOTE | 2018-10-09 18:05 | NUR ---
rn notes unable to strain urine, patient is incontinent. dr. pollard aware
[2018-10-09 20:00] VITALS: BP 133/60; PULSE 72; RESP 18
[2018-10-09] MEDS: ATORVASTATIN 20 MG TAB PO SCH (20:55)
--- NOTE | 2018-10-09 21:00 | NUR ---
Called Dr. Hull and relayed blood culture result= gram + cocci in cluster with order to start Vanco IV pharmacy to dose. Will carry out order
[2018-10-09] MEDS ORDERED: VANCOMYCIN IV PER PHARMACY XX SCH (21:30)
[2018-10-09] MEDS ORDERED: VANCOMYCIN HCL 1.5 GM in SOD CHLORIDE 0.9% 250 ML IVPB SCH (23:30)
[2018-10-10 02:00] VITALS: BP 146/66; PULSE 74; RESP 18
[2018-10-10] MEDS: PIPER-TAZO 3.375 GM IV (PMX) 100 ML IVPB SCH ×2 (06:18→12:38)
--- NOTE | 2018-10-10 07:00 | NUR ---
End of shift Report: Pt on bed in comfortable position. No sob. No resp distress. Afebrile. denies pain overnight. Cont ATB Therapy well-ifrah. No A/R noted. Pt refused LALM, also refused to be repositioned Q2H, explained importance pt still refused. Per pt she doesn't want to be bothered overnight. Charge Nurse Kamilah made aware. Pt noted with wound care recommendation will let MD know about it in am. Will endorse to am shift nurse. Needs attended and anticipated. Will continue to monitor pt. Call light within reach.
[2018-10-10 08:03] VITALS: BP 143/69; PULSE 70; RESP 18
--- NOTE | 2018-10-10 08:19 | CONS ---
Assessment/Plan Assessment/Plan Assessment/Plan 1. Hypercalcemia, mild 2. Left sided Hydronephrosis due to left ureteral stone 3. right sided pyelonephritis, acute 4. H/o HTN 5. H/o HL 6. Hypokalemia 7. UTI with urine Cx growing E coli Plan: IVF NS at 70 cc/hr, k and Ca normal today , BUN/Cr 9/0.8 S/P Urology consult by Continue amlodipine and benazepril for HTN IV abx zosyn and vancomycin stopped today, pt is switched to PO levaquin for UTI, will follow up Result Diagram: 10/09/18 0620 10/10/18 0521 Results 24hrs Laboratory Tests Test 10/10/18 05:21 Sodium Level 143 Potassium Level 3.5 Chloride Level 109 Carbon Dioxide Level 24 Anion Gap 10 Blood Urea Nitrogen 9 Creatinine 0.80 Est Glomerular Filtrat Rate mL/min Glucose Level 95 Calcium Level 9.4 Consultation Date/Type/Reason Admit Date/Time Oct 08, 2018 at 15:26 Initial Consult Date 10/08/18 Type of Consult NEPHROLOGY Requesting Provider: OBED TADEO MD Exam/Review of Systems Vital Signs Vitals Vital Signs Date Temp Pulse Resp B/P (MAP) Pulse Ox O2 O2 Flow FiO2 Time Delivery Rate 10/10/18 97.9 70 18 143/69 99 08:03 (93) 10/08/18 Room Air 17:00 Intake and Output 10/09/18 10/09/18 10/10/18 1515:00 23:00 07:00 IntakeIntake Total 450 ml 940 ml 700 ml BalanceBalance 450 ml 940 ml 700 ml Exam Constitutional: alert Respiratory: clear to auscultation, normal air movement, diminished breath sounds Cardiovascular: regular rate and rhythm Gastrointestinal: soft, non-tender Genitourinary - Female: CVA tenderness (Right side, left back pain ) Musculoskeletal: nl extremities to inspection Extremities: normal pulses Neurological: 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 RAY TUBE 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 II-XII intact, nl mental status, nl speech, nl strength Medications Medications Current Medications Amlodipine Besylate (Norvasc) 10 mg DAILY PO Last administered on 10/09/18at 09:00; Admin Dose 10 MG; Start 10/09/18 at 09:00 Atorvastatin Calcium (Lipitor) 20 mg QHS PO Last administered on 10/09/18at 20:55; Admin Dose 20 MG; Start 10/08/18 at 21:00 Benazepril HCl (Lotensin) 10 mg DAILY PO Last administered on 10/09/18at 09:00; Admin Dose 10 MG; Start 10/09/18 at 09:00 Docusate Sodium (Colace) 100 mg BID PO Last administered on 10/09/18at 20:55; Admin Dose 100 MG; Start 10/08/18 at 21:00 Polyethylene Glycol (Miralax) 17 gm DAILY PO ; Start 10/09/18 at 09:00 Ondansetron HCl (Zofran Inj) 4 mg Q6H PRN IV NAUSEA AND/OR VOMITING; Start 10/08/18 at 18:00 Acetaminophen (Tylenol Tab) 650 mg Q6H PRN PO PAIN LEVEL 1-3 OR FEVER; Start 10/08/18 at 18:00 Morphine Sulfate (morphine) 2 mg Q4H PRN IV SEVERE PAIN LEVEL 7-10; Start 10/08/18 at 18:00 Docusate Sodium (Colace) 100 mg Q12H PRN PO CONSTIPATION; Start 10/08/18 at 18:00 Bisacodyl (Dulcolax) 5 mg DAILY PRN PO CONSTIPATION; Start 10/08/18 at 18:00 Famotidine (Pepcid) 20 mg Q12 PO Last administered on 10/09/18at 20:55; Admin Dose 20 MG; Start 10/08/18 at 21:00 Enoxaparin Sodium (Lovenox) 30 mg DAILY SC Last administered on 10/09/18at 08:59; Admin Dose 30 MG; Start 10/08/18 at 18:00 Piperacillin Sod/ Tazobactam Sod 100 ml @ 200 mls/hr Q6 IVPB Last administered on 10/10/18at 06:18; Admin Dose 200 MLS/HR; Start 10/09/18 at 00:00 Sodium Chloride 1,000 ml @ 70 mls/hr [id number] IV Last administered on 10/09/18at 16:21; Admin Dose 70 MLS/HR; Start 10/08/18 at 22:30 Vancomycin HCl (Vanco Iv Per Pharmacy) VANCOMYCIN PER PHARMACY PER PROTOCOL XX ; Start 10/09/18 at 21:30 Vancomycin/Sodium Chloride 250 ml @ 125 mls/hr Q12H IVPB ; Start 10/10/18 at 11:30 Date/Time of Note Date/Time of Note DATE: 10/10/18 TIME: 08:18 LIZZ SALCEDO MD Oct 10, 2018 08:18
[2018-10-10] MEDS: FAMOTIDINE 20 MG TAB PO SCH ×2 (09:05→21:13)
[2018-10-10] MEDS: AMLODIPINE 10 MG TAB PO SCH (09:05)
[2018-10-10] MEDS: DOCUSATE SODIUM 100 MG CAP PO SCH ×2 (09:05→21:13)
[2018-10-10] MEDS: BENAZEPRIL 10 MG TAB PO SCH (09:06)
[2018-10-10] MEDS: POLYETHYLENE GLYCOL 17 GM PACKET PO SCH (09:08)
[2018-10-10] MEDS: ENOXAPARIN 30 MG/0.3 ML SYG SC SCH (09:08)
--- NOTE | 2018-10-10 10:00 | NUR ---
patient refuse to be reposition every 2 hours and change her pad when needed explain risk and benefits to patient but pt. is refusing and wants to sleep and wants to be change when she feels that she likes to be change
[2018-10-10] MEDS ORDERED: VANCOMYCIN 750 MG (PMX) 250 ML IVPB SCH (11:30)
--- NOTE | 2018-10-10 12:00 | NUR ---
Offer to clean the patient and reposition at this time. Patient refuse and wants to be change later at 3pm. Explain risk and benefits. But patient still refused.
--- NOTE | 2018-10-10 12:54 | CONS ---
Assessment/Plan Assessment/Plan Assessment/Plan Preop Cardiac Evaluation Gram Negative Pyelonephritis Left Hydronepohrosis with nephrolithiasis Hx of CVA with BLE paralysis HTN HLP -The patient with no cardiac history, no cardiac symptoms, normal EF by echo and nsr by ekg- as such, MAY PROCEED TO PROCEDURE WITH LOW CARDIAC RISK -Continue abx -Continue bp and lipid management - service involved Consultation Date/Type/Reason Admit Date/Time Oct 08, 2018 at 15:26 Type of Consult Cardiology Date/Time of Note DATE: 10/10/18 TIME: 12:50 Hx of Present Illness The patient is a 83-year-old -[place] female with history of hypertension, hyperlipidemia history of stroke with bilateral lower extremities weakness patient is bed bound, patient with history of nephrolithiasis presented to the emergency room with complaints of 2 days worsening severe sharp right flank pain with radiation to the right upper quadrant. Patient denies any na usea vomiting diarrhea. Patient complains of constipation patient denies any hematochezia denies melena. Patient denies any shortness of breath denies any chest pain denies fever and chills. Patient was noted to have leukocytosis and a urinalysis was positive for urinary tract infection. Patient underwent CT of the abdomen and pelvis which revealed moderate left-sided hydroureteronephrosis secondary to a 9 mm stone within the left distal ureter. Patient was started on broad-spectrum antibiotic and was giving Toradol for pain with some relief. Patient is admitted for further evaluation and management to medical surgical floor. She has on cardiac hsitory with no chest pain, CHF symptoms or SOB. She is to undergo procedrue and as such, am seeing her in preop cardaic evalution Past Medical History Home Meds Reported Medications Polyethylene Glycol* (Miralax*) 17 Gm Powd.pack, 17 GM PO DAILY, #30 PACKET 10/08/18 Docusate Sodium* (Colace*) 100 Mg Capsule, 100 MG PO BID, #60 CAP 10/08/18 Clopidogrel Bisulfate (Clopidogrel) 75 Mg Tablet, 75 MG PO DAILY, #30 TAB 10/08/18 Benazepril Hcl* (Benazepril Hcl*) 10 Mg Tablet, 10 MG PO DAILY, #30 TAB 10/08/18 Atorvastatin Calcium* (Atorvastatin Calcium*) 20 Mg Tablet, 20 MG PO QHS, #30 TAB 10/08/18 Amlodipine Besylate* (Amlodipine Besylate*) 10 Mg Tablet, 10 MG PO DAILY, #30 TAB 10/08/18 Discontinued Reported Medications Clopidogrel Bisulfate (Clopidogrel) 75 Mg Tablet, 75 MG PO DAILY, #30 TAB 06/03/18 Benazepril Hcl* (Benazepril Hcl*) 10 Mg Tablet, 10 MG PO DAILY, #30 TAB 11/16/16 Atorvastatin* (Atorvastatin*) 40 Mg Tablet, 20 MG PO QHS, #30 TAB 11/16/16 Polyethylene Glycol* (Miralax*) 17 Gm Powd.pack, PO DAILY 11/01/13 Amlodipine Besylate* (Amlodipine Besylate*) 10 Mg Tablet, PO DAILY 11/01/13 Docusate Sodium* (Colace*) 100 Mg Capsule, PO BID 11/01/13 Discontinued Scripts Lactulose* (Lactulose*) 10 Gm/15 Ml Solution, 10 GM PO Q8 PRN for constipation, #300 ML Prov:LIZZ SALCEDO MD 06/05/18 Hydrocodone Bit-Acetaminophen (Hydrocodone Bit-APAP) 5-325MG Tablet, 1 TAB PO Q4H PRN for PAIN for 10 Days, TAB Prov:CHIDI CERDA 12/26/16 Tamsulosin Hcl* (Flomax*) 0.4 Mg Cap.er.24h, 0.4 MG PO DAILY, #60 CAP Prov:LORY FLORES 11/30/16 Medications Current Medications Amlodipine Besylate (Norvasc) 10 mg DAILY PO Last administered on 10/10/18at 09:05; Admin Dose 10 MG; Start 10/09/18 at 09:00 Atorvastatin Calcium (Lipitor) 20 mg QHS PO Last administered on 10/09/18at 20:55; Admin Dose 20 MG; Start 10/08/18 at 21:00 Benazepril HCl (Lotensin) 10 mg DAILY PO Last administered on 10/10/18at 09:06; Admin Dose 10 MG; Start 10/09/18 at 09:00 Docusate Sodium (Colace) 100 mg BID PO Last administered on 10/10/18at 09:05; Admin Dose 100 MG; Start 10/08/18 at 21:00 Polyethylene Glycol (Miralax) 17 gm DAILY PO Last administered on 10/10/18at 09:08; Admin Dose 17 GM; Start 10/09/18 at 09:00 Ondansetron HCl (Zofran Inj) 4 mg Q6H PRN IV NAUSEA AND/OR VOMITING; Start 10/08/18 at 18:00 Acetaminophen (Tylenol Tab) 650 mg Q6H PRN PO PAIN LEVEL 1-3 OR FEVER; Start 10/08/18 at 18:00 Morphine Sulfate (morphine) 2 mg Q4H PRN IV SEVERE PAIN LEVEL 7-10; Start 10/08/18 at 18:00 Docusate Sodium (Colace) 100 mg Q12H PRN PO CONSTIPATION; Start 10/08/18 at 18 :00 Bisacodyl (Dulcolax) 5 mg DAILY PRN PO CONSTIPATION; Start 10/08/18 at 18:00 Famotidine (Pepcid) 20 mg Q12 PO Last administered on 10/10/18at 09:05; Admin Dose 20 MG; Start 10/08/18 at 21:00 Enoxaparin Sodium (Lovenox) 30 mg DAILY SC Last administered on 10/10/18at 09:08; Admin Dose 30 MG; Start 10/08/18 at 18:00 Piperacillin Sod/ Tazobactam Sod 100 ml @ 200 mls/hr Q6 IVPB Last administered on 10/10/18at 12:38; Admin Dose 200 MLS/HR; Start 10/09/18 at 00:00 Sodium Chloride 1,000 ml @ 70 mls/hr [id number] IV Last administered on 10/09/18at 16:21; Admin Dose 70 MLS/HR; Start 10/08/18 at 22:30 Vancomycin HCl (Vanco Iv Per Pharmacy) VANCOMYCIN PER PHARMACY PER PROTOCOL XX ; Start 10/09/18 at 21:30 Vancomycin/Sodium Chloride 250 ml @ 125 mls/hr Q12H IVPB ; Start 10/10/18 at 11:30 Allergies: Coded Allergies: Cyanocobalamin (Verified Allergy, Unknown, 10/08/18) Past Surgical History Past Surgical Hx: other (hysterectomy, h/o lithotripsy for kidney stone ) Social History Alcohol Use: none Smoking Status: Never smoker Drug Use: none Exam/Review of Systems Vital Signs Vitals Vital Signs Date Temp Pulse Resp B/P (MAP) Pulse Ox O2 O2 Flow FiO2 Time Delivery Rate 10/10/18 97.9 70 18 143/69 99 08:03 (93) 10/08/18 Room Air 17:00 Intake and Output 10/09/18 10/09/18 10/10/18 1515:00 23:00 07:00 IntakeIntake Total 450 ml 940 ml 1010 ml BalanceBalance 450 ml 940 ml 1010 ml Labs Result Diagram: 10/09/18 0620 10/10/18 0521 Results 24hrs Laboratory Tests Test 10/10/18 05:21 Sodium Level 143 Potassium Level 3.5 Chloride Level 109 Carbon Dioxide Level 24 Anion Gap 10 Blood Urea Nitrogen 9 Creatinine 0.80 Est Glomerular Filtrat Rate mL/min Glucose Level 95 Calcium Level 9.4 MACIE RIVERA MD Oct 10, 2018 12:54
--- NOTE | 2018-10-10 13:48 | CONS ---
Assessment/Plan Assessment/Plan Hospital Course Patient is alert eating lunch looks comfortable no fevers overnight WBC yesterday was 15.3 no labs this morning Microbiology: Urine culture grew E. coli, blood culture growing staph species 1 out of 2 sets, repeat blood cultures pending Antimicrobials: Vancomycin, Zosyn Physical examination: Fragile well-developed elderly woman who is alert in no distress. Head atraumatic normocephalic. Neck is supple chest rise symmetrical breath sounds clear heart: S1-S2 abdomen soft bowel sounds present extremities without cyanosis Assessment: 1. Acute pyelonephritis 2. Obstructive uropathy 3. Coag negative staph bacteremia, likely contaminant 4. Hypertension 5. History of CVA 6. Cholelithiasis Plan: Patient remains stable she is being seen by urology, plan for ureteroscopy and laser late 203 PC with insertion of her JJ stent. Pending cardiac clearance. Pending repeat blood cultures. Change antibiotics to levofloxacin Result Diagram: 10/09/18 0620 10/10/18 0521 Results 24hrs Laboratory Tests Test 10/10/18 05:21 Sodium Level 143 Potassium Level 3.5 Chloride Level 109 Carbon Dioxide Level 24 Anion Gap 10 Blood Urea Nitrogen 9 Creatinine 0.80 Est Glomerular Filtrat Rate mL/min Glucose Level 95 Calcium Level 9.4 Consultation Date/Type/Reason Admit Date/Time Oct 08, 2018 at 15:26 Initial Consult Date 10/08/18 Type of Consult id Requesting Provider: OBED TADEO MD Exam/Review of Systems Vital Signs Vitals Vital Signs Date Temp Pulse Resp B/P (MAP) Pulse Ox O2 O2 Flow FiO2 Time Delivery Rate 10/10/18 97.9 70 18 143/69 99 08:03 (93) 10/08/18 Room Air 17:00 Intake and Output 10/09/18 10/09/18 10/10/18 1515:00 23:00 07:00 IntakeIntake Total 450 ml 940 ml 1010 ml BalanceBalance 450 ml 940 ml 1010 ml Medications Medications Current Medications Amlodipine Besylate (Norvasc) 10 mg DAILY PO Last administered on 10/10/18at 09:05; Admin Dose 10 MG; Start 10/09/18 at 09:00 Atorvastatin Calcium (Lipitor) 20 mg QHS PO Last administered on 10/09/18at 20:55; Admin Dose 20 MG; Start 10/08/18 at 21:00 Benazepril HCl (Lotensin) 10 mg DAILY PO Last administered on 10/10/18 09:06; Admin Dose 10 MG; Start 10/09/18 at 09:00 Docusate Sodium (Colace) 100 mg BID PO Last administered on 10/10/18 09:05; Admin Dose 100 MG; Start 10/08/18 at 21:00 Polyethylene Glycol (Miralax) 17 gm DAILY PO Last administered on 10/10/18at 09:08; Admin Dose 17 GM; Start 10/09/18 at 09:00 Ondansetron HCl (Zofran Inj) 4 mg Q6H PRN IV NAUSEA AND/OR VOMITING; Start 10/08/18 at 18:00 Acetaminophen (Tylenol Tab) 650 mg Q6H PRN PO PAIN LEVEL 1-3 OR FEVER; Start 10/08/18 at 18:00 Morphine Sulfate (morphine) 2 mg Q4H PRN IV SEVERE PAIN LEVEL 7-10; Start 10/08/18 at 18:00 Docusate Sodium (Colace) 100 mg Q12H PRN PO CONSTIPATION; Start 10/08/18 at 18: 00 Bisacodyl (Dulcolax) 5 mg DAILY PRN PO CONSTIPATION; Start 10/08/18 at 18:00 Famotidine (Pepcid) 20 mg Q12 PO Last administered on 10/10/18at 09:05; Admin Dose 20 MG; Start 10/08/18 at 21:00 Enoxaparin Sodium (Lovenox) 30 mg DAILY SC Last administered on 10/10/18at 09:08; Admin Dose 30 MG; Start 10/08/18 at 18:00 Piperacillin Sod/ Tazobactam Sod 100 ml @ 200 mls/hr Q6 IVPB Last administered on 10/10/18at 12:38; Admin Dose 200 MLS/HR; Start 10/09/18 at 00:00 Sodium Chloride 1,000 ml @ 70 mls/hr [id number] IV Last administered on 10/09/18at 16:21; Admin Dose 70 MLS/HR; Start 10/08/18 at 22:30 Vancomycin HCl (Vanco Iv Per Pharmacy) VANCOMYCIN PER PHARMACY PER PROTOCOL XX ; Start 10/09/18 at 21:30 Vancomycin/Sodium Chloride 250 ml @ 125 mls/hr Q12H IVPB Last administered on 10/10/18at 13:26; Admin Dose 125 MLS/HR; Start 10/10/18 at 11:30 Date/Time of Note Date/Time of Note DATE: 10/10/18 TIME: 13:48 JANET COOPER NP Oct 10, 2018 13:48
[2018-10-10 14:50] VITALS: BP 135/70; RESP 18
--- NOTE | 2018-10-10 14:57 | RADRPT ---
Echocardiogram Report Patient Name: INES RESTREPO Gender: Female Date: 1935 Study Date: 10-Oct-2018 [employer] Instructor: Patricia Bahena [facility] Location: [facility] Ref. Physician: MACIE RIVERA Quality: Adequate Procedures: Transthoracic echocardiogram with complete 2D, M-Mode, and doppler examination. Indications: Pre-op. 2D/M Mode Doppler Measurement Value Normal Ranges Measurement Value Normal Ranges LVIDd 2D 4.1 3.5 - 5.6 cm SHAMA Vmax 1.8 cm2 LVIDs 2D 1.7 2.1 - 4.1 cm AV Peak Renny 1.7 m/sec LVPWd 2D 1.0 0.6 - 1.1 cm AV Peak PG 11.0 mmHg IVSd 2D 1.0 0.6 - 1.1 cm LVOT Peak Renny 1.0 m/sec AoR Diam 2D 2.6 2.0 - 3.7 cm LVOT Peak PG 4.0 mmHg LA/Ao 2D 1 0 - 1 MV E Peak Renny 0.9 m/sec LA Dimen 2D 3.2 2.3 - 4.0 cm MV A Peak Renny 1.1 m/sec LVOT Diam 1.9 cm MV E/A 0.8 MV Decel Time 197 msec Lat E` Renny 0.1 m/sec Lateral E/E` 13.9 MV E/A 0.8 TR Peak Renny 2.4 m/sec TR Peak PG 22.0 mmHg RVSP 30.0 mmHg RA Pressure 8.0 Findings Left Ventricle: Normal left ventricular systolic function. Normal left ventricular cavity size. Normal left ventricular wall thickness. Ejection fraction is visually estimated at 65 %. Tissue Doppler/Mitral Doppler indices are consistent with impaired relaxation (Stage I diastolic dysfunction). Right Ventricle: Normal right ventricular size. Normal right ventricular systolic function. Left Atrium: The left atrium is normal in size. Right Atrium: The right atrium is normal in size. Mitral Valve: Mitral valve leaflets appear mildly thickened. Mild mitral annular calcification. Trace mitral regurgitation. Aortic Valve: No significant aortic stenosis or insufficiency. Aortic cusps appear mildly calcified. Tricuspid Valve: Normal appearance of the tricuspid valve. Estimated peak PA systolic pressure 30 mmHg. There is trace tricuspid regurgitation. Pulmonic Valve: Pulmonic valve not well visualized. Pericardium: Normal pericardium with no significant pericardial effusion. Aorta: Normal aortic root. IVC: Normal size and no respiratory collapse consistent with elevated right atrial pressure. Conclusions Normal left ventricular systolic function. Grade 1 diastolic dysfunction. Trace mitral and tricuspid regurgitation with normal pulmonary pressures. Electronically Signed By: Domitila Esteves 10-Oct-2018 14:55:48 -0800 Patient Name: INES RESTREPO Study Date: 10-Oct-2018 [id number]
--- NOTE | 2018-10-10 15:10 | NUR ---
Clean the pad of patient and wound care rendered. Tolerated well. No s/s of infection noted. No bleeding noted. Tried to reposition patient in her side but patient refused and wants to stay flat in bed. Explain risk and benefits. But patient refused.
[2018-10-10 15:52] VITALS: BP 136/61; PULSE 75; RESP 16
[2018-10-10] MEDS: SOD CHLORIDE 0.9% 1,000 ML IV SCH (16:33)
--- NOTE | 2018-10-10 16:49 | PN ---
Date/Time of Note Date/Time of Note DATE: 10/10/18 TIME: 16:45 Assessment/Plan VTE Prophylaxis Risk score (from Ns)>0 risk: 6 SCD applied (from Ns): Yes Pharmacological prophylaxis: LMWH Lines/Catheters IV Catheter Type (from [facility]): Peripheral IV Assessment/Plan Hospital Course Patient is cleared by Dr. Caro from cardiology standpoint for procedure, cleared from internal medicine standpoint for procedure. Assessment/Plan -Acute right flank pain secondary to pyelonephritis, continue pain management. -Left hydronephrosis concurrent with and due to calculi of kidney and ureter. Dr. Pinedo is following in urology consultation. Plan for ureteroscopy and laser lithotripsy and insertion of a JJ stent. -Obstructive uropathy secondary to left ureteral stone. -Pyelonephritis secondary to E. coli urinary tract infection. Continue Levaquin. Dr. Whatley is following in infection disease consultation. -Systemic inflammatory response syndrome secondary to pyelonephritis -Nephrolithiasis -Constipation, will start patient on bowel regimen -History of stroke with bilateral lower extremities paralysis -Hypertension, continue benazepril and Norvasc -Hyperlipidemia, continue statin -Preserved ejection fraction per 2D echo -Right buttock stage II decubitus ulcer present on admission. Continue current wound care per wound care team recommendations, offloading. Further recommendations based on clinical course. Plan of care discussed with Dr. Hull. Result Diagram: 10/09/18 0620 10/10/18 0521 Results 24hrs Laboratory Tests Test 10/10/18 05:21 Sodium Level 143 Potassium Level 3.5 Chloride Level 109 Carbon Dioxide Level 24 Anion Gap 10 Blood Urea Nitrogen 9 Creatinine 0.80 Est Glomerular Filtrat Rate mL/min Glucose Level 95 Calcium Level 9.4 Exam/Review of Systems Vital Signs Vitals Vital Signs Date Temp Pulse Resp B/P (MAP) Pulse Ox O2 O2 Flow FiO2 Time Delivery Rate 10/10/18 98.2 75 16 136/61 97 15:52 (86) 10/08/18 Room Air 17:00 Intake and Output 10/09/18 10/09/18 10/10/18 1515:00 23:00 07:00 IntakeIntake Total 450 ml 940 ml 1010 ml BalanceBalance 450 ml 940 ml 1010 ml Exam Constitutional: alert, oriented Respiratory: clear to auscultation Cardiovascular: nl pulses Gastrointestinal: soft, non-tender Genitourinary - Female: CVA tenderness Extremities: normal pulses Neurological: nl mental status, other (Bilateral lower extremity paralysis) Skin: nl turgor Medications Medications Current Medications Amlodipine Besylate (Norvasc) 10 mg DAILY PO Last administered on 10/10/18 09:05; Admin Dose 10 MG; Start 10/09/18 at 09:00 Atorvastatin Calcium (Lipitor) 20 mg QHS PO Last administered on 10/09/18at 20: 55; Admin Dose 20 MG; Start 10/08/18 at 21:00 Benazepril HCl (Lotensin) 10 mg DAILY PO Last administered on 10/10/18 09:06; Admin Dose 10 MG; Start 10/09/18 at 09:00 Docusate Sodium (Colace) 100 mg BID PO Last administered on 10/10/18 09:05; Admin Dose 100 MG; Start 10/08/18 at 21:00 Polyethylene Glycol (Miralax) 17 gm DAILY PO Last administered on 10/10/18 09:08; Admin Dose 17 GM; Start 10/09/18 at 09:00 Ondansetron HCl (Zofran Inj) 4 mg Q6H PRN IV NAUSEA AND/OR VOMITING; Start 10/08/18 at 18:00 Acetaminophen (Tylenol Tab) 650 mg Q6H PRN PO PAIN LEVEL 1-3 OR FEVER; Start 10/08/18 at 18:00 Morphine Sulfate (morphine) 2 mg Q4H PRN IV SEVERE PAIN LEVEL 7-10; Start 10/08/18 at 18:00 Docusate Sodium (Colace) 100 mg Q12H PRN PO CONSTIPATION; Start 10/08/18 at 18:00 Bisacodyl (Dulcolax) 5 mg DAILY PRN PO CONSTIPATION; Start 10/08/18 at 18:00 Famotidine (Pepcid) 20 mg Q12 PO Last administered on 10/10/18 09:05; Admin Dose 20 MG; Start 10/08/18 at 21:00 Enoxaparin Sodium (Lovenox) 30 mg DAILY SC Last administered on 10/10/18 09:08; Admin Dose 30 MG; Start 10/08/18 at 18:00 Sodium Chloride 1,000 ml @ 70 mls/hr [id number] IV Last administered on 10/10/18at 16:33; Admin Dose 70 MLS/HR; Start 10/08/18 at 22:30 Levofloxacin (Levaquin) 500 mg DAILY@06 PO ; Start 10/11/18 at 06:00 ERIN FERREIRA Oct 10, 2018 16:49
--- NOTE | 2018-10-10 17:32 | NUR ---
Discuss to [employer] regarding wound nurse recommendation treatment. [employer] agreed with new orders.
--- NOTE | 2018-10-10 18:04 | NUR ---
Patient is cleared by cardiology for surgery daughter and patient made are and inform the patient again that the surgery is not today. Patient is alert, awake and verbally responsive. Respiration are even and non labored. No acute distress or discomfort noted. Will endorse accordingly.
--- NOTE | 2018-10-10 19:14 | CONS ---
Date/Time of Note Date/Time of Note DATE: 10/10/18 TIME: 19:09 Consult Date/Type/Reason Admit Date/Time Oct 08, 2018 at 15:26 Initial Consult Date 10/08/18 Type of Consultation: Urology Reason for Consultation Distal left ureteral stone Requesting Provider: OBED TADEO MD Subjective The patient states that she does have pain on the right side but that pain is not related to the stone that she has in the distal left ureter. She does complain of pain in the left side especially on examination. Objective Vital Signs Date Temp Pulse Resp B/P (MAP) Pulse Ox O2 O2 Flow FiO2 Time Delivery Rate 10/10/18 98.2 75 16 136/61 97 15:52 (86) 10/08/18 Room Air 17:00 Intake and Output 10/09/18 10/09/18 10/10/18 1515:00 23:00 07:00 IntakeIntake Total 450 ml 940 ml 1010 ml BalanceBalance 450 ml 940 ml 1010 ml Exam The abdomen is obese and she does have tenderness in the left lower quadrant. Results/Medications Result Diagram: 10/09/18 0620 10/10/18 0521 Results 24 hrs Laboratory Tests Test 10/10/18 05:21 Sodium Level 143 Potassium Level 3.5 Chloride Level 109 Carbon Dioxide Level 24 Anion Gap 10 Blood Urea Nitrogen 9 Creatinine 0.80 Est Glomerular Filtrat Rate mL/min Glucose Level 95 Calcium Level 9.4 Medications Current Medications Amlodipine Besylate (Norvasc) 10 mg DAILY PO Last administered on 10/10/18at 09:05; Admin Dose 10 MG; Start 10/09/18 at 09:00 Atorvastatin Calcium (Lipitor) 20 mg QHS PO Last administered on 10/09/18at 20:55; Admin Dose 20 MG; Start 10/08/18 at 21:00 Benazepril HCl (Lotensin) 10 mg DAILY PO Last administered on 10/10/18at 09:06; Admin Dose 10 MG; Start 10/09/18 at 09:00 Docusate Sodium (Colace) 100 mg BID PO Last administered on 10/10/18at 09:05; Admin Dose 100 MG; Start 10/08/18 at 21:00 Polyethylene Glycol (Miralax) 17 gm DAILY PO Last administered on 10/10/18at 09:08; Admin Dose 17 GM; Start 10/09/18 at 09:00 Ondansetron HCl (Zofran Inj) 4 mg Q6H PRN IV NAUSEA AND/OR VOMITING; Start 10/08/18 at 18:00 Acetaminophen (Tylenol Tab) 650 mg Q6H PRN PO PAIN LEVEL 1-3 OR FEVER; Start 10/08/18 at 18:00 Morphine Sulfate (morphine) 2 mg Q4H PRN IV SEVERE PAIN LEVEL 7-10; Start 10/08/18 at 18:00 Docusate Sodium (Colace) 100 mg Q12H PRN PO CONSTIPATION; Start 10/08/18 at 18:00 Bisacodyl (Dulcolax) 5 mg DAILY PRN PO CONSTIPATION; Start 10/08/18 at 18:00 Famotidine (Pepcid) 20 mg Q12 PO Last administered on 10/10/18at 09:05; Admin Dose 20 MG; Start 10/08/18 at 21:00 Sodium Chloride 1,000 ml @ 70 mls/hr [id number] IV Last administered on 10/10/18at 16:33; Admin Dose 70 MLS/HR; Start 10/08/18 at 22:30 Levofloxacin (Levaquin) 500 mg DAILY@06 PO ; Start 10/11/18 at 06:00 Assessment/Plan Chief Complaint/Hosp Course 83-year-old -[place] female presented to the hospital with a 2-day history of worsening, severe, sharp, right flank pain which radiates to the right upper quadrant. There is no associated nausea or vomiting and no dysuria or hematuria. The patient underwent a CT scan of the abdomen and pelvis and that showed: 1. MODERATE LEFT-SIDED HYDROURETERONEPHROSIS SECONDARY TO A 9.2 MM STONE WITHIN THE LEFT DISTAL URETER, LOCATED APPROXIMATELY 4-5 CM FROM THE LEFT UVJ. THERE ALSO APPEARS TO BE A 2.8 MM URETERIC STONE JUST ABOVE THE LARGER STONE. 2. Multiple bilateral renal cysts and right-sided nonobstructing nephrolithiasis. No evidence of right-side obstructive uropathy. 3. No evidence of obstruction. Small hiatal hernia. Stool filled loops of large bowel suggestive of constipation. 4. No evidence of free fluid or free air. No gross focal fluid collections. 5. Status post hysterectomy. Therefore a urological consultation was requested. The patient is known to me from before and previously she did have right ureteral stones for which she underwent cystoscopy placement of a JJ stent and ureteroscopy and laser lithotripsy and removal of the JJ stent. That was back in 2017. The patient is bedridden because of a history of a stroke and weakness in both lower extremities. There is a CT scan showing large stone that she is unlikely to pass on her own. She will need to have ureteroscopy and laser lithotripsy and insertion of a JJ stent. She was seen by the [employer] 6 [employer] teacher and cleared for the surgery. We will strain her urine for stones put her on tamsulosin KUB: Did show the stone on the left below the sacroiliac joint area. Urine culture shows 100,000 colony per mL of gram-negative rods E. coli sens itive to all antibiotic. Patient is on Levaquin CT of the chest did not show any rib fractures. I did schedule her for cystoscopy, left ureteroscopy, laser lithotripsy and insertion of left ureteral JJ stent for 1729 tomorrow October 11, 2018 DEVAUGHN MCNALLY MD Oct 10, 2018 19:14
[2018-10-10 19:30] VITALS: BP 131/60; PULSE 87; RESP 17
[2018-10-10] MEDS: ATORVASTATIN 20 MG TAB PO SCH (21:13)
[2018-10-11] VITALS (17 sets, daily range): BP systolic 113–160; BP diastolic 47–78; PULSE 96–108; RESP 17–22
[2018-10-11] MEDS: LEVOFLOXACIN 500 MG TAB PO SCH (05:30)
[2018-10-11] MEDS: SOD CHLORIDE 0.9% 1,000 ML IV SCH ×2 (06:11→20:06)
[2018-10-11] MEDS ORDERED: CEFAZOLIN 1 GM INJ ONE (07:00)
--- NOTE | 2018-10-11 07:55 | CONS ---
Assessment/Plan Assessment/Plan Assessment/Plan Preop Cardiac Evaluation Gram Negative Pyelonephritis Left Hydronepohrosis with nephrolithiasis Hx of CVA with BLE paralysis HTN HLP -The patient with no cardiac history, no cardiac symptoms, normal EF by echo and nsr by ekg- as such, MAY PROCEED TO PROCEDURE WITH LOW CARDIAC RISK -Continue abx -Continue bp and lipid management - service involved Consultation Date/Type/Reason Admit Date/Time Oct 08, 2018 at 15:26 Initial Consult Date 10/08/18 Type of Consult Cardiology Requesting Provider: OBED TADEO MD Date/Time of Note DATE: 10/11/18 TIME: 07:55 24 HR Interval Summary Free Text/Dictation the patient wtih no complaints Exam/Review of Systems Vital Signs Vitals Vital Signs Date Temp Pulse Resp B/P (MAP) Pulse Ox O2 O2 Flow FiO2 Time Delivery Rate 10/11/18 99.4 97 18 126/78 99 01:50 (94) 10/08/18 Room Air 17:00 Intake and Output 10/10/18 10/10/18 10/11/18 1515:00 23:00 07:00 IntakeIntake Total 100 ml 540 ml 860 ml BalanceBalance 100 ml 540 ml 860 ml Labs Result Diagram: 10/11/18 0440 10/11/18 0440 Results 24hrs Laboratory Tests Test 10/11/18 04:40 White Blood Count 16.8 H Red Blood Count 4.38 Hemoglobin 12.1 Hematocrit 37.2 Mean Corpuscular Volume 84.9 Mean Corpuscular Hemoglobin 27.6 L Mean Corpuscular Hemoglobin Concent 32.5 Red Cell Distribution Width 15.1 H Platelet Count 352 Mean Platelet Volume 10.4 Immature Granulocytes % 0.500 H Neutrophils % 81.1 H Lymphocytes % 10.2 L Monocytes % 6.9 Eosinophils % 0.9 Basophils % 0.4 Nucleated Red Blood Cells % 0.0 Immature Granulocytes # 0.080 H Neutrophils # 13.6 H Lymphocytes # 1.7 Monocytes # 1.2 H Eosinophils # 0.2 Basophils # 0.1 Nucleated Red Blood Cells # 0.0 Prothrombin Time 13.8 Prothrombin Time Ratio 1.1 INR International Normalized Ratio 1.05 Activated Partial Thromboplast Time 31.1 Sodium Level 144 Potassium Level 3.4 L Chloride Level 107 Carbon Dioxide Level 27 Anion Gap 10 Blood Urea Nitrogen 7 Creatinine 0.67 Est Glomerular Filtrat Rate mL/min Glucose Level 79 Calcium Level 9.9 MACIE RIVERA MD Oct 11, 2018 07:55
[2018-10-11] MEDS: POLYETHYLENE GLYCOL 17 GM PACKET PO SCH (09:00)
--- NOTE | 2018-10-11 09:40 | NUR ---
Spoke to Dr. Pinedo and report that pt. blood pressure is high and ask if we can give the blood pressure medication. Per MD its ok to give but just one sip of water only.
[2018-10-11] MEDS: BENAZEPRIL 10 MG TAB PO SCH (09:45)
[2018-10-11] MEDS: AMLODIPINE 10 MG TAB PO SCH (09:46)
[2018-10-11] MEDS: DOCUSATE SODIUM 100 MG CAP PO SCH ×2 (09:46→20:31)
[2018-10-11] MEDS: FAMOTIDINE 20 MG TAB PO SCH ×2 (09:46→20:32)
--- NOTE | 2018-10-11 11:30 | NUR ---
Patient left the unit for surgery. alert, awake and verbally responsive. Respiration are even and non labored
[2018-10-11] MEDS ORDERED: POTASSIUM CHLORIDE (SR) 20 MEQ TAB PO STA (11:36)
--- NOTE | 2018-10-11 11:36 | CONS ---
Assessment/Plan Assessment/Plan Assessment/Plan (Daily) 1. Hypercalcemia, mild 2. Left sided Hydronephrosis due to left ureteral stone 3. right sided pyelonephritis, acute 4. H/o HTN 5. H/o HL 6. Hypokalemia 7. UTI with urine Cx growing E coli Plan: IVF NS at 70 cc/hr,BUN/Cr 7/0.67, K 3.4- KCl 40MEQ Po x 1 dose today Plan for Ureteroscopy with Stent placement by Urology , WBC 16- Id following, IV abx as per ID- Currently on PO levquin for UTI Continue amlodipine and benazepril for HTN will follow up Consultation Date/Type/Reason Admit Date/Time Oct 08, 2018 at 15:26 Initial Consult Date 10/08/18 Type of Consult NEPHROLOGY Requesting Provider: OBED TADEO MD Date/Time of Note DATE: 10/11/18 TIME: 11:36 24 HR Interval Summary Free Text/Dictation plan for Uteteroscopy and insertin of JJ stent by Urology, pain controlle,d WBC better, Exam/Review of Systems Vital Signs Vitals Vital Signs Date Temp Pulse Resp B/P (MAP) Pulse Ox O2 O2 Flow FiO2 Time Delivery Rate 10/11/18 98.7 96 18 160/76 97 Room Air 07:15 (104) Intake and Output 10/10/18 10/10/18 10/11/18 1515:00 23:00 07:00 IntakeIntake Total 100 ml 540 ml 860 ml BalanceBalance 100 ml 540 ml 860 ml Exam Constitutional: alert Respiratory: clear to auscultation, normal air movement, diminished breath sounds Cardiovascular: regular rate and rhythm Gastrointestinal: soft, non-tender Genitourinary - Female: CVA tenderness (Right side, left back pain ) Musculoskeletal: nl extremities to inspection Extremities: normal pulses Neurological: BPO SPECIALIST II-XII intact, nl mental status, nl speech, nl strength Results Result Diagram: 10/11/180 10/11/18 0440 Results 24hrs Laboratory Tests Test 10/11/18 04:40 White Blood Count 16.8 H Red Blood Count 4.38 Hemoglobin 12.1 Hematocrit 37.2 Mean Corpuscular Volume 84.9 Mean Corpuscular Hemoglobin 27.6 L Mean Corpuscular Hemoglobin Concent 32.5 Red Cell Distribution Width 15.1 H Platelet Count 352 Mean Platelet Volume 10.4 Immature Granulocytes % 0.500 H Neutrophils % 81.1 H Lymphocytes % 10.2 L Monocytes % 6.9 Eosinophils % 0.9 Basophils % 0.4 Nucleated Red Blood Cells % 0.0 Immature Granulocytes # 0.080 H Neutrophils # 13.6 H Lymphocytes # 1.7 Monocytes # 1.2 H Eosinophils # 0.2 Basophils # 0.1 Nucleated Red Blood Cells # 0.0 Prothrombin Time 13.8 Prothrombin Time Ratio 1.1 INR International Normalized Ratio 1.05 Activated Partial Thromboplast Time 31.1 Sodium Level 144 Potassium Level 3.4 L Chloride Level 107 Carbon Dioxide Level 27 Anion Gap 10 Blood Urea Nitrogen 7 Creatinine 0.67 Est Glomerular Filtrat Rate mL/min Glucose Level 79 Calcium Level 9.9 LIZZ SALCEDO MD Oct 11, 2018 11:36
[2018-10-11] MEDS ORDERED: LIDOCAINE 2% (SDV) 5 ML INJ ONE (11:41)
[2018-10-11] MEDS ORDERED: FENTAnyl 50 MCG/ML VIAL ONE (11:41)
[2018-10-11] MEDS ORDERED: PROPOFOL 20 ML ONE (11:41)
[2018-10-11] MEDS ORDERED: NEOSTIGMINE 3 MG/3 ML SYRINGE ONE (11:41)
[2018-10-11] MEDS ORDERED: MIDAZOLAM 1 MG/ML 2 ML INJ ONE (11:41)
[2018-10-11] MEDS ORDERED: ROCURONIUM 50 MG INJ ONE (11:41)
[2018-10-11] MEDS ORDERED: GLYCOPYRROLATE 0.4 MG INJ ONE (11:41)
--- NOTE | 2018-10-11 12:21 | HPN ---
Date/Time of Note Date/Time of Note DATE: 10/11/18 TIME: 12:20 Interval H&P Admission Note Pt. seen H&P reviewed: No system changes DEVAUGHN MCNALLY MD Oct 11, 2018 12:21
--- NOTE | 2018-10-11 12:24 | PREAC ---
Date/Time of Note Date/Time of Note DATE: 10/11/18 TIME: 11:40 Anesthesia Eval and Record Evaluation Time Pre-Procedure Interview DATE: 10/11/18 TIME: 11:40 Age 83 Sex female NPO: 8 hrs Preoperative diagnosis pyelonephritis Planned procedure Cysto Left Ureteroscopy Laser Lithotripsy Insertion Of the Left Ureteral stent Past Medical History Past Medical History: Includes Cardio: HTN, Dyslipidemia Endo: Other Pulm: Other Neuro: Peripheral neuropathy Musculoskeletal: Osteoarthritis Renal: Other Hepatic: Other GI: Other Heme: Other Psych: Depression, Anxiety Infection(s): Other Recreational drugs: Other : Other Surgery & Anesthesia Issues Hx of difficult intubation, Aspiration risk Meds Anticoagulation: No Beta Ermias within 24 hr: No Reason Beta Ermias not given: Other Reported Medications Polyethylene Glycol* (Miralax*) 17 Gm Powd.pack, 17 GM PO DAILY, #30 PACKET 10/08/18 Docusate Sodium* (Colace*) 100 Mg Capsule, 100 MG PO BID, #60 CAP 10/08/18 Clopidogrel Bisulfate (Clopidogrel) 75 Mg Tablet, 75 MG PO DAILY, #30 TAB 10/08/18 Benazepril Hcl* (Benazepril Hcl*) 10 Mg Tablet, 10 MG PO DAILY, #30 TAB 10/08/18 Atorvastatin Calcium* (Atorvastatin Calcium*) 20 Mg Tablet, 20 MG PO QHS, #30 TAB 10/08/18 Amlodipine Besylate* (Amlodipine Besylate*) 10 Mg Tablet, 10 MG PO DAILY, #30 TAB 10/08/18 Discontinued Reported Medications Clopidogrel Bisulfate (Clopidogrel) 75 Mg Tablet, 75 MG PO DAILY, #30 TAB 06/03/18 Benazepril Hcl* (Benazepril Hcl*) 10 Mg Tablet, 10 MG PO DAILY, #30 TAB 11/16/16 Atorvastatin* (Atorvastatin*) 40 Mg Tablet, 20 MG PO QHS, #30 TAB 11/16/16 Polyethylene Glycol* (Miralax*) 17 Gm Powd.pack, PO DAILY 11/01/13 Amlodipine Besylate* (Amlodipine Besylate*) 10 Mg Tablet, PO DAILY 11/01/13 Docusate Sodium* (Colace*) 100 Mg Capsule, PO BID 11/01/13 Discontinued Scripts Lactulose* (Lactulose*) 10 Gm/15 Ml Solution, 10 GM PO Q8 PRN for constipation, #300 ML Prov:LIZZ SALCEDO MD 06/05/18 Hydrocodone Bit-Acetaminophen (Hydrocodone Bit-APAP) 5-325MG Tablet, 1 TAB PO Q4H PRN for PAIN for 10 Days, TAB Prov:CHIDI CERDA 12/26/16 Tamsulosin Hcl* (Flomax*) 0.4 Mg Cap.er.24h, 0.4 MG PO DAILY, #60 CAP Prov:LORY FLORES 11/30/16 Current Medications Amlodipine Besylate (Norvasc) 10 mg DAILY PO Last administered on 10/11/18 09:46; Admin Dose 10 MG; Start 10/09/18 at 09:00 Atorvastatin Calcium (Lipitor) 20 mg QHS PO Last administered on 10/10/18 21:13; Admin Dose 20 MG; Start 10/08/18 at 21:00 Benazepril HCl (Lotensin) 10 mg DAILY PO Last administered on 10/11/18 09:45; Admin Dose 10 MG; Start 10/09/18 at 09:00 Docusate Sodium (Colace) 100 mg BID PO Last administered on 10/11/18 09:46; Admin Dose 100 MG; Start 10/08/18 at 21:00 Polyethylene Glycol (Miralax) 17 gm DAILY PO Last administered on 10/10/18 09:08; Admin Dose 17 GM; Start 10/09/18 at 09:00 Ondansetron HCl (Zofran Inj) 4 mg Q6H PRN IV NAUSEA AND/OR VOMITING; Start 10/08/18 at 18:00 Acetaminophen (Tylenol Tab) 650 mg Q6H PRN PO PAIN LEVEL 1-3 OR FEVER; Start 10/08/18 at 18:00 Morphine Sulfate (morphine) 2 mg Q4H PRN IV SEVERE PAIN LEVEL 7-10; Start 10/08/18 at 18:00 Docusate Sodium (Colace) 100 mg Q12H PRN PO CONSTIPATION; Start 10/08/18 at 18:00 Bisacodyl (Dulcolax) 5 mg DAILY PRN PO CONSTIPATION; Start 10/08/18 at 18:00 Famotidine (Pepcid) 20 mg Q12 PO Last administered on 10/11/18 09:46; Admin Dose 20 MG; Start 10/08/18 at 21:00 Sodium Chloride 1,000 ml @ 70 mls/hr [id number] IV Last administered on 10/11/18at 06:11; Admin Dose 70 MLS/HR; Start 10/08/18 at 22:30 Levofloxacin (Levaquin) 500 mg DAILY@06 PO ; Start 10/11/18 at 06:00 Potassium Chloride (Klor-Con 20) 40 meq ONCE STAT PO ; Start 10/11/18 at 11:36; Stop 10/11/18 at 11:37; Status UNV Meds reviewed: Yes Allergies Coded Allergies: Cyanocobalamin (Verified Allergy, Unknown, 10/08/18) Allergies Reviewed: Yes Labs/Studies Labs Reviewed: Reviewed by anesthesiologist Result Diagram: 10/11/1843910/11/18439 Laboratory Tests 10/11/18 04:40 test: N/A Studies: ECG, CXR Pre-procedure Exam Last vitals Vital Signs Date Temp Pulse Resp B/P (MAP) Pulse Ox O2 O2 Flow FiO2 Time Delivery Rate 10/11/18 98.7 96 18 160/76 97 Room Air 07:15 (104) Airway: Adequate mouth opening Mallampati: Mallampati II Teeth: Abnormal Lung: Abnormal Heart: Abnormal Anticipated Difficutly with IV: Anticipate Difficult IV Access ASA Physical Status ASA physical status: 2 Emergency: None Planned Anesthetic General/MAC: ETT Neuraxial: Other Nerve block: Other Planned Pain Management Parenteral pain med Pre-operative Attestations Prior to commencing anesthesia and surgery, the patient was re-evaluated, there was verification of: *The patient's identity *The results of appropriate recent lab work and preoperative vital signs *The above evaluation not changing prior to induction *Anesthetic plan, risk benefits, alternative and complications discussed with patient/family; questions answered; patient/family understands, accepts and wishes to proceed. CECE OSPINA MD Oct 11, 2018 11:50
[2018-10-11] MEDS ORDERED: ONDANSETRON 4 MG INJ ONE (12:58)
[2018-10-11] MEDS ORDERED: DEXAMETHASONE 4 MG/ML 5 ML INJ ONE (12:58)
--- NOTE | 2018-10-11 13:54 | OPR ---
Date/Time of Note Date/Time of Note DATE: 10/11/18 TIME: 13:44 Operative Report Procedure Date: Oct 11, 2018 Preoperative Diagnosis Distal left ureteral stone Postoperative Diagnosis Same Operation/Procedure Performed Cystoscopy, left ureteroscopy, laser lithotripsy, insertion of left ureteral JJ stent 6 Guamanian by 24 cm long. Surgeon see signature line Beater Dumper telemetry technician Cecil Anesthesia Type: general Anesthesiologist: CECE OSPINA MD Estimated Blood Loss: none Transfusion none Specimen Stone fragments from distal left ureter, urine for culture and sensitivity Grafts/Implants none Complications none Pt Condition Post Procedure: stable Disposition: PACU Indications Distal left ureteral stone with obstruction Procedure Description Patient was brought to the operating room. General anesthesia was induced. The patient was positioned in the lithotomy position. The genital area was then prepped and draped in the usual sterile manner. Timeout was done and the patient was identified by her name, birthdate, the procedure and the side of the procedure. #21 Guamanian cystoscope sheath was introduced into the bladder and urine was collected for culture and sensitivity. Left ureteral orifice was then identified and cannulated with a 5 Guamanian open ended ureteral catheter. A 0.035 zip wire was passed through the lumen of the open ended catheter under fluoroscopy all the way up to the kidney. The open ended was removed and reintroduced through the second working channel. A 0.035 sensor wire was then passed through the open ended into the left ureter and advanced under fluoroscopy. It did currently little when it hit the stone but with manipulation it was able to be advanced to the kidney. The open ended was removed. The sensor wire was used as a safety wire. The zip wire was used to advance on it the rigid ureteroscope. The rigid ureteroscope was advanced into the ureter and the stone was visualized. The zip wire was removed and the 365 m holmium laser fiber was used to break the stone into multiple pieces. These pieces were basketed then with a stone basket and dropped into the bladder. One piece had to be broken further and 2 smaller ones as it would not come down in the basket. Once all the fragments were basketed out of the ureter and the ureter is completely clear from the kidney all the way down to the bladder the ureteroscope was removed. And the cystoscope was reintroduced into the bladder. The stone fragments were drained out of the bladder. The cystoscope was removed and reintroduced on the safety wire. Then the 6 Guamanian by 24 cm long JJ stent was advanced on the sensor wire and had it proximal and curling into the kidney and the distal end curling into the bladder. A 16 Guamanian Echevarria catheter was then inserted into the bladder and connected to a drainage bag. The balloon inflated was 10 mL of sterile water. The string that is attached to the distal end of the JJ stent was then taped to the Echevarria catheter using 2 small pieces of Tegaderm. The patient tolerated the procedure well and was transferred to the recovery room in a stable and satisfactory condition. DEVAUGHN MCNALLY MD Oct 11, 2018 13:54
--- NOTE | 2018-10-11 14:07 | PAC ---
Date/Time of Note Date/Time of Note DATE: 10/11/18 TIME: 14:06 Post-Anesthesia Notes Post-Anesthesia Note Last documented vital signs Vital Signs Date Temp Pulse Resp B/P (MAP) Pulse Ox O2 O2 Flow FiO2 Time Delivery Rate 10/11/18 98.7 96 18 160/76 97 Room Air 07:15 (104) Activity: WNL Respiratory function: WNL Cardiovascular function: WNL Mental status: Baseline Pain reasonably controlled: Yes Hydration appropriate: Yes Nausea/Vomiting absent: No CECE OSPINA MD Oct 11, 2018 14:07
[2018-10-11] MEDS ORDERED: MIDAZOLAM 1 MG/ML 2 ML INJ IV PRN (14:30)
[2018-10-11] MEDS ORDERED: LABETALOL HCL 20MG INJ IV PRN (14:30)
[2018-10-11] MEDS ORDERED: KETOROLAC 30 MG INJ IV PRN (14:30)
[2018-10-11] MEDS ORDERED: ONDANSETRON 4 MG INJ IV PRN (14:30)
[2018-10-11] MEDS ORDERED: EPHEDrine SULFATE 50 MG/5 ML SYG IV PRN (14:30)
[2018-10-11] MEDS ORDERED: DIPHENHYDRAMINE 50 MG INJ IV PRN (14:30)
[2018-10-11] MEDS ORDERED: MEPERIDINE 25 MG INJ IV PRN (14:30)
[2018-10-11] MEDS ORDERED: HYDROmorphONE 1 MG/5 ML IV SYRINGE IV PRN ×3 (14:30)
[2018-10-11] MEDS ORDERED: FENTAnyl 50 MCG/ML VIAL IV PRN ×3 (14:30)
[2018-10-11] MEDS ORDERED: hydrALAzine 20 MG INJ IV PRN (14:30)
[2018-10-11] MEDS ORDERED: HALOPERIDOL 5 MG INJ IV PRN (14:30)
[2018-10-11] MEDS ORDERED: morphine (1 MG/ML) 10ML SYRINGE IV PRN (14:30)
[2018-10-11] MEDS ORDERED: ALBUTEROL 0.083% (NEB) 2.5 MG/3 ML AMP HHN PRN (14:30)
[2018-10-11] MEDS ORDERED: METOCLOPRAMIDE 10 MG INJ IV PRN (14:30)
--- NOTE | 2018-10-11 14:46 | NUR ---
PACU NOTE: PT RECEIVED S/P CYSTOSCOPY, LEFT URETEROSCOPY, LASER LITHOTRIPSY, AND INSERTION OF THER LEFT URETHRAL JJ STENT. PT IS ALERT AND ORIENTED, DENIES PAIN AT THIS TIME, VITAL SIGNS ARE STABLE. PT WILL BE TRANSFERRED BACK TO HER ROOM FOR CONTINUATION OF CARE.
--- NOTE | 2018-10-11 15:39 | CONS ---
Assessment/Plan Assessment/Plan Hospital Course (Demo Recall) 1100 No events, all noted, looks comfortable, no fevers Microbiology: Urine culture grew E. coli, blood culture growing staph species 1 out of 2 sets, repeat blood cultures pending Antimicrobials: Levaquin Physical examination: Fragile well-developed elderly woman who is alert in no distress. Head atraumatic normocephalic. Neck is supple chest rise symmetrical breath sounds clear heart: S1-S2 abdomen soft bowel sounds present extremities without cyanosis Assessment: 1. Acute pyelonephritis 2. Obstructive uropathy 3. Coag negative staph bacteremia, likely contaminant 4. Hypertension 5. History of CVA 6. Cholelithiasis Plan: Patient remains stable, plan for ureteroscopy/ insertion of JJ stent today, continue antibiotics. Consultation Date/Type/Reason Admit Date/Time Oct 08, 2018 at 15:26 Initial Consult Date 10/08/18 Type of Consult id Requesting Provider: OBED TADEO MD Date/Time of Note DATE: 10/11/18 TIME: 15:38 Exam/Review of Systems Exam Vitals Vital Signs Date Temp Pulse Resp B/P (MAP) Pulse Ox O2 O2 Flow FiO2 Time Delivery Rate 10/11/18 98 22 140/54 98 Nasal 2.0 15:05 (82) Cannula 10/11/18 98.0 14:10 Intake and Output 10/10/18 10/10/18 10/11/18 1515:00 23:00 07:00 IntakeIntake Total 100 ml 540 ml 860 ml BalanceBalance 100 ml 540 ml 860 ml Results Result Diagram: 10/11/18 0440 10/11/18 0440 Results 24hrs Laboratory Tests Test 10/11/18 04:40 White Blood Count 16.8 H Red Blood Count 4.38 Hemoglobin 12.1 Hematocrit 37.2 Mean Corpuscular Volume 84.9 Mean Corpuscular Hemoglobin 27.6 L Mean Corpuscular Hemoglobin Concent 32.5 Red Cell Distribution Width 15.1 H Platelet Count 352 Mean Platelet Volume 10.4 Immature Granulocytes % 0.500 H Neutrophils % 81.1 H Lymphocytes % 10.2 L Monocytes % 6.9 Eosinophils % 0.9 Basophils % 0.4 Nucleated Red Blood Cells % 0.0 Immature Granulocytes # 0.080 H Neutrophils # 13.6 H Lymphocytes # 1.7 Monocytes # 1.2 H Eosinophils # 0.2 Basophils # 0.1 Nucleated Red Blood Cells # 0.0 Prothrombin Time 13.8 Prothrombin Time Ratio 1.1 INR International Normalized Ratio 1.05 Activated Partial Thromboplast Time 31.1 Sodium Level 144 Potassium Level 3.4 L Chloride Level 107 Carbon Dioxide Level 27 Anion Gap 10 Blood Urea Nitrogen 7 Creatinine 0.67 Est Glomerular Filtrat Rate mL/min Glucose Level 79 Calcium Level 9.9 JANET COOPER NP Oct 11, 2018 15:39
--- NOTE | 2018-10-11 15:40 | NUR ---
patient is already back in the unit assisted with transporter via bed. Patient is alert, awake and verbally responsive. Respiration are even and non labored. No acute distress or discomfort noted Echevarria catheter is intact. Draining well with hematuria noted. No fever at this time. Offer to eat food but patient refuse to eat. Will continue to monitor.
--- NOTE | 2018-10-11 18:01 | NUR ---
Patient is eating dinner at this time with family in bedside. Respiration are even and non labored. No acute distress noted. Echevarria catheter is intact. Stable condition at this time. Patient refuse to reposition in her side and wants to just stay flat.
--- NOTE | 2018-10-11 18:56 | PN ---
Date/Time of Note Date/Time of Note DATE: 10/11/18 TIME: 18:53 Assessment/Plan VTE Prophylaxis Risk score (from Ns)>0 risk: 6 SCD applied (from Ns): Yes Pharmacological prophylaxis: NA/contraindicated Pharm contraindication: surgical contra Lines/Catheters IV Catheter Type (from [facility]): Peripheral IV Central line still needed: Yes Urinary Cath still in place: Yes Reason Cath still needed: urinary retention Assessment/Plan Hospital Course Patient is status post cystoscopy and lithotripsy today, currently has a Echevarria catheter with blood-tinged urine continue to monitor hemoglobin and hematocrit, patient is awake alert denies pain. Assessment/Plan -Acute right flank pain secondary to pyelonephritis, continue pain management. -Left hydronephrosis concurrent with and due to calculi of kidney and ureter. Dr. Pinedo is following in urology consultation. Status post cystoscopy ureteroscopy, laser lithotripsy and insertion of flat ureteral JJ stent on 10/11/2018. -Obstructive uropathy secondary to left ureteral stone. -Pyelonephritis secondary to E. coli urinary tract infection. Continue Levaquin. Dr. Whatley is following in infection disease consultation. -Systemic inflammatory response syndrome secondary to pyelonephritis -Nephrolithiasis -Constipation, will start patient on bowel regimen -History of stroke with bilateral lower extremities paralysis -Hypertension, continue benazepril and Norvasc -Hyperlipidemia, continue statin -Preserved ejection fraction per 2D echo -Right buttock stage II decubitus ulcer present on admission. Continue current wound care per wound care team recommendations, offloading. Further recommendations based on clinical course. Plan of care discussed with Dr. Hull. Result Diagram: 10/11/18 0440 10/11/18 0440 Results 24hrs Laboratory Tests Test 10/11/18 04:40 White Blood Count 16.8 H Red Blood Count 4.38 Hemoglobin 12.1 Hematocrit 37.2 Mean Corpuscular Volume 84.9 Mean Corpuscular Hemoglobin 27.6 L Mean Corpuscular Hemoglobin Concent 32.5 Red Cell Distribution Width 15.1 H Platelet Count 352 Mean Platelet Volume 10.4 Immature Granulocytes % 0.500 H Neutrophils % 81.1 H Lymphocytes % 10.2 L Monocytes % 6.9 Eosinophils % 0.9 Basophils % 0.4 Nucleated Red Blood Cells % 0.0 Immature Granulocytes # 0.080 H Neutrophils # 13.6 H Lymphocytes # 1.7 Monocytes # 1.2 H Eosinophils # 0.2 Basophils # 0.1 Nucleated Red Blood Cells # 0.0 Prothrombin Time 13.8 Prothrombin Time Ratio 1.1 INR International Normalized Ratio 1.05 Activated Partial Thromboplast Time 31.1 Sodium Level 144 Potassium Level 3.4 L Chloride Level 107 Carbon Dioxide Level 27 Anion Gap 10 Blood Urea Nitrogen 7 Creatinine 0.67 Est Glomerular Filtrat Rate mL/min Glucose Level 79 Calcium Level 9.9 Exam/Review of Systems Exam Vitals Constitutional: alert, oriented Respiratory: clear to auscultation Cardiovascular: nl pulses Gastrointestinal: soft, non-tender Genitourinary - Female: CVA tenderness, Echevarria Extremities: normal pulses Neurological: nl mental status, other (Bilateral lower extremity paralysis) Skin: nl turgor Vital Signs Date Temp Pulse Resp B/P (MAP) Pulse Ox O2 O2 Flow FiO2 Time Delivery Rate 10/11/18 105 20 119/55 95 Nasal 2.0 15:39 (76) Cannula 10/11/18 98.0 14:10 Intake and Output 10/10/18 10/10/18 10/11/18 1515:00 23:00 07:00 IntakeIntake Total 100 ml 540 ml 860 ml BalanceBalance 100 ml 540 ml 860 ml Results Results 24hrs Laboratory Tests Test 10/11/18 04:40 White Blood Count 16.8 H Red Blood Count 4.38 Hemoglobin 12.1 Hematocrit 37.2 Mean Corpuscular Volume 84.9 Mean Corpuscular Hemoglobin 27.6 L Mean Corpuscular Hemoglobin Concent 32.5 Red Cell Distribution Width 15.1 H Platelet Count 352 Mean Platelet Volume 10.4 Immature Granulocytes % 0.500 H Neutrophils % 81.1 H Lymphocytes % 10.2 L Monocytes % 6.9 Eosinophils % 0.9 Basophils % 0.4 Nucleated Red Blood Cells % 0.0 Immature Granulocytes # 0.080 H Neutrophils # 13.6 H Lymphocytes # 1.7 Monocytes # 1.2 H Eosinophils # 0.2 Basophils # 0.1 Nucleated Red Blood Cells # 0.0 Prothrombin Time 13.8 Prothrombin Time Ratio 1.1 INR International Normalized Ratio 1.05 Activated Partial Thromboplast Time 31.1 Sodium Level 144 Potassium Level 3.4 L Chloride Level 107 Carbon Dioxide Level 27 Anion Gap 10 Blood Urea Nitrogen 7 Creatinine 0.67 Est Glomerular Filtrat Rate mL/min Glucose Level 79 Calcium Level 9.9 ERIN FERREIRA Oct 11, 2018 18:56
[2018-10-11] MEDS: ATORVASTATIN 20 MG TAB PO SCH (20:32)
[2018-10-12 02:35] VITALS: BP 116/59; PULSE 106; RESP 18
[2018-10-12] MEDS: LEVOFLOXACIN 500 MG TAB PO SCH (06:32)
[2018-10-12 07:15] VITALS: BP 141/65; PULSE 85; RESP 16
[2018-10-12] MEDS: DOCUSATE SODIUM 100 MG CAP PO SCH ×2 (08:53→20:55)
[2018-10-12] MEDS: FAMOTIDINE 20 MG TAB PO SCH ×2 (08:53→20:55)
[2018-10-12] MEDS: POLYETHYLENE GLYCOL 17 GM PACKET PO SCH (08:54)
[2018-10-12] MEDS: AMLODIPINE 10 MG TAB PO SCH (08:54)
[2018-10-12] MEDS: BENAZEPRIL 10 MG TAB PO SCH (08:54)
--- NOTE | 2018-10-12 09:04 | CONS ---
Assessment/Plan Assessment/Plan Assessment/Plan (Daily) s/p cystocsopy/lithotripsy Gram Negative Pyelonephritis Left Hydronepohrosis with nephrolithiasis Hx of CVA with BLE paralysis HTN HLP -Continue abx -Continue bp and lipid management - service involved Consultation Date/Type/Reason Admit Date/Time Oct 08, 2018 at 15:26 Initial Consult Date 10/08/18 Type of Consult Cardiology Requesting Provider: OBED TADEO MD Date/Time of Note DATE: 10/12/18 TIME: 09:03 24 HR Interval Summary Free Text/Dictation The pateint doing well post-op Exam/Review of Systems Vital Signs Vitals Vital Signs Date Temp Pulse Resp B/P (MAP) Pulse Ox O2 O2 Flow FiO2 Time Delivery Rate 10/12/18 98.2 85 16 141/65 100 Nasal 07:15 (90) Cannula 10/11/18 2.0 15:39 Intake and Output 10/11/18 10/11/18 10/12/18 1515:00 23:00 07:00 IntakeIntake Total 0 ml 950 ml 1590 ml OutputOutput Total 700 ml 300 ml BalanceBalance -700 ml 950 ml 1290 ml Labs Result Diagram: 10/12/18 0436 10/12/18 0436 Results 24hrs Laboratory Tests Test 10/12/18 04:36 White Blood Count 16.6 H Red Blood Count 4.08 L Hemoglobin 11.3 L Hematocrit 34.5 L Mean Corpuscular Volume 84.6 Mean Corpuscular Hemoglobin 27.7 L Mean Corpuscular Hemoglobin Concent 32.8 Red Cell Distribution Width 15.4 H Platelet Count 353 Mean Platelet Volume 10.4 Immature Granulocytes % 0.800 H Neutrophils % 86.9 H Lymphocytes % 8.1 L Monocytes % 4.0 Eosinophils % 0.0 Basophils % 0.2 Nucleated Red Blood Cells % 0.0 Immature Granulocytes # 0.130 H Neutrophils # 14.5 H Lymphocytes # 1.4 Monocytes # 0.7 Eosinophils # 0.0 Basophils # 0.0 Nucleated Red Blood Cells # 0.0 Sodium Level 142 Potassium Level 3.8 Chloride Level 109 Carbon Dioxide Level 25 Anion Gap 8 Blood Urea Nitrogen 13 Creatinine 0.83 Est Glomerular Filtrat Rate mL/min Glucose Level 166 Calcium Level 9.9 MACIE RIVERA MD Oct 12, 2018 09:04
--- NOTE | 2018-10-12 09:13 | CONS ---
Assessment/Plan Assessment/Plan Assessment/Plan (Daily) 1. Hypercalcemia, mild 2. Left sided Hydronephrosis due to left ureteral stone- s/p cystoscopy/left JJ stent 10/11/18 3. right sided pyelonephritis, acute 4. H/o HTN 5. H/o HL 6. Hypokalemia 7. UTI with urine Cx growing E coli Plan: IVF NS at 70 cc/hr,BUN/Cr 13/0.83, other electrolytes stable s/p cystoscopy/left JJ stent 10/11/18 Currently on PO levquin for UTI , ID follo wing Continue amlodipine and benazepril for HTN will follow up Consultation Date/Type/Reason Admit Date/Time Oct 08, 2018 at 15:26 Initial Consult Date 10/08/18 Type of Consult NEPHROLOGY Requesting Provider: OBED TADEO MD Date/Time of Note DATE: 10/12/18 TIME: 09:13 24 HR Interval Summary Free Text/Dictation s/p stent placement, Bpstable, Exam/Review of Systems Exam Vitals Vital Signs Date Temp Pulse Resp B/P (MAP) Pulse Ox O2 O2 Flow FiO2 Time Delivery Rate 10/12/18 98.2 85 16 141/65 100 Nasal 07:15 (90) Cannula 10/11/18 2.0 15:39 Intake and Output 10/11/18 10/11/18 10/12/18 1515:00 23:00 07:00 IntakeIntake Total 0 ml 950 ml 1590 ml OutputOutput Total 700 ml 300 ml BalanceBalance -700 ml 950 ml 1290 ml PHYSICAL EXAM: Constitutional: alert Respiratory: clear to auscultation, normal air movement, diminished breath sounds Cardiovascular: regular rate and rhythm Gastrointestinal: soft, non-tender Genitourinary - Female: CVA tenderness (Right side, left back pain ) Musculoskeletal: nl extremities to inspection Extremities: normal pulses Neurological: G[employer]ST EXPERIENCE SPECIALIST II-XII intact, nl mental status, nl speech, nl strength Results Result Diagram: 10/12/186 10/12/18 0436 Results 24hrs Laboratory Tests Test 10/12/18 04:36 White Blood Count 16.6 H Red Blood Count 4.08 L Hemoglobin 11.3 L Hematocrit 34.5 L Mean Corpuscular Volume 84.6 Mean Corpuscular Hemoglobin 27.7 L Mean Corpuscular Hemoglobin Concent 32.8 Red Cell Distribution Width 15.4 H Platelet Count 353 Mean Platelet Volume 10.4 Immature Granulocytes % 0.800 H Neutrophils % 86.9 H Lymphocytes % 8.1 L Monocytes % 4.0 Eosinophils % 0.0 Basophils % 0.2 Nucleated Red Blood Cells % 0.0 Immature Granulocytes # 0.130 H Neutrophils # 14.5 H Lymphocytes # 1.4 Monocytes # 0.7 Eosinophils # 0.0 Basophils # 0.0 Nucleated Red Blood Cells # 0.0 Sodium Level 142 Potassium Level 3.8 Chloride Level 109 Carbon Dioxide Level 25 Anion Gap 8 Blood Urea Nitrogen 13 Creatinine 0.83 Est Glomerular Filtrat Rate mL/min Glucose Level 166 Calcium Level 9.9 LIZZ SALCEDO MD Oct 12, 2018 09:13
[2018-10-12] MEDS: SOD CHLORIDE 0.9% 1,000 ML IV SCH (09:47)
--- NOTE | 2018-10-12 10:25 | NUR ---
NURSE NOTE: Pt turned at this time. Explained that turning will help prevent pressure injury. Agreed to be turned. She refused SCDs and special mattress. Provided education. will continue to monitor at this time. Addendum: 10/12/18 at 1037 by ANABELLE BETTS RN Pt refused pillow for her left foot, only right foot.
--- NOTE | 2018-10-12 11:45 | CONS ---
Assessment/Plan Assessment/Plan Hospital Course (Demo Recall) All noted, loks comfortable, no fevers over night Microbiology: Urine culture grew E. coli, blood culture growing staph species 1 out of 2 sets, repeat blood cultures pending Antimicrobials: Levaquin Physical examination: Fragile well-developed elderly woman who is alert in no distress. Head atraumatic normocephalic. Neck is supple chest rise symmetrical breath sounds clear heart: S1-S2 abdomen soft bowel sounds present extremities without cyanosis Assessment: 1. Acute pyelonephritis 2. Obstructive uropathy, s/p cystoscopy/left JJ stent 10/11/18 3. Coag negative staph bacteremia, cw contaminant 4. Hypertension 5. History of CVA 6. Cholelithiasis Plan: Patient remains stable post procedure, continue antibiotics, urology rec- s. Consultation Date/Type/Reason Admit Date/Time Oct 08, 2018 at 15:26 Initial Consult Date 10/08/18 Type of Consult id Requesting Provider: OBED TADEO MD Date/Time of Note DATE: 10/12/18 TIME: 11:43 Exam/Review of Systems Exam Vitals Vital Signs Date Temp Pulse Resp B/P (MAP) Pulse Ox O2 O2 Flow FiO2 Time Delivery Rate 10/12/18 98.2 85 16 141/65 100 Nasal 07:15 (90) Cannula 10/11/18 2.0 15:39 Intake and Output 10/11/18 10/11/18 10/12/18 1515:00 23:00 07:00 IntakeIntake Total 0 ml 950 ml 1590 ml OutputOutput Total 700 ml 300 ml BalanceBalance -700 ml 950 ml 1290 ml Results Result Diagram: 10/12/18 0436 10/12/18 0436 Results 24hrs Laboratory Tests Test 10/12/18 04:36 White Blood Count 16.6 H Red Blood Count 4.08 L Hemoglobin 11.3 L Hematocrit 34.5 L Mean Corpuscular Volume 84.6 Mean Corpuscular Hemoglobin 27.7 L Mean Corpuscular Hemoglobin Concent 32.8 Red Cell Distribution Width 15.4 H Platelet Count 353 Mean Platelet Volume 10.4 Immature Granulocytes % 0.800 H Neutrophils % 86.9 H Lymphocytes % 8.1 L Monocytes % 4.0 Eosinophils % 0.0 Basophils % 0.2 Nucleated Red Blood Cells % 0.0 Immature Granulocytes # 0.130 H Neutrophils # 14.5 H Lymphocytes # 1.4 Monocytes # 0.7 Eosinophils # 0.0 Basophils # 0.0 Nucleated Red Blood Cells # 0.0 Sodium Level 142 Potassium Level 3.8 Chloride Level 109 Carbon Dioxide Level 25 Anion Gap 8 Blood Urea Nitrogen 13 Creatinine 0.83 Est Glomerular Filtrat Rate mL/min Glucose Level 166 Calcium Level 9.9 JANET COOPER NP Oct 12, 2018 11:45
[2018-10-12 14:12] VITALS: BP 141/60; PULSE 90; RESP 18
--- NOTE | 2018-10-12 16:13 | NUR ---
NUTRITION NOTE: Tolerating PO intake, however expresses that she does not prefer hospital food. Noted eating some snacks brought from family. Pt with stage 2 p/u at buttocks. Declined oral supplements. Will offer 2pm nourishment per pt request. Rec to add daily MVI/Min and Vit C.
--- NOTE | 2018-10-12 17:43 | NUR ---
NURSE NOTE: No acute changes. Pt is AXOX3. At times forgetful. Pt continues to refused SCDs and low air mattress. She insists that she does not need it. At times she would refused turn too, pt insists she does not have pressure injury. Explained to the patient of these actions to help prevent injury, but she refused to listen. Pt ceballos catheter is patent and draining. Jalen [employer] was made aware pt's refusal of SCDs. Pt is off the oxygen. No distress noted. Bed alarm on. Call light within reach.
--- NOTE | 2018-10-12 19:49 | CONS ---
Consult Date/Type/Reason Admit Date/Time Oct 08, 2018 at 15:26 Initial Consult Date 10/08/18 Type of Consultation: Urology Reason for Consultation Distal left ureteral stone Requesting Provider: OBED TADEO MD Date/Time of Note DATE: 10/12/18 TIME: 19:43 Subjective The patient is comfortable and denies having any pain. She is bedridden and has Echevarria catheter and the string of the JJ stent taped onto it. Objective Vitals Vital Signs Date Temp Pulse Resp B/P (MAP) Pulse Ox O2 O2 Flow FiO2 Time Delivery Rate 10/12/18 98.9 90 18 141/60 97 Nasal 14:12 (87) Cannula 10/11/18 2.0 15:39 Intake and Output 10/11/18 10/11/18 10/12/18 1414:59 22:59 06:59 IntakeIntake Total 0 ml 950 ml 1590 ml OutputOutput Total 700 ml 300 ml BalanceBalance -700 ml 950 ml 1290 ml Exam Abdomen is soft and the Echevarria catheter is draining clear to blood-tinged urine Results/Medications Result Diagram: 10/12/18 0436 10/12/18 0436 Results 24 hrs Laboratory Tests Test 10/12/18 04:36 White Blood Count 16.6 H Red Blood Count 4.08 L Hemoglobin 11.3 L Hematocrit 34.5 L Mean Corpuscular Volume 84.6 Mean Corpuscular Hemoglobin 27.7 L Mean Corpuscular Hemoglobin Concent 32.8 Red Cell Distribution Width 15.4 H Platelet Count 353 Mean Platelet Volume 10.4 Immature Granulocytes % 0.800 H Neutrophils % 86.9 H Lymphocytes % 8.1 L Monocytes % 4.0 Eosinophils % 0.0 Basophils % 0.2 Nucleated Red Blood Cells % 0.0 Immature Granulocytes # 0.130 H Neutrophils # 14.5 H Lymphocytes # 1.4 Monocytes # 0.7 Eosinophils # 0.0 Basophils # 0.0 Nucleated Red Blood Cells # 0.0 Sodium Level 142 Potassium Level 3.8 Chloride Level 109 Carbon Dioxide Level 25 Anion Gap 8 Blood Urea Nitrogen 13 Creatinine 0.83 Est Glomerular Filtrat Rate mL/min Glucose Level 166 Calcium Level 9.9 Home Meds Reported Medications Polyethylene Glycol* (Miralax*) 17 Gm Powd.pack, 17 GM PO DAILY, #30 PACKET 10/08/18 Docusate Sodium* (Colace*) 100 Mg Capsule, 100 MG PO BID, #60 CAP 10/08/18 Clopidogrel Bisulfate (Clopidogrel) 75 Mg Tablet, 75 MG PO DAILY, #30 TAB 10/08/18 Benazepril Hcl* (Benazepril Hcl*) 10 Mg Tablet, 10 MG PO DAILY, #30 TAB 10/08/18 Atorvastatin Calcium* (Atorvastatin Calcium*) 20 Mg Tablet, 20 MG PO QHS, #30 TAB 10/08/18 Amlodipine Besylate* (Amlodipine Besylate*) 10 Mg Tablet, 10 MG PO DAILY, #30 TAB 10/08/18 Discontinued Reported Medications Clopidogrel Bisulfate (Clopidogrel) 75 Mg Tablet, 75 MG PO DAILY, #30 TAB 06/03/18 Benazepril Hcl* (Benazepril Hcl*) 10 Mg Tablet, 10 MG PO DAILY, #30 TAB 11/16/16 Atorvastatin* (Atorvastatin*) 40 Mg Tablet, 20 MG PO QHS, #30 TAB 11/16/16 Polyethylene Glycol* (Miralax*) 17 Gm Powd.pack, PO DAILY 11/01/13 Amlodipine Besylate* (Amlodipine Besylate*) 10 Mg Tablet, PO DAILY 11/01/13 Docusate Sodium* (Colace*) 100 Mg Capsule, PO BID 11/01/13 Discontinued Scripts Lactulose* (Lactulose*) 10 Gm/15 Ml Solution, 10 GM PO Q8 PRN for constipation, #300 ML Prov:LIZZ SALCEDO MD 06/05/18 Hydrocodone Bit-Acetaminophen (Hydrocodone Bit-APAP) 5-325MG Tablet, 1 TAB PO Q4H PRN for PAIN for 10 Days, TAB Prov:CHIDI CERDA 12/26/16 Tamsulosin Hcl* (Flomax*) 0.4 Mg Cap.er.24h, 0.4 MG PO DAILY, #60 CAP Prov:LORY FLORES 11/30/16 Medications Current Medications Amlodipine Besylate (Norvasc) 10 mg DAILY PO Last administered on 10/12/18at 08:54; Admin Dose 10 MG; Start 10/09/18 at 09:00 Atorvastatin Calcium (Lipitor) 20 mg QHS PO Last administered on 10/11/18at 20:32; Admin Dose 20 MG; Start 10/08/18 at 21:00 Benazepril HCl (Lotensin) 10 mg DAILY PO Last administered on 10/12/18 08:54; Admin Dose 10 MG; Start 10/09/18 at 09:00 Docusate Sodium (Colace) 100 mg BID PO Last administered on 10/12/18 08:53; Admin Dose 100 MG; Start 10/08/18 at 21:00 Polyethylene Glycol (Miralax) 17 gm DAILY PO Last administered on 10/12/18 08:54; Admin Dose 17 GM; Start 10/09/18 at 09:00 Ondansetron HCl (Zofran Inj) 4 mg Q6H PRN IV NAUSEA AND/OR VOMITING; Start 10/08/18 at 18:00 Acetaminophen (Tylenol Tab) 650 mg Q6H PRN PO PAIN LEVEL 1-3 OR FEVER; Start 10/08/18 at 18:00 Morphine Sulfate (morphine) 2 mg Q4H PRN IV SEVERE PAIN LEVEL 7-10; Start at 18:00 Docusate Sodium (Colace) 100 mg Q12H PRN PO CONSTIPATION; Start 10/08/18 at 18:00 Bisacodyl (Dulcolax) 5 mg DAILY PRN PO CONSTIPATION; Start 10/08/18 at 18:00 Famotidine (Pepcid) 20 mg Q12 PO Last administered on 10/12/18 08:53; Admin Dose 20 MG; Start 10/08/18 at 21:00 Sodium Chloride 1,000 ml @ 70 mls/hr [id number] IV Last administered on 10/12/18 09:47; Admin Dose 70 MLS/HR; Start 10/08/18 at 22:30 Levofloxacin (Levaquin) 500 mg DAILY@06 PO Last administered on 10/12/18at 0 6:32; Admin Dose 500 MG; Start 10/11/18 at 06:00 Assessment/Plan Hospital Course (Demo Recall) 83-year-old -[place] Citizen female presented to the hospital with a 2-day history of worsening, severe, sharp, right flank pain which radiates to the right upper quadrant. There was no associated nausea or vomiting and no dysuria or hematuria. The patient underwent a CT scan of the abdomen and pelvis and that showed: 1. MODERATE LEFT-SIDED HYDROURETERONEPHROSIS SECONDARY TO A 9.2 MM STONE WITHIN THE LEFT DISTAL URETER, LOCATED APPROXIMATELY 4-5 CM FROM THE LEFT UVJ. THERE ALSO APPEARS TO BE A 2.8 MM URETERIC STONE JUST ABOVE THE LARGER STONE. 2. Multiple bilateral renal cysts and right-sided nonobstructing nephrolithiasis. No evidence of right-side obstructive uropathy. 3. No evidence of obstruction. Small hiatal hernia. Stool filled loops of large bowel suggestive of constipation. 4. No evidence of free fluid or free air. No gross focal fluid collections. 5. Status post hysterectomy. Therefore a urological consultation was requested. The patient is known to me from before and previously she did have right ureteral stones for which she underwent cystoscopy placement of a JJ stent and ureteroscopy and laser lithotripsy and removal of the JJ stent. That was back in 2017. The patient is bedridden because of a history of a stroke and weakness in both lower extremities. She underwent a cystoscopy, left ureteroscopy, laser lithotripsy and insertion of left ureteral JJ stent on 10/11/2018. She is doing well and she has no severe pain. Urine culture shows 100,000 colony per mL of gram-negative rods E. coli sensitive to all antibiotic. Patient is on Levaquin Plan is to keep the Echevarria catheter in still at this time to remove the JJ stent which would be probably on Monday and then we could take the Echevarria catheter and the JJ stent at the same time since the stent is taped onto the Echevarria catheter. Continue her antibiotic DEVAUGHN MCNALLY MD Oct 12, 2018 19:49
[2018-10-12 20:00] VITALS: BP 134/65; PULSE 85; RESP 18
[2018-10-12] MEDS: ATORVASTATIN 20 MG TAB PO SCH (20:55)
[2018-10-13] MEDS: SOD CHLORIDE 0.9% 1,000 ML IV SCH ×2 (00:34→15:22)
[2018-10-13 02:00] VITALS: BP 133/64; PULSE 80; RESP 18
[2018-10-13] MEDS: LEVOFLOXACIN 500 MG TAB PO SCH (06:03)
[2018-10-13 08:00] VITALS: BP 142/86; PULSE 80; RESP 18
[2018-10-13] MEDS: DOCUSATE SODIUM 100 MG CAP PO SCH ×2 (08:47→21:02)
[2018-10-13] MEDS: AMLODIPINE 10 MG TAB PO SCH (08:48)
[2018-10-13] MEDS: FAMOTIDINE 20 MG TAB PO SCH ×2 (08:48→21:03)
[2018-10-13] MEDS: BENAZEPRIL 10 MG TAB PO SCH (08:48)
[2018-10-13] MEDS: POLYETHYLENE GLYCOL 17 GM PACKET PO SCH (08:49)
--- NOTE | 2018-10-13 09:00 | CONS ---
Assessment/Plan Assessment/Plan Assessment/Plan (Daily) s/p cystocsopy/lithotripsy Gram Negative Pyelonephritis Left Hydronepohrosis with nephrolithiasis Hx of CVA with BLE paralysis HTN HLP -Continue abx -Continue bp and lipid management - service involved Consultation Date/Type/Reason Admit Date/Time Oct 08, 2018 at 15:26 Initial Consult Date 10/08/18 Type of Consult Cardiology Requesting Provider: OBED TADEO MD Date/Time of Note DATE: 10/13/18 TIME: 09:00 24 HR Interval Summary Free Text/Dictation The patient wtith no cahnge Exam/Review of Systems Vital Signs Vitals Vital Signs Date Temp Pulse Resp B/P (MAP) Pulse Ox O2 O2 Flow FiO2 Time Delivery Rate 10/13/18 98.6 80 18 142/86 96 08:00 (104) 10/13/18 Nasal 02:00 Cannula 10/11/18 2.0 15:39 Intake and Output 10/12/18 10/12/18 10/13/18 1515:00 23:00 07:00 IntakeIntake Total 970 ml 1010 ml 1290 ml OutputOutput Total 500 ml 2200 ml BalanceBalance 970 ml 510 ml -910 ml Labs Result Diagram: 10/13/18 0540 10/13/18 0540 Results 24hrs Laboratory Tests Test 10/13/18 05:40 White Blood Count 12.6 #H Red Blood Count 3.99 L Hemoglobin 10.9 L Hematocrit 33.8 L Mean Corpuscular Volume 84.7 Mean Corpuscular Hemoglobin 27.3 L Mean Corpuscular Hemoglobin Concent 32.2 Red Cell Distribution Width 15.5 H Platelet Count 334 Mean Platelet Volume 10.2 Immature Granulocytes % 0.600 H Neutrophils % 71.5 Lymphocytes % 18.9 Monocytes % 8.5 Eosinophils % 0.1 Basophils % 0.4 Nucleated Red Blood Cells % 0.0 Immature Granulocytes # 0.080 H Neutrophils # 9.0 H Lymphocytes # 2.4 Monocytes # 1.1 H Eosinophils # 0.0 Basophils # 0.1 Nucleated Red Blood Cells # 0.0 Sodium Level 143 Potassium Level 4.0 Chloride Level 111 H Carbon Dioxide Level 25 Anion Gap 7 Blood Urea Nitrogen 11 Creatinine 0.74 Est Glomerular Filtrat Rate mL/min Glucose Level 90 # Calcium Level 9.9 Medications Medications Current Medications Amlodipine Besylate (Norvasc) 10 mg DAILY PO Last administered on 10/13/18 08:48; Admin Dose 10 MG; Start 10/09/18 at 09:00 Atorvastatin Calcium (Lipitor) 20 mg QHS PO Last administered on 10/12/18 20:55; Admin Dose 20 MG; Start 10/08/18 at 21:00 Benazepril HCl (Lotensin) 10 mg DAILY PO Last administered on 10/13/18 08:48; Admin Dose 10 MG; Start 10/09/18 at 09:00 Docusate Sodium (Colace) 100 mg BID PO Last administered on 10/13/18 08:47; Admin Dose 100 MG; Start 10/08/18 at 21:00 Polyethylene Glycol (Miralax) 17 gm DAILY PO Last administered on 10/12/18 08:54; Admin Dose 17 GM; Start 10/09/18 at 09:00 Ondansetron HCl (Zofran Inj) 4 mg Q6H PRN IV NAUSEA AND/OR VOMITING; Start 10/08/18 at 18:00 Acetaminophen (Tylenol Tab) 650 mg Q6H PRN PO PAIN LEVEL 1-3 OR FEVER; Start 10/08/18 at 18:00 Morphine Sulfate (morphine) 2 mg Q4H PRN IV SEVERE PAIN LEVEL 7-10; Start 10/08/18 at 18:00 Docusate Sodium (Colace) 100 mg Q12H PRN PO CONSTIPATION; Start 10/08/18 at 18:00 Bisacodyl (Dulcolax) 5 mg DAILY PRN PO CONSTIPATION; Start 10/08/18 at 18:00 Famotidine (Pepcid) 20 mg Q12 PO Last administered on 10/13/18 08:48; Admin Dose 20 MG; Start 10/08/18 at 21:00 Sodium Chloride 1,000 ml @ 70 mls/hr [id number] IV Last administered on 10/13/18 00:34; Admin Dose 70 MLS/HR; Start 10/08/18 at 22:30 Levofloxacin (Levaquin) 500 mg DAILY@06 PO Last administered on 10/13/18 06:03; Admin Dose 500 MG; Start 10/11/18 at 06:00 MACIE RIVERA MD Oct 13, 2018 09:00
--- NOTE | 2018-10-13 13:15 | PN ---
Date/Time of Note Date/Time of Note DATE: 10/13/18 TIME: 13:14 Assessment/Plan VTE Prophylaxis [place] [facility]: 6 SCD applied [place] [facility] No SCD contraindicated: other Pharmacological prophylaxis: LMWH Lines/Catheters IV [facility]ter Type ([facility] Peripheral IV Urinary Cath still in place: Yes Reason Cath still needed: skin wounds contaminated by urine Assessment/Plan Hospital Course -Acute right flank pain secondary to pyelonephritis, continue pain management. -Left hydronephrosis concurrent with and due to calculi of kidney and ureter. Dr. Pinedo is following in urology consultation. Status post cystoscopy ureteroscopy, laser lithotripsy and insertion of flat ureteral JJ stent on 10/11/2018. -Obstructive uropathy secondary to left ureteral stone. -Pyelonephritis secondary to E. coli urinary tract infection. Continue Levaquin. Dr. Whatley is following in infection disease consultation. -Systemic inflammatory response syndrome secondary to pyelonephritis -Nephrolithiasis -Constipation, will start patient on bowel regimen -History of stroke with bilateral lower extremities paralysis -Hypertension, continue benazepril and Norvasc -Hyperlipidemia, continue statin -Preserved ejection fraction per 2D echo -Right buttock stage II decubitus ulcer present on admission. Continue current wound care per wound care team recommendations, offloading. Result Diagram: 10/13/18 0540 10/13/18 0540 Results 24hrs Laboratory Tests Test 10/13/18 05:40 White Blood Count 12.6 #H Red Blood Count 3.99 L Hemoglobin 10.9 L Hematocrit 33.8 L Mean Corpuscular Volume 84.7 Mean Corpuscular Hemoglobin 27.3 L Mean Corpuscular Hemoglobin Concent 32.2 Red Cell Distribution Width 15.5 H Platelet Count 334 Mean Platelet Volume 10.2 Immature Granulocytes % 0.600 H Neutrophils % 71.5 Lymphocytes % 18.9 Monocytes % 8.5 Eosinophils % 0.1 Basophils % 0.4 Nucleated Red Blood Cells % 0.0 Immature Granulocytes # 0.080 H Neutrophils # 9.0 H Lymphocytes # 2.4 Monocytes # 1.1 H Eosinophils # 0.0 Basophils # 0.1 Nucleated Red Blood Cells # 0.0 Sodium Level 143 Potassium Level 4.0 Chloride Level 111 H Carbon Dioxide Level 25 Anion Gap 7 Blood Urea Nitrogen 11 Creatinine 0.74 Est Glomerular Filtrat Rate mL/min Glucose Level 90 # Calcium Level 9.9 Subjective 24 Hr Interval Summary Free Text/Dictation Patient state medicine she got this morning make her loopy Exam/Review of Systems Exam Vitals Vital Signs Date Temp Pulse Resp B/P (MAP) Pulse Ox O2 O2 Flow FiO2 Time Delivery Rate 10/13/18 98.6 80 18 142/86 96 08:00 (104) 10/13/18 Nasal 02:00 Cannula 10/11/18 2.0 15:39 Intake and Output 10/12/18 10/12/18 10/13/18 1515:00 23:00 07:00 IntakeIntake Total 970 ml 1010 ml 1290 ml OutputOutput Total 500 ml 2200 ml BalanceBalance 970 ml 510 ml -910 ml Constitutional: well developed Head: normocephalic, atraumatic Neck: supple Respiratory: clear to auscultation Gastrointestinal: soft, non-tender Extremities: normal pulses Results Results 24hrs Laboratory Tests Test 10/13/18 05:40 White Blood Count 12.6 #H Red Blood Count 3.99 L Hemoglobin 10.9 L Hematocrit 33.8 L Mean Corpuscular Volume 84.7 Mean Corpuscular Hemoglobin 27.3 L Mean Corpuscular Hemoglobin Concent 32.2 Red Cell Distribution Width 15.5 H Platelet Count 334 Mean Platelet Volume 10.2 Immature Granulocytes % 0.600 H Neutrophils % 71.5 Lymphocytes % 18.9 Monocytes % 8.5 Eosinophils % 0.1 Basophils % 0.4 Nucleated Red Blood Cells % 0.0 Immature Granulocytes # 0.080 H Neutrophils # 9.0 H Lymphocytes # 2.4 Monocytes # 1.1 H Eosinophils # 0.0 Basophils # 0.1 Nucleated Red Blood Cells # 0.0 Sodium Level 143 Potassium Level 4.0 Chloride Level 111 H Carbon Dioxide Level 25 Anion Gap 7 Blood Urea Nitrogen 11 Creatinine 0.74 Est Glomerular Filtrat Rate mL/min Glucose Level 90 # Calcium Level 9.9 Medications Medication Current Medications Amlodipine Besylate (Norvasc) 10 mg DAILY PO Last administered on 10/13/18at 08:48; Admin Dose 10 MG; Start 10/09/18 at 09:00 Atorvastatin Calcium (Lipitor) 20 mg QHS PO Last administered on 10/12/18at 20:55; Admin Dose 20 MG; Start 10/08/18 at 21:00 Benazepril HCl (Lotensin) 10 mg DAILY PO Last administered on 10/13/18 08:48; Admin Dose 10 MG; Start 10/09/18 at 09:00 Docusate Sodium (Colace) 100 mg BID PO Last administered on 10/13/18 08:47; Admin Dose 100 MG; Start 10/08/18 at 21:00 Polyethylene Glycol (Miralax) 17 gm DAILY PO Last administered on 10/12/18 08:54; Admin Dose 17 GM; Start 10/09/18 at 09:00 Ondansetron HCl (Zofran Inj) 4 mg Q6H PRN IV NAUSEA AND/OR VOMITING; Start 10/08/18 at 18:00 Acetaminophen (Tylenol Tab) 650 mg Q6H PRN PO PAIN LEVEL 1-3 OR FEVER; Start 10/08/18 at 18:00 Morphine Sulfate (morphine) 2 mg Q4H PRN IV SEVERE PAIN LEVEL 7-10; Start 10/08/18 at 18:00 Docusate Sodium (Colace) 100 mg Q12H PRN PO CONSTIPATION; Start 10/08/18 at 18:00 Bisacodyl (Dulcolax) 5 mg DAILY PRN PO CONSTIPATION; Start 10/08/18 at 18:00 Famotidine (Pepcid) 20 mg Q12 PO Last administered on 10/13/18at 08:48; Admin Dose 20 MG; Start 10/08/18 at 21:00 Sodium Chloride 1,000 ml @ 70 mls/hr [id number] IV Last administered on 10/13/18 00:34; Admin Dose 70 MLS/HR; Start 10/08/18 at 22:30 Levofloxacin (Levaquin) 500 mg DAILY@06 PO Last administered on 10/13/18 06:03; Admin Dose 500 MG; Start 10/11/18 at 06:00 JACKSON RODRIGUEZ Oct 13, 2018 13:15
--- NOTE | 2018-10-13 13:59 | CONS ---
Consult Date/Type/Reason Admit Date/Time Oct 08, 2018 at 15:26 Initial Consult Date 10/08/18 Type of Consultation: Urology Reason for Consultation Distal left ureteral stone Requesting Provider: OBED TADEO MD Date/Time of Note DATE: 10/13/18 TIME: 13:54 Subjective Patient denies having any pain. She has been jittery after she was given 1 pink pill? this morning. Objective Vitals Vital Signs Date Temp Pulse Resp B/P (MAP) Pulse Ox O2 O2 Flow FiO2 Time Delivery Rate 10/13/18 98.6 80 18 142/86 96 08:00 (104) 10/13/18 Nasal 02:00 Cannula 10/11/18 2.0 15:39 Intake and Output 10/12/18 10/12/18 10/13/18 1515:00 23:00 07:00 IntakeIntake Total 970 ml 1010 ml 1290 ml OutputOutput Total 500 ml 2200 ml BalanceBalance 970 ml 510 ml -910 ml Exam Abdomen the Echevarria catheter is draining clear to blood-tinged urine Results/Medications Result Diagram: 10/13/18 0540 10/13/18 0540 Results 24 hrs Laboratory Tests Test 10/13/18 05:40 White Blood Count 12.6 #H Red Blood Count 3.99 L Hemoglobin 10.9 L Hematocrit 33.8 L Mean Corpuscular Volume 84.7 Mean Corpuscular Hemoglobin 27.3 L Mean Corpuscular Hemoglobin Concent 32.2 Red Cell Distribution Width 15.5 H Platelet Count 334 Mean Platelet Volume 10.2 Immature Granulocytes % 0.600 H Neutrophils % 71.5 Lymphocytes % 18.9 Monocytes % 8.5 Eosinophils % 0.1 Basophils % 0.4 Nucleated Red Blood Cells % 0.0 Immature Granulocytes # 0.080 H Neutrophils # 9.0 H Lymphocytes # 2.4 Monocytes # 1.1 H Eosinophils # 0.0 Basophils # 0.1 Nucleated Red Blood Cells # 0.0 Sodium Level 143 Potassium Level 4.0 Chloride Level 111 H Carbon Dioxide Level 25 Anion Gap 7 Blood Urea Nitrogen 11 Creatinine 0.74 Est Glomerular Filtrat Rate mL/min Glucose Level 90 # Calcium Level 9.9 Home Meds Reported Medications Polyethylene Glycol* (Miralax*) 17 Gm Powd.pack, 17 GM PO DAILY, #30 PACKET 10/08/18 Docusate Sodium* (Colace*) 100 Mg Capsule, 100 MG PO BID, #60 CAP 10/08/18 Clopidogrel Bisulfate (Clopidogrel) 75 Mg Tablet, 75 MG PO DAILY, #30 TAB 10/08/18 Benazepril Hcl* (Benazepril Hcl*) 10 Mg Tablet, 10 MG PO DAILY, #30 TAB 10/08/18 Atorvastatin Calcium* (Atorvastatin Calcium*) 20 Mg Tablet, 20 MG PO QHS, #30 TAB 10/08/18 Amlodipine Besylate* (Amlodipine Besylate*) 10 Mg Tablet, 10 MG PO DAILY, #30 TAB 10/08/18 Discontinued Reported Medications Clopidogrel Bisulfate (Clopidogrel) 75 Mg Tablet, 75 MG PO DAILY, #30 TAB 06/03/18 Benazepril Hcl* (Benazepril Hcl*) 10 Mg Tablet, 10 MG PO DAILY, #30 TAB 11/16/16 Atorvastatin* (Atorvastatin*) 40 Mg Tablet, 20 MG PO QHS, #30 TAB 11/16/16 Polyethylene Glycol* (Miralax*) 17 Gm Powd.pack, PO DAILY 11/01/13 Amlodipine Besylate* (Amlodipine Besylate*) 10 Mg Tablet, PO DAILY 11/01/13 Docusate Sodium* (Colace*) 100 Mg Capsule, PO BID 11/01/13 Discontinued Scripts Lactulose* (Lactulose*) 10 Gm/15 Ml Solution, 10 GM PO Q8 PRN for constipation, #300 ML Prov:LIZZ SALCEDO MD 06/05/18 Hydrocodone Bit-Acetaminophen (Hydrocodone Bit-APAP) 5-325MG Tablet, 1 TAB PO Q4H PRN for PAIN for 10 Days, TAB Prov:CHIDI CERDA 12/26/16 Tamsulosin Hcl* (Flomax*) 0.4 Mg Cap.er.24h, 0.4 MG PO DAILY, #60 CAP Prov:LORY FLORES 11/30/16 Medications Current Medications Amlodipine Besylate (Norvasc) 10 mg DAILY PO Last administered on 10/13/18at 08:48; Admin Dose 10 MG; Start 10/09/18 at 09:00 Atorvastatin Calcium (Lipitor) 20 mg QHS PO Last administered on 10/12/18at 20:55; Admin Dose 20 MG; Start 10/08/18 at 21:00 Benazepril HCl (Lotensin) 10 mg DAILY PO Last administered on 10/13/18 08:48; Admin Dose 10 MG; Start 10/09/18 at 09:00 Docusate Sodium (Colace) 100 mg BID PO Last administered on 10/13/18 08:47; Admin Dose 100 MG; Start 10/08/18 at 21:00 Polyethylene Glycol (Miralax) 17 gm DAILY PO Last administered on 10/12/18at 08:54; Admin Dose 17 GM; Start 10/09/18 at 09:00 Ondansetron HCl (Zofran Inj) 4 mg Q6H PRN IV NAUSEA AND/OR VOMITING; Start 10/08/18 at 18:00 Acetaminophen (Tylenol Tab) 650 mg Q6H PRN PO PAIN LEVEL 1-3 OR FEVER; Start 10/08/18 at 18:00 Morphine Sulfate (morphine) 2 mg Q4H PRN IV SEVERE PAIN LEVEL 7-10; Start 10/08/18 at 18:00 Docusate Sodium (Colace) 100 mg Q12H PRN PO CONSTIPATION; Start 10/08/18 at 18:00 Bisacodyl (Dulcolax) 5 mg DAILY PRN PO CONSTIPATION; Start 10/08/18 at 18:00 Famotidine (Pepcid) 20 mg Q12 PO Last administered on 10/13/18at 08:48; Admin Dose 20 MG; Start 10/08/18 at 21:00 Sodium Chloride 1,000 ml @ 70 mls/hr [id number] IV Last administered on 10/13/18at 00:34; Admin Dose 70 MLS/HR; Start 10/08/18 at 22:30 Levofloxacin (Levaquin) 500 mg DAILY@06 PO Last administered on 10/13/18at 06:03; Admin Dose 500 MG; Start 10/11/18 at 06:00 Assessment/Plan Hospital Course (Demo Recall) 83-year-old -[place] female presented to the hospital with a 2-day history of worsening, severe, sharp, right flank pain which radiates to the right upper quadrant. There was no associated nausea or vomiting and no dysuria or hematuria. The patient underwent a CT scan of the abdomen and pelvis and that showed: 1. MODERATE LEFT-SIDED HYDROURETERONEPHROSIS SECONDARY TO A 9.2 MM STONE WITHIN THE LEFT DISTAL URETER, LOCATED APPROXIMATELY 4-5 CM FROM THE LEFT UVJ. THERE ALSO APPEARS TO BE A 2.8 MM URETERIC STONE JUST ABOVE THE LARGER STONE. 2. Multiple bilateral renal cysts and right-sided nonobstructing nephrolithiasis. No evidence of right-side obstructive uropathy. 3. No evidence of obstruction. Small hiatal hernia. Stool filled loops of large bowel suggestive of constipation. 4. No evidence of free fluid or free air. No gross focal fluid collections. 5. Status post hysterectomy. Therefore a urological consultation was requested. The patient is known to me from before and previously she did have right ureteral stones for which she underwent cystoscopy placement of a JJ stent and ureteroscopy and laser lithotripsy and removal of the JJ stent. That was back in 2016. The patient is bedridden because of a history of a stroke and weakness in both lower extremities. She underwent a cystoscopy, left ureteroscopy, laser lithotripsy and insertion of left ureteral JJ stent on 10/11/2018. She is doing well and she has no pain. Urine culture at the time of surgery showed no growth in 48 hours. She developed a reaction to the Levaquin stating that she is jittery and nervous. Plan is to keep the Echevarria catheter in still at this time to remove the JJ stent which would be probably on Monday and then we could take the Echevarria catheter and the JJ stent at the same time since the stent is taped onto the Echevarria catheter. Discontinue the Levaquin. DEVAUGHN MCNALLY MD Oct 13, 2018 13:59
--- NOTE | 2018-10-13 14:05 | NUR ---
rn notes patient urine is pink, dr. pollard is aware. will continue to monitor.
--- NOTE | 2018-10-13 14:06 | CONS ---
Assessment/Plan Assessment/Plan Hospital Course (Demo Recall) Patient became jittery after getting Levaquin, it was discontinued and now she is on oral Bactrim Microbiology: Urine culture grew E. coli, blood culture growing staph species 1 out of 2 sets, repeat blood cultures pending Antimicrobials: Bactrim Physical examination: Fragile well-developed elderly woman who is alert in no distress. Head atraumatic normocephalic. Neck is supple chest rise symmetrical breath sounds clear heart: S1-S2 abdomen soft bowel sounds present extremities without cyanosis Assessment: 1. Acute pyelonephritis 2. Obstructive uropathy, s/p cystoscopy/left JJ stent 10/11/18 3. Coag negative staph bacteremia, cw contaminant 4. Hypertension 5. History of CVA 6. Cholelithiasis Plan: Overall stable,continue antibiotics, urology rec-s noted. Plan to remove JJ stent next week. Will monitor renal function closely while on Bactrim Consultation Date/Type/Reason Admit Date/Time Oct 08, 2018 at 15:26 Initial Consult Date 10/08/18 Type of Consult id Requesting Provider: OBED TADEO MD Date/Time of Note DATE: 10/13/18 TIME: 14:05 Exam/Review of Systems Exam Vitals Vital Signs Date Temp Pulse Resp B/P (MAP) Pulse Ox O2 O2 Flow FiO2 Time Delivery Rate 10/13/18 98.6 80 18 142/86 96 08:00 (104) 10/13/18 Nasal 02:00 Cannula 10/11/18 2.0 15:39 Intake and Output 10/12/18 10/12/18 10/13/18 1515:00 23:00 07:00 IntakeIntake Total 970 ml 1010 ml 1290 ml OutputOutput Total 500 ml 2200 ml BalanceBalance 970 ml 510 ml -910 ml Results Result Diagram: 10/13/18 0540 10/13/18 0540 Results 24hrs Laboratory Tests Test 10/13/18 05:40 White Blood Count 12.6 #H Red Blood Count 3.99 L Hemoglobin 10.9 L Hematocrit 33.8 L Mean Corpuscular Volume 84.7 Mean Corpuscular Hemoglobin 27.3 L Mean Corpuscular Hemoglobin Concent 32.2 Red Cell Distribution Width 15.5 H Platelet Count 334 Mean Platelet Volume 10.2 Immature Granulocytes % 0.600 H Neutrophils % 71.5 Lymphocytes % 18.9 Monocytes % 8.5 Eosinophils % 0.1 Basophils % 0.4 Nucleated Red Blood Cells % 0.0 Immature Granulocytes # 0.080 H Neutrophils # 9.0 H Lymphocytes # 2.4 Monocytes # 1.1 H Eosinophils # 0.0 Basophils # 0.1 Nucleated Red Blood Cells # 0.0 Sodium Level 143 Potassium Level 4.0 Chloride Level 111 H Carbon Dioxide Level 25 Anion Gap 7 Blood Urea Nitrogen 11 Creatinine 0.74 Est Glomerular Filtrat Rate mL/min Glucose Level 90 # Calcium Level 9.9 Medications Medication Current Medications Amlodipine Besylate (Norvasc) 10 mg DAILY PO Last administered on 10/13/18 08:48; Admin Dose 10 MG; Start 10/09/18 at 09:00 Atorvastatin Calcium (Lipitor) 20 mg QHS PO Last administered on 10/12/18at 2 0:55; Admin Dose 20 MG; Start 10/08/18 at 21:00 Benazepril HCl (Lotensin) 10 mg DAILY PO Last administered on 10/13/18at 08:48; Admin Dose 10 MG; Start 10/09/18 at 09:00 Docusate Sodium (Colace) 100 mg BID PO Last administered on 10/13/18at 08:47; Admin Dose 100 MG; Start 10/08/18 at 21:00 Polyethylene Glycol (Miralax) 17 gm DAILY PO Last administered on 10/12/18 08:54; Admin Dose 17 GM; Start 10/09/18 at 09:00 Ondansetron HCl (Zofran Inj) 4 mg Q6H PRN IV NAUSEA AND/OR VOMITING; Start 10/08/18 at 18:00 Acetaminophen (Tylenol Tab) 650 mg Q6H PRN PO PAIN LEVEL 1-3 OR FEVER; Start 10/08/18 at 18:00 Morphine Sulfate (morphine) 2 mg Q4H PRN IV SEVERE PAIN LEVEL 7-10; Start 10/08/18 at 18:00 Docusate Sodium (Colace) 100 mg Q12H PRN PO CONSTIPATION; Start 10/08/18 at 18:00 Bisacodyl (Dulcolax) 5 mg DAILY PRN PO CONSTIPATION; Start 10/08/18 at 18:00 Famotidine (Pepcid) 20 mg Q12 PO Last administered on 10/13/18at 08:48; Admin Dose 20 MG; Start 10/08/18 at 21:00 Sodium Chloride 1,000 ml @ 70 mls/hr [id number] IV Last administered on 10/13/18at 00:34; Admin Dose 70 MLS/HR; Start 10/08/18 at 22:30 Trimethoprim/ Sulfamethoxazole (Bactrim (Ds)) 1 tab BID PO ; Start 10/13/18 at 21:00; Status UNV JANET COOPER NP Oct 13, 2018 14:06
[2018-10-13 15:00] VITALS: BP 122/58; PULSE 79; RESP 17
[2018-10-13] MEDS ORDERED: morphine LIQ (10 MG/5 ML) CUP PO PRN (15:30)
--- NOTE | 2018-10-13 18:06 | NUR ---
rn notes patient is alert and oriented X4, verbally responsive and able to make needs known, denies pain and discomfort. turned and repositioned as scheduled and dressing intact. all due medicine given, all needs attended to. Echevarria cath in place. as per patient, after Levaquin dose patient feels dizziness and stomach discomfort. MD aware, medicine discontinue and new allergy entered. call light placed within reach and fall precautions observed well. will continue to monitor.
[2018-10-13 20:44] VITALS: BP 136/8; PULSE 87; RESP 19
[2018-10-13 20:46] VITALS: BP 126/71; PULSE 89; RESP 18
[2018-10-13] MEDS: ATORVASTATIN 20 MG TAB PO SCH (21:02)
[2018-10-13] MEDS: TRIMETHOPRIM/SULFAMETHOX (DS) TAB PO SCH (21:03)
[2018-10-13] MEDS: BALSAM PERU/CASTOR OIL 60 GM TUBE TOP SCH (21:03)
--- NOTE | 2018-10-13 22:43 | CONS ---
Assessment/Plan Assessment/Plan Assessment/Plan (Daily) 1. Hypercalcemia, mild 2. Left sided Hydronephrosis due to left ureteral stone- s/p cystoscopy/left JJ stent 10/11/18 3. right sided pyelonephritis, acute 4. H/o HTN 5. H/o HL 6. Hypokalemia 7. UTI with urine Cx growing E coli Plan: IVF NS at 70 cc/hr,BUN/Cr - 11/0.74, other electrolytes stable s/p cystoscopy/left JJ stent 10/11/18 Currently on PO levquin for UTI , ID fol lowing Continue amlodipine and benazepril for HTN will follow up Patient seen in collaboration with [facility] [place] staff Consultation Date/Type/Reason Admit Date/Time Oct 08, 2018 at 3:26 pm Initial Consult Date 10/08/18 Requesting Provider: OBED TADEO MD Date/Time of Note DATE: 10/13/18 TIME: 22:43 24 HR Interval Summary Free Text/Dictation nad feels better BUN/Cr trended to normal - UO 2.7 L/24 hrs - uneventful night per staff Constitutional: improved, requiring IVF Detailed Summary Eyes: no complaints ENT: no complaints Respiratory: no complaints Cardiovascular: no complaints Gastrointestinal: no complaints Genitourinary: no complaints Musculoskeletal: no complaints Skin: no complaints Exam/Review of Systems Exam Vitals Vital Signs Date Temp Pulse Resp B/P (MAP) Pulse Ox O2 O2 Flow FiO2 Time Delivery Rate 10/13/18 98.0 89 18 126/71 98 20:46 (89) 10/13/18 Nasal 15:00 Cannula 10/11/18 2.0 15:39 Intake and Output 10/12/18 10/12/18 10/13/18 1414:59 22:59 06:59 IntakeIntake Total 970 ml 1010 ml 1290 ml OutputOutput Total 500 ml 2200 ml BalanceBalance 970 ml 510 ml -910 ml Constitutional: alert, well developed Psych: nl mood/affect Eyes: EOMI ENMT: nl external ears & nose Neck: non-tender Respiratory: clear to auscultation Cardiovascular: nl pulses, other (s1s2) Gastrointestinal: soft, non-tender Musculoskeletal: muscle weakness Extremities: normal pulses Neurological: nl speech, other Lymph: nontender Results Result Diagram: 10/13/18 0540 10/13/18 0540 Results 24hrs Laboratory Tests Test 10/13/18 05:40 White Blood Count 12.6 #H Red Blood Count 3.99 L Hemoglobin 10.9 L Hematocrit 33.8 L Mean Corpuscular Volume 84.7 Mean Corpuscular Hemoglobin 27.3 L Mean Corpuscular Hemoglobin Concent 32.2 Red Cell Distribution Width 15.5 H Platelet Count 334 Mean Platelet Volume 10.2 Immature Granulocytes % 0.600 H Neutrophils % 71.5 Lymphocytes % 18.9 Monocytes % 8.5 Eosinophils % 0.1 Basophils % 0.4 Nucleated Red Blood Cells % 0.0 Immature Granulocytes # 0.080 H Neutrophils # 9.0 H Lymphocytes # 2.4 Monocytes # 1.1 H Eosinophils # 0.0 Basophils # 0.1 Nucleated Red Blood Cells # 0.0 Sodium Level 143 Potassium Level 4.0 Chloride Level 111 H Carbon Dioxide Level 25 Anion Gap 7 Blood Urea Nitrogen 11 Creatinine 0.74 Est Glomerular Filtrat Rate mL/min Glucose Level 90 # Calcium Level 9.9 Medications Medication Current Medications Amlodipine Besylate (Norvasc) 10 mg DAILY PO Last administered on 10/13/18 08:48; Admin Dose 10 MG; Start 10/09/18 at 09:00 Atorvastatin Calcium (Lipitor) 20 mg QHS PO Last administered on 10/13/18at 21:02; Admin Dose 20 MG; Start 10/08/18 at 21:00 Benazepril HCl (Lotensin) 10 mg DAILY PO Last administered on 10/13/18at 08:48; Admin Dose 10 MG; Start 10/09/18 at 09:00 Docusate Sodium (Colace) 100 mg BID PO Last administered on 10/13/18at 21:02; Admin Dose 100 MG; Start 10/08/18 at 21:00 Polyethylene Glycol (Miralax) 17 gm DAILY PO Last administered on 10/12/18at 08: 54; Admin Dose 17 GM; Start 10/09/18 at 09:00 Ondansetron HCl (Zofran Inj) 4 mg Q6H PRN IV NAUSEA AND/OR VOMITING; Start 10/08/18 at 18:00 Acetaminophen (Tylenol Tab) 650 mg Q6H PRN PO PAIN LEVEL 1-3 OR FEVER; Start 10/08/18 at 18:00 Docusate Sodium (Colace) 100 mg Q12H PRN PO CONSTIPATION; Start 10/08/18 at 18:00 Bisacodyl (Dulcolax) 5 mg DAILY PRN PO CONSTIPATION; Start 10/08/18 at 18:00 Famotidine (Pepcid) 20 mg Q12 PO Last administered on 10/13/18at 21:03; Admin Dose 20 MG; Start 10/08/18 at 21:00 Sodium Chloride 1,000 ml @ 70 mls/hr [id number] IV Last administered on 10/13/18at 15:22; Admin Dose 70 MLS/HR; Start 10/08/18 at 22:30 Trimethoprim/ Sulfamethoxazole (Bactrim (Ds)) 1 tab BID PO Last administered on 10/13/18at 21:03; Admin Dose 1 TAB; Start 10/13/18 at 21:00 Morphine Sulfate (morphine) 6 mg Q4H PRN PO SEVERE PAIN LEVEL 7-10; Start 10/13/18 at 15:30 ELIAN PAL Oct 13, 2018 22:43
[2018-10-14 02:00] VITALS: BP 164/88; PULSE 85; RESP 19
[2018-10-14] MEDS: SOD CHLORIDE 0.9% 1,000 ML IV SCH ×2 (05:53→20:34)
--- NOTE | 2018-10-14 06:16 | NUR ---
Patient calm,cooperative and comfortable on bed, able to make needs known. right side weakness noted, assisted to turn q2 hours. Well tolerated, patient refusing low air loss mattress, explains benefits to patient. Kept clean, dry, safe and comfortable on bed, F/c intact. No bleeding noted at this time. pinkish urine output noted, no clots noted. no foul odor noted. Will continue to monitor.
--- NOTE | 2018-10-14 07:41 | CONS ---
Assessment/Plan Assessment/Plan Assessment/Plan (Daily) 1. Hypercalcemia, mild 2. Left sided Hydronephrosis due to left ureteral stone- s/p cystoscopy/left JJ stent 10/11/18 3. right sided pyelonephritis, acute 4. H/o HTN 5. H/o HL 6. Hypokalemia 7. UTI with urine Cx growing E coli Plan: IVF NS at 70 cc/hr,BUN/Cr - 12/0.72, other electrolytes stable UO- 1.4 L /4 hr s/p cystoscopy/left JJ stent 10/11/18 Currently on PO levquin for UTI , ID following Continue amlodipine and benazepril for HTN will follow up Patient seen in collaboration with [facility] [place] staff Consultation Date/Type/Reason Admit Date/Time Oct 08, 2018 at 15:26 Initial Consult Date 10/08/18 Type of Consult NEPHROLY Reason for Consultation CALI Requesting Provider: OBED TADEO MD Date/Time of Note DATE: 10/14/18 TIME: 07:41 24 HR Interval Summary Constitutional: requiring O2 Detailed Summary Eyes: no complaints ENT: no complaints Respiratory: no complaints Cardiovascular: no complaints Gastrointestinal: no complaints Genitourinary: no complaints Musculoskeletal: no complaints Exam/Review of Systems Exam Vitals Vital Signs Date Temp Pulse Resp B/P (MAP) Pulse Ox O2 O2 Flow FiO2 Time Delivery Rate 10/14/18 98.2 85 19 164/88 96 02:00 (113) 10/13/18 Nasal 15:00 Cannula 10/11/18 2.0 15:39 Intake and Output 10/13/18 10/13/18 10/14/18 1515:00 23:00 07:00 IntakeIntake Total 250 ml 1140 ml 600 ml OutputOutput Total 1400 ml BalanceBalance 250 ml -260 ml 600 ml Constitutional: alert Psych: nl mood/affect Head: atraumatic Eyes: EOMI, nl lids, nl sclera ENMT: nl external ears & nose Neck: non-tender Respiratory: clear to auscultation Cardiovascular: nl pulses, other (S1S2) Musculoskeletal: muscle weakness Extremities: normal pulses Neurological: nl speech, other (alert/resposive) Lymph: nontender Results Result Diagram: 10/14/1852610/14/18526 Results 24hrs Laboratory Tests Test 10/14/18 05:27 White Blood Count 10.5 Red Blood Count 4.06 L Hemoglobin 11.2 L Hematocrit 34.5 L Mean Corpuscular Volume 85.0 Mean Corpuscular Hemoglobin 27.6 L Mean Corpuscular Hemoglobin Concent 32.5 Red Cell Distribution Width 15.7 H Platelet Count 368 Mean Platelet Volume 10.0 Immature Granulocytes % 0.900 H Neutrophils % 60.3 Lymphocytes % 29.3 Monocytes % 7.8 Eosinophils % 1.1 Basophils % 0.6 Nucleated Red Blood Cells % 0.0 Immature Granulocytes # 0.100 H Neutrophils # 6.4 Lymphocytes # 3.1 H Monocytes # 0.8 Eosinophils # 0.1 Basophils # 0.1 Nucleated Red Blood Cells # 0.0 Sodium Level 142 Potassium Level 4.0 Chloride Level 105 Carbon Dioxide Level 26 Anion Gap 11 Blood Urea Nitrogen 12 Creatinine 0.72 Est Glomerular Filtrat Rate mL/min Glucose Level 76 Calcium Level 9.5 Medications Medication Current Medications Amlodipine Besylate (Norvasc) 10 mg DAILY PO Last administered on 10/13/18at 08:48; Admin Dose 10 MG; Start 10/09/18 at 09:00 Atorvastatin Calcium (Lipitor) 20 mg QHS PO Last administered on 10/13/18at 21:02; Admin Dose 20 MG; Start 10/08/18 at 21:00 Benazepril HCl (Lotensin) 10 mg DAILY PO Last administered on 10/13/18 08:48; Admin Dose 10 MG; Start 10/09/18 at 09:00 Docusate Sodium (Colace) 100 mg BID PO Last administered on 10/13/18at 21:02; Admin Dose 100 MG; Start 10/08/18 at 21:00 Polyethylene Glycol (Miralax) 17 gm DAILY PO Last administered on 10/12/18 08:54; Admin Dose 17 GM; Start 10/09/18 at 09:00 Ondansetron HCl (Zofran Inj) 4 mg Q6H PRN IV NAUSEA AND/OR VOMITING; Start 10/08/18 at 18:00 Acetaminophen (Tylenol Tab) 650 mg Q6H PRN PO PAIN LEVEL 1-3 OR FEVER; Start 10/08/18 at 18:00 Docusate Sodium (Colace) 100 mg Q12H PRN PO CONSTIPATION; Start 10/08/18 at 18:00 Bisacodyl (Dulcolax) 5 mg DAILY PRN PO CONSTIPATION; Start 10/08/18 at 18:00 Famotidine (Pepcid) 20 mg Q12 PO Last administered on 10/13/18at 21:03; Admin Dose 20 MG; Start 10/08/18 at 21:00 Sodium Chloride 1,000 ml @ 70 mls/hr [id number] IV Last administered on 10/14/18at 05:53; Admin Dose 70 MLS/HR; Start 10/08/18 at 22:30 Trimethoprim/ Sulfamethoxazole (Bactrim (Ds)) 1 tab BID PO Last administered on 10/13/18at 21:03; Admin Dose 1 TAB; Start 10/13/18 at 21:00 Morphine Sulfate (morphine) 6 mg Q4H PRN PO SEVERE PAIN LEVEL 7-10; Start 10/13/18 at 15:30 ELIAN PAL Oct 14, 2018 07:41
[2018-10-14 08:13] VITALS: BP 133/63; PULSE 74; RESP 16
[2018-10-14] MEDS: TRIMETHOPRIM/SULFAMETHOX (DS) TAB PO SCH ×2 (08:42→20:29)
[2018-10-14] MEDS: FAMOTIDINE 20 MG TAB PO SCH ×2 (08:43→20:29)
[2018-10-14] MEDS: DOCUSATE SODIUM 100 MG CAP PO SCH ×2 (08:43→20:30)
[2018-10-14] MEDS: AMLODIPINE 10 MG TAB PO SCH (08:44)
[2018-10-14] MEDS: BENAZEPRIL 10 MG TAB PO SCH (08:45)
[2018-10-14] MEDS: BALSAM PERU/CASTOR OIL 60 GM TUBE TOP SCH ×2 (08:46→20:33)
[2018-10-14] MEDS: POLYETHYLENE GLYCOL 17 GM PACKET PO SCH (08:49)
--- NOTE | 2018-10-14 13:03 | CONS ---
Consultation Date/Type/Reason Admit Date/Time Oct 08, 2018 at 15:26 Initial Consult Date SUBJECTIVE: Patient is awake, alert and tolerating Bactrim well. No fevers. VS: stable T: 98.2 LABS: reviewed. WBC-10.5 Microbiology: Urine culture grew E. coli, blood culture growing staph species 1 out of 2 sets, repeat blood cultures pending Antimicrobials: Bactrim Physical examination: GEN: Fragile well-developed elderly woman who is alert in no distress. HENT: Head atraumatic normocephalic. Neck is supple PULM: chest rise symmetrical, breath sounds clear Heart: S1-S2 Abdomen soft bowel sounds present Extremities without cyanosis Assessment: 1. Acute pyelonephritis 2. Obstructive uropathy, s/p cystoscopy/left JJ stent 10/11/18 3. Coag negative staph bacteremia, cw contaminant 4. Hypertension 5. History of CVA 6. Cholelithiasis Plan: Pt is stable. Will continue current antibiotic. Urology rec-s noted. Plan to remove JJ stent next week. Renal function-stable. Requesting Provider: OBED TADEO MD Date/Time of Note DATE: 10/14/18 TIME: 13:00 Exam/Review of Systems Exam Vitals Vital Signs Date Temp Pulse Resp B/P (MAP) Pulse Ox O2 O2 Flow FiO2 Time Delivery Rate 10/14/18 Room Air 08:40 10/14/18 98.2 74 16 133/63 95 08:13 (86) 10/11/18 2.0 15:39 Intake and Output 10/13/18 10/13/18 10/14/18 1414:59 22:59 06:59 IntakeIntake Total 250 ml 1140 ml 600 ml OutputOutput Total 1400 ml BalanceBalance 250 ml -260 ml 600 ml Results Result Diagram: 10/14/1852610/14/18526 Results 24hrs Laboratory Tests Test 10/14/18 05:27 White Blood Count 10.5 Red Blood Count 4.06 L Hemoglobin 11.2 L Hematocrit 34.5 L Mean Corpuscular Volume 85.0 Mean Corpuscular Hemoglobin 27.6 L Mean Corpuscular Hemoglobin Concent 32.5 Red Cell Distribution Width 15.7 H Platelet Count 368 Mean Platelet Volume 10.0 Immature Granulocytes % 0.900 H Neutrophils % 60.3 Lymphocytes % 29.3 Monocytes % 7.8 Eosinophils % 1.1 Basophils % 0.6 Nucleated Red Blood Cells % 0.0 Immature Granulocytes # 0.100 H Neutrophils # 6.4 Lymphocytes # 3.1 H Monocytes # 0.8 Eosinophils # 0.1 Basophils # 0.1 Nucleated Red Blood Cells # 0.0 Sodium Level 142 Potassium Level 4.0 Chloride Level 105 Carbon Dioxide Level 26 Anion Gap 11 Blood Urea Nitrogen 12 Creatinine 0.72 Est Glomerular Filtrat Rate mL/min Glucose Level 76 Calcium Level 9.5 Medications Medication Current Medications Amlodipine Besylate (Norvasc) 10 mg DAILY PO Last administered on 10/14/18 08:44; Admin Dose 10 MG; Start 10/09/18 at 09:00 Atorvastatin Calcium (Lipitor) 20 mg QHS PO Last administered on 10/13/18at 21:02; Admin Dose 20 MG; Start 10/08/18 at 21:00 Benazepril HCl (Lotensin) 10 mg DAILY PO Last administered on 10/14/18at 08:45; Admin Dose 10 MG; Start 10/09/18 at 09:00 Docusate Sodium (Colace) 100 mg BID PO Last administered on 10/14/18 08:43; Admin Dose 100 MG; Start 10/08/18 at 21:00 Polyethylene Glycol (Miralax) 17 gm DAILY PO Last administered on 10/12/18at 08:54; Admin Dose 17 GM; Start 10/09/18 at 09:00 Ondansetron HCl (Zofran Inj) 4 mg Q6H PRN IV NAUSEA AND/OR VOMITING; Start 10/08/18 at 18:00 Acetaminophen (Tylenol Tab) 650 mg Q6H PRN PO PAIN LEVEL 1-3 OR FEVER; Start 10/08/18 at 18:00 Docusate Sodium (Colace) 100 mg Q12H PRN PO CONSTIPATION; Start 10/08/18 at 18:00 Bisacodyl (Dulcolax) 5 mg DAILY PRN PO CONSTIPATION; Start 10/08/18 at 18:00 Famotidine (Pepcid) 20 mg Q12 PO Last administered on 10/14/18at 08:43; Admin Dose 20 MG; Start 10/08/18 at 21:00 Sodium Chloride 1,000 ml @ 70 mls/hr [id number] IV Last administered on 10/14/18at 05:53; Admin Dose 70 MLS/HR; Start 10/08/18 at 22:30 Trimethoprim/ Sulfamethoxazole (Bactrim (Ds)) 1 tab BID PO Last administered on 10/14/18at 08:42; Admin Dose 1 TAB; Start 10/13/18 at 21:00 Morphine Sulfate (morphine) 6 mg Q4H PRN PO SEVERE PAIN LEVEL 7-10; Start 10/13/18 at 15:30 LEANNA CLEMENS Oct 14, 2018 13:03
--- NOTE | 2018-10-14 13:24 | PN ---
Date/Time of Note Date/Time of Note DATE: 10/14/18 TIME: 13:23 Assessment/Plan VTE Prophylaxis Risk score (from Ns)>0 risk: 8 SCD applied (from Ns): Yes Pharmacological prophylaxis: LMWH Lines/Catheters IV Catheter Type (from [facility]): Peripheral IV Urinary Cath still in place: Yes Reason Cath still needed: skin wounds contaminated by urine Assessment/Plan Hospital Course -Acute right flank pain secondary to pyelonephritis, continue pain management. -Left hydronephrosis concurrent with and due to calculi of kidney and ureter. Dr. Pinedo is following in urology consultation. Status post cystoscopy ureteroscopy, laser lithotripsy and insertion of flat ureteral JJ stent on 10/11/2018. -Obstructive uropathy secondary to left ureteral stone. -Pyelonephritis secondary to E. coli urinary tract infection. Continue Levaquin. Dr. Whatley is following in infection disease consultation. -Systemic inflammatory response syndrome secondary to pyelonephritis -Nephrolithiasis -Constipation, will start patient on bowel regimen -History of stroke with bilateral lower extremities paralysis -Hypertension, continue benazepril and Norvasc -Hyperlipidemia, continue statin -Preserved ejection fraction per 2D echo -Right buttock stage II decubitus ulcer present on admission. Continue current wound care per wound care team recommendations, offloading. Result Diagram: 10/14/1852610/14/18 05 Results 24hrs Laboratory Tests Test 10/14/18 05:27 White Blood Count 10.5 Red Blood Count 4.06 L Hemoglobin 11.2 L Hematocrit 34.5 L Mean Corpuscular Volume 85.0 Mean Corpuscular Hemoglobin 27.6 L Mean Corpuscular Hemoglobin Concent 32.5 Red Cell Distribution Width 15.7 H Platelet Count 368 Mean Platelet Volume 10.0 Immature Granulocytes % 0.900 H Neutrophils % 60.3 Lymphocytes % 29.3 Monocytes % 7.8 Eosinophils % 1.1 Basophils % 0.6 Nucleated Red Blood Cells % 0.0 Immature Granulocytes # 0.100 H Neutrophils # 6.4 Lymphocytes # 3.1 H Monocytes # 0.8 Eosinophils # 0.1 Basophils # 0.1 Nucleated Red Blood Cells # 0.0 Sodium Level 142 Potassium Level 4.0 Chloride Level 105 Carbon Dioxide Level 26 Anion Gap 11 Blood Urea Nitrogen 12 Creatinine 0.72 Est Glomerular Filtrat Rate mL/min Glucose Level 76 Calcium Level 9.5 Subjective 24 Hr Interval Summary Free Text/Dictation Patient states that the ceballos catheter is leaking Exam/Review of Systems Exam Vitals Vital Signs Date Temp Pulse Resp B/P (MAP) Pulse Ox O2 O2 Flow FiO2 Time Delivery Rate 10/14/18 Room Air 08:40 10/14/18 98.2 74 16 133/63 95 08:13 (86) 10/11/18 2.0 15:39 Intake and Output 10/13/18 10/13/18 10/14/18 1515:00 23:00 07:00 IntakeIntake Total 250 ml 1140 ml 600 ml OutputOutput Total 1400 ml BalanceBalance 250 ml -260 ml 600 ml Constitutional: well developed Head: normocephalic, atraumatic Neck: supple Respiratory: clear to auscultation Cardiovascular: regular rate and rhythm Gastrointestinal: soft, non-tender Extremities: normal pulses Results Results 24hrs Laboratory Tests Test 10/14/18 05:27 White Blood Count 10.5 Red Blood Count 4.06 L Hemoglobin 11.2 L Hematocrit 34.5 L Mean Corpuscular Volume 85.0 Mean Corpuscular Hemoglobin 27.6 L Mean Corpuscular Hemoglobin Concent 32.5 Red Cell Distribution Width 15.7 H Platelet Count 368 Mean Platelet Volume 10.0 Immature Granulocytes % 0.900 H Neutrophils % 60.3 Lymphocytes % 29.3 Monocytes % 7.8 Eosinophils % 1.1 Basophils % 0.6 Nucleated Red Blood Cells % 0.0 Immature Granulocytes # 0.100 H Neutrophils # 6.4 Lymphocytes # 3.1 H Monocytes # 0.8 Eosinophils # 0.1 Basophils # 0.1 Nucleated Red Blood Cells # 0.0 Sodium Level 142 Potassium Level 4.0 Chloride Level 105 Carbon Dioxide Level 26 Anion Gap 11 Blood Urea Nitrogen 12 Creatinine 0.72 Est Glomerular Filtrat Rate mL/min Glucose Level 76 Calcium Level 9.5 Medications Medication Current Medications Amlodipine Besylate (Norvasc) 10 mg DAILY PO Last administered on 10/14/18at 08:44; Admin Dose 10 MG; Start 10/09/18 at 09:00 Atorvastatin Calcium (Lipitor) 20 mg QHS PO Last administered on 10/13/18at 21:02; Admin Dose 20 MG; Start 10/08/18 at 21:00 Benazepril HCl (Lotensin) 10 mg DAILY PO Last administered on 10/14/18 08:45; Admin Dose 10 MG; Start 10/09/18 at 09:00 Docusate Sodium (Colace) 100 mg BID PO Last administered on 10/14/18 08:43; Admin Dose 100 MG; Start 10/08/18 at 21:00 Polyethylene Glycol (Miralax) 17 gm DAILY PO Last administered on 10/12/18 08:54; Admin Dose 17 GM; Start 10/09/18 at 09:00 Ondansetron HCl (Zofran Inj) 4 mg Q6H PRN IV NAUSEA AND/OR VOMITING; Start 10/08/18 at 18:00 Acetaminophen (Tylenol Tab) 650 mg Q6H PRN PO PAIN LEVEL 1-3 OR FEVER; Start 10/08/18 at 18:00 Docusate Sodium (Colace) 100 mg Q12H PRN PO CONSTIPATION; Start 10/08/18 at 18:00 Bisacodyl (Dulcolax) 5 mg DAILY PRN PO CONSTIPATION; Start 10/08/18 at 18:00 Famotidine (Pepcid) 20 mg Q12 PO Last administered on 10/14/18 08:43; Admin Dose 20 MG; Start 10/08/18 at 21:00 Sodium Chloride 1,000 ml @ 70 mls/hr [id number] IV Last administered on 10/14/18 05:53; Admin Dose 70 MLS/HR; Start 10/08/18 at 22:30 Trimethoprim/ Sulfamethoxazole (Bactrim (Ds)) 1 tab BID PO Last administered on 10/14/18 08:42; Admin Dose 1 TAB; Start 10/13/18 at 21:00 Morphine Sulfate (morphine) 6 mg Q4H PRN PO SEVERE PAIN LEVEL 7-10; Start 10/13/18 at 15:30 JACKSON RODRIGUEZ Oct 14, 2018 13:24
--- NOTE | 2018-10-14 14:40 | CONS ---
Consult Date/Type/Reason Admit Date/Time Oct 08, 2018 at 15:26 Initial Consult Date 10/08/18 Type of Consultation: Urology Reason for Consultation Distal left ureteral stone Requesting Provider: OBED TADEO MD Date/Time of Note DATE: 10/14/18 TIME: 14:38 Subjective Patient states that he is comfortable and has no pain. Objective Vitals Vital Signs Date Temp Pulse Resp B/P (MAP) Pulse Ox O2 O2 Flow FiO2 Time Delivery Rate 10/14/18 Room Air 08:40 10/14/18 98.2 74 16 133/63 95 08:13 (86) 10/11/18 2.0 15:39 Intake and Output 10/13/18 10/13/18 10/14/18 1414:59 22:59 06:59 IntakeIntake Total 250 ml 1140 ml 600 ml OutputOutput Total 1400 ml BalanceBalance 250 ml -260 ml 600 ml Exam The Echevarria catheter is draining well and the urine is clear. Results/Medications Result Diagram: 10/14/1852610/14/18526 Results 24 hrs Laboratory Tests Test 10/14/18 05:27 White Blood Count 10.5 Red Blood Count 4.06 L Hemoglobin 11.2 L Hematocrit 34.5 L Mean Corpuscular Volume 85.0 Mean Corpuscular Hemoglobin 27.6 L Mean Corpuscular Hemoglobin Concent 32.5 Red Cell Distribution Width 15.7 H Platelet Count 368 Mean Platelet Volume 10.0 Immature Granulocytes % 0.900 H Neutrophils % 60.3 Lymphocytes % 29.3 Monocytes % 7.8 Eosinophils % 1.1 Basophils % 0.6 Nucleated Red Blood Cells % 0.0 Immature Granulocytes # 0.100 H Neutrophils # 6.4 Lymphocytes # 3.1 H Monocytes # 0.8 Eosinophils # 0.1 Basophils # 0.1 Nucleated Red Blood Cells # 0.0 Sodium Level 142 Potassium Level 4.0 Chloride Level 105 Carbon Dioxide Level 26 Anion Gap 11 Blood Urea Nitrogen 12 Creatinine 0.72 Est Glomerular Filtrat Rate mL/min Glucose Level 76 Calcium Level 9.5 Home Meds Reported Medications Polyethylene Glycol* (Miralax*) 17 Gm Powd.pack, 17 GM PO DAILY, #30 PACKET 10/08/18 Docusate Sodium* (Colace*) 100 Mg Capsule, 100 MG PO BID, #60 CAP 10/08/18 Clopidogrel Bisulfate (Clopidogrel) 75 Mg Tablet, 75 MG PO DAILY, #30 TAB 10/08/18 Benazepril Hcl* (Benazepril Hcl*) 10 Mg Tablet, 10 MG PO DAILY, #30 TAB 10/08/18 Atorvastatin Calcium* (Atorvastatin Calcium*) 20 Mg Tablet, 20 MG PO QHS, #30 TAB 10/08/18 Amlodipine Besylate* (Amlodipine Besylate*) 10 Mg Tablet, 10 MG PO DAILY, #30 TAB 10/08/18 Discontinued Reported Medications Clopidogrel Bisulfate (Clopidogrel) 75 Mg Tablet, 75 MG PO DAILY, #30 TAB 06/03/18 Benazepril Hcl* (Benazepril Hcl*) 10 Mg Tablet, 10 MG PO DAILY, #30 TAB 11/16/16 Atorvastatin* (Atorvastatin*) 40 Mg Tablet, 20 MG PO QHS, #30 TAB 11/16/16 Polyethylene Glycol* (Miralax*) 17 Gm Powd.pack, PO DAILY 11/01/13 Amlodipine Besylate* (Amlodipine Besylate*) 10 Mg Tablet, PO DAILY 11/01/13 Docusate Sodium* (Colace*) 100 Mg Capsule, PO BID 11/01/13 Discontinued Scripts Lactulose* (Lactulose*) 10 Gm/15 Ml Solution, 10 GM PO Q8 PRN for constipation, #300 ML Prov:LIZZ SALCEDO MD 06/05/18 Hydrocodone Bit-Acetaminophen (Hydrocodone Bit-APAP) 5-325MG Tablet, 1 TAB PO Q4H PRN for PAIN for 10 Days, TAB Prov:CHIDI CERDA 12/26/16 Tamsulosin Hcl* (Flomax*) 0.4 Mg Cap.er.24h, 0.4 MG PO DAILY, #60 CAP Prov:LORY FLORES 11/30/16 Medications Current Medications Amlodipine Besylate (Norvasc) 10 mg DAILY PO Last administered on 10/14/18at 08:44; Admin Dose 10 MG; Start 10/09/18 at 09:00 Atorvastatin Calcium (Lipitor) 20 mg QHS PO Last administered on 10/13/18at 21:02; Admin Dose 20 MG; Start 10/08/18 at 21:00 Benazepril HCl (Lotensin) 10 mg DAILY PO Last administered on 1/27/19at 08:45; Admin Dose 10 MG; Start 10/09/18 at 09:00 Docusate Sodium (Colace) 100 mg BID PO Last administered on 10/14/18 08:43; Admin Dose 100 MG; Start 10/08/18 at 21:00 Polyethylene Glycol (Miralax) 17 gm DAILY PO Last administered on 10/12/18 08:54; Admin Dose 17 GM; Start 10/09/18 at 09:00 Ondansetron HCl (Zofran Inj) 4 mg Q6H PRN IV NAUSEA AND/OR VOMITING; Start 10/08/18 at 18:00 Acetaminophen (Tylenol Tab) 650 mg Q6H PRN PO PAIN LEVEL 1-3 OR FEVER; Start 10/08/18 at 18:00 Docusate Sodium (Colace) 100 mg Q12H PRN PO CONSTIPATION; Start 10/08/18 at 18:00 Bisacodyl (Dulcolax) 5 mg DAILY PRN PO CONSTIPATION; Start 10/08/18 at 18:00 Famotidine (Pepcid) 20 mg Q12 PO Last administered on 10/14/18 08:43; Admin Dose 20 MG; Start 10/08/18 at 21:00 Sodium Chloride 1,000 ml @ 70 mls/hr [id number] IV Last administered on 10/14/18 05:53; Admin Dose 70 MLS/HR; Start 10/08/18 at 22:30 Trimethoprim/ Sulfamethoxazole (Bactrim (Ds)) 1 tab BID PO Last administered on 10/14/18 08:42; Admin Dose 1 TAB; Start 10/13/18 at 21:00 Morphine Sulfate (morphine) 6 mg Q4H PRN PO SEVERE PAIN LEVEL 7-10; Start 10/13/18 at 15:30 Assessment/Plan Hospital Course (Demo Recall) 83-year-old -[place] Citizen female presented to the hospital with a 2-day history of worsening, severe, sharp, right flank pain which radiates to the right upper quadrant. There was no associated nausea or vomiting and no dysuria or hematuria. The patient underwent a CT scan of the abdomen and pelvis and that showed: 1. MODERATE LEFT-SIDED HYDROURETERONEPHROSIS SECONDARY TO A 9.2 MM STONE WITHIN THE LEFT DISTAL URETER, LOCATED APPROXIMATELY 4-5 CM FROM THE LEFT UVJ. THERE ALSO APPEARS TO BE A 2.8 MM URETERIC STONE JUST ABOVE THE LARGER STONE. 2. Multiple bilateral renal cysts and right-sided nonobstructing nephrolithiasis. No evidence of right-side obstructive uropathy. 3. No evidence of obstruction. Small hiatal hernia. Stool filled loops of large bowel suggestive of constipation. 4. No evidence of free fluid or free air. No gross focal fluid collections. 5. Status post hysterectomy. Therefore a urological consultation was requested. The patient is known to me from before and previously she did have right ureteral stones for which she underwent cystoscopy placement of a JJ stent and ureteroscopy and laser lithot ripsy and removal of the JJ stent. That was back in 2017. The patient is bedridden because of a history of a stroke and weakness in both lower extremities. She underwent a cystoscopy, left ureteroscopy, laser lithotripsy and insertion of left ureteral JJ stent on 10/11/2018. She is doing well and she has no pain. Urine culture at the time of surgery showed no growth in 48 hours. She developed a reaction to the Levaquin stating that she is jittery and nervous. Plan is to keep the Echevarria catheter in. Remove the JJ stent with a Echevarria catheter in a.m. and then if she is stable she may be discharged home. DEVAUGHN MCNALLY MD Oct 14, 2018 14:40
[2018-10-14 14:53] VITALS: BP 110/52; PULSE 81; RESP 16
--- NOTE | 2018-10-14 17:00 | NUR ---
EOS: In no distress, has not c/o pain this shift. Agreed to turn to sides but on her terms, still refusing to use air loss mattress. Verbalized understanding why she needs to be repositioned at least every 2hrs. Has healing wound sacral area. Echevarria cath leaking, Dr. Pinedo is aware. Urine is pinkish no clot.
[2018-10-14 20:00] VITALS: BP 141/68; PULSE 78; RESP 18
[2018-10-14] MEDS: ATORVASTATIN 20 MG TAB PO SCH (20:29)
[2018-10-15 02:00] VITALS: BP 149/62; PULSE 82; RESP 18
--- NOTE | 2018-10-15 05:00 | NUR ---
Received report from BIANCA RN, assumed care of the patient. Patient asleep,no sob, no fever, no chills, no nausea, no vomiting noted at this time, will continue to monitor.
--- NOTE | 2018-10-15 05:16 | NUR ---
VS stable. Pt denies having pain. Pt refused repositioning Q2H and dressing change at this time. Hourly rounding provided with call light within reach. Fall precautions observed. Report given to MED Gallegos. Will endorse continuity of care.
--- NOTE | 2018-10-15 08:17 | CONS ---
Assessment/Plan Assessment/Plan Assessment/Plan (Daily) s/p cystocsopy/lithotripsy Gram Negative Pyelonephritis Left Hydronepohrosis with nephrolithiasis Hx of CVA with BLE paralysis HTN HLP -Continue abx -Continue bp and lipid management - service involved Consultation Date/Type/Reason Admit Date/Time Oct 08, 2018 at 15:26 Initial Consult Date 10/08/18 Type of Consult Cardiology Requesting Provider: OBED TADEO MD Date/Time of Note DATE: 10/15/18 TIME: 08:17 24 HR Interval Summary Free Text/Dictation the patient with no compaints Exam/Review of Systems Vital Signs Vitals Vital Signs Date Temp Pulse Resp B/P (MAP) Pulse Ox O2 O2 Flow FiO2 Time Delivery Rate 10/15/18 97.9 82 18 149/62 93 02:00 (91) 10/14/18 Room Air 08:40 10/11/18 2.0 15:39 Intake and Output 10/14/18 10/14/18 10/15/18 1515:00 23:00 07:00 IntakeIntake Total 240 ml 2300 ml 595 ml OutputOutput Total 1800 ml 950 ml 1000 ml BalanceBalance -1560 ml 1350 ml -405 ml Labs Result Diagram: 10/15/18 0507 10/15/18 0507 Results 24hrs Laboratory Tests Test 10/15/18 05:07 White Blood Count 9.6 Red Blood Count 4.30 Hemoglobin 11.9 L Hematocrit 36.4 L Mean Corpuscular Volume 84.7 Mean Corpuscular Hemoglobin 27.7 L Mean Corpuscular Hemoglobin Concent 32.7 Red Cell Distribution Width 15.6 H Platelet Count 387 Mean Platelet Volume 9.8 Immature Granulocytes % 1.000 H Neutrophils % 57.4 Lymphocytes % 33.8 Monocytes % 5.2 Eosinophils % 1.9 Basophils % 0.7 Nucleated Red Blood Cells % 0.0 Immature Granulocytes # 0.100 H Neutrophils # 5.5 Lymphocytes # 3.2 H Monocytes # 0.5 Eosinophils # 0.2 Basophils # 0.1 Nucleated Red Blood Cells # 0.0 Sodium Level 141 Potassium Level 3.8 Chloride Level 107 Carbon Dioxide Level 26 Anion Gap 8 Blood Urea Nitrogen 11 Creatinine 0.76 Est Glomerular Filtrat Rate mL/min Glucose Level 68 L Calcium Level 9.7 Medications Medications Current Medications Amlodipine Besylate (Norvasc) 10 mg DAILY PO Last administered on 10/14/18at 0 8:44; Admin Dose 10 MG; Start 10/09/18 at 09:00 Atorvastatin Calcium (Lipitor) 20 mg QHS PO Last administered on 10/14/18at 20:29; Admin Dose 20 MG; Start 10/08/18 at 21:00 Benazepril HCl (Lotensin) 10 mg DAILY PO Last administered on 10/14/18 08:45; Admin Dose 10 MG; Start 10/09/18 at 09:00 Docusate Sodium (Colace) 100 mg BID PO Last administered on 10/14/18 20:30; Admin Dose 100 MG; Start 10/08/18 at 21:00 Polyethylene Glycol (Miralax) 17 gm DAILY PO Last administered on 10/12/18 08:54; Admin Dose 17 GM; Start 10/09/18 at 09:00 Ondansetron HCl (Zofran Inj) 4 mg Q6H PRN IV NAUSEA AND/OR VOMITING; Start 10/08/18 at 18:00 Acetaminophen (Tylenol Tab) 650 mg Q6H PRN PO PAIN LEVEL 1-3 OR FEVER; Start 10/08/18 at 18:00 Docusate Sodium (Colace) 100 mg Q12H PRN PO CONSTIPATION; Start 10/08/18 at 18:00 Bisacodyl (Dulcolax) 5 mg DAILY PRN PO CONSTIPATION; Start 10/08/18 at 18:00 Famotidine (Pepcid) 20 mg Q12 PO Last administered on 10/14/18at 20:29; Admin Dose 20 MG; Start 10/08/18 at 21:00 Sodium Chloride 1,000 ml @ 70 mls/hr [id number] IV Last administered on 10/14/18at 20:34; Admin Dose 70 MLS/HR; Start 10/08/18 at 22:30 Trimethoprim/ Sulfamethoxazole (Bactrim (Ds)) 1 tab BID PO Last administered on 10/14/18at 20:29; Admin Dose 1 TAB; Start 10/13/18 at 21:00 Morphine Sulfate (morphine) 6 mg Q4H PRN PO SEVERE PAIN LEVEL 7-10; Start 10/13/18 at 15:30 MACIE RIVERA MD Oct 15, 2018 08:17
[2018-10-15] MEDS: DOCUSATE SODIUM 100 MG CAP PO SCH ×2 (08:23→20:49)
[2018-10-15] MEDS: POLYETHYLENE GLYCOL 17 GM PACKET PO SCH ×2 (08:23→11:50)
[2018-10-15] MEDS: TRIMETHOPRIM/SULFAMETHOX (DS) TAB PO SCH ×2 (08:24→20:49)
[2018-10-15] MEDS: BENAZEPRIL 10 MG TAB PO SCH (08:24)
[2018-10-15] MEDS: FAMOTIDINE 20 MG TAB PO SCH ×2 (08:24→20:49)
[2018-10-15] MEDS: AMLODIPINE 10 MG TAB PO SCH (08:24)
[2018-10-15] MEDS: BALSAM PERU/CASTOR OIL 60 GM TUBE TOP SCH ×2 (08:30→20:49)
[2018-10-15 08:37] VITALS: BP 170/83; PULSE 78; RESP 18
[2018-10-15] MEDS: SOD CHLORIDE 0.9% 1,000 ML IV SCH (10:04)
[2018-10-15 14:32] VITALS: BP 150/69; PULSE 77; RESP 18
--- NOTE | 2018-10-15 14:32 | CONS ---
Assessment/Plan Assessment/Plan Hospital Course (Demo Recall) No acute changes overnight per report patient is sleeping looks comfortable no fevers overnight Microbiology: Urine culture grew E. coli, blood culture growing staph species 1 out of 2 sets, repeat blood cultures pending Antimicrobials: Bactrim Physical examination: Fragile well-developed elderly woman who is alert in no distress. Head atraumatic normocephalic. Neck is supple chest rise symmetrical breath sounds clear heart: S1-S2 abdomen soft bowel sounds present extremities without cyanosis Assessment: 1. Acute pyelonephritis 2. Obstructive uropathy, s/p cystoscopy/left JJ stent 10/11/18 3. Coag negative staph bacteremia, cw contaminant 4. Hypertension 5. History of CVA 6. Cholelithiasis Plan: Remains stable, continue antibiotics, continue present care, okay to discharge on oral Bactrim for 7 more days when cleared by urology Consultation Date/Type/Reason Admit Date/Time Oct 08, 2018 at 15:26 Initial Consult Date 10/08/18 Type of Consult id Requesting Provider: OBED TADEO MD Date/Time of Note DATE: 10/15/18 TIME: 14:29 Exam/Review of Systems Exam Vitals Vital Signs Date Temp Pulse Resp B/P (MAP) Pulse Ox O2 O2 Flow FiO2 Time Delivery Rate 10/15/18 98.3 78 18 170/83 98 Room Air 08:37 (112) 10/11/18 2.0 15:39 Intake and Output 10/14/18 10/14/18 10/15/18 1515:00 23:00 07:00 IntakeIntake Total 240 ml 2300 ml 595 ml OutputOutput Total 1800 ml 950 ml 1000 ml BalanceBalance -1560 ml 1350 ml -405 ml Results Result Diagram: 10/15/18 0507 10/15/18 0507 Results 24hrs Laboratory Tests Test 10/15/18 05:07 White Blood Count 9.6 Red Blood Count 4.30 Hemoglobin 11.9 L Hematocrit 36.4 L Mean Corpuscular Volume 84.7 Mean Corpuscular Hemoglobin 27.7 L Mean Corpuscular Hemoglobin Concent 32.7 Red Cell Distribution Width 15.6 H Platelet Count 387 Mean Platelet Volume 9.8 Immature Granulocytes % 1.000 H Neutrophils % 57.4 Lymphocytes % 33.8 Monocytes % 5.2 Eosinophils % 1.9 Basophils % 0.7 Nucleated Red Blood Cells % 0.0 Immature Granulocytes # 0.100 H Neutrophils # 5.5 Lymphocytes # 3.2 H Monocytes # 0.5 Eosinophils # 0.2 Basophils # 0.1 Nucleated Red Blood Cells # 0.0 Sodium Level 141 Potassium Level 3.8 Chloride Level 107 Carbon Dioxide Level 26 Anion Gap 8 Blood Urea Nitrogen 11 Creatinine 0.76 Est Glomerular Filtrat Rate mL/min Glucose Level 68 L Calcium Level 9.7 Medications Medication Current Medications Amlodipine Besylate (Norvasc) 10 mg DAILY PO Last administered on 10/15/18 08:24; Admin Dose 10 MG; Start 10/09/18 at 09:00 Atorvastatin Calcium (Lipitor) 20 mg QHS PO Last administered on 10/14/18 20:29; Admin Dose 20 MG; Start 10/08/18 at 21:00 Benazepril HCl (Lotensin) 10 mg DAILY PO Last administered on 10/15/18 08:24; Admin Dose 10 MG; Start 10/09/18 at 09:00 Docusate Sodium (Colace) 100 mg BID PO Last administered on 10/14/18 20:30; Admin Dose 100 MG; Start 10/08/18 at 21:00 Polyethylene Glycol (Miralax) 17 gm DAILY PO Last administered on 10/15/18 11:50; Admin Dose 17 GM; Start 10/09/18 at 09:00 Ondansetron HCl (Zofran Inj) 4 mg Q6H PRN IV NAUSEA AND/OR VOMITING; Start 10/08/18 at 18:00 Acetaminophen (Tylenol Tab) 650 mg Q6H PRN PO PAIN LEVEL 1-3 OR FEVER; Start 10/08/18 at 18:00 Docusate Sodium (Colace) 100 mg Q12H PRN PO CONSTIPATION; Start 10/08/18 at 18:00 Bisacodyl (Dulcolax) 5 mg DAILY PRN PO CONSTIPATION; Start 10/08/18 at 18:00 Famotidine (Pepcid) 20 mg Q12 PO Last administered on 10/15/18 08:24; Admin Dose 20 MG; Start 10/08/18 at 21:00 Sodium Chloride 1,000 ml @ 70 mls/hr [id number] IV Last administered on 1/28/19at 10:04; Admin Dose 70 MLS/HR; Start 10/08/18 at 22:30 Trimethoprim/ Sulfamethoxazole (Bactrim (Ds)) 1 tab BID PO Last administered on 10/15/18at 08:24; Admin Dose 1 TAB; Start 10/13/18 at 21:00 Morphine Sulfate (morphine) 6 mg Q4H PRN PO SEVERE PAIN LEVEL 7-10; Start 10/13/18 at 15:30 JANET COOPER NP Oct 15, 2018 14:32
--- NOTE | 2018-10-15 17:18 | CONS ---
Assessment/Plan Assessment/Plan Assessment/Plan (Daily) 1. Hypercalcemia, mild 2. Left sided Hydronephrosis due to left ureteral stone- s/p cystoscopy/left JJ stent 10/11/18 3. right sided pyelonephritis, acute 4. H/o HTN 5. H/o HL 6. Hypokalemia 7. UTI with urine Cx growing E coli Plan: BUN/Cr 11/0.76, other electrolytes stable- D/c current IV Fluid NS s/p cystoscopy/left JJ stent 10/11/18 Currently on bactrim DS 1 tablet PO BID for UTI Continue amlodipine and benazepril for HTN Folow up with Dr.Kalpesh Salcedo( [phone]) in 1 week upon discharge will follow up Consultation Date/Type/Reason Admit Date/Time Oct 08, 2018 at 15:26 Initial Consult Date 10/08/18 Type of Consult NEPHROLOGY Requesting Provider: OBED TADEO MD Date/Time of Note DATE: 10/15/18 TIME: 17:18 Exam/Review of Systems Exam Vitals Vital Signs Date Temp Pulse Resp B/P (MAP) Pulse Ox O2 O2 Flow FiO2 Time Delivery Rate 10/15/18 98.0 77 18 150/69 96 Room Air 14:32 (96) 10/11/18 2.0 15:39 Intake and Output 10/14/18 10/14/18 10/15/18 1515:00 23:00 07:00 IntakeIntake Total 240 ml 2300 ml 595 ml OutputOutput Total 1800 ml 950 ml 1000 ml BalanceBalance -1560 ml 1350 ml -405 ml Results Result Diagram: 10/15/18 0507 10/15/18 0507 Results 24hrs Laboratory Tests Test 10/15/18 05:07 White Blood Count 9.6 Red Blood Count 4.30 Hemoglobin 11.9 L Hematocrit 36.4 L Mean Corpuscular Volume 84.7 Mean Corpuscular Hemoglobin 27.7 L Mean Corpuscular Hemoglobin Concent 32.7 Red Cell Distribution Width 15.6 H Platelet Count 387 Mean Platelet Volume 9.8 Immature Granulocytes % 1.000 H Neutrophils % 57.4 Lymphocytes % 33.8 Monocytes % 5.2 Eosinophils % 1.9 Basophils % 0.7 Nucleated Red Blood Cells % 0.0 Immature Granulocytes # 0.100 H Neutrophils # 5.5 Lymphocytes # 3.2 H Monocytes # 0.5 Eosinophils # 0.2 Basophils # 0.1 Nucleated Red Blood Cells # 0.0 Sodium Level 141 Potassium Level 3.8 Chloride Level 107 Carbon Dioxide Level 26 Anion Gap 8 Blood Urea Nitrogen 11 Creatinine 0.76 Est Glomerular Filtrat Rate mL/min Glucose Level 68 L Calcium Level 9.7 Medications Medication Current Medications Amlodipine Besylate (Norvasc) 10 mg DAILY PO Last administered on 10/15/18 08:24; Admin Dose 10 MG; Start 10/09/18 at 09:00 Atorvastatin Calcium (Lipitor) 20 mg QHS PO Last administered on 10/14/18 20:29; Admin Dose 20 MG; Start 10/08/18 at 21:00 Benazepril HCl (Lotensin) 10 mg DAILY PO Last administered on 10/15/18 08:24; Admin Dose 10 MG; Start 10/09/18 at 09:00 Docusate Sodium (Colace) 100 mg BID PO Last administered on 10/14/18 20:30; Admin Dose 100 MG; Start 10/08/18 at 21:00 Polyethylene Glycol (Miralax) 17 gm DAILY PO Last administered on 10/15/18 11 :50; Admin Dose 17 GM; Start 10/09/18 at 09:00 Ondansetron HCl (Zofran Inj) 4 mg Q6H PRN IV NAUSEA AND/OR VOMITING; Start 10/08/18 at 18:00 Acetaminophen (Tylenol Tab) 650 mg Q6H PRN PO PAIN LEVEL 1-3 OR FEVER; Start 10/08/18 at 18:00 Docusate Sodium (Colace) 100 mg Q12H PRN PO CONSTIPATION; Start 10/08/18 at 18:00 Bisacodyl (Dulcolax) 5 mg DAILY PRN PO CONSTIPATION; Start 10/08/18 at 18:00 Famotidine (Pepcid) 20 mg Q12 PO Last administered on 10/15/18 08:24; Admin Dose 20 MG; Start 10/08/18 at 21:00 Sodium Chloride 1,000 ml @ 70 mls/hr [id number] IV Last administered on 10/15/18 10:04; Admin Dose 70 MLS/HR; Start 10/08/18 at 22:30 Trimethoprim/ Sulfamethoxazole (Bactrim (Ds)) 1 tab BID PO Last administered on 10/15/18at 08:24; Admin Dose 1 TAB; Start 10/13/18 at 21:00 Morphine Sulfate (morphine) 6 mg Q4H PRN PO SEVERE PAIN LEVEL 7-10; Start 10/13/18 at 15:30 LIZZ SALCEDO MD Oct 15, 2018 17:18
--- NOTE | 2018-10-15 17:34 | PN ---
Date/Time of Note Date/Time of Note DATE: 10/15/18 TIME: 17:33 Assessment/Plan VTE Prophylaxis Risk score (from [facility] [place])>0 risk: 7 SCD applied (from [facility] [place]): Yes Pharmacological prophylaxis: NA/contraindicated Pharm contraindication: bleeding Lines/Catheters IV Catheter Type ([facility] Peripheral IV Urinary Cath still in place: Yes Reason Cath still needed: urinary retention Assessment/Plan Hospital Course Patient is awake alert, denies any pain, urine output is adequate Via Echevarria no hematuria Assessment/Plan -Acute right flank pain secondary to pyelonephritis, resolving. -Left hydronephrosis concurrent with and due to calculi of kidney and ureter. Status post cystoscopy ureteroscopy, laser lithotripsy and insertion of flat ureteral JJ stent on 10/11/2018. -Obstructive uropathy secondary to left ureteral stone. Dr. Pinedo is following in urology consultation. -Pyelonephritis secondary to E. coli urinary tract infection. Continue Bactrim. Dr. Whatley is following in infection disease consultation. -Systemic inflammatory response syndrome secondary to pyelonephritis -Nephrolithiasis -Constipation, will start patient on bowel regimen -History of stroke with bilateral lower extremities paralysis -Hypertension, continue benazepril and Norvasc -Hyperlipidemia, continue statin -Preserved ejection fraction per 2D echo -Right buttock stage II decubitus ulcer present on admission. Continue current wound care per wound care team recommendations, offloading. -Poor medical compliance, patient refusing repositioning, refusing air mattress. Further recommendations based on clinical course. Plan of care discussed with Dr. Hull. Result Diagram: 10/15/18 0507 10/15/18 0507 Results 24hrs Laboratory Tests Test 10/15/18 05:07 White Blood Count 9.6 Red Blood Count 4.30 Hemoglobin 11.9 L Hematocrit 36.4 L Mean Corpuscular Volume 84.7 Mean Corpuscular Hemoglobin 27.7 L Mean Corpuscular Hemoglobin Concent 32.7 Red Cell Distribution Width 15.6 H Platelet Count 387 Mean Platelet Volume 9.8 Immature Granulocytes % 1.000 H Neutrophils % 57.4 Lymphocytes % 33.8 Monocytes % 5.2 Eosinophils % 1.9 Basophils % 0.7 Nucleated Red Blood Cells % 0.0 Immature Granulocytes # 0.100 H Neutrophils # 5.5 Lymphocytes # 3.2 H Monocytes # 0.5 Eosinophils # 0.2 Basophils # 0.1 Nucleated Red Blood Cells # 0.0 Sodium Level 141 Potassium Level 3.8 Chloride Level 107 Carbon Dioxide Level 26 Anion Gap 8 Blood Urea Nitrogen 11 Creatinine 0.76 Est Glomerular Filtrat Rate mL/min Glucose Level 68 L Calcium Level 9.7 Exam/Review of Systems Exam Vitals Vital Signs Date Temp Pulse Resp B/P (MAP) Pulse Ox O2 O2 Flow FiO2 Time Delivery Rate 10/15/18 98.0 77 18 150/69 96 Room Air 14:32 (96) 10/11/18 2.0 15:39 Intake and Output 10/14/18 10/14/18 10/15/18 1515:00 23:00 07:00 IntakeIntake Total 240 ml 2300 ml 595 ml OutputOutput Total 1800 ml 950 ml 1000 ml BalanceBalance -1560 ml 1350 ml -405 ml Exam Constitutional: alert, oriented Respiratory: clear to auscultation Cardiovascular: nl pulses Gastrointestinal: soft, non-tender Genitourinary - Female: CVA tenderness, Echevarria Extremities: normal pulses Neurological: nl mental status, other (Bilateral lower extremity paralysis) Results Results 24hrs Laboratory Tests Test 10/15/18 05:07 White Blood Count 9.6 Red Blood Count 4.30 Hemoglobin 11.9 L Hematocrit 36.4 L Mean Corpuscular Volume 84.7 Mean Corpuscular Hemoglobin 27.7 L Mean Corpuscular Hemoglobin Concent 32.7 Red Cell Distribution Width 15.6 H Platelet Count 387 Mean Platelet Volume 9.8 Immature Granulocytes % 1.000 H Neutrophils % 57.4 Lymphocytes % 33.8 Monocytes % 5.2 Eosinophils % 1.9 Basophils % 0.7 Nucleated Red Blood Cells % 0.0 Immature Granulocytes # 0.100 H Neutrophils # 5.5 Lymphocytes # 3.2 H Monocytes # 0.5 Eosinophils # 0.2 Basophils # 0.1 Nucleated Red Blood Cells # 0.0 Sodium Level 141 Potassium Level 3.8 Chloride Level 107 Carbon Dioxide Level 26 Anion Gap 8 Blood Urea Nitrogen 11 Creatinine 0.76 Est Glomerular Filtrat Rate mL/min Glucose Level 68 L Calcium Level 9.7 Medications Medication Current Medications Amlodipine Besylate (Norvasc) 10 mg DAILY PO Last administered on 10/15/18at 08:24; Admin Dose 10 MG; Start 10/09/18 at 09:00 Atorvastatin Calcium (Lipitor) 20 mg QHS PO Last administered on 10/14/18 20:29; Admin Dose 20 MG; Start 10/08/18 at 21:00 Benazepril HCl (Lotensin) 10 mg DAILY PO Last administered on 10/15/18 08:24; Admin Dose 10 MG; Start 10/09/18 at 09:00 Docusate Sodium (Colace) 100 mg BID PO Last administered on 10/14/18 20:30; Admin Dose 100 MG; Start 10/08/18 at 21:00 Polyethylene Glycol (Miralax) 17 gm DAILY PO Last administered on 10/15/18 11:50; Admin Dose 17 GM; Start 10/09/18 at 09:00 Ondansetron HCl (Zofran Inj) 4 mg Q6H PRN IV NAUSEA AND/OR VOMITING; Start 10/08/18 at 18:00 Acetaminophen (Tylenol Tab) 650 mg Q6H PRN PO PAIN LEVEL 1-3 OR FEVER; Start 10/08/18 at 18:00 Docusate Sodium (Colace) 100 mg Q12H PRN PO CONSTIPATION; Start 10/08/18 at 18:00 Bisacodyl (Dulcolax) 5 mg DAILY PRN PO CONSTIPATION; Start 10/08/18 at 18:00 Famotidine (Pepcid) 20 mg Q12 PO Last administered on 10/15/18 08:24; Admin Dose 20 MG; Start 10/08/18 at 21:00 Sodium Chloride 1,000 ml @ 70 mls/hr [id number] IV Last administered on 10/15/18at 10:04; Admin Dose 70 MLS/HR; Start 10/08/18 at 22:30 Trimethoprim/ Sulfamethoxazole (Bactrim (Ds)) 1 tab BID PO Last administered on 10/15/18 08:24; Admin Dose 1 TAB; Start 10/13/18 at 21:00 Morphine Sulfate (morphine) 6 mg Q4H PRN PO SEVERE PAIN LEVEL 7-10; Start 10/13/18 at 15:30 ERIN FERREIRA Oct 15, 2018 17:34
--- NOTE | 2018-10-15 17:54 | NUR ---
NURSE NOTES: Patient alert and oriented x 4, able to make needs known remained stable throughout the shift with no acute changes noted. no SOB or distress. Denies any pain or discomforts. Patient refused wound care, refused low air loss mattress and refused to be turned and repositioned. Explained to patient several times the rationale of the low air loss mattress and turning and repositioning to the skin but still patient adamantly refused and gives the staff attitude. Reported to Ita William RADIATOR TESTER that patient is non compliant with the wound care, low air loss and turning and repositioning. Echevarria catheter patent and intact. IV patent and intact. All needs were attended and anticipated. Safety precautions observed at all times. Encouraged to use call light and telephone whenever assistance is needed. Call light answered promptly. Will continue to monitor. Will endorse accordingly to next shift for continuity of care.
[2018-10-15 20:00] VITALS: BP 129/65; PULSE 87; RESP 18
[2018-10-15] MEDS: ATORVASTATIN 20 MG TAB PO SCH (20:49)
--- NOTE | 2018-10-15 20:50 | NUR ---
Pt had an incontinence episode. Nurse and RV REPAIR TECHNICIAN assisted in cleaning up pt. Skin was assessed. Pt allowed nurse to do wound care an sacrum. Pt requesting to be laid flat on back. Nurse explained to pt the importance of turning, pt refused and stated she does not want to be turned at all tonight. Pt also refusing to put SCDs on at this time. Will continue to reinforce teaching. Charge nurse made aware. Will continue with plan of care.
--- NOTE | 2018-10-15 21:45 | NUR ---
Dr Pinedo at bedside to remove JJ stent and Echevarria catheter. JJ Stent removed and Echevarria catheter removed. Pt tolerated. No sign of distress noted. Will continue with plan of care.
--- NOTE | 2018-10-15 21:51 | CONS ---
Consult Date/Type/Reason Admit Date/Time Oct 08, 2018 at 15:26 Initial Consult Date 10/08/18 Type of Consultation: Urology Reason for Consultation Distal left ureteral stone Requesting Provider: OBED TADEO MD Date/Time of Note DATE: 10/15/18 TIME: 21:49 Subjective Patient is comfortable and she denies having any pain. Objective Vitals Vital Signs Date Temp Pulse Resp B/P (MAP) Pulse Ox O2 O2 Flow FiO2 Time Delivery Rate 10/15/18 97.2 87 18 129/65 99 20:00 (86) 10/15/18 Room Air 14:32 10/11/18 2.0 15:39 Intake and Output 10/14/18 10/14/18 10/15/18 1515:00 23:00 07:00 IntakeIntake Total 240 ml 2300 ml 595 ml OutputOutput Total 1800 ml 950 ml 1000 ml BalanceBalance -1560 ml 1350 ml -405 ml Exam The Echevarria catheter is draining clear urine. The string that was taped to the Echevarria catheter is floating free. Results/Medications Result Diagram: 10/15/18 0507 10/15/18 0507 Results 24 hrs Laboratory Tests Test 10/15/18 05:07 White Blood Count 9.6 Red Blood Count 4.30 Hemoglobin 11.9 L Hematocrit 36.4 L Mean Corpuscular Volume 84.7 Mean Corpuscular Hemoglobin 27.7 L Mean Corpuscular Hemoglobin Concent 32.7 Red Cell Distribution Width 15.6 H Platelet Count 387 Mean Platelet Volume 9.8 Immature Granulocytes % 1.000 H Neutrophils % 57.4 Lymphocytes % 33.8 Monocytes % 5.2 Eosinophils % 1.9 Basophils % 0.7 Nucleated Red Blood Cells % 0.0 Immature Granulocytes # 0.100 H Neutrophils # 5.5 Lymphocytes # 3.2 H Monocytes # 0.5 Eosinophils # 0.2 Basophils # 0.1 Nucleated Red Blood Cells # 0.0 Sodium Level 141 Potassium Level 3.8 Chloride Level 107 Carbon Dioxide Level 26 Anion Gap 8 Blood Urea Nitrogen 11 Creatinine 0.76 Est Glomerular Filtrat Rate mL/min Glucose Level 68 L Calcium Level 9.7 Home Meds Reported Medications Polyethylene Glycol* (Miralax*) 17 Gm Powd.pack, 17 GM PO DAILY, #30 PACKET 10/08/18 Docusate Sodium* (Colace*) 100 Mg Capsule, 100 MG PO BID, #60 CAP 10/08/18 Clopidogrel Bisulfate (Clopidogrel) 75 Mg Tablet, 75 MG PO DAILY, #30 TAB 10/08/18 Benazepril Hcl* (Benazepril Hcl*) 10 Mg Tablet, 10 MG PO DAILY, #30 TAB 10/08/18 Atorvastatin Calcium* (Atorvastatin Calcium*) 20 Mg Tablet, 20 MG PO QHS, #30 TAB 10/08/18 Amlodipine Besylate* (Amlodipine Besylate*) 10 Mg Tablet, 10 MG PO DAILY, #30 TAB 10/08/18 Discontinued Reported Medications Clopidogrel Bisulfate (Clopidogrel) 75 Mg Tablet, 75 MG PO DAILY, #30 TAB 06/03/18 Benazepril Hcl* (Benazepril Hcl*) 10 Mg Tablet, 10 MG PO DAILY, #30 TAB 11/16/16 Atorvastatin* (Atorvastatin*) 40 Mg Tablet, 20 MG PO QHS, #30 TAB 11/16/16 Polyethylene Glycol* (Miralax*) 17 Gm Powd.pack, PO DAILY 11/01/13 Amlodipine Besylate* (Amlodipine Besylate*) 10 Mg Tablet, PO DAILY 11/01/13 Docusate Sodium* (Colace*) 100 Mg Capsule, PO BID 11/01/13 Discontinued Scripts Lactulose* (Lactulose*) 10 Gm/15 Ml Solution, 10 GM PO Q8 PRN for constipation, #300 ML Prov:LIZZ SALCEDO MD 06/05/18 Hydrocodone Bit-Acetaminophen (Hydrocodone Bit-APAP) 5-325MG Tablet, 1 TAB PO Q4H PRN for PAIN for 10 Days, TAB Prov:CHIDI CERDA 12/26/16 Tamsulosin Hcl* (Flomax*) 0.4 Mg Cap.er.24h, 0.4 MG PO DAILY, #60 CAP Prov:LORY FLORES 11/30/16 Medications Current Medications Amlodipine Besylate (Norvasc) 10 mg DAILY PO Last administered on 10/15/18at 08:24; Admin Dose 10 MG; Start 10/09/18 at 09:00 Atorvastatin Calcium (Lipitor) 20 mg QHS PO Last administered on 10/15/18at 20:49; Admin Dose 20 MG; Start 10/08/18 at 21:00 Benazepril HCl (Lotensin) 10 mg DAILY PO Last administered on 10/15/18 08:24; Admin Dose 10 MG; Start 10/09/18 at 09:00 Docusate Sodium (Colace) 100 mg BID PO Last administered on 10/15/18 20:49; Admin Dose 100 MG; Start 10/08/18 at 21:00 Polyethylene Glycol (Miralax) 17 gm DAILY PO Last administered on 10/15/18 11:50; Admin Dose 17 GM; Start 10/09/18 at 09:00 Ondansetron HCl (Zofran Inj) 4 mg Q6H PRN IV NAUSEA AND/OR VOMITING; Start 10/08/18 at 18:00 Acetaminophen (Tylenol Tab) 650 mg Q6H PRN PO PAIN LEVEL 1-3 OR FEVER; Start 10/08/18 at 18:00 Docusate Sodium (Colace) 100 mg Q12H PRN PO CONSTIPATION; Start 10/08/18 at 18:00 Bisacodyl (Dulcolax) 5 mg DAILY PRN PO CONSTIPATION; Start 10/08/18 at 18:00 Famotidine (Pepcid) 20 mg Q12 PO Last administered on 10/15/18 20:49; Admin Dose 20 MG; Start 10/08/18 at 21:00 Sodium Chloride 1,000 ml @ 70 mls/hr [id number] IV Last administered on 10/15/18 10:04; Admin Dose 70 MLS/HR; Start 10/08/18 at 22:30 Trimethoprim/ Sulfamethoxazole (Bactrim (Ds)) 1 tab BID PO Last administered on 10/15/18 20:49; Admin Dose 1 TAB; Start 10/13/18 at 21:00 Morphine Sulfate (morphine) 6 mg Q4H PRN PO SEVERE PAIN LEVEL 7-10; Start 10/13/18 at 15:30 Assessment/Plan Hospital Course (Demo Recall) 83-year-old -[place] female presented to the hospital with a 2-day history of worsening, severe, sharp, right flank pain which radiates to the right upper quadrant. There was no associated nausea or vomiting and no dysuria or hematuria. The patient underwent a CT scan of the abdomen and pelvis and that showed: 1. MODERATE LEFT-SIDED HYDROURETERONEPHROSIS SECONDARY TO A 9.2 MM STONE WITHIN THE LEFT DISTAL URETER, LOCATED APPROXIMATELY 4-5 CM FROM THE LEFT UVJ. THERE ALSO APPEARS TO BE A 2.8 MM URETERIC STONE JUST ABOVE THE LARGER STONE. 2. Multiple bilateral renal cysts and right-sided nonobstructing nephrolithiasis. No evidence of right-side obstructive uropathy. 3. No evidence of obstruction. Small hiatal hernia. Stool filled loops of large bowel suggestive of constipation. 4. No evidence of free fluid or free air. No gross focal fluid collections. 5. Status post hysterectomy. Therefore a urological consultation was requested. The patient is known to me from before and previously she did have right ureteral stones for which she underwent cystoscopy placement of a JJ stent and ureteroscopy and laser lithotripsy and removal of the JJ stent. That was back in 2017. The patient is bedridden because of a history of a stroke and weakness in both lower extremities. She underwent a cystoscopy, left ureteroscopy, laser lithotripsy and insertion of left ureteral JJ stent on 10/11/2018. She is doing well and she has no pain. Urine culture at the time of surgery showed no growth in 48 hours. She developed a reaction to the Levaquin stating that she is jittery and nervous. As the patient is doing well I removed the Echevarria catheter as well as a JJ stent. If she remains afebrile and has no pain she may be discharged home in a.m. DEVAUGHN MCNALLY MD Oct 15, 2018 21:51
--- NOTE | 2018-10-16 | NUR ---
Pt turned and repositioned, will continue with plan of care
[2018-10-16 02:00] VITALS: BP 160/72; PULSE 81; RESP 19
--- NOTE | 2018-10-16 02:46 | NUR ---
Pt turned and repositioned, will continue with plan of care
--- NOTE | 2018-10-16 06:13 | NUR ---
Pt alert and oriented. No sign of distress noted. Pt refused to be turned and repositioned the rest of the night. All needs attended to. Bed in lowest position, call light within reach and bed alarm on
[2018-10-16 08:00] VITALS: BP 133/71; PULSE 64; RESP 20
--- NOTE | 2018-10-16 08:11 | CONS ---
Assessment/Plan Assessment/Plan Assessment/Plan (Daily) 1. Hypercalcemia, mild 2. Left sided Hydronephrosis due to left ureteral stone- s/p cystoscopy/left JJ stent 10/11/18 3. right sided pyelonephritis, acute 4. H/o HTN 5. H/o HL 6. Hypokalemia 7. UTI with urine Cx growing E coli Plan: BUN/Cr 12/0.76, other electrolytes stable- WBC 13 s/p cystoscopy/left JJ stent 10/11/18 Currently on bactrim DS 1 tablet PO BID for UTI Continue amlodipine and benazepril for HTN Folow up with Dr.Kalpesh Salcedo( [phone]) in 1 week upon discharge will follow up Consultation Date/Type/Reason Admit Date/Time Oct 08, 2018 at 15:26 Initial Consult Date 10/08/18 Type of Consult NEPHROLOGY Requesting Provider: OBED TADEO MD Date/Time of Note DATE: 10/16/18 TIME: 08:11 Exam/Review of Systems Exam Vitals Vital Signs Date Temp Pulse Resp B/P (MAP) Pulse Ox O2 O2 Flow FiO2 Time Delivery Rate 10/16/18 98.2 81 19 160/72 96 02:00 (101) 10/15/18 Room Air 14:32 Intake and Output 10/15/18 10/15/18 10/16/18 1515:00 23:00 07:00 IntakeIntake Total 1005 ml 1200 ml 660 ml OutputOutput Total 1600 ml BalanceBalance 1005 ml -400 ml 660 ml Exam Constitutional: alert, awake, no acute distress Respiratory: clear to auscultation Cardiovascular: nl pulses, other (S1S2) Musculoskeletal: muscle weakness Extremities: normal pulses Neurological: nl speech, other (alert/resposive) Lymph: nontender Results Result Diagram: 10/16/18 0505 10/16/18 0505 Results 24hrs Laboratory Tests Test 10/16/18 05:05 White Blood Count 13.3 #H Red Blood Count 4.32 Hemoglobin 11.8 L Hematocrit 36.4 L Mean Corpuscular Volume 84.3 Mean Corpuscular Hemoglobin 27.3 L Mean Corpuscular Hemoglobin Concent 32.4 Red Cell Distribution Width 15.1 H Platelet Count 417 H Mean Platelet Volume 9.7 Immature Granulocytes % 1.200 H Neutrophils % 72.9 Lymphocytes % 18.2 Monocytes % 5.5 Eosinophils % 1.6 Basophils % 0.6 Nucleated Red Blood Cells % 0.0 Immature Granulocytes # 0.160 H Neutrophils # 9.7 H Lymphocytes # 2.4 Monocytes # 0.7 Eosinophils # 0.2 Basophils # 0.1 Nucleated Red Blood Cells # 0.0 Sodium Level 141 Potassium Level 3.7 Chloride Level 106 Carbon Dioxide Level 25 Anion Gap 10 Blood Urea Nitrogen 12 Creatinine 0.76 Est Glomerular Filtrat Rate mL/min Glucose Level 78 Calcium Level 10.0 Medications Medication Current Medications Amlodipine Besylate (Norvasc) 10 mg DAILY PO Last administered on 10/15/18 08:24; Admin Dose 10 MG; Start 10/09/18 at 09:00 Atorvastatin Calcium (Lipitor) 20 mg QHS PO Last administered on 10/15/18 20:49; Admin Dose 20 MG; Start 10/08/18 at 21:00 Benazepril HCl (Lotensin) 10 mg DAILY PO Last administered on 10/15/18 08:24; Admin Dose 10 MG; Start 10/09/18 at 09:00 Docusate Sodium (Colace) 100 mg BID PO Last administered on 10/15/18 20:49; Admin Dose 100 MG; Start 10/08/18 at 21:00 Polyethylene Glycol (Miralax) 17 gm DAILY PO Last administered on 10/15/18at 11:50; Admin Dose 17 GM; Start 10/09/18 at 09:00 Ondansetron HCl (Zofran Inj) 4 mg Q6H PRN IV NAUSEA AND/OR VOMITING; Start 10/08/18 at 18:00 Acetaminophen (Tylenol Tab) 650 mg Q6H PRN PO PAIN LEVEL 1-3 OR FEVER; Start 10/08/18 at 18:00 Docusate Sodium (Colace) 100 mg Q12H PRN PO CONSTIPATION; Start 10/08/18 at 18:00 Bisacodyl (Dulcolax) 5 mg DAILY PRN PO CONSTIPATION; Start 10/08/18 at 18:00 Famotidine (Pepcid) 20 mg Q12 PO Last administered on 10/15/18at 20:49; Admin Dose 20 MG; Start 10/08/18 at 21:00 Trimethoprim/ Sulfamethoxazole (Bactrim (Ds)) 1 tab BID PO Last administered on 10/15/18at 20:49; Admin Dose 1 TAB; Start 10/13/18 at 21:00 Morphine Sulfate (morphine) 6 mg Q4H PRN PO SEVERE PAIN LEVEL 7-10; Start 10/13/18 at 15:30 LIZZ SALCEDO MD Oct 16, 2018 08:11
[2018-10-16] MEDS: BENAZEPRIL 10 MG TAB PO SCH (08:47)
[2018-10-16] MEDS: AMLODIPINE 10 MG TAB PO SCH (08:47)
[2018-10-16] MEDS: DOCUSATE SODIUM 100 MG CAP PO SCH ×2 (08:48→21:02)
[2018-10-16] MEDS: POLYETHYLENE GLYCOL 17 GM PACKET PO SCH ×2 (08:48→08:54)
[2018-10-16] MEDS: TRIMETHOPRIM/SULFAMETHOX (DS) TAB PO SCH ×2 (08:48→21:02)
[2018-10-16] MEDS: FAMOTIDINE 20 MG TAB PO SCH ×2 (08:48→21:02)
[2018-10-16] MEDS: BALSAM PERU/CASTOR OIL 60 GM TUBE TOP SCH (08:49)
--- NOTE | 2018-10-16 14:45 | NUR ---
SPOKE TO PATIENT ALERT AND ORIENTED, FROM HOME WILL GO HOME VIA AMBULANCE INSURANCE CHAU Zavaleta/Krysta, [facility] AMBUL [phone], WILL CALL ENDORSED TO NURSE FELIZ WITH TRIP #. Addendum: 10/16/18 at 1446 by YAYA NIEVES Amended: Links added.
--- NOTE | 2018-10-16 18:58 | NUR ---
Pt with stable vitals throughout shift. D/C to happen tomorrow as WBC increased overnight. PRODUCT SCIENTIST to come to unit earlier tomorrow to D/C
[2018-10-16 20:19] VITALS: BP 137/60; PULSE 77; RESP 18
[2018-10-16] MEDS: ATORVASTATIN 20 MG TAB PO SCH (21:02)
--- NOTE | 2018-10-16 22:53 | PN ---
Date/Time of Note Date/Time of Note DATE: 10/16/18 TIME: 22:51 Assessment/Plan VTE Prophylaxis [place] [facility] [place] risk: 8 SCD applied [place] [facility] [place] Yes Pharmacological prophylaxis: NA/contraindicated Pharm contraindication: surgical contra Lines/Catheters IV Catheter Type (from [facility]): Peripheral IV Urinary Cath still in place: No Assessment/Plan Hospital Course Patient with increased leukocytosis today however no fever patient status post JJ stent removal yesterday we will check CBC tomorrow if white blood cells are trending down patient can be discharged home Assessment/Plan -Acute right flank pain secondary to pyelonephritis, resolving. -Left hydronephrosis concurrent with and due to calculi of kidney and ureter. Status post cystoscopy ureteroscopy, laser lithotripsy and insertion of flat ureteral JJ stent on 10/11/2018 and subsequent JJ stent removal and Echevarria catheter discontinuation. -Obstructive uropathy secondary to left ureteral stone. Dr. Pinedo is following in urology consultation. -Pyelonephritis secondary to E. coli urinary tract infection. Continue Bactrim. Dr. Whatley is following in infection disease consultation. -Systemic inflammatory response syndrome secondary to pyelonephritis -Nephrolithiasis -Constipation, will start patient on bowel regimen -History of stroke with bilateral lower extremities paralysis -Hypertension, continue benazepril and Norvasc -Hyperlipidemia, continue statin -Preserved ejection fraction per 2D echo -Right buttock stage II decubitus ulcer present on admission. Continue current wound care per wound care team recommendations, offloading. -Poor medical compliance, patient refusing repositioning, refusing air mattress. Further recommendations based on clinical course. Plan of care discussed with Dr. Hull. Result Diagram: 10/16/18 0505 10/16/18 0505 Results 24hrs Laboratory Tests Test 10/16/18 05:05 White Blood Count 13.3 #H Red Blood Count 4.32 Hemoglobin 11.8 L Hematocrit 36.4 L Mean Corpuscular Volume 84.3 Mean Corpuscular Hemoglobin 27.3 L Mean Corpuscular Hemoglobin Concent 32.4 Red Cell Distribution Width 15.1 H Platelet Count 417 H Mean Platelet Volume 9.7 Immature Granulocytes % 1.200 H Neutrophils % 72.9 Lymphocytes % 18.2 Monocytes % 5.5 Eosinophils % 1.6 Basophils % 0.6 Nucleated Red Blood Cells % 0.0 Immature Granulocytes # 0.160 H Neutrophils # 9.7 H Lymphocytes # 2.4 Monocytes # 0.7 Eosinophils # 0.2 Basophils # 0.1 Nucleated Red Blood Cells # 0.0 Sodium Level 141 Potassium Level 3.7 Chloride Level 106 Carbon Dioxide Level 25 Anion Gap 10 Blood Urea Nitrogen 12 Creatinine 0.76 Est Glomerular Filtrat Rate mL/min Glucose Level 78 Calcium Level 10.0 Exam/Review of Systems Exam Vitals Vital Signs Date Temp Pulse Resp B/P (MAP) Pulse Ox O2 O2 Flow FiO2 Time Delivery Rate 10/16/18 97.8 77 18 137/60 97 20:19 (85) 10/15/18 Room Air 14:32 Intake and Output 10/15/18 10/15/18 10/16/18 1414:59 22:59 06:59 IntakeIntake Total 1005 ml 1200 ml 660 ml OutputOutput Total 1600 ml BalanceBalance 1005 ml -400 ml 660 ml Exam Constitutional: alert, oriented Respiratory: clear to auscultation Cardiovascular: nl pulses Gastrointestinal: soft, non-tender Extremities: normal pulses Neurological: nl mental status, other (Bilateral lower extremity paralysis) Results Results 24hrs Laboratory Tests Test 10/16/18 05:05 White Blood Count 13.3 #H Red Blood Count 4.32 Hemoglobin 11.8 L Hematocrit 36.4 L Mean Corpuscular Volume 84.3 Mean Corpuscular Hemoglobin 27.3 L Mean Corpuscular Hemoglobin Concent 32.4 Red Cell Distribution Width 15.1 H Platelet Count 417 H Mean Platelet Volume 9.7 Immature Granulocytes % 1.200 H Neutrophils % 72.9 Lymphocytes % 18.2 Monocytes % 5.5 Eosinophils % 1.6 Basophils % 0.6 Nucleated Red Blood Cells % 0.0 Immature Granulocytes # 0.160 H Neutrophils # 9.7 H Lymphocytes # 2.4 Monocytes # 0.7 Eosinophils # 0.2 Basophils # 0.1 Nucleated Red Blood Cells # 0.0 Sodium Level 141 Potassium Level 3.7 Chloride Level 106 Carbon Dioxide Level 25 Anion Gap 10 Blood Urea Nitrogen 12 Creatinine 0.76 Est Glomerular Filtrat Rate mL/min Glucose Level 78 Calcium Level 10.0 Medications Medication Current Medications Amlodipine Besylate (Norvasc) 10 mg DAILY PO Last administered on 10/16/18at 08:47; Admin Dose 10 MG; Start 10/09/18 at 09:00 Atorvastatin Calcium (Lipitor) 20 mg QHS PO Last administered on 10/16/18 21:02; Admin Dose 20 MG; Start 10/08/18 at 21:00 Benazepril HCl (Lotensin) 10 mg DAILY PO Last administered on 10/16/18 08:47; Admin Dose 10 MG; Start 10/09/18 at 09:00 Docusate Sodium (Colace) 100 mg BID PO Last administered on 10/16/18 21:02; Admin Dose 100 MG; Start 10/08/18 at 21:00 Polyethylene Glycol (Miralax) 17 gm DAILY PO Last administered on 10/15/18 11:50; Admin Dose 17 GM; Start 10/09/18 at 09:00 Ondansetron HCl (Zofran Inj) 4 mg Q6H PRN IV NAUSEA AND/OR VOMITING; Start 10/08/18 at 18:00 Acetaminophen (Tylenol Tab) 650 mg Q6H PRN PO PAIN LEVEL 1-3 OR FEVER; Start 10/08/18 at 18:00 Docusate Sodium (Colace) 100 mg Q12H PRN PO CONSTIPATION; Start 10/08/18 at 18:00 Bisacodyl (Dulcolax) 5 mg DAILY PRN PO CONSTIPATION; Start 10/08/18 at 18:00 Famotidine (Pepcid) 20 mg Q12 PO Last administered on 10/16/18 21:02; Admin Dose 20 MG; Start 10/08/18 at 21:00 Trimethoprim/ Sulfamethoxazole (Bactrim (Ds)) 1 tab BID PO Last administered on 10/16/18at 21:02; Admin Dose 1 TAB; Start 10/13/18 at 21:00 Morphine Sulfate (morphine) 6 mg Q4H PRN PO SEVERE PAIN LEVEL 7-10; Start 10/13/18 at 15:30 ERIN FERREIRA Oct 16, 2018 22:53
[2018-10-17 02:04] VITALS: BP 133/60; PULSE 81; RESP 16
--- NOTE | 2018-10-17 04:45 | NUR ---
1914 Pt refused [id number], no s/s of distress, respirations regular & even. Pt oriented to oncoming shift nurse & H safety protocols including an active bed alarm and hourly rounding. Pt verbalized understanding. Approx 2029 Pt medications administered whole w/ water w/o difficulty. Pt denies the presence of pain. IV patent and hep locked in the left forearm. Pt requires turning [id number] as she can not turn herself. Pt refused repositioning @ this time. Additionally pt refused application of SCD to bilateral lower extremities. Half a ham sandwhich given to pt, as pt requested. Pt ate 50%. Nursing will continue to monitor. 2299 Pt requested to be changed, BM & urine produced. Change and repositioned by RN & RESPIRATORY CARE PROGRAM DIRECTOR. Flaccid R Leg noted. Pt stated she is, "ready for bed!" Nursing will continue to monitor. DC orders received for Pt resting eyes closed, respirations regular and even. Nursing will continue to monitor. Addendum: 10/17/18 at 0629 by GLORIA GARCIA RN 0600 Pt slept well throughout the night, no significant changed noted in pt status. Pt kept clean and dry and repositioned [id number] as pt permitted. Dressing change to the saccrum completed, venelex and allevyn applied. Nursing will continue to monitor pt status and endorse to oncoming nurse to ensure pt safety and continuity of care. DC order active for today 10/17/18
[2018-10-17] MEDS: BALSAM PERU/CASTOR OIL 60 GM TUBE TOP SCH ×2 (05:59→09:19)
[2018-10-17 08:00] VITALS: BP_SYST 115; BP_SYST 140; BP_DIAS 63; BP_DIAS 79; PULSE 80; PULSE 84; RESP 18; RESP 20
[2018-10-17] MEDS: POLYETHYLENE GLYCOL 17 GM PACKET PO SCH (09:18)
[2018-10-17] MEDS: FAMOTIDINE 20 MG TAB PO SCH (09:18)
[2018-10-17] MEDS: AMLODIPINE 10 MG TAB PO SCH (09:18)
[2018-10-17] MEDS: TRIMETHOPRIM/SULFAMETHOX (DS) TAB PO SCH (09:18)
[2018-10-17] MEDS: DOCUSATE SODIUM 100 MG CAP PO SCH (09:18)
[2018-10-17] MEDS: BENAZEPRIL 10 MG TAB PO SCH (09:18)
--- NOTE | 2018-10-17 10:55 | NUR ---
SS Note: LOS/Initial Visit The patient is a 83-year-old -[place] female with history of hypertension, hyperlipidemia history of stroke, nephrolithiasis admitted due to pyelonephritis. SW met with pt to provide support, complete psychosocial assessment, and link pt to appropriate resources as needed. Pt awake, alert, and oriented x4. Pt very pleasant and engaging with SW. Pt reported she is and has 1 daughter. Pt verbally appointed her daughter, Rashida Medel , as surrogate decision maker/spokesperson. No AHCD in place. Pt confirmed address on facesheet and stated she lives with daughter in a first floor apartment with access to elevator. Pt is bedbound with 24/7 care at home. Pt stated she is a recipient of [employer] and daughter, Rashida, is her provider (160 hours/month). Per pt, she has a hospital bed, electric w/c, push w/c, and anup lift at home. Pt receives SSI. She is enrolled in Medicare and [facility]. Pt stated she has transportation arrangements. Pt denied hx of psych illness. Denied hx of substance abuse. SW introduced self and the role of the social work job titles. SW provided support and reassurance. Pt verbalized good understanding regarding current dx and tx plan. SW encouraged pt to verbalize any needs, concerns, or questions which were denied at this time. SW remains available for f/u as needed.
[2018-10-17] MEDS ORDERED: SULF-182 PO (12:05)
--- NOTE | 2018-10-17 12:08 | CONS ---
Assessment/Plan Assessment/Plan Hospital Course (Demo Recall) 1Late entry for October 16, 2018 1400 Patient is alert and feels good, no fevers overnight WBC 13.3 platelets 417 no shift no bands BUN 12 creatinine 0.76 Microbiology: Urine culture grew E. coli, blood culture growing staph species 1 out of 2 sets, repeat blood cultures pending Antimicrobials: Bactrim Physical examination: Fragile well-developed elderly woman who is alert in no distress. Head atraumatic normocephalic. Neck is supple chest rise symmetrical breath sounds clear heart: S1-S2 abdomen soft bowel sounds present extremities without cyanosis Assessment: 1. Acute pyelonephritis 2. Obstructive uropathy, s/p cystoscopy/left JJ stent 10/11/18, status post Echevarria catheter and JJ stent removed 10/15/18 3. Coag negative staph bacteremia, cw contaminant 4. Hypertension 5. History of CVA 6. Cholelithiasis Plan: Remains stable, urology recommendations noted, okay to discharge on current antibiotics for 5 more days Consultation Date/Type/Reason Admit Date/Time Oct 08, 2018 at 15:26 Initial Consult Date 10/08/18 Type of Consult id Requesting Provider: OBED TADEO MD Date/Time of Note DATE: 10/17/18 TIME: 12:06 Exam/Review of Systems Exam Vitals Vital Signs Date Temp Pulse Resp B/P (MAP) Pulse Ox O2 O2 Flow FiO2 Time Delivery Rate 10/17/18 98.8 80 20 140/63 96 08:00 (88) 10/15/18 Room Air 14:32 Intake and Output 10/16/18 10/16/18 10/17/18 1515:00 23:00 07:00 IntakeIntake Total 350 ml 350 ml BalanceBalance 350 ml 350 ml Results Result Diagram: 10/17/18 0526 10/17/18 05 Results 24hrs Laboratory Tests Test 10/17/18 05:26 White Blood Count 13.4 H Red Blood Count 4.47 Hemoglobin 12.3 Hematocrit 37.5 Mean Corpuscular Volume 83.9 Mean Corpuscular Hemoglobin 27.5 L Mean Corpuscular Hemoglobin Concent 32.8 Red Cell Distribution Width 15.6 H Platelet Count 432 H Mean Platelet Volume 9.8 Immature Granulocytes % 0.900 H Neutrophils % 70.0 Lymphocytes % 22.2 Monocytes % 5.2 Eosinophils % 1.1 Basophils % 0.6 Nucleated Red Blood Cells % 0.0 Immature Granulocytes # 0.120 H Neutrophils # 9.4 H Lymphocytes # 3.0 H Monocytes # 0.7 Eosinophils # 0.2 Basophils # 0.1 Nucleated Red Blood Cells # 0.0 Sodium Level 141 Potassium Level 4.1 Chloride Level 102 Carbon Dioxide Level 24 Anion Gap 15 H Blood Urea Nitrogen 16 Creatinine 0.94 Est Glomerular Filtrat Rate mL/min Glucose Level 64 #L Calcium Level 10.1 Medications Medication Current Medications Amlodipine Besylate (Norvasc) 10 mg DAILY PO Last administered on 10/17/18 09:18; Admin Dose 10 MG; Start 10/09/18 at 09:00 Atorvastatin Calcium (Lipitor) 20 mg QHS PO Last administered on 10/16/18 21:02; Admin Dose 20 MG; Start 10/08/18 at 21:00 Benazepril HCl (Lotensin) 10 mg DAILY PO Last administered on 10/17/18 09:18; Admin Dose 10 MG; Start 10/09/18 at 09:00 Docusate Sodium (Colace) 100 mg BID PO Last administered on 10/17/18 09:18; Admin Dose 100 MG; Start 10/08/18 at 21:00 Polyethylene Glycol (Miralax) 17 gm DAILY PO Last administered on 10/17/18 09:18; Admin Dose 17 GM; Start 10/09/18 at 09:00 Ondansetron HCl (Zofran Inj) 4 mg Q6H PRN IV NAUSEA AND/OR VOMITING; Start 10/08/18 at 18:00 Acetaminophen (Tylenol Tab) 650 mg Q6H PRN PO PAIN LEVEL 1-3 OR FEVER; Start 10/08/18 at 18:00 Docusate Sodium (Colace) 100 mg Q12H PRN PO CONSTIPATION; Start 10/08/18 at 18:00 Bisacodyl (Dulcolax) 5 mg DAILY PRN PO CONSTIPATION; Start 10/08/18 at 18:00 Famotidine (Pepcid) 20 mg Q12 PO Last administered on 10/17/18 09:18; Admin Dose 20 MG; Start 10/08/18 at 21:00 Trimethoprim/ Sulfamethoxazole (Bactrim (Ds)) 1 tab BID PO Last administered on 1/30/19at 09:18; Admin Dose 1 TAB; Start 10/13/18 at 21:00 Morphine Sulfate (morphine) 6 mg Q4H PRN PO SEVERE PAIN LEVEL 7-10; Start 10/13/18 at 15:30 JANET COOPER NP Oct 17, 2018 12:08
--- NOTE | 2018-10-17 12:10 | CONS ---
Assessment/Plan Assessment/Plan Hospital Course (Demo Recall) No acute events overnight. All noted. Patient looks comfortable. No fevers overnight Microbiology: Urine culture grew E. coli, blood culture growing staph species 1 out of 2 sets, repeat blood cultures pending Antimicrobials: Bactrim Physical examination: Fragile well-developed elderly woman who is alert in no distress. Head atraumatic normocephalic. Neck is supple chest rise symmetrical breath sounds clear heart: S1-S2 abdomen soft bowel sounds present extremities without cyanosis Assessment: 1. Acute pyelonephritis 2. Obstructive uropathy, s/p cystoscopy/left JJ stent 10/11/18, status post Echevarria catheter and JJ stent removed 10/15/18 3. Coag negative staph bacteremia, cw contaminant 4. Hypertension 5. History of CVA 6. Cholelithiasis Plan: Remains stable, voiding per report after Echevarria being removed, creatinine 0.64, pending discharge on current antibiotics for 5 more days Consultation Date/Type/Reason Admit Date/Time Oct 08, 2018 at 15:26 Initial Consult Date 10/08/18 Type of Consult id Requesting Provider: OBED TADEO MD Date/Time of Note DATE: 10/17/18 TIME: 12:08 Exam/Review of Systems Exam Vitals Vital Signs Date Temp Pulse Resp B/P (MAP) Pulse Ox O2 O2 Flow FiO2 Time Delivery Rate 10/17/18 98.8 80 20 140/63 96 08:00 (88) 10/15/18 Room Air 14:32 Intake and Output 10/16/18 10/16/18 10/17/18 1515:00 23:00 07:00 IntakeIntake Total 350 ml 350 ml BalanceBalance 350 ml 350 ml Results Result Diagram: 10/17/18 0526 10/17/18 05 Results 24hrs Laboratory Tests Test 10/17/18 05:26 White Blood Count 13.4 H Red Blood Count 4.47 Hemoglobin 12.3 Hematocrit 37.5 Mean Corpuscular Volume 83.9 Mean Corpuscular Hemoglobin 27.5 L Mean Corpuscular Hemoglobin Concent 32.8 Red Cell Distribution Width 15.6 H Platelet Count 432 H Mean Platelet Volume 9.8 Immature Granulocytes % 0.900 H Neutrophils % 70.0 Lymphocytes % 22.2 Monocytes % 5.2 Eosinophils % 1.1 Basophils % 0.6 Nucleated Red Blood Cells % 0.0 Immature Granulocytes # 0.120 H Neutrophils # 9.4 H Lymphocytes # 3.0 H Monocytes # 0.7 Eosinophils # 0.2 Basophils # 0.1 Nucleated Red Blood Cells # 0.0 Sodium Level 141 Potassium Level 4.1 Chloride Level 102 Carbon Dioxide Level 24 Anion Gap 15 H Blood Urea Nitrogen 16 Creatinine 0.94 Est Glomerular Filtrat Rate mL/min Glucose Level 64 #L Calcium Level 10.1 Medications Medication Current Medications Amlodipine Besylate (Norvasc) 10 mg DAILY PO Last administered on 10/17/18 09:18; Admin Dose 10 MG; Start 10/09/18 at 09:00 Atorvastatin Calcium (Lipitor) 20 mg QHS PO Last administered on 10/16/18 21:02; Admin Dose 20 MG; Start 10/08/18 at 21:00 Benazepril HCl (Lotensin) 10 mg DAILY PO Last administered on 10/17/18 09:18; Admin Dose 10 MG; Start 10/09/18 at 09:00 Docusate Sodium (Colace) 100 mg BID PO Last administered on 10/17/18 09:18; Admin Dose 100 MG; Start 10/08/18 at 21:00 Polyethylene Glycol (Miralax) 17 gm DAILY PO Last administered on 10/17/18 09:18; Admin Dose 17 GM; Start 10/09/18 at 09:00 Ondansetron HCl (Zofran Inj) 4 mg Q6H PRN IV NAUSEA AND/OR VOMITING; Start 10/08/18 at 18:00 Acetaminophen (Tylenol Tab) 650 mg Q6H PRN PO PAIN LEVEL 1-3 OR FEVER; Start 10/08/18 at 18:00 Docusate Sodium (Colace) 100 mg Q12H PRN PO CONSTIPATION; Start 10/08/18 at 18:00 Bisacodyl (Dulcolax) 5 mg DAILY PRN PO CONSTIPATION; Start 10/08/18 at 18:00 Famotidine (Pepcid) 20 mg Q12 PO Last administered on 10/17/18 09:18; Admin Dose 20 MG; Start 10/08/18 at 21:00 Trimethoprim/ Sulfamethoxazole (Bactrim (Ds)) 1 tab BID PO Last administered on 10/17/18 09:18; Admin Dose 1 TAB; Start 10/13/18 at 21:00 Morphine Sulfate (morphine) 6 mg Q4H PRN PO SEVERE PAIN LEVEL 7-10; Start 10/13/18 at 15:30 JANET COOPER NP Oct 17, 2018 12:10
--- NOTE | 2018-10-17 12:11 | DS ---
Date/Time of Note Date/Time of Note DATE: 10/17/18 TIME: 12:08 Discharge Summary Admission/Discharge Info Admit Date/Time Oct 08, 2018 at 15:26 Discharge Date/Time Patient Condition: Stable Hx of Present Illness The patient is a 83-year-old -[place] female with history of hypertension, hyperlipidemia history of stroke with bilateral lower extremities weakness patient is bed bound, patient with history of nephrolithiasis presented to the emergency room with complaints of 2 days worsening severe sharp right flank pain with radiation to the right upper quadrant. Patient denies any nausea vomiting diarrhea. Patient complains of constipation patient denies any hematochezia denies melena. Patient denies any shortness of breath denies any chest pain denies fever and chills. Patient was noted to have leukocytosis and a urinalysis was positive for urinary tract infection. Patient underwent CT of the abdomen and pelvis which revealed moderate left-sided hydroureteronephrosis secondary to a 9 mm stone within the left distal ureter. Patient was started on broad-spectrum antibiotic and was giving Toradol for pain with some relief. Patient is admitted for further evaluation and management to medical surgical floor. Hospital Course -Acute right flank pain secondary to pyelonephritis, resolving. -Left hydronephrosis concurrent with and due to calculi of kidney and ureter. Status post cystoscopy ureteroscopy, laser lithotripsy and insertion of flat ureteral JJ stent on 10/11/2018 and subsequent JJ stent removal and Echevarria catheter discontinuation on 10/15/18. Pt is voiding. -Obstructive uropathy secondary to left ureteral stone, resolved. Dr. Pinedo is following in urology consultation. -Pyelonephritis secondary to E. coli urinary tract infection. Continue Bactrim. Dr. Whatley is following in infection disease consultation. -Systemic inflammatory response syndrome secondary to pyelonephritis -Nephrolithiasis -Constipation, continue on bowel regimen -History of stroke with bilateral lower extremities paralysis -Hypertension, continue benazepril and Norvasc -Hyperlipidemia, continue statin -Preserved ejection fraction per 2D echo -Right buttock stage II decubitus ulcer present on admission. Continue current wound care per wound care team recommendations, offloading. -Poor medical compliance, patient refusing repositioning, refusing air mattress. Plan of care discussed with Dr. Hull. Home Meds Active Scripts Sulfamethoxazole/Trimethoprim (Sulfamethoxazole-Tmp Ds Tablet) 1 Each Tablet, 1 TAB PO BID for 6 Days, TAB Prov:ERIN FERREIRA 10/17/18 Reported Medications Polyethylene Glycol* (Miralax*) 17 Gm Powd.pack, 17 GM PO DAILY, #30 PACKET 10/08/18 Docusate Sodium* (Colace*) 100 Mg Capsule, 100 MG PO BID, #60 CAP 10/08/18 Clopidogrel Bisulfate (Clopidogrel) 75 Mg Tablet, 75 MG PO DAILY, #30 TAB 10/08/18 Benazepril Hcl* (Benazepril Hcl*) 10 Mg Tablet, 10 MG PO DAILY, #30 TAB 10/08/18 Atorvastatin Calcium* (Atorvastatin Calcium*) 20 Mg Tablet, 20 MG PO QHS, #30 TAB 10/08/18 Amlodipine Besylate* (Amlodipine Besylate*) 10 Mg Tablet, 10 MG PO DAILY, #30 TAB 10/08/18 Follow-up Plan f/up with PMD in 2 weeks. Primary Care Provider Markel Cm MD Time spent on discharge: > 30 minutes Pending Labs Laboratory Tests Test 10/17/18 05:26 White Blood Count 13.4 10^3/ul (4.8-10.8) Red Blood Count 4.47 10^6/ul (4.20-5.40) Hemoglobin 12.3 g/dl (12.0-16.0) Hematocrit 37.5 % (37.0-47.0) Mean Corpuscular Volume 83.9 fl (82.0-101.0) Mean Corpuscular Hemoglobin 27.5 pg (29.0-33.0) Mean Corpuscular Hemoglobin Concent 32.8 g/dl (32.0-37.0) Red Cell Distribution Width 15.6 % (11.5-14.5) Platelet Count 432 10^3/UL (140-415) Mean Platelet Volume 9.8 fl (7.4-10.4) Immature Granulocytes % 0.900 % (0.001-0.429) Neutrophils % 70.0 % (39.0-77.0) Lymphocytes % 22.2 % (15.0-51.0) Monocytes % 5.2 % (0.0-11.0) Eosinophils % 1.1 % (0.0-7.0) Basophils % 0.6 % (0.0-2.0) Nucleated Red Blood Cells % 0.0 /100WBC (0.0-0.0) Immature Granulocytes # 0.120 10^3/ul (0.0-0.031) Neutrophils # 9.4 10^3/ul (1.6-7.5) Lymphocytes # 3.0 10^3/ul (0.8-2.9) Monocytes # 0.7 10^3/ul (0.3-0.9) Eosinophils # 0.2 10^3/ul (0.0-0.5) Basophils # 0.1 10^3/ul (0.0-0.1) Nucleated Red Blood Cells # 0.0 10^3/ul (0.0-0.0) Sodium Level 141 mmol/L (135-144) Potassium Level 4.1 mmol/L (3.5-5.1) Chloride Level 102 mmol/L (97-110) Carbon Dioxide Level 24 mmol/L (21-31) Anion Gap 15 (5-13) Blood Urea Nitrogen 16 mg/dl (7-20) Creatinine 0.94 mg/dl (0.44-1.00) Est Glomerular Filtrat Rate mL/min mL/min (>60) Glucose Level 64 mg/dl (70-220) Calcium Level 10.1 mg/dl (8.4-10.2) ERIN FERREIRA Oct 17, 2018 12:11
--- NOTE | 2018-10-17 12:45 | NUR ---
Patient being discharged home with home health in stable condition. No signs of distress, shortness of breath and denies pain. IV removed, patient cleaned and ready to go. Discussed discharge instructions, health care summary and prescription with patient. Patient aware to follow up with PMD in 2 weeks. Daughter Rashida aware of discharge. Spoke to [facility] ([phone]) and they will be here by 1430 to take patient home. Patient and daughter aware. All belongings with patient.
--- NOTE | 2018-10-17 14:20 | NUR ---
Patient picked up by [facility]. Daughter aware patient is leaving. All belongings with patient.
--- NOTE | 2018-10-17 15:56 | CONS ---
Assessment/Plan Assessment/Plan Assessment/Plan (Daily) 1. Hypercalcemia, mild 2. Left sided Hydronephrosis due to left ureteral stone- s/p cystoscopy/left JJ stent 10/11/18 3. right sided pyelonephritis, acute 4. H/o HTN 5. H/o HL 6. Hypokalemia 7. UTI with urine Cx growing E coli Plan: BUN/Cr 12/0.76, other electrolytes stable- WBC 13 s/p cystoscopy/left JJ stent 10/11/18 Currently on bactrim DS 1 tablet PO BID for UTI Continue amlodipine and benazepril for HTN Folow up with Dr.Kalpesh Salcedo( [phone]) in 1 week upon discharge will follow up Consultation Date/Type/Reason Admit Date/Time Oct 08, 2018 at 15:26 Initial Consult Date 10/08/18 Type of Consult NEPHROLOGY Requesting Provider: OBED TADEO MD Date/Time of Note DATE: 10/17/18 TIME: 15:55 Exam/Review of Systems Exam Vitals Vital Signs Date Temp Pulse Resp B/P (MAP) Pulse Ox O2 O2 Flow FiO2 Time Delivery Rate 10/17/18 98.8 80 20 140/63 96 08:00 (88) 10/15/18 Room Air 14:32 Intake and Output 10/16/18 10/16/18 10/17/18 1515:00 23:00 07:00 IntakeIntake Total 350 ml 350 ml BalanceBalance 350 ml 350 ml Exam Constitutional: alert, awake, no acute distress Respiratory: clear to auscultation Cardiovascular: nl pulses, other (S1S2) Musculoskeletal: muscle weakness Extremities: normal pulses Neurological: nl speech, other (alert/resposive) Lymph: nontender Results Result Diagram: 10/17/18 0526 10/17/18 0526 Results 24hrs Laboratory Tests Test 10/17/18 05:26 White Blood Count 13.4 H Red Blood Count 4.47 Hemoglobin 12.3 Hematocrit 37.5 Mean Corpuscular Volume 83.9 Mean Corpuscular Hemoglobin 27.5 L Mean Corpuscular Hemoglobin Concent 32.8 Red Cell Distribution Width 15.6 H Platelet Count 432 H Mean Platelet Volume 9.8 Immature Granulocytes % 0.900 H Neutrophils % 70.0 Lymphocytes % 22.2 Monocytes % 5.2 Eosinophils % 1.1 Basophils % 0.6 Nucleated Red Blood Cells % 0.0 Immature Granulocytes # 0.120 H Neutrophils # 9.4 H Lymphocytes # 3.0 H Monocytes # 0.7 Eosinophils # 0.2 Basophils # 0.1 Nucleated Red Blood Cells # 0.0 Sodium Level 141 Potassium Level 4.1 Chloride Level 102 Carbon Dioxide Level 24 Anion Gap 15 H Blood Urea Nitrogen 16 Creatinine 0.94 Est Glomerular Filtrat Rate mL/min Glucose Level 64 #L Calcium Level 10.1 LIZZ SALCEDO MD Oct 17, 2018 15:56
== END 2018-10-17 14:20 | disposition home health service (06) | DRG 660 ==
LOC: E/R 10:49 → PP2 15:26
PROVIDERS: ADMIT Internal Medicine; ATTEND Internal Medicine
PROC: 0T778DZ Dilation of Left Ureter with Intraluminal Device, Via Natural or Artificial Opening Endoscopic (ICD-10-PCS; 2018-10-11)
PROC: 0TC78ZZ Extirpation of Matter from Left Ureter, Via Natural or Artificial Opening Endoscopic (ICD-10-PCS; principal; 2018-10-11 12:30)
DX: N10 Acute pyelonephritis (principal); G82.20 Paraplegia, unspecified; N13.2 Hydronephrosis with renal and ureteral calculous obstruction; E83.52 Hypercalcemia; I69.365 Other paralytic syndrome following cerebral infarction, bilateral; L89.312 Pressure ulcer of right buttock, stage 2; I10 Essential (primary) hypertension; E78.5 Hyperlipidemia, unspecified; K59.00 Constipation, unspecified; B96.20 Unspecified Escherichia coli [E. coli] as the cause of diseases classified elsewhere; E87.6 Hypokalemia; N28.1 Cyst of kidney, acquired; K80.20 Calculus of gallbladder without cholecystitis without obstruction; Z91.19 Patient's noncompliance with other medical treatment and regimen; Z74.01 Bed confinement status
CPT/HCPCS: 36415; 71045; 71250; 74018; 74176; 74430; 80048; 80053; 81001; 81003; 83605; 83690; 85025; 85610; 85730; 87040; 87086; 88300; 93306; 96374; 96375; C2617; J0690; J0692; J1100; J1650; J1885; J2250; J2405; J2543; J2710; J3010; J3370; J7030; J7050